=== PATIENT | male | born 1950 | race Caucasian/White ===

== ENCOUNTER 2020-10-05 09:29 | Emergency (ER) | payer MEDICARE, OTHER, SELFPAY ==
[2020-10-05 10:00] VITALS: BP 165/87; PULSE 63; RESP 16; TEMP 36.6; O2SAT 100; BMI 29.8
--- NOTE | 2020-10-05 10:15 | HMH.EDUTC ---
[facility] [place] Clinical Impression: Exposure to COVID-19 virus Disposition: Home, Self-Care Condition on Discharge: Good Instructions: Preventing the Spread of Coronavirus Discharge Instructions Referrals: Shelli Messina [Primary Care Provider] - Time of Disposition: 10:16 Medical Decision Making - Medical Records Medical records reviewed: No: I reviewed the patient's medical records. - Gregory Inquiry Pt receiving controlled substance: No Vital Signs: 10/05/20 10:00 10/05/20 10:16 Temperature 97.8 F 97.8 F Temperature Source Oral Pulse Rate 63 Pulse Rate [Left] 63 Respiratory Rate 16 16 Blood Pressure 165/87 H Blood Pressure [Right Arm] 165/87 H Blood Pressure Mean [Right Arm] 113 Blood Pressure Source [Right Arm] Automatic Cuff Blood Pressure Position [Right Arm] Sitting 02 Sat by Pulse Oximetry 100 Oxygen Delivery Method Room Air Orders (Tests/Meds): ORDERS Category Date Time Status Covid-19 Nasal PCR Sendout P&C Routine Lab 10/05/20 09:50 Received [facility] [place] - General Stated complaint: covid exposure Time Seen by Provider: 10/05/20 10:15 Mode of Arrival: Ambulatory Source of Information: Patient Limitations: No Limitations Description of Symptoms (Recalled from Triage Doc. by RN): Covid test-exposure HEENT Symptoms (Recalled from RN notes): No Resp Symptoms (Recalled from RN notes): No Skin Symptoms (Recalled from RN notes): No MS Symptoms (Recalled from RN notes): No Functional Status (Recalled from RN notes): wnl - History of Present Illness Provider Complaint: He states that his son has covid and he has been around his son. He denies any symptoms so far. - Related Data Home Medications Medication Instructions Recorded Confirmed Amlodipine Besylate [Norvasc 10mg 10 mg PO DAILY 10/05/20 10/05/20 tablet] Aspirin [Aspirin 81mg EC Tab] 81 mg PO DAILY 10/05/20 10/05/20 Calcium Carbonate/Vitamin D3 1 each PO DAILY 10/05/20 10/05/20 [Calcium 600+D Softgel] Duloxetine HCl [Cymbalta] 60 mg PO DAILY 10/05/20 10/05/20 Hydrocodone/Acetaminophen [Lortab 1 tab PO [id number] PRN 10/05/20 10/05/20 7.5/325mg tablet] Hydroxychloroquine Sulfate 200 mg PO BID 10/05/20 10/05/20 [Plaquenil 200mg tablet] Levothyroxine Sodium 137 mcg PO DAILY 10/05/20 10/05/20 [Levothyroxine 137mcg (0.137mg) Tab] Memantine HCl [Memantine 5mg 5 mg PO DAILY 10/05/20 10/05/20 Tablet] Metoprolol Succinate [Toprol XL 50 mg PO DAILY 10/05/20 10/05/20 50mg Tablet] Multivit-Min/FA/Lycopen/Lutein 1 each PO DAILY 10/05/20 10/05/20 [Centrum Silver Tablet] OXcarbazepine [Trileptal 300mg 300 mg PO BID 10/05/20 10/05/20 tablet] Warfarin Sodium [Coumadin 5mg 5 mg PO DAILY 10/05/20 10/05/20 tablet] azaTHIOprine [azaTHIOprine 50mg 50 mg PO BID 10/05/20 10/05/20 Tablet] hydroCHLOROthiazide [HCTZ 25mg 25 mg PO DAILY 10/05/20 10/05/20 tab] lisinopriL [Zestril 20mg tab] 20 mg PO DAILY 10/05/20 10/05/20 predniSONE [Prednisone 5mg 5 mg PO DAILY 10/05/20 10/05/20 Tab] Allergies Allergy/AdvReac Type Severity Reaction Status Date / Time No Known Allergies Allergy Verified 10/05/20 10:03 - Worker's Comp Is this a Worker's Comp case?: No Is this an [facility] Worker's Comp?: No Is this a [place] Worker's Comp?: No H History - Hepatitis A Screen Drug use history?: No High risk sexual behaviors?: No History of sexually transmitted infection?: No Currently employed?: No Childcare worker?: No Do you have indoor plumbing?: Yes Do you have electricity?: Yes Attestation statement:: This patient has been screened for Hepatitis A risk factors. I have reviewed the patient's past medical history: Yes ROS Obtained: Yes All systems reviewed & no additional complaints - Constitutional Constitutional: Reports system reviewed and no additional complaints, except as docu - Eyes Eyes: Reports system reviewed and no additional complaints, except a
[2020-10-05 10:16] VITALS: BP 165/87; PULSE 63; RESP 16; TEMP 36.6; O2SAT 100
[2020-10-06 07:53] LABS: Covid-19 Nasal PCR Sendout P&C NEGATIVE
== END 2020-10-05 10:24 | disposition home or self-care (01) ==
PROVIDERS: Emergency Provider Nurse Practitioner Family; PCP Family Medicine
DX: Z20.828 Contact with and (suspected) exposure to other viral communicable diseases (principal)
CPT/HCPCS: G0463; 99201; U0004

== ENCOUNTER 2021-05-24 19:19 | Emergency (ER) | payer MEDICARE, OTHER, SELFPAY ==
[2021-05-24 19:48] VITALS: BP 121/72; PULSE 74; RESP 18; TEMP 36.8; O2SAT 99; BMI 28.2
--- NOTE | 2021-05-24 19:53 | CT_ITS ---
PROCEDURE INFORMATION: Exam: CT Abdomen And Pelvis With Contrast Exam date and time: 05/24/2021 7:53 PM Age: 70 years old Clinical indication: Abdominal pain; Localized; Right lower quadrant (rlq); Additional info: Abd pain TECHNIQUE: Imaging protocol: Computed tomography of the abdomen and pelvis with contrast. Radiation optimization: All CT scans at this facility use at least one of these dose optimization techniques: automated exposure control; mA and/or kV adjustment per patient size (includes targeted exams where dose is matched to clinical indication); or iterative reconstruction. Contrast material: ISOVUE; Contrast volume: 75 ml; Contrast route: IV; COMPARISON: No relevant prior studies available. FINDINGS: Mediastinal space: Small hiatal hernia. Liver: Normal. No mass. Gallbladder and bile ducts: Calcified gallstones within the gallbladder lumen. Pancreas: Normal enhancement. No ductal dilation. Spleen: No splenomegaly. Adrenal glands: No mass. Kidneys and ureters: Hypoattenuating renal lesions which are too small to characterize. Renal cysts measuring up to 18 mm which do not require additional follow-up. Stomach and bowel: Diverticulosis coli without evidence for diverticulitis. Appendix: No evidence of appendicitis. Intraperitoneal space: No free air. No significant fluid collection. Vasculature: Coronary artery calcifications. Lymph nodes: No enlarged lymph nodes. Urinary bladder: No acute abnormality. Reproductive: No acute abnormality. Bones/joints: Degenerative changes of the spine. No fracture. Soft tissues: Expansion of the lower right rectus sheath measuring 5.7 x 7.0 cm with adjacent stranding and heterogeneous hypodense the material centrally. IMPRESSION: Expansion of the lower right rectus sheath measuring 5.7 x 7.0 cm with adjacent stranding and heterogeneous hypodense the material centrally compatible with a rectus sheath hematoma with active extravasation.
[2021-05-24 20:21] LABS: Basophils % 0.1 % (0.1-2.0); Eosinophils # 0.1 K/mm3 (0.0-0.4); Eosinophils % 0.5 % (0.1-12.0); Hematocrit 31.9 % (42.0-52.0); Hemoglobin 11.3 g/dL (14.1-18.0); Lymphocytes # 0.9 K/mm3 (0.7-4.5); Lymphocytes % 8.5 % (10-50); Mean Corpuscular HGB Conc 35.2 g/dL (31.8-35.4); Mean Corpuscular Volume 90.9 fl (80-94); Mean Platelet Volume 7.7 fl (7.4-10.4); Monocytes # 0.7 K/mm3 (0.1-1.0); Monocytes % 6.7 % (1.7-9.3); Neutrophils # 8.5 K/mm3 (1.8-7.8); Neutrophils % 84.3 % (37.0-80.0); Platelet Count 357 K/mm3 (142-424); Red Blood Count 3.51 M/mm3 (4.60-6.20); Red Cell Distribution Width 13.9 % (11.5-17.5); White Blood Count 10.1 K/mm3 (4.8-10.8)
[2021-05-24 20:29] LABS: Alanine Aminotransferase 35 U/L (12-78); Albumin Level 4.2 g/dl (3.5-5.0); Albumin/Globulin Ratio 1.8 (1.1-1.8); Alkaline Phosphatase 75 U/L (38-126); Amylase 100 U/L (30-110); Anion Gap 12.9 mEq/L (5-15); Aspartate Amino Transferase 66 U/L (17-59); Bilirubin,Total 0.7 mg/dl (0.2-1.3); Blood Urea Nitrogen 14 mg/dl (9-20); Calcium 8.8 mg/dl (8.4-10.2); Carbon Dioxide 28 mmol/L (22.0-30.0); Chloride 85 mmol/L (98-107); Creatinine Clearance Estimated 98 mL/min (50-200); Estimated Glomerular Filt Rate 84 ml/min (>60); GFR (African American) 101 ML/MIN (>60); Globulin 2.3 g/dL (1.3-3.2); Glucose 135 mg/dl (74-100); Lipase 302 U/L (23-300); Potassium 3.9 mmoL/L (3.5-5.1); Sodium 122 mmol/L (136-145); Total Protein,Serum 6.5 g/dl (6.3-8.2)
[2021-05-24 20:34] LABS: C-Reactive Protein 12.8 mg/L (0-4)
[2021-05-24 21:14] LABS: Erythrocyte Sedimentation Rate 93 mm/hr (0-20)
--- NOTE | 2021-05-24 21:23 | HMH.EDNVD ---
ED Disposition Clinical Impression: Prolonged INR, Hyponatremia Rectus sheath hematoma Qualifiers: Encounter type: initial encounter Qualified Code(s): S30.1XXA - Contusion of abdominal wall, initial encounter Disposition: Home, Self-Care Condition on Discharge: Good Instructions: DI for Acute Abdominal Pain Additional Instructions: call pcp in am for follow up Referrals: Shelli Messina [Primary Care Provider] - - Critical Care Critical Care Time: No Attestation: On 05/24/21, the high probability of a clinically significant, sudden or life threatening deterioration of the following system(s) required my full and direct attention, intervention and personal management. The time I documented below is in addition to time spent performing reported procedures but includes the following listed in this critical care notation. Medical Decision Making - Medical Records Medical records reviewed: Yes: I reviewed the patient's medical records. - Gregory Inquiry Pt receiving controlled substance: No Vital Signs: 05/24/21 19:48 Temperature 98.3 F Temperature Source Oral Pulse Rate [Right Brachial] 74 Respiratory Rate 18 Blood Pressure [Right Arm] 121/72 Blood Pressure Mean [Right Arm] 88 Blood Pressure Source [Right Arm] Automatic Cuff Blood Pressure Position [Right Arm] Sitting 02 Sat by Pulse Oximetry 99 Oxygen Delivery Method Room Air - Lab Data Lab results reviewed: Yes: I reviewed the patient's lab results. Lab Results 05/24/21 20:00: WBC 10.1, RBC 3.51 L, Hgb 11.3 L, Hct 31.9 L, MCV 90.9, MCH 32.0 H, MCHC 35.2, RDW 13.9, Plt Count 357, MPV 7.7, Neut % (Auto) 84.3 H, Lymph % (Auto) 8.5 L, [place]well % (Auto) 6.7, Eos % (Auto) 0.5, Baso % (Auto) 0.1, Neut # (Auto) 8.5 H, Lymph # (Auto) 0.9, Caswell # (Auto) 0.7, Eos # (Auto) 0.1, Baso # (Auto) 0.0, ESR 93 H 05/24/21 20:00: Sodium 122 L, Potassium 3.9, Chloride 85 L, Carbon Dioxide 28, Anion Gap 12.9, BUN 14, Creatinine 0.90, Estimated Creat Clear 98, Estimated GFR 84, Est GFR ( Amer) 101, Glucose 135 H, Calcium 8.8, Total Bilirubin 0.7, AST 66 H, ALT 35, Alkaline Phosphatase 75, C-Reactive Protein 12.8 H, Total Protein 6.5, Albumin 4.2, Globulin 2.3, Albumin/Globulin Ratio 1.8, Amylase 100, Lipase 302 H, Procalcitonin 0.050 05/24/21 20:00: Lactate 1.0 05/24/21 20:00: PT 43.5 H, INR 4.09 H Result diagrams: 05/24/21 20:00 05/24/21 20:00 Orders (Tests/Meds): ED MEDICATIONS Discontinued Medications Generic Name Dose Route Start Last Admin Trade Name Freq PRN Reason Stop Dose Admin Iopamidol 75 ml 05/24/21 20:50 05/24/21 20:50 Iopamidol-370 (76%);100ml Bottle IV 05/24/21 20:51 75 ml ONCE ONE Administration Sodium Chloride 10 ml 05/24/21 20:50 05/24/21 20:50 Sodium Chloride 0.9% 10ml Syr (Rad Only) IV 05/24/21 20:51 10 ml ONCE ONE Administration - Radiology Data #1 Image(s): Chest Image Reviewed: Yes I reviewed the patient's radiology image, Yes I have reviewed radiologist's interpretation Preliminary Findings: Normal/NAD - CT Data CT Scan: Abdomen, Pelvis Time Received: 23:[address] Reviewed: Yes: I have viewed the radiologist's interpretation Preliminary Findings: Abnormal - Physician Consults Physician Consulted: josé manuel Reason -: Pt condition Additional Consult: rosana Reason -: Pt condition Medical Decision Narrative: will ask pt to hold coumadin and discuss with his providers for follow up Nausea/Vomiting/Diarrhea HPI - General Chief complaint: Abdominal Pain Stated complaint: R side pain, just got over COVID today Time Seen by Provider: 05/24/21 20:30 Mode of Arrival: Family Vehicle Source of Information: Patient, Medical Record Limitations: No Limitations Description of Symptoms (Recalled from ER Triage Doc. by RN): pt recently got over covid, noticed rlq pain exacerbated by coughing and movement. thought he had pulled something . pt denies hernia history. afebrile. no issues with bowels or b
--- NOTE | 2021-05-24 21:38 | XR_ITS ---
PROCEDURE INFORMATION: Exam: XR Chest Exam date and time: 05/24/2021 9:38 PM Age: 70 years old Clinical indication: Shortness of breath; Patient HX: Recently had covid; Additional info: Abd pain TECHNIQUE: Imaging protocol: XR of the chest. Views: 2 views. COMPARISON: CT ABDOMEN PELVIS W CON 05/24/2021 8:42 PM FINDINGS: Lungs: Unremarkable. No consolidation. Pleural spaces: Unremarkable. No pleural effusion. No pneumothorax. Heart/Mediastinum: Unremarkable. No cardiomegaly. Bones/joints: Unremarkable. IMPRESSION: No acute findings.
[2021-05-24 21:49] LABS: Prothrombin Time 43.5 seconds (10.1-12.5)
[2021-05-24 22:22] LABS: INR 4.09 (0.9-1.1)
--- NOTE | 2021-05-24 22:41 | PC.NURSE ---
radu on phone with Dr georges @ this time
--- NOTE | 2021-05-24 22:44 | PC.NURSE ---
radu talking to dr wayne @ this time
[2021-05-24 23:48] VITALS: BP 121/72; PULSE 74; RESP 18; TEMP 36.8; O2SAT 99
== END 2021-05-24 23:50 | disposition home or self-care (01) ==
PROVIDERS: Emergency Medicine; Emergency Provider Emergency Medicine; PCP Family Medicine
DX: S30.1XXA Contusion of abdominal wall, initial encounter (principal); E87.1 Hypo-osmolality and hyponatremia; Z86.718 Personal history of other venous thrombosis and embolism; Z79.01 Long term (current) use of anticoagulants; Z86.16 Personal history of COVID-19
CPT/HCPCS: 71046; 74177; 80053; 82150; 83605; 83690; 84145; 85025; 85610; 85651; 86140; 99283; Q9967

== ENCOUNTER → 2021-07-14 09:18 | Outpatient (CLI) | payer MEDICARE, OTHER, SELFPAY ==
[2021-07-14 10:05] LABS: Intact Parathyroid Hormone 40.6 pg/mL (7.5-53.5)
[2021-07-14 11:13] LABS: Thyroid Stimulating Hormone 1.41 uIU/mL (0.465-4.68)
[2021-07-14 11:39] LABS: T4 (Thyroxine) 8.9 ug/dl (5.53-11.0)
== END ==
PROVIDERS: Visit Provider Otolaryngology
DX: E03.9 Hypothyroidism, unspecified (principal)
CPT/HCPCS: 36415; 83970; 84436; 84443

== ENCOUNTER 2023-04-20 10:00 | Outpatient (RCR) | payer MEDICARE, OTHER, SELFPAY | END 2023-05-05 10:30 | disposition home or self-care (01) | LOC: PT 10:00 | PROVIDERS: PCP Family Medicine; Visit Provider Orthopaedic Surgery | DX: M25.561 Pain in right knee (principal); Z96.651 Presence of right artificial knee joint | CPT/HCPCS: 97010; 97014; 97110; 97112; 97140; 97163; 97164; 97530; G0283 ==

== ENCOUNTER → 2023-05-23 10:23 | Outpatient (CLI) | payer MEDICARE, OTHER, SELFPAY ==
--- NOTE | 2023-05-23 10:48 | CA_ITS ---
FINAL REPORT TECHNIQUE: Color Doppler, duplex Doppler and compression sonography of the right lower extremity venous system was performed. CLINICAL HISTORY: Patient has a mass in the proximal medial thigh. Patient states he had right knee surgery 2 months ago. The mass appeared 1 week ago. History of DVT 1998. Still taking Coumadin daily as a result. Coumadin was stopped for 7 days with recent knee surgery. Patient has regular blood checks/INR. HTN, HLD, lupus, skin cancer. FINDINGS: There is no evidence of deep venous thrombosis from the level of the groin to the calf. The veins are patent and compressible. There is a 7.6 x 6.9 cm heterogeneous mass in the right thigh with probable central fluid fluid level, may represent a hematoma. IMPRESSION: No evidence of deep venous thrombosis right lower extremity. Possible hematoma as above. If symptoms persist, consider follow-up ultrasound. Reviewed, Interpreted and Dictated by Immanuel Pereira III, MD Transcribed by Kerri Quiroz Authenticated and . [facility]
== END ==
PROVIDERS: PCP Family Medicine; Visit Provider Family Medicine
DX: R22.41 Localized swelling, mass and lump, right lower limb
CPT/HCPCS: 93971

== ENCOUNTER 2023-06-07 14:39 | Emergency (ER) | payer MEDICARE, OTHER, SELFPAY ==
[2023-06-07] VITALS (26 sets, daily range): BP systolic 77–138; BP diastolic 50–84; PULSE 69–92; RESP 14–19; TEMP 36.8–36.9; O2SAT 92–98; BMI 29.8
--- NOTE | 2023-06-07 14:47 | ECG_ITS ---
APPROVED REPORT Exam: Resting ECG HR:87 bpm ECG Measurements Heart Rate 87 AXES TN 185 P 69 QRSd 154 QRS 42 QT 377 T 41 QTc 422 Conclusion SINUS RHYTHM INTRAVENTRICULAR CONDUCTION DELAY [130+ ms QRS DURATION] ABNORMAL ECG UNCONFIRMED REPORT Electronically signed by : Mandeep Ortega MD 06/08/2023 18:35:46
--- NOTE | 2023-06-07 14:56 | HMH.EDGENADL ---
Discharge Plan Disposition Patient Disposition: Home, Self-Care Condition: Good Prescriptions Prescriptions: No Action atorvastatin 20 mg tablet 20 mg PO DAILY Patient Comments: TAKE 1 TABLET BY MOUTH DAILY metoprolol succinate 50 mg tablet extended release 24 hr 50 mg PO DAILY Patient Comments: TAKE 1 TABLET BY MOUTH DAILY lisinopril 20 mg tablet 20 mg PO BID Patient Comments: TAKE 1 TABLET BY MOUTH TWICE DAILY azathioprine 50 mg tablet 50 mg PO BID Patient Comments: TAKE 1 TABLET BY MOUTH TWICE DAILY oxcarbazepine 300 mg tablet 300 mg PO BID Patient Comments: TAKE 1 TABLET BY MOUTH TWICE DAILY tramadol 50 mg tablet 50 - 100 mg PO BIDP PRN (Reason: Pain) Patient Comments: TAKE 1 TO 2 TABLETS BY MOUTH TWICE DAILY NEEDED FOR PAIN prednisone 1 mg tablet 4 mg PO DAILY Patient Comments: TAKE 4 TABLETS BY MOUTH EVERY DAY amlodipine 10 mg tablet 10 mg PO DAILY Patient Comments: TAKE 1 TABLET BY MOUTH DAILY levothyroxine 125 mcg tablet 125 mcg PO DAILY Patient Comments: TAKE 1 TABLET BY MOUTH EVERY DAY hydrochlorothiazide 25 mg tablet 25 mg PO DAILY Patient Comments: TAKE 1 TABLET BY MOUTH DAILY hydroxychloroquine 200 mg tablet 200 mg PO BID Patient Comments: TAKE 1 TABLET BY MOUTH TWICE DAILY duloxetine 30 mg capsule,delayed release(DR/EC) 30 mg PO DAILY Patient Comments: TAKE 1 CAPSULE BY MOUTH EVERY DAY memantine 28 mg capsule,sprinkle,ER 24hr 28 mg PO DAILY Patient Comments: TAKE 1 CAPSULE BY MOUTH EVERY DAY Referrals Follow up/Referrals: Provider,Referral, [Referring] - See instructions Activity Restrictions/Add. Instructions Additional Instructions/Restrictions: You were evaluated in the emergency department today. Please hold your Coumadin at home. Call your primary care provider over the next 24 hours to assess whether or not you need to continue taking this. Keep your Peter wrap on to keep compression on that thigh. It is important that she be seen over the next 24 hours for reassessment of your blood counts and your leg. Return to the emergency department for new or worsening symptoms, such as worsening lightheadedness, significant increase in pain, numbness, tingling, or other concerns. Clinical Impressions Clinical Impression: Traumatic hematoma of right thigh, Bleeding on Coumadin Instructions Patient Instructions: DI for Hematoma (Bruise), Warfarin, DI for Dizziness-Nonvertigo Discharge ED Provider: Dayana Sotomayor General Adult HPI <Ricardo Lou MD - Last Filed: 06/08/23 11:17> General Chief complaint: Dizziness Stated complaint: dizzyness, light headed Time Seen by Provider: 06/07/23 14:49 History of Present Illness HPI narrative: Patient presents for evaluation of Episodic lightheadedness, generalized weakness, exacerbated by sitting up quickly, gradual in onset starting approximately 4 weeks ago, constant, stable in course, patient describes associated symptom of pain of right thigh after fall approximately 15 days ago from standing, nonsyncopal in nature. Patient was evaluated at that time in the emergency department and found to have hematoma over his right thigh. This occurs in the setting of warfarin use for remote history of DVT. Patient has continued warfarin therapy at that time. Swelling and tenderness have gotten gradually worse over that time, patient denies any associated weakness or numbness in the affected extremity. No previous therapies today. Patient denies any other exacerbating or alleviating factors. Patient has not had similar symptoms in the past. He denies any overt signs or symptoms of vertigo or chest pain or palpitations during these times. No head injury, no pain elsewhere. Related Data Home Medications Medication Instructions Recorded Confirmed amlodipine 10 mg tablet 10 mg PO MIKO
[2023-06-07 15:18] LABS: Basophils % 0.2 % (0.1-2.0); Eosinophils # 0.1 K/mm3 (0.0-0.4); Eosinophils % 0.8 % (0.1-12.0); Hematocrit 25.5 % (42.0-52.0); Hemoglobin 8.2 g/dL (14.1-18.0); Lymphocytes % 8.8 % (10-50); Mean Corpuscular HGB Conc 32.1 g/dL (31.8-35.4); Mean Corpuscular Hemoglobin 31.6 pg (27.0-31.2); Mean Corpuscular Volume 98.6 fl (80-94); Mean Platelet Volume 7.2 fl (7.4-10.4); Monocytes # 0.6 K/mm3 (0.1-1.0); Monocytes % 5.9 % (1.7-9.3); Neutrophils # 9.2 K/mm3 (1.8-7.8); Neutrophils % 84.4 % (37.0-80.0); Platelet Count 448 K/mm3 (142-424); Red Blood Count 2.59 M/mm3 (4.60-6.20); Red Cell Distribution Width 15.1 % (11.5-17.5)
--- NOTE | 2023-06-07 15:33 | PC.NURSE ---
warm blanket given to pt, call button in reach, family at BS
[2023-06-07 15:34] LABS: Alanine Aminotransferase 28 U/L (12-78); Albumin Level 3.9 g/dl (3.5-5.0); Albumin/Globulin Ratio 1.4 (1.1-1.8); Alkaline Phosphatase 79 U/L (38-126); Anion Gap 13.4 mEq/L (5-15); Aspartate Amino Transferase 61 U/L (17-59); Bilirubin,Total 0.5 mg/dl (0.2-1.3); Blood Urea Nitrogen 23 mg/dl (9-20); Carbon Dioxide 29 mmol/L (22.0-30.0); Chloride 96 mmol/L (98-107); Creatine Kinase 217 U/L (55-170); Creatinine Clearance Estimated 80 mL/min (50-200); Estimated Glomerular Filt Rate 60 ml/min (>60); GFR (African American) 72 ML/MIN (>60); Globulin 2.7 g/dL (1.3-3.2); Glucose 143 mg/dl (74-100); Potassium 4.4 mmoL/L (3.5-5.1); Sodium 134 mmol/L (136-145); Total Protein,Serum 6.6 g/dl (6.3-8.2)
[2023-06-07 15:34] LABS: INR 4.18 (0.9-1.1); Magnesium 1.7 mg/dl (1.6-2.3); Phosphorous 3.2 mg/dl (2.5-4.5); Prothrombin Time 41.1 seconds (10.1-12.5)
--- NOTE | 2023-06-07 15:53 | ECG_ITS ---
APPROVED REPORT Exam: Resting ECG HR:73 bpm ECG Measurements Heart Rate 73 AXES IA 188 P 53 QRSd 153 QRS 26 QT 411 T 40 QTc 437 Conclusion SINUS RHYTHM Incomplete LBBB - LAFB ABNORMAL ECG UNCONFIRMED REPORT Electronically signed by : Mandeep Ortega MD 06/08/2023 18:35:11
--- NOTE | 2023-06-07 16:02 | CT_ITS ---
PROCEDURE INFORMATION: Exam: CTA Abdominal Aorta and Bilateral Lower Extremities (Run-off) With Contrast Exam date and time: 06/07/2023 4:28 PM Age: 72 years old Clinical indication: Injury or trauma; Fall; Blunt trauma; Lower leg; Right; Additional info: Rle hematoma after fall, decrease in hgb TECHNIQUE: Imaging protocol: Computed tomographic angiography of the of the abdominal aorta, pelvis and bilateral lower extremities with contrast. 3D rendering (Not supervised by radiologist): MIP and/or 3D reconstructed images were created by the technologist. REPORTING DATA: Count of CT and Cardiac NM exams in prior 12 months: This patient has received 0 known CTs and 0 known cardiac nuclear medicine studies in the 12 months prior to the current study. COMPARISON: 1. Radiology 2. CT ABDOMEN PELVIS W CON 05/24/2021 8:42 PM FINDINGS: Aorta: No aortic aneurysm. No aortic dissection. Celiac trunk and mesenteric arteries: No occlusion or significant stenosis. Renal arteries: No occlusion or significant stenosis. Right iliac arteries: No occlusion or significant stenosis. Right femoral/popliteal arteries: No occlusion or significant stenosis. Right infrapopliteal arteries: No occlusion or significant stenosis. Left iliac arteries: No occlusion or significant stenosis. Left femoral/popliteal arteries: No occlusion or significant stenosis. Left infrapopliteal arteries: No occlusion or significant stenosis. Lungs: Interval development of a 11 x 5 mm (average dimension 8 mm) multilobular nodular density in the posterior left upper lobe on axial image 29 of series 5.. A 4 mm calcified subpleural nodule posterior right lower lobe on axial image 26. Calcified nodule in the posterior right lower lobe on image 45. Lung bases otherwise clear. Liver: No mass. Gallbladder and bile ducts: Gallbladder mildly distended with a solitary stone but no evident wall thickening. No evident bile duct dilatation. Pancreas: Unremarkable. No mass. No ductal dilation. Spleen: Normal. No splenomegaly. Adrenal glands: Normal. No mass. Kidneys and ureters: A 2.6 cm simple appearing cyst in the posterosuperior right kidney and a 3.6 cm benign-appearing parapelvic cyst in the mid right kidney similar to previous. No follow-up of the cystic lesions advised. A 9 mm benign-appearing cyst in the posteroinferior left kidney that previously measured [address] of 05/24/2021. No follow-up of this lesion advised. Kidneys and ureters otherwise unremarkable with no obstructing stones or uropathy. Stomach and bowel: Unremarkable. No obstruction. No mucosal thickening. Appendix: Appendix is normal. No evidence of appendicitis. Urinary bladder: Unremarkable. No mass. Reproductive: Unremarkable as visualized. Intraperitoneal space: Unremarkable. No free air. No significant fluid collection. Lymph nodes: No lymphadenopathy. Bones/joints: No acute fracture. No dislocation. Soft tissues: Large anterior right thigh hematoma centered between the vastus intermedius and vastus medialis muscles and located immediately lateral to superficial femoral artery measuring 8.4 x 8.3 x 23.5 cm. Associated small focus of active bleeding measuring 6 mm on axial image 287 of series 5 and a 14 x 6 mm focus of active bleeding more inferiorly on image 302 and additional foci of bleeding measuring 4 mm on image 328 and 8 mm on image 345 noted. Some other possible tiny foci of active bleeding may also be present in the lower thigh region largest measuring 3 x 1 mm on image 345. IMPRESSION: 1. Large right thigh hematoma measuring up to 23.5 cm in maximum dimension. Multiple small foci of active bleeding noted within the hematoma largest measuring 14 mm. 2. No acute abnormalities of the
[2023-06-07 16:05] LABS: Thyroid Stimulating Hormone 0.79 uIU/mL (0.465-4.68)
[2023-06-07 16:34] LABS: Free T4 (Free Thyroxine) 0.93 ng/dl (0.78-2.19)
--- NOTE | 2023-06-07 16:36 | PC.NURSE ---
pt return from CT via wheelchair
[2023-06-07 16:52] LABS: Coronavirus 19, PCR Not Detected (NotDetected); Influenza A, PCR Not Detected (NotDetected); Influenza B, PCR Not Detected (NotDetected)
--- NOTE | 2023-06-07 17:53 | PC.NURSE ---
ER MD Lou speaking with [facility]
--- NOTE | 2023-06-07 17:57 | PC.NURSE ---
call made to radiology to [facility] and make a disc of images for pt transfer.
--- NOTE | 2023-06-07 18:38 | PC.NURSE ---
GIO PETERSON speaking with [facility] at this time
--- NOTE | 2023-06-07 18:42 | PC.NURSE ---
waiting chemical reclamation equipment operator back from [facility]
--- NOTE | 2023-06-07 19:49 | PC.NURSE ---
Blood bank notified of 3 FFP units. Phleb down here completing ABO/RH labs Asked chemical plant technical director to page [facility] again since it's been 1 hour since last call
--- NOTE | 2023-06-07 19:49 | PC.NURSE ---
PC to [facility] MD's for update, trauma team is still in OR and will call back as soon as possible
[2023-06-07 20:13] LABS: Creatine Kinase 205 U/L (55-170)
[2023-06-07 20:14] LABS: Lactic Acid 0.7 mmol/L (0.7-2.1)
--- NOTE | 2023-06-07 20:22 | PC.NURSE ---
Discussed with provider if we could call other facilities. He would like to await call from . No new calls made
--- NOTE | 2023-06-07 20:26 | PC.NURSE ---
Further discussed transfer issue with family. Went back to Attending and advised family would like to further search, but specifically wants [facility] if possible. Phone calls being made now
--- NOTE | 2023-06-07 20:34 | PC.NURSE ---
PC to [facility], spoke with Eleuterio re: transfer. Awaiting return call
--- NOTE | 2023-06-07 20:39 | PC.NURSE ---
[facility] declined to speak with provider stating this is related to a fall and needs to go to [facility] for trauma evaluation. Attending and family updated
--- NOTE | 2023-06-07 20:44 | PC.NURSE ---
[facility] states that imaging has been sent over and they sanchez waiting to hear back from them
--- NOTE | 2023-06-07 20:56 | PC.NURSE ---
Patient and family have voiced their understanding of this situation and okay to wait until we hear back from [facility]. See previous note regarding update from [facility] transfer center. All needs and concerns addressed.
--- NOTE | 2023-06-07 21:25 | PC.NURSE ---
DR Sanchez from call for
[2023-06-07 21:52] LABS: Creatine Kinase 185 U/L (55-170)
[2023-06-07 21:58] LABS: INR 4.18 (0.9-1.1); Prothrombin Time 41.1 seconds (10.1-12.5)
[2023-06-08 00:08] VITALS: BP 106/63; PULSE 77; RESP 17; TEMP 36.8; O2SAT 95
[2023-06-08 00:10] VITALS: BP 114/53; PULSE 76; RESP 17; TEMP 36.8; O2SAT 95
[2023-06-08 00:15] VITALS: BP 105/52; PULSE 78; RESP 16; TEMP 36.8; O2SAT 94
[2023-06-08 00:20] VITALS: BP 102/51; PULSE 77; RESP 14; TEMP 36.8; O2SAT 96
[2023-06-08 00:40] VITALS: BP 108/55; PULSE 76; RESP 17; TEMP 36.9; O2SAT 94
--- NOTE | 2023-06-08 00:41 | PC.NURSE ---
Discussed with Dr. Lou and family that since FFP is complete, his right thigh will be wrapped with masoud wrap and he will need to follow-up with our ED tomorrow or with his PCP for recheck of his thigh, repeat CBC and Coag. Patient to hold his Coumadin until PCP follow-up. Family and patient agreeable.
[2023-06-08 01:11] VITALS: BP 111/55; PULSE 75; RESP 17; TEMP 36.9; O2SAT 96
--- NOTE | 2023-06-08 07:28 | PC.NURSE ---
late entry: 06/07/23 1525 pt in a gown so that ER MD Snyder can examine pt R leg. after triage pt stated that had a recent fall, R thigh swelling a bruising. Pt reports pt had a doppler last week- negative for dvt.
== END 2023-06-08 01:13 | disposition home or self-care (01) ==
PROVIDERS: Emergency Medicine; Emergency Provider Emergency Medicine; PCP Family Medicine
DX: R42 Dizziness and giddiness (principal); R53.1 Weakness; S70.11XA Contusion of right thigh, initial encounter; K75.4 Autoimmune hepatitis; I10 Essential (primary) hypertension; Z79.01 Long term (current) use of anticoagulants; Z86.718 Personal history of other venous thrombosis and embolism; W19.XXXA Unspecified fall, initial encounter
CPT/HCPCS: 36415; 73706; 80053; 82550; 83605; 83735; 84100; 84439; 84443; 84484; 85025; 85610; 86850; 86900; 86901; 93005; 96360; 96372; 99285; P9017; Q9967

== ENCOUNTER 2023-06-08 14:08 | Observation (INO) | payer MEDICARE, OTHER, SELFPAY ==
[2023-06-08] VITALS (20 sets, daily range): BP systolic 121–166; BP diastolic 70–89; PULSE 66–95; RESP 16–19; TEMP 36.7–37.1; O2SAT 94–98; BMI 29.8
--- NOTE | 2023-06-08 14:55 | ECG_ITS ---
APPROVED REPORT Exam: Resting ECG HR:71 bpm ECG Measurements Heart Rate 71 AXES NV 181 P 10 QRSd 145 QRS -1 QT 426 T 26 QTc 448 Conclusion SINUS RHYTHM INTRAVENTRICULAR CONDUCTION DELAY [130+ ms QRS DURATION] ABNORMAL ECG UNCONFIRMED REPORT Electronically signed by : Mandeep Ortega MD 06/08/2023 18:30:11
--- NOTE | 2023-06-08 15:24 | HMH.EDGENADL ---
Discharge Plan Disposition Patient Disposition: Admitted as Observation Condition: Good Clinical Impressions Clinical Impression: Acute blood loss anemia, Traumatic hematoma of right thigh, Bleeding on Coumadin Discharge ED Provider: Westley Snyder General Adult HPI General Chief complaint: Weakness Stated complaint: Weakness Time Seen by Provider: 06/08/23 15:14 History of Present Illness HPI narrative: 72-year-old male with a history of DVT on Coumadin here for reassessment after a thigh hematoma. He was here yesterday evening with significant expanding thigh hematoma in the right lower extremity had a CTA that showed active hemorrhage and an INR greater than 4. He was given vitamin K and FFP the physician yesterday evening discussed the case with trauma surgery at and they recommended compression dressing and the patient wanted to go home and comes back to the emergency department with close reassessment. He has not taken off his Peter wrap for reassessment at this point. He does state he has been a little bit lightheaded with standing but that is been going on for several days at this point. No chest pain shortness of breath he is currently asymptomatic. Related Data Home Medications Medication Instructions Recorded Confirmed amlodipine 10 mg tablet 10 mg PO DAILY High Blood Pressure 06/07/23 06/08/23 atorvastatin 20 mg tablet 20 mg PO DAILY High Cholesterol 06/07/23 06/08/23 azathioprine 50 mg tablet 50 mg PO BID Kidney transplant 06/07/23 06/08/23 duloxetine 30 mg capsule,delayed 30 mg PO DAILY Mood 06/07/23 06/08/23 release hydrochlorothiazide 25 mg tablet 25 mg PO DAILY Fluid 06/07/23 06/08/23 hydroxychloroquine 200 mg tablet 200 mg PO BID Arthritis 06/07/23 06/08/23 levothyroxine 125 mcg tablet 125 mcg PO DAILY Thyroid 06/07/23 06/08/23 lisinopril 20 mg tablet 20 mg PO BID High Blood Pressure 06/07/23 06/08/23 memantine 28 mg capsule 28 mg PO DAILY Dementia 06/07/23 06/08/23 sprinkle,extended release 24hr metoprolol succinate 50 mg 50 mg PO DAILY High Blood Pressure 06/07/23 06/08/23 tablet,extended release 24 hr oxcarbazepine 300 mg tablet 300 mg PO BID Partial seizures 06/07/23 06/08/23 prednisone 1 mg tablet 4 mg PO DAILY Adrenal 06/07/23 06/08/23 tramadol 50 mg tablet 50 - 100 mg PO BIDP PRN Pain 06/07/23 06/08/23 Allergies Allergy/AdvReac Type Severity Reaction Status Date / Time No Known Allergies Allergy Verified 10/05/20 10:03 [facility] Disclaimer: The information contained in this section may have been updated after the patient was seen, as this information can be updated by other users. Medical History (Updated 06/09/23 @ 03:40 by Nikos Ibarra MD) Arthritis Autoimmune hepatitis Hx of deep venous thrombosis Hypertension Lupus Surgical History (Updated 06/08/23 @ 18:07 by Marco Grant RN) History of total right knee replacement Family History (Updated 06/08/23 @ 18:05 by Marco Grant RN) Mother Family history of hypertension Brother Family history of myocardial infarction Social History (Updated 06/08/23 @ 18:06 by Marco Grant RN) Smoking Status: Never smoker second hand exposure: Yes alcohol intake: never current occupational status: other Travel in the last 8 weeks: None ROS Obtained: Yes All systems reviewed & no additional complaints except as documented Physical Exam General General appearance: alert and in no apparent distress Respiratory Respiratory exam: Present normal lung sounds bilaterally; Absent respiratory distress Cardiovascular Cardiovascular exam: Present regular rate; Absent tachycardia Extremities Exam Extremities exam: Present other (Peter wrap removed there is mild swelling of the right thigh which family states is significant improved from yesterday. Skin is pale and there is good distal perfusion.) Neurological Exam Neurological exam: Present alert and oriented X3 Medical Decision Making Gregory Inquiry
[2023-06-08 15:39] LABS: Basophils % 0.2 % (0.1-2.0); Eosinophils # 0.1 K/mm3 (0.0-0.4); Eosinophils % 0.9 % (0.1-12.0); Lymphocytes # 0.8 K/mm3 (0.7-4.5); Lymphocytes % 10.1 % (10-50); Mean Corpuscular HGB Conc 32.1 g/dL (31.8-35.4); Mean Corpuscular Hemoglobin 31.9 pg (27.0-31.2); Mean Corpuscular Volume 99.4 fl (80-94); Mean Platelet Volume 7.3 fl (7.4-10.4); Monocytes # 0.5 K/mm3 (0.1-1.0); Monocytes % 6.3 % (1.7-9.3); Neutrophils # 6.6 K/mm3 (1.8-7.8); Neutrophils % 82.5 % (37.0-80.0); Platelet Count 378 K/mm3 (142-424); Red Blood Count 2.08 M/mm3 (4.60-6.20); Red Cell Distribution Width 15.3 % (11.5-17.5)
[2023-06-08 15:40] LABS: Chloride 98 mmol/L (98-107); Potassium 4.3 mmoL/L (3.5-5.1); Sodium 133 mmol/L (136-145)
[2023-06-08 15:42] LABS: Alanine Aminotransferase 26 U/L (12-78); Aspartate Amino Transferase 55 U/L (17-59); Blood Urea Nitrogen 20 mg/dl (9-20); Creatinine Clearance Estimated 96 mL/min (50-200); Estimated Glomerular Filt Rate 74 ml/min (>60); GFR (African American) 89 ML/MIN (>60)
[2023-06-08 15:43] LABS: Albumin Level 3.5 g/dl (3.5-5.0); Albumin/Globulin Ratio 1.3 (1.1-1.8); Alkaline Phosphatase 81 U/L (38-126); Anion Gap 10.3 mEq/L (5-15); Bilirubin,Total 0.6 mg/dl (0.2-1.3); Calcium 9.1 mg/dl (8.4-10.2); Carbon Dioxide 29 mmol/L (22.0-30.0); Globulin 2.7 g/dL (1.3-3.2); Glucose 111 mg/dl (74-100); Total Protein,Serum 6.2 g/dl (6.3-8.2)
[2023-06-08 15:44] LABS: Hemoglobin 6.6 g/dL (14.1-18.0)
[2023-06-08 15:45] LABS: INR 1.59 (0.9-1.1); Prothrombin Time 16.7 seconds (10.1-12.5)
--- NOTE | 2023-06-08 15:48 | PC.NURSE ---
Critical H&H reported to at this time. Will await new orders.
[2023-06-08 15:58] LABS: Hematocrit 20.7 % (42.0-52.0)
--- NOTE | 2023-06-08 16:07 | PC.NURSE ---
GIO PETERSON contacting dr. de jesus
--- NOTE | 2023-06-08 16:10 | EXP.HP ---
History of Present Illness *Admission Date: 06/08/23 *Reason for visit:: anemia *History of present illness: Mr. Paredes is a 72 year old male with a past medical history of DVT on COumadin who presents for reassessment after a thigh hematoma. Yesterday in the ED the patient had significant expanding thigh hematoma in the right lower extremity and had a CTA that showed active hemorrhage. He also had a supratherapeutic INR level of 4. He was given vitamin K and FFP and Trauma Surgery at recommended compression dressing and the patient wanted to go home to return with close reassessment. The patient currently has no complaints. He has no pain in his right lower extremity at rest. No numbness or tingling. He does feel mildly lightheaded with standing. Workup in the ED reveals Hgb level of 6.6; it was 8.2 on 06/07. [facility] Disclaimer: The information contained in this section may have been updated after the patient was seen, as this information can be updated by other users. Medical History (Updated 06/09/23 @ 03:40 by Nikos Ibarra MD) Arthritis Autoimmune hepatitis Hx of deep venous thrombosis Hypertension Lupus Surgical History (Updated 06/08/23 @ 18:07 by Marco Grant RN) History of total right knee replacement Family History (Updated 06/08/23 @ 18:05 by Marco Grant RN) Mother Family history of hypertension Brother Family history of myocardial infarction Social History (Updated 06/08/23 @ 18:06 by Marco Grant RN) Smoking Status: Never smoker second hand exposure: Yes alcohol intake: never current occupational status: other Travel in the last 8 weeks: None Review of Systems Review of Systems Review of systems:: pertinent systems reviewed and negative unless documented below ENT Ears, Nose, Mouth, and Throat: Reports dizziness *Neurologic Neurologic: Reports dizziness Meds Home Medications and Allergies Home Medications Medication Instructions Recorded Confirmed Type amlodipine 10 mg tablet 10 mg PO DAILY High Blood Pressure 06/07/23 06/08/23 History atorvastatin 20 mg tablet 20 mg PO DAILY High Cholesterol 06/07/23 06/08/23 History azathioprine 50 mg tablet 50 mg PO BID Kidney transplant 06/07/23 06/08/23 History duloxetine 30 mg capsule,delayed 30 mg PO DAILY Mood 06/07/23 06/08/23 History release hydrochlorothiazide 25 mg tablet 25 mg PO DAILY Fluid 06/07/23 06/08/23 History hydroxychloroquine 200 mg tablet 200 mg PO BID Arthritis 06/07/23 06/08/23 History levothyroxine 125 mcg tablet 125 mcg PO DAILY Thyroid 06/07/23 06/08/23 History lisinopril 20 mg tablet 20 mg PO BID High Blood Pressure 06/07/23 06/08/23 History memantine 28 mg capsule 28 mg PO DAILY Dementia 06/07/23 06/08/23 History sprinkle,extended release 24hr metoprolol succinate 50 mg 50 mg PO DAILY High Blood Pressure 06/07/23 06/08/23 History tablet,extended release 24 hr oxcarbazepine 300 mg tablet 300 mg PO BID Partial seizures 06/07/23 06/08/23 History prednisone 1 mg tablet 4 mg PO DAILY Adrenal 06/07/23 06/08/23 History tramadol 50 mg tablet 50 - 100 mg PO BIDP PRN Pain 06/07/23 06/08/23 History New Prescriptions to Start Prescriptions: Allergies Allergy/AdvReac Type Severity Reaction Status Date / Time No Known Allergies Allergy Verified 10/05/20 10:03 Exam Data for Last 24 hours Vital signs and Labs for Last 24 Hours: Temp Pulse Resp BP Pulse Ox O2 Del Method 98.7 F 78 19 127/71 97 Room Air 06/08/23 14:08 06/08/23 15:30 06/08/23 14:08 06/08/23 15:30 06/08/23 15:30 06/08/23 14:08 Laboratory Results - last 24 hr 06/08/23 14:50: WBC 8.0 D, RBC 2.08 L, Hgb 6.6 L*, Hct 20.7 L*, MCV 99.4 H, MCH 31.9 H, MCHC 32.1, RDW 15.3, Plt Count 378, MPV 7.3 L, Neut % (Auto) 82.5 H, Lymph % (Auto) 10.1, [place] % (Auto) 6.3, Eos % (Auto) 0.9, Baso % (Auto) 0.2, Neut # (Auto) 6.6, Lymph # (Auto) 0.8, [place] # (Auto) 0.5, Eos # (Auto) 0.1, Baso # (Auto) 0.0, PT 16.7 H, INR 1.59 H
--- NOTE | 2023-06-08 16:10 | PC.NURSE ---
notified care management of admission, spoke with jacqui
--- NOTE | 2023-06-08 17:18 | PC.NURSE ---
Report called to VERENA Perez at this time.
[2023-06-08 21:13] LABS: Hematocrit 22.3 % (42.0-52.0); Hemoglobin 7.2 g/dL (14.1-18.0)
--- NOTE | 2023-06-08 21:44 | PC.NURSE ---
TRANSFUSION COMPLETED AT 2029. NO S/S OF TRANSFUSION REACTION. 1 HOUR POST TRANSFUSION H&H 7.2 AND 22.3, ELMER CHAU DIRECTOR OF THERAPY SERVICES NOTIFIED.
[2023-06-09] VITALS: BP 152/80; PULSE 71; RESP 18; TEMP 37.2; O2SAT 90
[2023-06-09 04:00] VITALS: BP 126/78; PULSE 71; RESP 18; TEMP 37.3; O2SAT 98; BMI 29.8
--- NOTE | 2023-06-09 05:05 | PC.NURSE ---
PATIENT HAS RESTED WELL. SPOUSE AT BEDSIDE. RECEIVED 1 UNIT PRBCs. TOLERATED WELL. HAS NON-PITTING EDEMA BLEs, RIGHT THIGH WITH SIGNIFICANT SWELLING. EMMA WRAP IS OFF. PATIENT STATES DOCTOR TOLD HIM TO LEAVE OFF. NO COMPLAINTS OF PAIN. VITAL SIGNS STABLE/AFEBRILE.
[2023-06-09 06:57] LABS: Basophils % 0.3 % (0.1-2.0); Eosinophils # 0.1 K/mm3 (0.0-0.4); Eosinophils % 2.1 % (0.1-12.0); Hematocrit 24.5 % (42.0-52.0); Hemoglobin 7.8 g/dL (14.1-18.0); Lymphocytes # 1.2 K/mm3 (0.7-4.5); Lymphocytes % 18.3 % (10-50); Mean Corpuscular HGB Conc 31.7 g/dL (31.8-35.4); Mean Corpuscular Hemoglobin 30.9 pg (27.0-31.2); Mean Corpuscular Volume 97.4 fl (80-94); Mean Platelet Volume 8.1 fl (7.4-10.4); Monocytes # 0.5 K/mm3 (0.1-1.0); Monocytes % 7.9 % (1.7-9.3); Neutrophils # 4.8 K/mm3 (1.8-7.8); Neutrophils % 71.5 % (37.0-80.0); Platelet Count 356 K/mm3 (142-424); Red Blood Count 2.52 M/mm3 (4.60-6.20); Red Cell Distribution Width 14.9 % (11.5-17.5); White Blood Count 6.7 K/mm3 (4.8-10.8)
[2023-06-09 07:08] LABS: INR 1.32 (0.9-1.1)
[2023-06-09 07:10] LABS: Anion Gap 11.9 mEq/L (5-15); Blood Urea Nitrogen 19 mg/dl (9-20); Calcium 8.8 mg/dl (8.4-10.2); Carbon Dioxide 29 mmol/L (22.0-30.0); Chloride 100 mmol/L (98-107); Creatinine Clearance Estimated 96 mL/min (50-200); Estimated Glomerular Filt Rate 74 ml/min (>60); GFR (African American) 89 ML/MIN (>60); Glucose 96 mg/dl (74-100); Potassium 3.9 mmoL/L (3.5-5.1); Sodium 137 mmol/L (136-145)
--- NOTE | 2023-06-09 07:47 | HMH.PHAINT1 ---
Pharmacy Intervention Comments: HOME MEDICATION LIST VERIFIED USING LIST FROM OUTPATIENT PHARMACY
[2023-06-09 08:00] VITALS: BP 132/73; PULSE 80; RESP 20; TEMP 36.9; O2SAT 97
--- NOTE | 2023-06-09 08:13 | EXP.DC.SUM ---
General Admission date:: 06/08/23 Discharge date: 06/09/23 HPI HPI HPI: Mr. Paredes is a 72 year old male with a past medical history of DVT on Coumadin who presents for reassessment after a thigh hematoma. Yesterday in the ED the patient had significant expanding thigh hematoma in the right lower extremity and had a CTA that showed active hemorrhage. He also had a supratherapeutic INR level of 4. He was given vitamin K and FFP and Trauma Surgery at recommended a compression dressing. The patient wanted to go home to return with close reassessment. The patient returned to the ER today and feels that the swelling in his thigh has come down. He has no pain in his right lower extremity at rest. No numbness or tingling. Workup in the ED reveals Hgb level of 6.6; it was 8.2 on 06/07; INR is 1.59. Hospital Course Hospital Course Hospital Course: #acute blood loss anemia #R thigh hematoma #supratherapeutic INR, resolved #h/o DVT The patient was given 1 unit of PRBCs. Hgb was repeated in the morning and had increased from 6.6 to 7.8. On the day of discharge he had no complaints. He is to follow up with his PCP within 1 week to follow up on his hemoglobin level and to see if he should be re-started on an anticoagulant. CT with an incidental finding of 8mm nodule int he left upper lobe; we recommended surveillance with CT chest at 3-6 months and at 18-24 months. Exam Data for Last 24 hours Vital signs and Labs for Last 24 Hours: Temp Pulse Resp BP Pulse Ox O2 Del Method 99.1 F 71 18 126/78 98 Room Air 06/09/23 04:00 06/09/23 04:00 06/09/23 04:00 06/09/23 04:00 06/09/23 04:00 06/09/23 06:42 Laboratory Results - last 24 hr 06/08/23 14:50: WBC 8.0 D, RBC 2.08 L, Hgb 6.6 L*, Hct 20.7 L*, MCV 99.4 H, MCH 31.9 H, MCHC 32.1, RDW 15.3, Plt Count 378, MPV 7.3 L, Neut % (Auto) 82.5 H, Lymph % (Auto) 10.1, [place] % (Auto) 6.3, Eos % (Auto) 0.9, Baso % (Auto) 0.2, Neut # (Auto) 6.6, Lymph # (Auto) 0.8, [place] # (Auto) 0.5, Eos # (Auto) 0.1, Baso # (Auto) 0.0, PT 16.7 H, INR 1.59 H, Sodium 133 L, Potassium 4.3, Chloride 98, Carbon Dioxide 29, Anion Gap 10.3, BUN 20, Creatinine 1.00, Estimated Creat Clear 96, Estimated GFR 74, Est GFR ( Amer) 89 D, Glucose 111 H, Calcium 9.1, Total Bilirubin 0.6, AST 55, ALT 26, Alkaline Phosphatase 81, Total Protein 6.2 L, Albumin 3.5 D, Globulin 2.7, Albumin/Globulin Ratio 1.3 06/08/23 21:10: Hgb 7.2 L, Hct 22.3 L 06/09/23 06:04: WBC 6.7, RBC 2.52 L, Hgb 7.8 L, Hct 24.5 L, MCV 97.4 H, MCH 30.9, MCHC 31.7 L, RDW 14.9, Plt Count 356, MPV 8.1, Neut % (Auto) 71.5, Lymph % (Auto) 18.3, [place] % (Auto) 7.9, Eos % (Auto) 2.1, Baso % (Auto) 0.3, Neut # (Auto) 4.8, Lymph # (Auto) 1.2, [place] # (Auto) 0.5, Eos # (Auto) 0.1, Baso # (Auto) 0.0, PT 14.0 H, INR 1.32 H, Sodium 137, Potassium 3.9, Chloride 100, Carbon Dioxide 29, Anion Gap 11.9, BUN 19, Creatinine 1.00, Estimated Creat Clear 96, Estimated GFR 74, Est GFR ( Amer) 89, Glucose 96, Calcium 8.8 I & O for Last 24 hours: Intake & Output 06/06/23 06/07/23 06/08/23 06/09/23 23:59 23:59 23:59 23:59 Intake Total 250 / 490 240 / 240 Output Total 0 / 300 700 / 700 Balance 250 / 190 -460 / -460 Weight 100.471 kg 99.904 kg Constitutional Constitutional: no acute distress *Routine HEENT Exam Head: Present normocephalic Eye: Present EOMI and PERRL ENT: Present mucous membranes moist *Routine Neck Exam Neck: Present supple; Absent lymphadenopathy *Routine Respiratory Exam Respiratory: Present CTA bilaterally *Routine Cardiovascular Exam Cardiovascular: Present RRR *Routine Abdominal Exam Abdominal: Present soft and normoactive bowel sounds; Absent tenderness *Routine Extremities Exam Extremities: Absent cyanosis, clubbing or edema Comments: R thigh with mild echymosis and mild swelling; nontender with palpation *Routine Skin Exam Skin: Present warm; Absent rash *Routine Neurological Exam Neurological: Present alert and oriented X3 Results
[2023-06-09 12:00] VITALS: BP 131/75; PULSE 67; RESP 16; TEMP 36.9; O2SAT 94
--- NOTE | 2023-06-12 12:51 | CARE MANAGER ---
Contacted patient related to hospital discharge. Patient states he is doing better, but is still a little weak. He was not started on any new medications. Denies questions or concerns and is aware of his follow up appointment. VERENA Blake
== END 2023-06-09 13:40 | disposition home or self-care (01) ==
LOC: ER 15:27 → 2ND 17:03
PROVIDERS: Student in an Organized Health Care Education/Training Program; Admitting Provider Internal Medicine; Emergency Provider Emergency Medicine; PCP Family Medicine; Visit Provider Internal Medicine
DX: D62 Acute posthemorrhagic anemia (principal); M19.90 Unspecified osteoarthritis, unspecified site; Z96.651 Presence of right artificial knee joint; R79.1 Abnormal coagulation profile
CPT/HCPCS: 36415; 73706; 80048; 80053; 82550; 83605; 83735; 84100; 84439; 84443; 84484; 85014; 85018; 85025; 85610; 86850; 86900; 86901; 87636; 93005; 96360; 96372; 99285; G0378; P9016; P9017; Q9967

== ENCOUNTER 2023-12-05 10:55 | Outpatient (CLI) | payer MEDICARE, OTHER, SELFPAY ==
[2023-12-05 10:55] VITALS: BP 149/70; PULSE 55; RESP 16; TEMP 36.4; O2SAT 96
[2023-12-05 11:00] VITALS: BP 165/72; PULSE 62; RESP 16; TEMP 36.7; O2SAT 97
[2023-12-05] MEDS: 0.9 % SODIUM CHLORIDE 50 ML 100 ML IV (11:20)
[2023-12-05] MEDS: diphenhydrAMINE 50MG/ML VIAL 50 MG IV (11:23)
[2023-12-05] MEDS: SODIUM CHLORIDE 0.9% IV (11:43)
[2023-12-05] MEDS: MALTOSE IV (11:43)
[2023-12-05] MEDS: ABATACEPT IV (11:43)
== END 2023-12-05 23:59 | disposition home or self-care (01) ==
PROVIDERS: PCP Family Medicine; Visit Provider Internal Medicine
DX: M06.9 Rheumatoid arthritis, unspecified (principal)
CPT/HCPCS: 96365; J0129

== ENCOUNTER 2024-01-02 10:48 | Outpatient (CLI) | payer MEDICARE, OTHER, SELFPAY ==
[2024-01-02] MEDS: ABATACEPT IV (11:29)
[2024-01-02] MEDS: MALTOSE IV (11:29)
[2024-01-02] MEDS: SODIUM CHLORIDE 0.9% IV (11:29)
[2024-01-02 11:30] VITALS: BP 122/61; PULSE 54; RESP 18; TEMP 36.6; O2SAT 95
[2024-01-02 12:15] VITALS: BP 127/71; PULSE 72
== END 2024-01-02 12:20 | disposition home or self-care (01) ==
LOC: INF 10:50
PROVIDERS: PCP Family Medicine; Visit Provider Internal Medicine
DX: M06.9 Rheumatoid arthritis, unspecified (principal)
CPT/HCPCS: 96365; J0129

== ENCOUNTER 2024-01-30 10:57 | Outpatient (CLI) | payer MEDICARE, OTHER, SELFPAY ==
[2024-01-30] MEDS: ABATACEPT IV (11:31)
[2024-01-30] MEDS: SODIUM CHLORIDE 0.9% IV (11:31)
[2024-01-30] MEDS: MALTOSE IV (11:31)
[2024-01-30 11:35] VITALS: BP 137/64; PULSE 51; RESP 18; TEMP 36.7; O2SAT 100
[2024-01-30] MEDS: 0.9 % SODIUM CHLORIDE 50 ML 25 ML IV (11:40)
[2024-01-30 12:23] VITALS: BP 155/73; PULSE 52; O2SAT 100
== END 2024-01-30 12:27 | disposition home or self-care (01) ==
LOC: INF 10:59
PROVIDERS: PCP Family Medicine; Visit Provider Internal Medicine
DX: M06.9 Rheumatoid arthritis, unspecified (principal)
CPT/HCPCS: 96365; J0129

== ENCOUNTER 2024-02-27 10:49 | Outpatient (CLI) | payer MEDICARE, OTHER, SELFPAY ==
[2024-02-27] MEDS: SODIUM CHLORIDE 0.9% IV (11:29)
[2024-02-27] MEDS: ABATACEPT IV (11:29)
[2024-02-27] MEDS: MALTOSE IV (11:29)
[2024-02-27 11:30] VITALS: BP 133/65; PULSE 53; RESP 18; TEMP 36.5; O2SAT 97
[2024-02-27 12:30] VITALS: BP 129/74; PULSE 51; RESP 18; O2SAT 97
[2024-02-27] MEDS: SODIUM CHLORIDE 0.9% 10ML FLUSH SYRINGE 10 ML IV (14:30)
[2024-02-27] MEDS: 0.9 % SODIUM CHLORIDE 50 ML 100 ML IV (14:31)
== END 2024-02-27 12:30 | disposition home or self-care (01) ==
LOC: INF 10:50
PROVIDERS: PCP Family Medicine; Visit Provider Internal Medicine
DX: M06.9 Rheumatoid arthritis, unspecified (principal)
CPT/HCPCS: 96365; J0129

== ENCOUNTER 2024-03-26 09:45 | Outpatient (CLI) | payer MEDICARE, OTHER, SELFPAY ==
[2024-03-26] MEDS: MALTOSE IV (10:16)
[2024-03-26] MEDS: ABATACEPT IV (10:16)
[2024-03-26] MEDS: SODIUM CHLORIDE 0.9% IV (10:16)
[2024-03-26] MEDS: SODIUM CHLORIDE 0.9% 50ML BAG 50 ML IV (10:17)
[2024-03-26 10:20] VITALS: BP 126/74; PULSE 56; RESP 18; TEMP 36.7; O2SAT 95
[2024-03-26 10:55] VITALS: BP 150/85; PULSE 57
== END 2024-03-26 11:10 | disposition home or self-care (01) ==
LOC: INF 09:48
PROVIDERS: PCP Family Medicine; Visit Provider Internal Medicine
DX: M06.9 Rheumatoid arthritis, unspecified (principal); Z79.69 Long term (current) use of other immunomodulators and immunosuppressants
CPT/HCPCS: 96365; J0129

== ENCOUNTER 2024-04-23 09:45 | Outpatient (CLI) | payer MEDICARE, OTHER, SELFPAY ==
[2024-04-23] MEDS: 0.9 % SODIUM CHLORIDE 50 ML IV (09:53)
[2024-04-23] MEDS: MALTOSE IV (10:22)
[2024-04-23] MEDS: SODIUM CHLORIDE 0.9% IV (10:22)
[2024-04-23] MEDS: ABATACEPT IV (10:22)
[2024-04-23 10:25] VITALS: BP 135/69; PULSE 55; RESP 18; TEMP 37.2; O2SAT 98
[2024-04-23 11:15] VITALS: BP 125/86; PULSE 76; RESP 18; O2SAT 99
== END 2024-04-23 11:15 | disposition home or self-care (01) ==
LOC: INF 09:46
PROVIDERS: PCP Family Medicine; Visit Provider Internal Medicine
DX: M06.9 Rheumatoid arthritis, unspecified (principal); Z79.69 Long term (current) use of other immunomodulators and immunosuppressants
CPT/HCPCS: 96365; J0129

== ENCOUNTER 2024-06-17 10:43 | Outpatient (CLI) | payer MEDICARE, OTHER, SELFPAY ==
[2024-06-17] MEDS: ABATACEPT IV (11:12)
[2024-06-17] MEDS: SODIUM CHLORIDE 0.9% IV (11:12)
[2024-06-17] MEDS: MALTOSE IV (11:12)
[2024-06-17 11:15] VITALS: BP 153/73; PULSE 56; RESP 18; O2SAT 98
[2024-06-17] MEDS: SODIUM CHLORIDE 0.9% 50ML BAG 50 ML IV (11:15)
[2024-06-17] MEDS: SODIUM CHLORIDE 0.9% 10ML FLUSH SYRINGE 10 ML IV (11:15)
[2024-06-17 11:45] VITALS: BP 129/68; PULSE 62
== END 2024-06-17 11:50 | disposition home or self-care (01) ==
LOC: INF 10:44
PROVIDERS: PCP Family Medicine; Visit Provider Internal Medicine
DX: M06.9 Rheumatoid arthritis, unspecified (principal)
CPT/HCPCS: 96365; J0129

== ENCOUNTER 2024-07-15 10:46 | Outpatient (CLI) | payer MEDICARE, OTHER, SELFPAY ==
[2024-07-15 11:41] VITALS: BP 159/72; PULSE 58; RESP 20; TEMP 37.2; O2SAT 98
[2024-07-15] MEDS: ABATACEPT IV (11:41)
[2024-07-15] MEDS: SODIUM CHLORIDE 0.9% IV (11:41)
[2024-07-15] MEDS: SODIUM CHLORIDE 0.9% 50ML BAG 50 ML IV (11:41)
[2024-07-15] MEDS: MALTOSE IV (11:41)
[2024-07-15] MEDS: SODIUM CHLORIDE 0.9% 10ML FLUSH SYRINGE 10 ML IV (11:42)
[2024-07-15 12:45] VITALS: BP 164/74; PULSE 61; RESP 20; O2SAT 97
== END 2024-07-15 12:45 | disposition home or self-care (01) ==
LOC: INF 10:50
PROVIDERS: Visit Provider Internal Medicine
DX: M06.9 Rheumatoid arthritis, unspecified (principal)
CPT/HCPCS: 96365; J0129

== ENCOUNTER 2024-08-12 10:36 | Outpatient (CLI) | payer MEDICARE, OTHER, SELFPAY ==
[2024-08-12] MEDS: ABATACEPT IV (11:05)
[2024-08-12] MEDS: MALTOSE IV (11:05)
[2024-08-12] MEDS: SODIUM CHLORIDE 0.9% IV (11:05)
[2024-08-12] MEDS: SODIUM CHLORIDE 0.9% 50ML BAG 50 ML IV (11:06)
[2024-08-12 11:08] VITALS: BP 149/71; PULSE 61; RESP 18; O2SAT 96
[2024-08-12 12:10] VITALS: BP 142/69; PULSE 63; RESP 18; O2SAT 96
== END 2024-08-12 12:10 | disposition home or self-care (01) ==
LOC: INF 10:38
PROVIDERS: PCP Family Medicine; Visit Provider Internal Medicine
DX: M06.9 Rheumatoid arthritis, unspecified (principal)
CPT/HCPCS: 96365; J0129

== ENCOUNTER 2024-09-10 15:37 | Outpatient (CLI) | payer MEDICARE, OTHER, SELFPAY ==
--- NOTE | 2024-09-10 15:43 | XR_ITS ---
PROCEDURE INFORMATION: Exam: XR Chest Exam date and time: 09/10/2024 4:03 PM Age: 74 years old Clinical indication: Chest wall pain; Additional info: Atypical chest pain TECHNIQUE: Imaging protocol: Radiologic exam of the chest. Views: 2 views. Total images: 3 COMPARISON: CR XR CHEST 2V 05/24/2021 9:56 PM FINDINGS: Lungs: Atelectatic and/or early infiltrative changes noted within the right lower lobe. Pleural spaces: Right pleural effusion. Heart/Mediastinum: Heart demonstrates mild diffuse enlargement. Vasculature: Mild atherosclerotic disease. Diaphragm: There is nonspecific elevation of the right hemidiaphragm. Bones/joints: Unremarkable. IMPRESSION: 1. Atelectatic and/or early infiltrative changes noted within the right lower lobe. 2. Right pleural effusion. 3. Mild cardiomegaly.
--- NOTE | 2024-09-10 15:45 | XR_ITS ---
PROCEDURE INFORMATION: Exam: XR Cervical Spine Exam date and time: 09/10/2024 4:03 PM Age: 74 years old Clinical indication: Radicular pain (radiculopathy); Cervical region; Additional info: Cervicalradiculopathy TECHNIQUE: Imaging protocol: Radiologic exam of the cervical spine. Views: 2 or 3 views. Total images: 3 COMPARISON: CR XR CERVICAL SPINE 3V 09/10/2024 4:03 PM FINDINGS: Bones/joints: The cervical spine demonstrates mild degenerative changes at multiple levels. No evidence of acute fracture. Disc space narrowing noted at C5-C6 and C6-C7. Soft tissues: Prevertebral soft tissues are within normal limits. Surgical clips noted within the right lateral soft tissues. IMPRESSION: 1. The cervical spine demonstrates mild degenerative changes at multiple levels. 2. No evidence of acute fracture. 3. Prevertebral soft tissues are within normal limits.
== END 2024-09-10 23:59 | disposition home or self-care (01) ==
LOC: RAD 15:40
PROVIDERS: PCP Family Medicine; Visit Provider Family Medicine
DX: R07.89 Other chest pain (principal); M54.12 Radiculopathy, cervical region
CPT/HCPCS: 71046; 72040

== ENCOUNTER 2024-09-25 10:37 | Outpatient (CLI) | payer MEDICARE, OTHER, SELFPAY ==
[2024-09-25 11:30] VITALS: BP 134/66; PULSE 57; RESP 17; TEMP 37.1; O2SAT 97
[2024-09-25] MEDS: MALTOSE IV (11:33)
[2024-09-25] MEDS: ABATACEPT IV (11:33)
[2024-09-25] MEDS: SODIUM CHLORIDE 0.9% IV (11:33)
[2024-09-25] MEDS: SODIUM CHLORIDE 0.9% 10ML FLUSH SYRINGE 10 ML IV (11:34)
[2024-09-25] MEDS: SODIUM CHLORIDE 0.9% 50ML BAG 50 ML IV (11:35)
--- NOTE | 2024-09-25 12:11 | PC.NURSE ---
called and spoke with ACL for new Orencia order.
[2024-09-25 13:00] VITALS: BP 121/68; PULSE 55; RESP 16; O2SAT 97
== END 2024-09-25 13:00 | disposition home or self-care (01) ==
LOC: INF 10:38
PROVIDERS: PCP Family Medicine; Visit Provider Internal Medicine
DX: M13.80 Other specified arthritis, unspecified site (principal)
CPT/HCPCS: 96365; J0129

== ENCOUNTER 2024-10-05 11:31 | Emergency (ER) | payer MEDICARE, OTHER, SELFPAY ==
[2024-10-05 11:33] VITALS: BP 134/73; PULSE 63; RESP 18; TEMP 36.6; O2SAT 97; BMI 30.5
[2024-10-05 12:57] VITALS: BP 156/79; PULSE 63; RESP 12; TEMP 36.8; O2SAT 95
--- NOTE | 2024-10-05 14:05 | PC.NURSE ---
DR MORA AT BEDSIDE
--- NOTE | 2024-10-05 14:14 | CT_ITS ---
PROCEDURE INFORMATION: Exam: CT Head Without Contrast Exam date and time: 10/05/2024 2:30 PM Age: 74 years old Clinical indication: Other: Lancinating R retroauricular pain TECHNIQUE: Imaging protocol: Computed tomography of the head without contrast. Radiation optimization: All CT scans at this facility use at least one of these dose optimization techniques: automated exposure control; mA and/or kV adjustment per patient size (includes targeted exams where dose is matched to clinical indication); or iterative reconstruction. COMPARISON: CR XR CERVICAL SPINE 3V 09/10/2024 4:03 PM FINDINGS: Brain: No hemorrhage. Mild low density in the white matter of both cerebral hemispheres without mass effect. No other intra-axial or extra-axial lesions or masses. No midline shift. Cerebral ventricles: Ventricular systems are age-appropriate. Paranasal sinuses: Visualized sinuses are well aerated. No fluid levels. Mastoid air cells: Visualized mastoid air cells are well aerated. Bones: No acute fracture or bone lesions. Soft tissues: No abnormalities. No retro auricular masses on the right. IMPRESSION: 1. No acute intracranial abnormality. 2. Mild white matter microvascular disease.
--- NOTE | 2024-10-05 14:14 | CT_ITS ---
PROCEDURE INFORMATION: Exam: CTA Head With Contrast, Arteriography Exam date and time: 10/05/2024 2:38 PM Age: 74 years old Clinical indication: Other: R retroauricular pain; Additional info: R retroauricular pain and dizzy TECHNIQUE: Imaging protocol: Computed tomographic angiography of the head with contrast. Exam focused on the arteries. 3D rendering (Not supervised by radiologist): MIP and/or 3D reconstructed images were created by the technologist. Radiation optimization: All CT scans at this facility use at least one of these dose optimization techniques: automated exposure control; mA and/or kV adjustment per patient size (includes targeted exams where dose is matched to clinical indication); or iterative reconstruction. Contrast material: ISOVUE; Contrast volume: 80 ml; Contrast route: INTRAVENOUS (IV); COMPARISON: CT HEAD/BRAIN WO CON 10/05/2024 2:30 PM FINDINGS: ANTERIOR CIRCULATION: Right internal carotid artery: Intracranial segment is patent with no significant stenosis. No aneurysm. Right middle cerebral artery: No occlusion or significant stenosis. No aneurysm. Right anterior cerebral artery: No occlusion or significant stenosis. No aneurysm. Left internal carotid artery: Intracranial segment is patent with no significant stenosis. No aneurysm. Left middle cerebral artery: No occlusion or significant stenosis. No aneurysm. Left anterior cerebral artery: No occlusion or significant stenosis. No aneurysm. POSTERIOR CIRCULATION: Right vertebral artery: No occlusion or significant stenosis. No aneurysm. Left vertebral artery: No occlusion or significant stenosis. No aneurysm. Basilar artery: No occlusion or significant stenosis. No aneurysm. Right posterior cerebral artery: No occlusion or significant stenosis. No aneurysm. Left posterior cerebral artery: No occlusion or significant stenosis. No aneurysm. Brain: No definite mass, mass effect, or midline shift. Cerebral ventricles: No ventriculomegaly. Auditory system: Cerumen in the right external auditory canal. No retro auricular masses on the right. Bones/joints: No acute fracture or focal bone lesions. Soft tissues: No masses or swelling. IMPRESSION: No large vessel occlusion. No acute intracranial abnormalities.
--- NOTE | 2024-10-05 14:14 | CT_ITS ---
PROCEDURE INFORMATION: Exam: CTA Neck With Contrast Exam date and time: 10/05/2024 2:38 PM Age: 74 years old Clinical indication: Other: R retroauricular pain; Additional info: R retroauricular pain and dizzy TECHNIQUE: Imaging protocol: Computed tomographic angiography of the neck with contrast. Exam focused on the cervical segments of the vasculature. 3D rendering (Not supervised by radiologist): MIP and/or 3D reconstructed images were created by the technologist. Radiation optimization: All CT scans at this facility use at least one of these dose optimization techniques: automated exposure control; mA and/or kV adjustment per patient size (includes targeted exams where dose is matched to clinical indication); or iterative reconstruction. Contrast material: ISOVUE; Contrast volume: 80 ml; Contrast route: INTRAVENOUS (IV); COMPARISON: CT ANGIO HEAD 10/05/2024 2:38 PM FINDINGS: Right common carotid artery: No stenosis. No dissection or occlusion. Right internal carotid artery: No stenosis of the extracranial segment. No dissection or occlusion. Right external carotid artery: No occlusion or stenosis of the origin. Left common carotid artery: No stenosis. No dissection or occlusion. Left internal carotid artery: No stenosis of the extracranial segment. No dissection or occlusion. Left external carotid artery: No occlusion or stenosis of the origin. Right vertebral artery: No stenosis. No dissection or occlusion. Left vertebral artery: No stenosis. No dissection or occlusion. Soft tissues: No masses or edema. Bones/joints: No acute fracture, subluxations, or bone lesions. IMPRESSION: No arterial stenosis or occlusion in the neck. REFERENCES: NASCET CRITERIA. The degree of stenosis in the cervical segment of the internal carotid artery is based on NASCET criteria. Normal is no stenosis. Mild is less than 50% stenosis. Moderate is 50-69% stenosis. Severe is 70% to 99% stenosis. Total occlusion is no detectable patent lumen.
--- NOTE | 2024-10-05 14:38 | HMH.EDGENADL ---
Discharge Plan Disposition Patient Disposition: Home, Self-Care Prescriptions Prescriptions: No Action atorvastatin 20 mg tablet 20 mg PO DAILY Patient Comments: TAKE 1 TABLET BY MOUTH DAILY metoprolol succinate 50 mg tablet extended release 24 hr 50 mg PO DAILY Patient Comments: TAKE 1 TABLET BY MOUTH DAILY lisinopril 20 mg tablet 20 mg PO BID Patient Comments: TAKE 1 TABLET BY MOUTH TWICE DAILY azathioprine 50 mg tablet 50 mg PO BID Patient Comments: TAKE 1 TABLET BY MOUTH TWICE DAILY oxcarbazepine 300 mg tablet 300 mg PO BID Patient Comments: TAKE 1 TABLET BY MOUTH TWICE DAILY tramadol 50 mg tablet 50 - 100 mg PO BIDP PRN (Reason: Pain) Patient Comments: TAKE 1 TO 2 TABLETS BY MOUTH TWICE DAILY NEEDED FOR PAIN prednisone 1 mg tablet 4 mg PO DAILY Patient Comments: TAKE 4 TABLETS BY MOUTH EVERY DAY amlodipine 10 mg tablet 10 mg PO DAILY Patient Comments: TAKE 1 TABLET BY MOUTH DAILY levothyroxine 125 mcg tablet 125 mcg PO DAILY Patient Comments: TAKE 1 TABLET BY MOUTH EVERY DAY hydrochlorothiazide 25 mg tablet 25 mg PO DAILY Patient Comments: TAKE 1 TABLET BY MOUTH DAILY hydroxychloroquine 200 mg tablet 200 mg PO BID Patient Comments: TAKE 1 TABLET BY MOUTH TWICE DAILY duloxetine 30 mg capsule,delayed release(DR/EC) 30 mg PO DAILY Patient Comments: TAKE 1 CAPSULE BY MOUTH EVERY DAY memantine 28 mg capsule,sprinkle,ER 24hr 28 mg PO DAILY Patient Comments: TAKE 1 CAPSULE BY MOUTH EVERY DAY Referrals Follow up/Referrals: Shelli Messina [Primary Care Provider] - See instructions Activity Restrictions/Add. Instructions Additional Instructions/Restrictions: Follow-up with your family doctor regarding this visit to the emergency department. If you begin developing rash in this area including redness, lesions that look like pimples, return to the emergency department or your family doctor for medication to cover shingles. If you continue having these pains, talk to your family doctor about further evaluation with either them or neurology. Clinical Impressions Clinical Impression: Head pain, Acute pain of right ear, Cerumen impaction Instructions Patient Instructions: DI for Cerumen Impaction Print Language Print Language: Ukrainian Discharge ED Provider: Westley Snyder General Adult HPI <Shailesh Cunningham MD - Last Filed: 10/05/24 14:56> General Chief complaint: PAIN Stated complaint: sharp pain behind right ear Time Seen by Provider: 10/05/24 13:30 Mode of Arrival: Ambulatory Source of Information: Patient Limitations: No Limitations Description of Symptoms (Recalled from ER Triage Doc. by RN): PT C/O SHARP PAIN BEHIND RIGHT EAR, INTERMITTENT FOR 1-2 WEEKS. SEEN BY PCP FOR OTHER PAIN, TREATED WITH GABPENTIN, NO RELIEF. PT DENIES VISUAL DISTURBANCE. NO RASH TO SKIN History of Present Illness HPI narrative: Patient is a 74-year-old male with past medical history of hypertension, previous carotid surgery on the right who presents emergency department for evaluation of retroauricular pain and intermittent dizziness. History is obtained by patient at bedside over the last 2 weeks patient has had intermittent lancinating pain behind his right ear that travels down a few inches of his neck but does not go all the way to the base of his neck. No chest pain. No falls. He has never had this pain before. When the lancinating pain happens he feels dizziness which is hard for him to characterize. No other acute complaints at this time. Related Data Home Medications ?Medication ?Instructions ?Recorded ?Confirmed amlodipine 10 mg tablet 10 mg PO DAILY High Blood Pressure 06/07/23 07/15/24 atorvastatin 20 mg tablet 20 mg PO DAILY High Cholesterol 06/07/23 07/15/24 azathioprine 50 mg tablet 50 mg PO BID Kidney transplant 06/07/23 07/15/24 duloxetine 30 mg capsule,delayed 30 mg PO DAILY Mood 06/07/23 07/15/24 release hydrochlorothiazide 25 mg tablet 25 mg PO DAILY Fluid 06/07/23 07/15/24 hydroxychloroquine 200 mg tablet 200 mg PO BID Arthritis 06/07/23 07/15/24 levothyroxine 125 mcg tablet 125 mcg PO DAILY Thyroid 06/07/23 07/15/24 lisinopril 20 mg tablet 20 mg PO BID High Blood Pressure 06/07/23 07/15/24 memantine 28 mg capsule 28 mg PO DAILY Dementia 06/07/23 07/15/24 sprinkle,extended release 24hr metoprolol succinate 50 mg 50 mg PO DAILY High Blood Pressure 06/07/23 07/15/24 tablet,extended release 24 hr oxcarbazepine 300 mg tablet 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 Medical History (Updated 10/05/24 @ 16:40 by Westley Snyder MD) Hx of deep venous thrombosis Hypertension Arthritis Lupus Autoimmune hepatitis Surgical History History of total right knee replacement Family History Mother Family history of hypertension Brother Family history of myocardial infarction Social History Smoking Status: Never smoker second hand exposure: Yes alcohol intake: never current occupational status: retired and other Travel in the last 8 weeks: None Have you lived/traveled outside [place] in past 30 days?: No Contact w/someone who lives/traveled outside [place] past 30 days?: No Exposure to someone with infectious disease in past 14 days?: No Do you have a fever (greater than 100.4 F or 38 C)?: No Have you tested positive for COVID-19: No Exposed to someone with COVID-19 in past 14 days?: No Do you have a sore throat?: No Do you have a cough?: No Do you have any weakness?: No Do you have any diarrhea?: No Are you experiencing any unusual bleeding?: No Do you have any muscle aches/pain?: No Do you have any abdominal pain?: No Are you experiencing loss of taste or smell?: No Other Medical History Have you received the Flu Vaccine for this season: No Have you received the Pneumonia Vaccine: No <Shailesh Cunningham MD - Last Filed: 10/05/24 14:56> ROS Obtained: Yes Systems reviewed as appropriate & no additional complaints except as documented Physical Exam <Shailesh Cunningham MD - Last Filed: 10/05/24 14:56> General General appearance: alert and in no apparent distress Head Head exam: atraumatic and normocephalic Eye Eye exam: Present PERRL and EOMI ENT ENT exam: Present mucous membranes moist; Absent TM's normal bilaterally (Impacted right external auditory canal with cerumen) Neck Neck exam: Present normal inspection and full ROM; Absent tenderness Chest Chest inspection: Present normal inspection and symmetric chest wall rise Respiratory Respiratory exam: Present normal lung sounds bilaterally; Absent respiratory distress Cardiovascular Cardiovascular exam: Present regular rate and normal rhythm Abdominal Exam Abdominal exam: Present soft Extremities Exam Extremities exam: Present normal inspection Neurological Exam Neurological exam: Present alert and CN II-XII intact; Absent motor sensory deficit Psychiatric Psychiatric exam: Present normal affect Skin Skin exam: Present warm and dry Medical Decision Making <Shailesh Cunningham MD - Last Filed: 10/05/24 14:56> Medical Records Screening: Per USPSTF and CDC recommendations, given the prevalence of disease in our region, it is our hospital?s policy to screen for HIV and viral Hepatitis for all patients aged 18 and over and those with ongoing risk factors. Gregory Inquiry Pt receiving controlled substance: No Vital Signs: 10/05/24 11:33 10/05/24 12:57 Temperature 97.9 F 98.3 F Temperature Source Oral Oral Pulse Rate 63 Pulse Rate [Radial] 63 Respiratory Rate 18 12 Blood Pressure 156/79 H Blood Pressure [Right Arm] 134/73 Blood Pressure Mean [Right Arm] 93 Blood Pressure Source [Right Arm] Automatic Cuff Blood Pressure Position [Right Arm] Sitting 02 Sat by Pulse Oximetry 97 95 Oxygen Delivery Method Room Air Room Air Lab Data Lab Results 10/05/24 14:30: WBC 8.4, RBC 3.46 L, Hgb 10.9 L, Hct 33.0 L, MCV 95.4 H, MCH 31.5 H, MCHC 33.0, RDW 13.5, Plt Count 236, MPV 8.8, Neut % (Auto) 74.2, Lymph % (Auto) 16.3, Edmunds % (Auto) 7.7, Eos % (Auto) 0.7, Baso % (Auto) 0.5, Neut # (Auto) 6.2, Lymph # (Auto) 1.4, Edmunds # (Auto) 0.7, Eos # (Auto) 0.1, Baso # (Auto) 0.0, PT 37.6 H, INR 3.84 H, Sodium 131 L, Potassium 4.3, Chloride 97 L, Carbon Dioxide 30, Anion Gap 8.3, BUN 21 H, Creatinine 1.20, Estimated Creat Clear 79, Estimated GFR 59, Est GFR ( Amer) 72, Glucose 116 H, Calcium 9.9, Total Bilirubin 0.6, AST 62 H, ALT 29, Alkaline Phosphatase 74, Total Protein 6.8, Albumin 4.3, Globulin 2.5, Albumin/Globulin Ratio 1.7 10/05/24 14:30 10/05/24 14:30 Orders (Tests/Meds): ED MEDICATIONS Generic Name Dose Route Start Last Admin Trade Name Freq PRN Reason Stop Dose Admin Sodium Chloride 10 ml 10/05/24 14:44 10/05/24 14:44 Sodium Chloride 0.9% 10ml Syr (Rad Only) IV 11/04/24 14:43 10 ml NEEDED PRN Administration Maintain IV Site Discontinued Medications Generic Name Dose Route Start Last Admin Trade Name Freq PRN Reason Stop Dose Admin Iopamidol 80 ml 10/05/24 14:44 10/05/24 14:44 Iopamidol-370 (76%);100ml Bottle IV 10/05/24 14:45 80 ml ONCE ONE Administration Sodium Chloride 50 ml 10/05/24 14:44 10/05/24 14:44 0.9 % Sodium Chloride 50 Ml Vial IV 10/05/24 14:45 50 ml ONCE ONE Administration ORDERS Category Date Time Status CT angio head Stat Cat Scan 10/05/24 14:[address] angio neck Stat Cat Scan 10/05/24 14:[address] head/brain wo con Stat Cat Scan 10/05/24 14:14 Completed CBC w/Auto Diff [Complete Blood Count Auto Diff] Stat Lab 10/05/24 14:30 Completed CMP [Comprehensive Metabolic Panel] Stat Lab 10/05/24 14:30 Completed PT INR [Prothrombin Time INR] Stat Lab 10/05/24 14:30 Completed Medical Decision Narrative: In summary patient is a 74-year-old male with past medical history described above presents emergency department for evaluation of lancinating right retroauricular pain. Patient is hemodynamically stable nontoxic-appearing upon arrival with a nonfocal neurologic exam. Differential includes referred cervicogenic pain, cervical artery dissection, referred pain from the inner ear, among others. Earwax was partially removed from the right external auditory canal and visualization of the TM is normal. I do not have concern particularly for mastoiditis at this time given there is no anterior effacement of the pinna and no retroauricular erythema. Shared decision-making discussion was had at bedside over to the utility of imaging and we will proceed with CT angio of the head and neck at this time to rule out cervical artery dissection. Initial interventions include high-dose Tylenol. Workup and repeat evaluation largely pending at time of transition of care to the oncoming physician, Dr. Snyder. <Westley Snyder MD - Last Filed: 10/05/24 17:10> Vital Signs: 10/05/24 11:33 10/05/24 12:57 Temperature 97.9 F 98.3 F Temperature Source Oral Oral Pulse Rate 63 Pulse Rate [Radial] 63 Respiratory Rate 18 12 Blood Pressure 156/79 H Blood Pressure [Right Arm] 134/73 Blood Pressure Mean [Right Arm] 93 Blood Pressure Source [Right Arm] Automatic Cuff Blood Pressure Position [Right Arm] Sitting 02 Sat by Pulse Oximetry 97 95 Oxygen Delivery Method Room Air Room Air Lab Data Lab Results 10/05/24 14:30: WBC 8.4, RBC 3.46 L, Hgb 10.9 L, Hct 33.0 L, MCV 95.4 H, MCH 31.5 H, MCHC 33.0, RDW 13.5, Plt Count 236, MPV 8.8, Neut % (Auto) 74.2, Lymph % (Auto) 16.3, Edmunds % (Auto) 7.7, Eos % (Auto) 0.7, Baso % (Auto) 0.5, Neut # (Auto) 6.2, Lymph # (Auto) 1.4, Edmunds # (Auto) 0.7, Eos # (Auto) 0.1, Baso # (Auto) 0.0, PT 37.6 H, INR 3.84 H, Sodium 131 L, Potassium 4.3, Chloride 97 L, Carbon Dioxide 30, Anion Gap 8.3, BUN 21 H, Creatinine 1.20, Estimated Creat Clear 79, Estimated GFR 59, Est GFR ( Amer) 72, Glucose 116 H, Calcium 9.9, Total Bilirubin 0.6, AST 62 H, ALT 29, Alkaline Phosphatase 74, Total Protein 6.8, Albumin 4.3, Globulin 2.5, Albumin/Globulin Ratio 1.7 Orders (Tests/Meds): ED MEDICATIONS Generic Name Dose Route Start Last Admin Trade Name Freyeimy PRN Reason Stop Dose Admin Sodium Chloride 10 ml 10/05/24 14:44 10/05/24 14:44 Sodium Chloride 0.9% 10ml Syr (Rad Only) IV 11/04/24 14:43 10 ml NEEDED PRN Administration Maintain IV Site Discontinued Medications Generic Name Dose Route Start Last Admin Trade Name Freq PRN Reason Stop Dose Admin Iopamidol 80 ml 10/05/24 14:44 10/05/24 14:44 Iopamidol-370 (76%);100ml Bottle IV 10/05/24 14:45 80 ml ONCE ONE Administration Sodium Chloride 50 ml 10/05/24 14:44 10/05/24 14:44 0.9 % Sodium Chloride 50 Ml Vial IV 10/05/24 14:45 50 ml ONCE ONE Administration ORDERS Category Date Time Status CT angio head Stat Cat Scan 10/05/24 14:[address] angio neck Stat Cat Scan 10/05/24 14:[address] head/brain wo con Stat Cat Scan 10/05/24 14:14 Completed CBC w/Auto Diff [Complete Blood Count Auto Diff] Stat Lab 10/05/24 14:30 Completed CMP [Comprehensive Metabolic Panel] Stat Lab 10/05/24 14:30 Completed PT INR [Prothrombin Time INR] Stat Lab 10/05/24 14:30 Completed Medical Decision Narrative: In summary patient is a 74-year-old male with past medical history described above presents emergency department for evaluation of lancinating right retroauricular pain. Patient is hemodynamically stable nontoxic-appearing upon arrival with a nonfocal neurologic exam. Differential includes referred cervicogenic pain, cervical artery dissection, referred pain from the inner ear, among others. Earwax was partially removed from the right external auditory canal and visualization of the TM is normal. I do not have concern particularly for mastoiditis at this time given there is no anterior effacement of the pinna and no retroauricular erythema. Shared decision-making discussion was had at bedside over to the utility of imaging and we will proceed with CT angio of the head and neck at this time to rule out cervical artery dissection. Initial interventions include high-dose Tylenol. Workup and repeat evaluation largely pending at time of transition of care to the oncoming physician, Dr. Snyder. Lillian: I assumed primary responsibility for this patient after signout from previous physician. On my evaluation, patient in no acute distress. Physical exam completely benign. No outward signs of abnormality. Independent interpretation of workup with nonactionable CBC or chemistry. CT head imaging was independently interpreted. No intracranial hemorrhage, no abnormalities of the mastoid or external auditory canal/inner ear. No vascular abnormality of the head or neck. I feel life-threatening etiologies have been successfully ruled out. Could be neuropathic, could have been related to cerumen impaction, which was removed prior to my evaluation. Outpatient follow-up deemed appropriate. Because patient at baseline without signs or symptoms of clinical decompensation, deemed appropriate for discharge. Results were relayed to patient who voiced understanding and were agreeable to outpatient management and follow up. I discussed my clinical impression with patient and answered all questions. At this time, the evidence for any other entities in the differential is insufficient to warrant any further testing or ED observation. This was explained as well. Advisory was given that persistent or worsening symptoms require further evaluation. I confirmed the understanding of this discussion. Critical Care <Shailesh Cunningham MD - Last Filed: 10/05/24 14:56> Critical Care Time Critical Care Time: No
[2024-10-05] MEDS: SODIUM CHLORIDE 0.9% 10ML SYR (RAD ONLY) 10 ML IV (14:44)
[2024-10-05] MEDS: IOPAMIDOL-370 (76%);100ML BOTTLE 80 ML IV (14:44)
[2024-10-05] MEDS: 0.9 % SODIUM CHLORIDE 50 ML VIAL IV (14:44)
[2024-10-05 14:47] LABS: Basophils % 0.5 % (0.1-2.0); Eosinophils # 0.1 K/mm3 (0.0-0.4); Eosinophils % 0.7 % (0.1-12.0); Hemoglobin 10.9 g/dL (14.1-18.0); Lymphocytes # 1.4 K/mm3 (0.7-4.5); Lymphocytes % 16.3 % (10-50); Mean Corpuscular Hemoglobin 31.5 pg (27.0-31.2); Mean Corpuscular Volume 95.4 fl (80-94); Mean Platelet Volume 8.8 fl (7.4-10.4); Monocytes # 0.7 K/mm3 (0.1-1.0); Monocytes % 7.7 % (1.7-9.3); Neutrophils # 6.2 K/mm3 (1.8-7.8); Neutrophils % 74.2 % (37.0-80.0); Platelet Count 236 K/mm3 (142-424); Red Blood Count 3.46 M/mm3 (4.60-6.20); Red Cell Distribution Width 13.5 % (11.5-17.5); White Blood Count 8.4 K/mm3 (4.8-10.8)
[2024-10-05 14:53] LABS: Albumin Level 4.3 g/dl (3.5-5.0); Chloride 97 mmol/L (98-107); Potassium 4.3 mmoL/L (3.5-5.1); Sodium 131 mmol/L (136-145)
[2024-10-05 14:56] LABS: Alanine Aminotransferase 29 U/L (12-78); Albumin/Globulin Ratio 1.7 (1.1-1.8); Alkaline Phosphatase 74 U/L (38-126); Anion Gap 8.3 mEq/L (5-15); Aspartate Amino Transferase 62 U/L (17-59); Bilirubin,Total 0.6 mg/dl (0.2-1.3); Blood Urea Nitrogen 21 mg/dl (9-20); Carbon Dioxide 30 mmol/L (22.0-30.0); Creatinine Clearance Estimated 79 mL/min (50-200); Estimated Glomerular Filt Rate 59 ml/min (>60); GFR (African American) 72 ML/MIN (>60); Globulin 2.5 g/dL (1.3-3.2); Total Protein,Serum 6.8 g/dl (6.3-8.2)
[2024-10-05 14:57] LABS: Calcium 9.9 mg/dl (8.4-10.2); Glucose 116 mg/dl (74-100); INR 3.84 (0.9-1.1); Prothrombin Time 37.6 seconds (10.1-12.5)
--- NOTE | 2024-10-05 16:51 | PC.NURSE ---
DR HERMAN AT BEDSIDE
[2024-10-05 17:00] VITALS: BP 140/78; PULSE 62; RESP 18; TEMP 36.8; O2SAT 98
== END 2024-10-05 17:10 | disposition home or self-care (01) ==
PROVIDERS: Emergency Medicine; Emergency Provider Emergency Medicine; PCP Family Medicine
DX: H61.21 Impacted cerumen, right ear (principal); R51.9 Headache, unspecified; R42 Dizziness and giddiness; H92.01 Otalgia, right ear
CPT/HCPCS: 70450; 70496; 70498; 80053; 85025; 85610; 99285; Q9967

== ENCOUNTER 2024-10-24 19:08 | Inpatient (IN) | payer MEDICARE, OTHER, SELFPAY ==
[2024-10-24 19:08] VITALS: BP 131/76; PULSE 60; RESP 16; TEMP 36.8; O2SAT 98; BMI 29.8
--- NOTE | 2024-10-24 19:08 | ECG_ITS ---
APPROVED REPORT Exam: Resting ECG HR:75 bpm ECG Measurements Heart Rate 75 AXES KS 204 P 5 QRSd 144 QRS -4 QT 402 T -23 QTc 431 Conclusion SINUS RHYTHM INTRAVENTRICULAR CONDUCTION DELAY [130+ ms QRS DURATION] INFERIOR MYOCARDIAL INFARCTION , OF INDETERMINATE AGE [40+ ms Q WAVE AND/OR ST/T ABNORMALITY IN II/aVF] No STEMI Electronically signed by : EZEKIEL BARRAGAN, 10/25/2024 00:51:40
--- NOTE | 2024-10-24 19:11 | XR_ITS ---
PROCEDURE INFORMATION: Exam: XR Chest Exam date and time: 10/24/2024 7:16 PM Age: 74 years old Clinical indication: Other: Weakness; Additional info: General weakness TECHNIQUE: Imaging protocol: Radiologic exam of the chest. Views: 1 view. COMPARISON: CR XR CHEST 2V 09/10/2024 4:03 PM FINDINGS: Lungs: Bilateral peripheral opacities. Pleural spaces: Unremarkable. No pleural effusion. No pneumothorax. Heart/Mediastinum: Unremarkable. No cardiomegaly. Bones/joints: Unremarkable. IMPRESSION: Peripheral infiltration.
[2024-10-24 19:33] LABS: Chloride 101 mmol/L (98-107); Potassium 4.7 mmoL/L (3.5-5.1); Sodium 135 mmol/L (136-145)
[2024-10-24 19:35] LABS: Basophils % 0.3 % (0.1-2.0); Eosinophils % 0.1 % (0.1-12.0); Hematocrit 31.9 % (42.0-52.0); Hemoglobin 10.1 g/dL (14.1-18.0); Lymphocytes % 13.7 % (10-50); Mean Corpuscular HGB Conc 31.7 g/dL (31.8-35.4); Mean Corpuscular Hemoglobin 30.4 pg (27.0-31.2); Mean Corpuscular Volume 96.1 fl (80-94); Mean Platelet Volume 8.8 fl (7.4-10.4); Monocytes % 8.1 % (1.7-9.3); Neutrophils % 76.2 % (37.0-80.0); Platelet Count 380 K/mm3 (142-424); Red Blood Count 3.32 M/mm3 (4.60-6.20); White Blood Count 11.3 K/mm3 (4.8-10.8)
[2024-10-24 19:36] LABS: Alanine Aminotransferase 30 U/L (12-78); Albumin/Globulin Ratio 1.3 (1.1-1.8); Alkaline Phosphatase 75 U/L (38-126); Anion Gap 11.7 mEq/L (5-15); Aspartate Amino Transferase 62 U/L (17-59); Bilirubin,Total 0.4 mg/dl (0.2-1.3); Blood Urea Nitrogen 62 mg/dl (9-20); Carbon Dioxide 27 mmol/L (22.0-30.0); Creatinine Clearance Estimated 46 mL/min (50-200); Estimated Glomerular Filt Rate 33 ml/min (>60); GFR (African American) 40 ML/MIN (>60); Globulin 3.1 g/dL (1.3-3.2); Lymphocytes # 1.5 K/mm3 (0.7-4.5); Monocytes # 0.9 K/mm3 (0.1-1.0); Neutrophils # 8.6 K/mm3 (1.8-7.8); Total Protein,Serum 7.1 g/dl (6.3-8.2)
[2024-10-24 19:37] LABS: Calcium 9.5 mg/dl (8.4-10.2); Glucose 124 mg/dl (74-100); Magnesium 2.3 mg/dl (1.6-2.3)
--- NOTE | 2024-10-24 19:40 | ED_ITS ---
<Statement entered by Dayana Sotomayor DO - 10/25/24 00:16> I was consulted by the RIOS, and we discussed the complexity of the problems being addressed. I approved the treatment and management plan for this patient's care in the emergency department, thus performing a substantive portion of the medical decision making. Patient without chest pain, only complains of general weakness and low oxygen readings at home. Troponins elevated, however this appears to been elevated on prior labs as well. EKG shows some nonspecific changes but no STEMI. Patient admitted in stable condition for further workup. Dayana Sotomayor DO Discharge Plan Disposition Patient Disposition: Admitted Condition: Serious Clinical Impressions Clinical Impression: Non-ST elevation TN (NSTEMI), Acute hypoxemic respiratory failure, Acute kidney injury (nontraumatic), Supratherapeutic INR Discharge ED Provider: Dayana Sotomayor Adult HPI <FERNANDO Fortune - Last Filed: 10/24/24 23:26> General Chief complaint: Weakness Stated complaint: weakness Time Seen by Provider: 10/24/24 19:10 Mode of Arrival: EMS Source of Information: Patient and EMS Limitations: Physical Limitations Description of Symptoms (Recalled from ER Triage Doc. by RN): Pt presents to ED via EMS for weakness and SOA. Pt states he was dx with shingles on 10/22 and is taking Valtrex and Gabapentin. Pt is also taking Amox for an ear infection. Pt states his legs just feel weak and like he can't walk steady. Pt is A&O*4 and is bedside. Pt states he does not have any pain at this time. History of Present Illness HPI narrative: Patient presents for weakness and shortness of air. According to his the patient's he was diagnosed with shingles approximately 3 weeks ago. He started taking Valtrex. Over the last week patient has gotten weaker and had less exercise tolerance and appeared to be very short of breath. She noted today that he was having difficulty ambulating and noted that his blood pressure was in the 80s systolic and his O2 sats were also in the 80s. EMS was called to bring him to the hospital. On arrival patient denies any fever chills hemoptysis hematochezia melena chest pain headache diaphoresis. Related Data Home Medications ?Medication ?Instructions ?Recorded ?Confirmed amlodipine 10 mg tablet 10 mg PO DAILY High Blood Pressure 06/07/23 10/24/24 atorvastatin 20 mg tablet 20 mg PO DAILY High Cholesterol 06/07/23 10/24/24 azathioprine 50 mg tablet 50 mg PO DAILY Kidney transplant 06/07/23 10/24/24 duloxetine 30 mg capsule,delayed 30 mg PO DAILY Mood 06/07/23 10/24/24 release hydrochlorothiazide 25 mg tablet 25 mg PO DAILY Fluid 06/07/23 10/24/24 hydroxychloroquine 200 mg tablet 200 mg PO BID Arthritis 06/07/23 10/24/24 levothyroxine 125 mcg tablet 125 mcg PO DAILY Thyroid 06/07/23 10/24/24 lisinopril 20 mg tablet 20 mg PO BID High Blood Pressure 06/07/23 10/24/24 memantine 28 mg capsule 28 mg PO DAILY Dementia 06/07/23 10/24/24 sprinkle,extended release 24hr metoprolol succinate 50 mg 50 mg PO DAILY High Blood Pressure 06/07/23 10/24/24 tablet,extended release 24 hr oxcarbazepine 300 mg tablet 300 mg PO BID Partial seizures 06/07/23 10/24/24 prednisone 1 mg tablet 4 mg PO DAILY Adrenal 06/07/23 10/24/24 tramadol 50 mg tablet 50 - 100 mg PO BIDP PRN Pain 06/07/23 10/24/24 amoxicillin 875 mg tablet 875 mg PO BID 10/24/24 10/24/24 pregabalin 75 mg capsule 75 mg PO TID PRN nerve 10/24/24 10/24/24 valacyclovir 1 gram tablet 1 mg PO TID 10/24/24 10/24/24 warfarin 5 mg tablet 5 mg PO WEEKLY 10/24/24 10/24/24 Allergies Allergy/AdvReac Type Severity Reaction Status Date / Time No Known Allergies Allergy Verified 07/15/24 11:58 [facility] <FERNANDO Fortune - Last Filed: 10/24/24 23:26> [facility] Disclaimer: The information contained in this section may have been updated after the patient was seen, as this information can be updated by other users. Medical History (Updated 10/25/24 @ 00:15 by LYDIA Rubio) Abscess, thyroid Histoplasmosis Skin cancer Carotid artery disease Hx of deep venous thrombosis Hypertension Arthritis Lupus Autoimmune hepatitis Surgical History History of total right knee replacement Family History Mother Family history of hypertension Brother Family history of myocardial infarction Social History (Updated 10/24/24 @ 23:54 by Cindy Alexander RN) Smoking Status: Never smoker second hand exposure: Yes alcohol intake: never current occupational status: retired and other Travel in the last 8 weeks: None Have you lived/traveled outside US in past 30 days?: No Contact w/someone who lives/traveled outside US past 30 days?: No Exposure to someone with infectious disease in past 14 days?: No Do you have a fever (greater than 100.4 F or 38 C)?: No Have you tested positive for COVID-19: No Exposed to someone with COVID-19 in past 14 days?: No Do you have a sore throat?: No Do you have a cough?: No Do you have any weakness?: Yes Are you experiencing any nausea/vomitting?: No Do you have any diarrhea?: No Are you experiencing any unusual bleeding?: No Do you have any muscle aches/pain?: No Do you have any abdominal pain?: No Are you experiencing loss of taste or smell?: No Other Medical History Have you received the Flu Vaccine for this season: No Have you received the Pneumonia Vaccine: No <FERNANDO Fortune - Last Filed: 10/24/24 23:26> ROS Obtained: Yes Systems reviewed as appropriate & no additional complaints except as documented Physical Exam <FERNANDO Fortune - Last Filed: 10/24/24 23:26> General General appearance: alert and in no apparent distress Respiratory Respiratory exam: Present normal lung sounds bilaterally; Absent respiratory distress, wheezes, stridor or accessory muscle use Cardiovascular Cardiovascular exam: Present regular rate and normal rhythm Abdominal Exam Abdominal exam: Absent normal bowel sounds Neurological Exam Neurological exam: Present alert, oriented X3 and CN II-XII intact Medical Decision Making <FERNANDO Fortune - Last Filed: 10/24/24 23:26> Medical Records Medical records reviewed: Yes I reviewed the patient's medical records. Screening: Per USPSTF and CDC recommendations, given the prevalence of disease in our region, it is our hospital?s policy to screen for HIV and viral Hepatitis for all patients aged 18 and over and those with ongoing risk factors. Gregory Inquiry Pt receiving controlled substance: No Vital Signs: 10/24/24 19:08 10/24/24 22:25 Temperature 98.3 F 98.1 F Temperature Source Oral Pulse Rate 70 Pulse Rate [Left] 60 Respiratory Rate 16 18 Blood Pressure 131/86 Blood Pressure [Right Arm] 131/76 Blood Pressure Mean [Right Arm] 94 02 Sat by Pulse Oximetry 98 Oxygen Delivery Method Room Air Nasal Cannula Oxygen Flow Rate (LPM) 2 Lab Data Lab results reviewed: Yes I reviewed the patient's lab results. Lab Results 10/24/24 19:10: WBC 11.3 H, RBC 3.32 L, Hgb 10.1 L, Hct 31.9 L, MCV 96.1 H, MCH 30.4, MCHC 31.7 L, RDW 13.0, Plt Count 380, MPV 8.8, Neut % (Auto) 76.2, Lymph % (Auto) 13.7, [place] % (Auto) 8.1, Eos % (Auto) 0.1, Baso % (Auto) 0.3, Neut # (Auto) 8.6 H, Lymph # (Auto) 1.5, [place] # (Auto) 0.9, Eos # (Auto) 0.0, Baso # (Auto) 0.0, PT 41.1 H, INR 4.23 H, APTT 87.7 H*, Sodium 135 L, Potassium 4.7, Chloride 101, Carbon Dioxide 27, Anion Gap 11.7, BUN 62 H, Creatinine 2.00 H, Estimated Creat Clear 46, Estimated GFR 33 L, Est GFR ( Amer) 40 L, G lucose 124 H, Calcium 9.5, Magnesium 2.3, Total Bilirubin 0.4, AST 62 H, ALT 30, Alkaline Phosphatase 75, Troponin I 0.13 H, NT-Pro-B Natriuret Pep 39.8, Total Protein 7.1, Albumin 4.0, Globulin 3.1, Albumin/Globulin Ratio 1.3, TSH 0.35 L, Thyroxine (T4) 7.2, HCV Ab LORENZO w/Rflx PCR Qn Negative, HIV Ag/Ab Combo Qual Negative 10/24/24 20:08: SARS-CoV-2 (PCR) Not detected, Influenza A Untype (PCR) Not detected, Influenza Type B (PCR) Not detected 10/24/24 20:23: Urine Color Dark yellow, Urine Appearance Clear, Urine pH 5.5, Ur Specific Wallace >= 1.030, Urine Protein Trace, Urine Glucose (UA) Negative, Urine Ketones Negative, Urine Blood 3+ A, Urine Nitrate Negative, Urine Bilirubin Negative, Urine Urobilinogen 0.2, Ur Leukocyte Esterase Negative, Urine RBC Tntc, Urine WBC 3-5, Ur Squamous Epith Cells 5-10, Amorphous Sediment 1+, Urine Bacteria 1+, Urine Mucus 1+ 10/24/24 20:51: VBG pH 7.36, VBG pCO2 43.5, VBG pO2 55.6 H, VBG HCO3 23.9, VBG Total CO2 25.2, VBG O2 Saturation 84.7 H, VBG Base Excess -1.6, VBG Lactic Acid 1.3 10/24/24 19:10 10/24/24 19:10 Orders (Tests/Meds): ED MEDICATIONS Generic Name Dose Route Start Last Admin Trade Name Freq PRN Reason Stop Dose Admin Acetaminophen 650 mg 10/24/24 23:03 Acetaminophen 325mg Tab PO 11/23/24 23:02 Q4HP PRN Fever or Mild Pain (1-3) Ceftriaxone Sodium 2 gm/ 100 mls @ 200 mls/hr 10/25/24 22:00 Sodium Chloride IV 11/04/24 21:59 Q24H ADILENE Azithromycin 500 mg/ Sodium 250 mls @ 250 mls/hr 10/25/24 22:00 Chloride IV 11/04/24 21:59 Q24H ADILENE Sodium Chloride 1,000 mls @ 75 mls/hr 10/24/24 23:15 Sod Chlor 0.9% 1000ml Bag IV 11/23/24 23:14 .[id number] ADILENE Miscellaneous 1 each 10/24/24 23:03 10/25/24 00:05 Pharmacy Consult Request NOTAPPLIC 10/24/24 23:04 1 each CONSULT PHARMACY ONE Administration Sodium Chloride 3 ml 10/24/24 21:16 10/24/24 22:45 Sodium Chloride 3% 15ml Neb IH 11/23/24 21:15 3 ml ONCE PRN Administration INDUCE SPUTUM COLLECTION Sodium Chloride 10 ml 10/24/24 23:00 Sodium Chloride 0.9% 10ml Flush Syringe IV 11/23/24 22:59 NEEDED PRN Maintain IV Site Sodium Chloride 10 ml 10/24/24 23:03 Sodium Chloride 0.9% 10ml Flush Syringe IV 11/23/24 23:02 NEEDED PRN Maintain IV Site Discontinued Medications Generic Name Dose Route Start Last Admin Trade Name Matthewq PRN Reason Stop Dose Admin Lactated Ringer's 1,000 mls @ 999 mls/hr 10/24/24 20:54 10/24/24 21:14 Lactated Ringer's 1000 Ml Bag IV 10/24/24 21:54 999 mls/hr .Q1H1M ONE Administration Ceftriaxone Sodium 2 gm/ 100 mls @ 200 mls/hr 10/24/24 21:16 10/24/24 22:23 Sodium Chloride IV 10/24/24 21:45 200 mls/hr ONCE ONE Administration Azithromycin 500 mg/ Sodium 250 mls @ 250 mls/hr 10/24/24 21:30 Chloride IV 10/24/24 22:29 ONCE ONE Sodium Chloride 1,000 mls @ 75 mls/hr 10/24/24 23:00 Sod Chlor 0.9% 1000ml Bag IV 11/23/24 22:59 .[id number] ADILENE ORDERS Category Date Time Status CT chest wo con Stat Cat Scan 10/24/24 21:18 Completed CXR --portable [XR chest portable] Stat Exams 10/24/24 19:11 Completed BNP [NT Pro Brain Natriuretic Pep.] Stat Lab 10/24/24 19:10 Completed Complete Blood Count Auto Diff Stat Lab 10/24/24 19:10 Completed Comprehensive Metabolic Panel Stat Lab 10/24/24 19:10 Completed Full Resp Panel w/COVID ([facility]) Routine Lab 10/24/24 20:08 Received HIV Combo Routine Lab 10/24/24 19:10 Completed Hepatitis C Ab Qual. W/ RFX Routine Lab 10/24/24 19:10 Completed INR [Prothrombin Time INR] Stat Lab 10/24/24 19:10 Completed MAG [Magnesium] Stat Lab 10/24/24 19:10 Completed PTT [Activated Partial Thrombo Time] Stat Lab 10/24/24 19:10 Completed Rapid PCR Covid and Flu A/B Stat Lab 10/24/24 20:08 Completed T4 (Thyroxine) Stat Lab 10/24/24 19:10 Completed TSH [Thyroid Stimulating Hormone] Stat Lab 10/24/24 19:10 Completed Trop I [Troponin I] Stat Lab 10/24/24 19:10 Completed Troponin I Q3H Lab 10/24/24 22:50 Completed Troponin I Q3H Lab 10/25/24 01:15 Ordered UA [Urinalysis and Microscopic] Stat Lab 10/24/24 20:23 Completed Blood Culture Stat Micro 10/24/24 20:54 Received Sputum Culture & Gram Stain Stat Micro 10/24/24 21:16 Ordered VBG [Venous Blood Gas] Stat RT 10/24/24 20:51 Completed Tissue Perfus/Sepsis Re-Eval Sepsis Re-Evaluation Performed: Yes Date Performed: 10/24/24 Time Performed: 20:00 HEART Score History (anamnesis): Slightly suspicious ECG: Non-specific disturbance Age: >65 years Risk factors: 3 or more risk factors Troponin: 1-3x normal limit HEART Score: 6 Medical Decision Narrative: In summary patient is a 74-year-old male who presents to the emergency department for evaluation of weakness and hypoxia. Patient is initially with a blood pressure 131/76 pulse 60 respiratory rate of 16 satting at 98% on 2 L by nasal cannula upon arrival, afebrile. Physical exam is remarkable for normal breath sounds no increased work of breathing no dependent edema and normal sinus rhythm on the bedside monitor. Differential diagnosis includes ACS versus pneumonia versus renal failure versus urinary tract infection versus viral bacterial infection [facility]. Initial workup will be conducted with hematologic labs twelve-lead EKG plain film chest x-ray CT scan of the chest without contrast urinalysis respiratory swabs. Initial interventions include continuous cardiac monitoring and pulse oximetry supplemental O2 sepsis bolus was considered however deferred until workup complete. Initial workup reviewed by me shows his hematologic significant for a white count of 11.3 with an absolute neutrophil count of 8.6 supratherapeutic INR of 4.23 VBG showed a preserved pH of 7.36 with a lactic acid of 1.3 chemistry was significant for BUN of 62 a creatinine of 2 GFR 33 initial troponin 0.13 and NT proBNP of 39.8 TSH of 0.35 urinalysis shows that showed 3+ blood nitrite negative leukocyte Estrace negative too numerous to count red cells 3-5 white cells 5-10 epithelial cells 1+ bacteria COVID and flu were negative.. Given this patient has an NSTEMI and I have consulted cardiology and spoke with Dr. Bales regarding patient management. He will admitted for further evaluation and care for tomorrow. Given the possibility of atypical infection and varicella pneumonia patient's been started on broad-spectrum antibiotics after blood cultures. I then had an interactive discussion with hospital medicine regarding patient management and he will be admitted for further evaluation and care. <Dayana Sotomayor, DO - Last Filed: 10/25/24 00:15> Vital Signs: 10/24/24 19:08 10/24/24 22:25 Temperature 98.3 F 98.1 F Temperature Source Oral Pulse Rate 70 Pulse Rate [Left] 60 Respiratory Rate 16 18 Blood Pressure 131/86 Blood Pressure [Right Arm] 131/76 Blood Pressure Mean [Right Arm] 94 02 Sat by Pulse Oximetry 98 Oxygen Delivery Method Room Air Nasal Cannula Oxygen Flow Rate (LPM) 2 Lab Data Lab Results 10/24/24 19:10: WBC 11.3 H, RBC 3.32 L, Hgb 10.1 L, Hct 31.9 L, MCV 96.1 H, MCH 30.4, MCHC 31.7 L, RDW 13.0, Plt Count 380, MPV 8.8, Neut % (Auto) 76.2, Lymph % (Auto) 13.7, [place] % (Auto) 8.1, Eos % (Auto) 0.1, Baso % (Auto) 0.3, Neut # (Auto) 8.6 H, Lymph # (Auto) 1.5, [place] # (Auto) 0.9, Eos # (Auto) 0.0, Baso # (Auto) 0.0, PT 41.1 H, INR 4.23 H, APTT 87.7 H*, Sodium 135 L, Potassium 4.7, Chloride 101, Carbon Dioxide 27, Anion Gap 11.7, BUN 62 H, Creatinine 2.00 H, Estimated Creat Clear 46, Estimated GFR 33 L, Est GFR ( Amer) 40 L, G lucose 124 H, Calcium 9.5, Magnesium 2.3, Total Bilirubin 0.4, AST 62 H, ALT 30, Alkaline Phosphatase 75, Troponin I 0.13 H, NT-Pro-B Natriuret Pep 39.8, Total Protein 7.1, Albumin 4.0, Globulin 3.1, Albumin/Globulin Ratio 1.3, TSH 0.35 L, Thyroxine (T4) 7.2, HCV Ab LORENZO w/Rflx PCR Qn Negative, HIV Ag/Ab Combo Qual Negative 10/24/24 20:08: SARS-CoV-2 (PCR) Not detected, Influenza A Untype (PCR) Not detected, Influenza Type B (PCR) Not detected 10/24/24 20:23: Urine Color Dark yellow, Urine Appearance Clear, Urine pH 5.5, Ur Specific Wallace >= 1.030, Urine Protein Trace, Urine Glucose (UA) Negative, Urine Ketones Negative, Urine Blood 3+ A, Urine Nitrate Negative, Urine Bilirubin Negative, Urine Urobilinogen 0.2, Ur Leukocyte Esterase Negative, Urine RBC Tntc, Urine WBC 3-5, Ur Squamous Epith Cells 5-10, Amorphous Sediment 1+, Urine Bacteria 1+, Urine Mucus 1+ 10/24/24 20:51: VBG pH 7.36, VBG pCO2 43.5, VBG pO2 55.6 H, VBG HCO3 23.9, VBG Total CO2 25.2, VBG O2 Saturation 84.7 H, VBG Base Excess -1.6, VBG Lactic Acid 1.3 Orders (Tests/Meds): ED MEDICATIONS Generic Name Dose Route Start Last Admin Trade Name Salma PRN Reason Stop Dose Admin Acetaminophen 650 mg 10/24/24 23:03 Acetaminophen 325mg Tab PO 11/23/24 23:02 Q4HP PRN Fever or Mild Pain (1-3) Ceftriaxone Sodium 2 gm/ 100 mls @ 200 mls/hr 10/25/24 22:00 Sodium Chloride IV 11/04/24 21:59 Q24H ADILENE Azithromycin 500 mg/ Sodium 250 mls @ 250 mls/hr 10/25/24 22:00 Chloride IV 11/04/24 21:59 Q24H ADILENE Sodium Chloride 1,000 mls @ 75 mls/hr 10/24/24 23:15 Sod Chlor 0.9% 1000ml Bag IV 11/23/24 23:14 .[id number] ADILENE Miscellaneous 1 each 10/24/24 23:03 10/25/24 00:05 Pharmacy Consult Request NOTAPPLIC 10/24/24 23:04 1 each CONSULT PHARMACY ONE Administration Sodium Chloride 3 ml 10/24/24 21:16 10/24/24 22:45 Sodium Chloride 3% 15ml Neb IH 11/23/24 21:15 3 ml ONCE PRN Administration INDUCE SPUTUM COLLECTION Sodium Chloride 10 ml 10/24/24 23:00 Sodium Chloride 0.9% 10ml Flush Syringe IV 11/23/24 22:59 NEEDED PRN Maintain IV Site Sodium Chloride 10 ml 10/24/24 23:03 Sodium Chloride 0.9% 10ml Flush Syringe IV 11/23/24 23:02 NEEDED PRN Maintain IV Site Discontinued Medications Generic Name Dose Route Start Last Admin Trade Name Freq PRN Reason Stop Dose Admin Lactated Ringer's 1,000 mls @ 999 mls/hr 10/24/24 20:54 10/24/24 21:14 Lactated Ringer's 1000 Ml Bag IV 10/24/24 21:54 999 mls/hr .Q1H1M ONE Administration Ceftriaxone Sodium 2 gm/ 100 mls @ 200 mls/hr 10/24/24 21:16 10/24/24 22:23 Sodium Chloride IV 10/24/24 21:45 200 mls/hr ONCE ONE Administration Azithromycin 500 mg/ Sodium 250 mls @ 250 mls/hr 10/24/24 21:30 Chloride IV 10/24/24 22:29 ONCE ONE Sodium Chloride 1,000 mls @ 75 mls/hr 10/24/24 23:00 Sod Chlor 0.9% 1000ml Bag IV 11/23/24 22:59 .[id number] ADILENE ORDERS Category Date Time Status CT chest wo con Stat Cat Scan 10/24/24 21:18 Completed CXR --portable [XR chest portable] Stat Exams 10/24/24 19:11 Completed BNP [NT Pro Brain Natriuretic Pep.] Stat Lab 10/24/24 19:10 Completed Complete Blood Count Auto Diff Stat Lab 10/24/24 19:10 Completed Comprehensive Metabolic Panel Stat Lab 10/24/24 19:10 Completed Full Resp Panel w/COVID (H) Routine Lab 10/24/24 20:08 Received HIV Combo Routine Lab 10/24/24 19:10 Completed Hepatitis C Ab Qual. W/ RFX Routine Lab 10/24/24 19:10 Completed INR [Prothrombin Time INR] Stat Lab 10/24/24 19:10 Completed MAG [Magnesium] Stat Lab 10/24/24 19:10 Completed PTT [Activated Partial Thrombo Time] Stat Lab 10/24/24 19:10 Completed Rapid PCR Covid and Flu A/B Stat Lab 10/24/24 20:08 Completed T4 (Thyroxine) Stat Lab 10/24/24 19:10 Completed TSH [Thyroid Stimulating Hormone] Stat Lab 10/24/24 19:10 Completed Trop I [Troponin I] Stat Lab 10/24/24 19:10 Completed Troponin I Q3H Lab 10/24/24 22:50 Completed Troponin I Q3H Lab 10/25/24 01:15 Ordered UA [Urinalysis and Microscopic] Stat Lab 10/24/24 20:23 Completed Blood Culture Stat Micro 10/24/24 20:54 Received Sputum Culture & Gram Stain Stat Micro 10/24/24 21:16 Ordered VBG [Venous Blood Gas] Stat RT 10/24/24 20:51 Completed ECG Data Tracing #1: I reviewed this ECG and interpreted as documented below: Normal sinus rhythm with a ventricular rate of 75 bpm. Intraventricular conduction delay without acute ST changes concerning for ischemia. ECG initial impression date: 10/25/24 ECG initial impression time: 19:10 Tracing #2: I reviewed this ECG and interpreted as documented below: Normal sinus rhythm with first-degree AV block. Right bundle branch block. No acute STEMI. ECG initial impression date: 10/25/24 ECG initial impression time: 20:40 HEART Score HEART Score: 6 Critical Care <FERNANDO Fortune - Last Filed: 10/24/24 23:26> Critical Care Time Critical Care Time: Yes Attestation: On 10/24/24, the high probability of a clinically significant, sudden or life threatening deterioration of the following system: Cardiac, pulmonary, circulatory; required my full and direct attention, intervention and personal management. The time I documented below is in addition to time spent performing reported procedures but includes the following listed in this critical care notation. Total Time Total Critical Care Time: 60
[2024-10-24 19:46] LABS: NT Pro Brain Natriuretic Pep. 39.8 pg/mL (0-125)
[2024-10-24 19:49] LABS: Troponin I 0.13 ng/ml (0.00-0.034)
[2024-10-24 19:53] LABS: T4 (Thyroxine) 7.2 ug/dl (5.53-11.0)
[2024-10-24 20:07] LABS: Thyroid Stimulating Hormone 0.35 uIU/mL (0.465-4.68)
[2024-10-24 20:11] LABS: Coronavirus 19, PCR Not Detected (NotDetected); Influenza A, PCR Not Detected (NotDetected); Influenza B, PCR Not Detected (NotDetected)
--- NOTE | 2024-10-24 20:37 | ECG_ITS ---
APPROVED REPORT Exam: Resting ECG HR:68 bpm ECG Measurements Heart Rate 68 AXES AL 211 P 51 QRSd 186 QRS 49 QT 446 T -25 QTc 464 Conclusion SINUS RHYTHM WITH FIRST DEGREE AV BLOCK RIGHT BUNDLE BRANCH BLOCK [120+ ms QRS DURATION, UPRIGHT V1, 40+ ms S IN I/aVL/V4/V5/V6] Electronically signed by : EZEKIEL BARRAGAN, 10/25/2024 00:51:03
[2024-10-24 20:51] LABS: Microscopic, Urine URINE MICROSCOPIC (MICROSCOPIC)
[2024-10-24 20:59] LABS: Appearance,Urine CLEAR (Clear); Bilirubin,Urine Negative (Negative); Blood, Urine 3+ (Negative); Color,Urine DARK YELLOW (Yellow); Glucose,Urine (UA) Negative (Negative); Ketones,Urine Negative (Negative); Leukocyte Esterase,Urine Negative (Negative); Nitrate,Urine Negative (Negative); PH,Urine 5.5 (5.0-8.5); Protein,Urine TRACE (Negative); Specific Gravity, Urine >= 1.030 (1.005-1.030); Urobilinogen,Urine 0.2 EU/dl (0.2)
[2024-10-24 21:13] LABS: Lactate Venous 1.3 mmol/L (0.4-2.0); VBG Base Excess -1.6 mmol/L (-2.4-2.3); VBG HCO3 23.9 mmol/L (23-30); VBG Oxygen Saturation 84.7 % (50-70); VBG PCO2 43.5 mmol/L (35-51); VBG PH 7.36 mmol/L (7.31-7.41); VBG PO2 55.6 mmol/L (28-40); VBG Total CO2 25.2 mmol/L (23-27)
[2024-10-24 21:14] LABS: HIV Combo NEGATIVE (Negative)
[2024-10-24] MEDS: LACTATED RINGERS 1000ML 1,000 ML 999 ML IV (21:14)
--- NOTE | 2024-10-24 21:18 | CT_ITS ---
PROCEDURE INFORMATION: Exam: CT Chest Without Contrast; Diagnostic Exam date and time: 10/24/2024 9:56 PM Age: 74 years old Clinical indication: Other: Hypoxia TECHNIQUE: Imaging protocol: Diagnostic computed tomography of the chest without contrast. Radiation optimization: All CT scans at this facility use at least one of these dose optimization techniques: automated exposure control; mA and/or kV adjustment per patient size (includes targeted exams where dose is matched to clinical indication); or iterative reconstruction. COMPARISON: CR XR CHEST PORTABLE 10/24/2024 7:16 PM FINDINGS: Lungs: Bibasilar subsegmental atelectasis. Pleural spaces: Small complex left pleural effusion. Heart: Unremarkable. No cardiomegaly. No pericardial effusion. Coronary arteries: Atherosclerotic calcification of coronary arteries. Lymph nodes: Unremarkable. No enlarged lymph nodes. Vasculature: Atherosclerotic calcification of aorta without aneurysm. Bones/joints: Unremarkable. No acute fracture. Soft tissues: Unremarkable. Other findings: Poorly defined peripheral opacities. IMPRESSION: Likely infectious/inflammatory bilateral peripheral infiltration including from COVID pneumonia with mildly complex left pleural effusions and bibasilar subsegmental atelectasis.
[2024-10-24 21:22] LABS: Hepatitis C Ab Qual. W/ RFX NEGATIVE (Negative)
[2024-10-24 21:27] LABS: INR 4.23 (0.9-1.1); Prothrombin Time 41.1 seconds (10.1-12.5)
[2024-10-24 21:28] LABS: Amorphous Sediment,Urine 1+ /lpf; Bacteria,Urine 1+ /lpf; Mucus,Urine 1+ /lpf; RBC,Urine TNTC #/hpf (0-3)
[2024-10-24 21:31] LABS: Activated Partial Thrombo Time 87.7 seconds (22.8-30.6)
--- NOTE | 2024-10-24 22:08 | PC.NURSE ---
attmepted to call report, nurse reported she would call back in 5 mins
--- NOTE | 2024-10-24 22:09 | PC.NURSE ---
report called to VERENA Garrett
[2024-10-24] MEDS: CEFTRIAXONE SODIUM 2 GM in 0.9 % SODIUM CHLORIDE 100 ML IV (22:23)
[2024-10-24 22:25] VITALS: BP 131/86; PULSE 70; RESP 18; TEMP 36.7; O2SAT 96
--- NOTE | 2024-10-24 22:27 | PC.NURSE ---
Patient arrived to floor via stretcher from ED at 22:26.
[2024-10-24 22:30] VITALS: BP 131/86; PULSE 67; RESP 20; TEMP 36.7; O2SAT 94; BMI 29.5
[2024-10-24] MEDS: SODIUM CHLORIDE 3% 15ML NEB 3 ML IH (22:45)
[2024-10-24 22:46] VITALS: PULSE 71; RESP 18
[2024-10-24 23:03] LABS: Adenovirus,PCR Not Detected (NotDetected); Bordetella Pertussis Not Detected (NotDetected); Chlamydophila Pneumoniae, PCR Not Detected (NotDetected); Coronavirus 19, PCR Not Detected (NotDetected); Coronavirus 229E Not Detected (NotDetected); Coronavirus NL63 Not Detected (NotDetected); Coronavirus OC43 Not Detected (NotDetected); Coronovirus HKU1,PCR Not Detected (NotDetected); Human Metapneumovirus Not Detected (NotDetected); Influenza A, PCR Not Detected (NotDetected); Influenza AH1, 2009 Not Detected (NotDetected); Influenza AH1, PCR Not Detected (NotDetected); Influenza AH3,PCR Not Detected (NotDetected); Influenza B, PCR Not Detected (NotDetected); Mycoplasma Pneumoniae, PCR Not Detected (NotDetected); Parainfluenza 1, PCR Not Detected (NotDetected); Parainfluenza 2, PCR Not Detected (NotDetected); Parainfluenza 3, PCR Not Detected (NotDetected); Parainfluenza 4, PCR Not Detected (NotDetected); Respiratory Syncytial Virus Not Detected (NotDetected); Rhinovirus/Enterovirus Not Detected (NotDetected)
--- NOTE | 2024-10-24 23:09 | CT_ITS ---
PROCEDURE INFORMATION: Exam: CT Head Without Contrast Exam date and time: 10/24/2024 11:27 PM Age: 74 years old Clinical indication: Pain; Headache; Additional info: Headache on coumadin TECHNIQUE: Imaging protocol: Computed tomography of the head without contrast. Radiation optimization: All CT scans at this facility use at least one of these dose optimization techniques: automated exposure control; mA and/or kV adjustment per patient size (includes targeted exams where dose is matched to clinical indication); or iterative reconstruction. COMPARISON: CT ANGIO HEAD 10/05/2024 2:38 PM FINDINGS: Brain: No hemorrhage. Underlying periventricular white matter changes and parenchymal cortical volume loss. No mass effect. Cerebral ventricles: No ventriculomegaly. Paranasal sinuses: Visualized sinuses are unremarkable. No fluid levels. Mastoid air cells: Visualized mastoid air cells are well aerated. Bones: Unremarkable. No acute fracture. Soft tissues: Unremarkable. IMPRESSION: No acute intracranial abnormality.
--- NOTE | 2024-10-24 23:23 | PC.NURSE ---
Patient left floor with nurse for CT at 23:22.
[2024-10-24 23:25] LABS: Troponin I 0.14 ng/ml (0.00-0.034)
--- NOTE | 2024-10-24 23:30 | PC.NURSE ---
Patient returned to floor from CT at 23:30.
--- NOTE | 2024-10-24 23:56 | P.HP_ITS ---
<Statement entered by Nikos Babb MD - 10/30/24 10:30> Personally examined patient and agree with the plan of care as outlined by the [facility]. History of Present Illness *Admission Date: 10/24/24 *Reason for visit:: Shortness of breath *History of present illness: This is a 74-year-old male with a past medical history of hypothyroidism, hypertension, rheumatoid arthritis, hypercholesterolemia who presents emergency department today with shortness of breath and hypotension. at bedside provides collateral and states that he was diagnosed with shingles approximately 3 weeks ago and placed on acyclovir. States that he has had headache and generalized weakness for several days. He is also on Coumadin for remote DVT (1998) and states his INR was high this week. states that she has noticed him being more short of breath when he walks and ambulates throughout the house. States he has been in tripod position with pursed lip breathing and pr[place] color to his skin. Great-granddaughter was sick with a respiratory virus recently. There is reported that prior to arrival his blood pressure was in systolic in the 80s as well as hypoxia but unable to delineate who recorded these values. Emergency department workup notable for creatinine of 2.0 with a GFR of 46, troponin of 0.13 with increased to 0.14. Urinalysis with positive leuk esterase, white blood cells and bacteria. INR 4.23. Chest x-ray notable for peripheral infiltration. Given above findings, plaints he will be admitted to the hospitalist service. [facility] Disclaimer: The information contained in this section may have been updated after the patient was seen, as this information can be updated by other users. Medical History (Updated 10/25/24 @ 00:16 by LYDIA Rubio) Abscess, thyroid Histoplasmosis Skin cancer Carotid artery disease Hx of deep venous thrombosis Hypertension Arthritis Lupus Autoimmune hepatitis Surgical History History of total right knee replacement Family History Mother Family history of hypertension Brother Family history of myocardial infarction Social History (Updated 10/24/24 @ 23:54 by Cindy Alexander RN) Smoking Status: Never smoker second hand exposure: Yes alcohol intake: never current occupational status: retired and other Travel in the last 8 weeks: None Have you lived/traveled outside [place] in past 30 days?: No Contact w/someone who lives/traveled outside US past 30 days?: No Exposure to someone with infectious disease in past 14 days?: No Do you have a fever (greater than 100.4 F or 38 C)?: No Have you tested positive for COVID-19: No Exposed to someone with COVID-19 in past 14 days?: No Do you have a sore throat?: No Do you have a cough?: No Do you have any weakness?: Yes Are you experiencing any nausea/vomitting?: No Do you have any diarrhea?: No Are you experiencing any unusual bleeding?: No Do you have any muscle aches/pain?: No Do you have any abdominal pain?: No Are you experiencing loss of taste or smell?: No Other Medical History Have you received the Flu Vaccine for this season: Yes Have you received the Pneumonia Vaccine: Yes Review of Systems Review of Systems Review of systems:: pertinent systems reviewed and negative unless documented below Review of systems (narrative): Negative except for HPI Meds Home Medications and Allergies Home Medications ?Medication ?Instructions ?Recorded ?Confirmed ?Type amlodipine 10 mg tablet 10 mg PO DAILY High Blood Pressure 06/07/23 10/24/24 History atorvastatin 20 mg tablet 20 mg PO DAILY High Cholesterol 06/07/23 10/24/24 History azathioprine 50 mg tablet 50 mg PO DAILY Kidney transplant 06/07/23 10/24/24 History duloxetine 30 mg capsule,delayed 30 mg PO DAILY Mood 06/07/23 10/24/24 History release hydrochlorothiazide 25 mg tablet 25 mg PO DAILY Fluid 06/07/23 10/24/24 History hydroxychloroquine 200 mg tablet 200 mg PO BID Arthritis 06/07/23 10/24/24 History levothyroxine 125 mcg tablet 125 mcg PO DAILY Thyroid 06/07/23 10/24/24 History lisinopril 20 mg tablet 20 mg PO BID High Blood Pressure 06/07/23 10/24/24 History memantine 28 mg capsule 28 mg PO DAILY Dementia 06/07/23 10/24/24 History sprinkle,extended release 24hr metoprolol succinate 50 mg 50 mg PO DAILY High Blood Pressure 06/07/23 10/24/24 History tablet,extended release 24 hr oxcarbazepine 300 mg tablet 300 mg PO BID Partial seizures 06/07/23 10/24/24 History prednisone 1 mg tablet 4 mg PO DAILY Adrenal 06/07/23 10/24/24 History tramadol 50 mg tablet 50 - 100 mg PO BIDP PRN Pain 06/07/23 10/24/24 History amoxicillin 875 mg tablet 875 mg PO BID 10/24/24 10/24/24 History pregabalin 75 mg capsule 75 mg PO TID PRN nerve 10/24/24 10/24/24 History valacyclovir 1 gram tablet 1 mg PO TID 10/24/24 10/24/24 History warfarin 5 mg tablet 5 mg PO WEEKLY 10/24/24 10/24/24 History New Prescriptions to Start Prescriptions: Allergies Allergy/AdvReac Type Severity Reaction Status Date / Time No Known Allergies Allergy Verified 07/15/24 11:58 Exam Data for Last 24 hours Vital signs and Labs for Last 24 Hours: Temp Pulse Resp BP Pulse Ox O2 Del Method O2 Flow Rate 98.0 F 71 18 131/86 94 L Room Air 2 10/24/24 22:30 10/24/24 22:46 10/24/24 22:46 10/24/24 22:30 10/24/24 22:30 10/24/24 22:30 10/24/24 22:25 Laboratory Results - last 24 hr 10/24/24 19:10: WBC 11.3 H, RBC 3.32 L, Hgb 10.1 L, Hct 31.9 L, MCV 96.1 H, MCH 30.4, MCHC 31.7 L, RDW 13.0, Plt Count 380, MPV 8.8, Neut % (Auto) 76.2, Lymph % (Auto) 13.7, [place] % (Auto) 8.1, Eos % (Auto) 0.1, Baso % (Auto) 0.3, Neut # (Auto) 8.6 H, Lymph # (Auto) 1.5, [place] # (Auto) 0.9, Eos # (Auto) 0.0, Baso # (Auto) 0.0, PT 41.1 H, INR 4.23 H, APTT 87.7 H*, Sodium 135 L, Potassium 4.7, Chloride 101, Carbon Dioxide 27, Anion Gap 11.7, BUN 62 H, Creatinine 2.00 H, Estimated Creat Clear 46, Estimated GFR 33 L, Est GFR ( Amer) 40 L, Glucose 124 H, Calcium 9.5, Magnesium 2.3, Total Bilirubin 0.4, AST 62 H, ALT 30, Alkaline Phosphatase 75, Troponin I 0.13 H, NT-Pro-B Natriuret Pep 39.8, Total Protein 7.1, Albumin 4.0, Globulin 3.1, Albumin/Globulin Ratio 1.3, TSH 0.35 L, Thyroxine (T4) 7.2, HCV Ab LORENZO w/Rflx PCR Qn Negative, HIV Ag/Ab Combo Qual Negative 10/24/24 20:08: SARS-CoV-2 (PCR) Not detected, Influenza A Untype (PCR) Not detected, Influenza Type B (PCR) Not detected 10/24/24 20:23: Urine Color Dark yellow, Urine Appearance Clear, Urine pH 5.5, Ur Specific [place] >= 1.030, Urine Protein Trace, Urine Glucose (UA) Negative, Urine Ketones Negative, Urine Blood 3+ A, Urine Nitrate Negative, Urine Bilirubin Negative, Urine Urobilinogen 0.2, Ur Leukocyte Esterase Negative, Urine RBC Tntc, Urine WBC 3-5, Ur Squamous Epith Cells 5-10, Amorphous Sediment 1+, Urine Bacteria 1+, Urine Mucus 1+ 10/24/24 20:51: VBG pH 7.36, VBG pCO2 43.5, VBG pO2 55.6 H, VBG HCO3 23.9, VBG Total CO2 25.2, VBG O2 Saturation 84.7 H, VBG Base Excess -1.6, VBG Lactic Acid 1.3 10/24/24 22:50: Troponin I 0.14 H I & O for Last 24 hours: Intake & Output 10/21/24 10/22/24 10/23/24 10/24/24 23:59 23:59 23:59 23:59 Weight 98.702 kg Constitutional Constitutional: no acute distress *Routine HEENT Exam Head: Present normocephalic Eye: Present EOMI and PERRL ENT: Present mucous membranes moist *Routine Neck Exam Neck: Present supple; Absent lymphadenopathy *Routine Respiratory Exam Respiratory: Present CTA bilaterally *Routine Cardiovascular Exam Cardiovascular: Present RRR *Routine Abdominal Exam Abdominal: Present soft and normoactive bowel sounds; Absent tenderness *Routine Rectal Exam Rectal:: deferred *Routine Genitalia Exam Genitalia:: deferred *Routine Extremities Exam Extremities: Present cyanosis Comments: Pale, hairless skin legs with blue tent to them. Pulses intact. *Routine Skin Exam Skin: Present warm; Absent rash *Routine Neurological Exam Neurological: Present alert and oriented X3 Assessment and Plan *Assessment and plan (1) Pneumonia: Status: Acute Qualifiers: Laterality: bilateral Pneumonia type: due to unspecified organism Category: Medical Code(s): J18.9 - Pneumonia, unspecified organism (2) Acute kidney injury (nontraumatic): Status: Acute Category: Medical Code(s): N17.9 - Acute kidney failure, unspecified (3) Non-ST elevation MN (NSTEMI): Status: Acute Category: Medical Code(s): I21.4 - Non-ST elevation (NSTEMI) myocardial infarction (4) Supratherapeutic INR: Status: Acute Category: Medical Code(s): R79.1 - Abnormal coagulation profile (5) Dyspnea on exertion: Status: Acute Category: Medical Code(s): R06.09 - Other forms of dyspnea (6) Shingles: Status: Acute Category: Medical Code(s): B02.9 - Zoster without complications Plan #Pneumonia Chest CT with evidence of infectious/inflammatory bilateral peripheral infiltration Procalcitonin pending Blood cultures obtained Continue azithromycin and Rocephin for CAP Patient initially was stated to be hypoxic. Is currently on room air resting in bed with oxygen saturations in the mid 90s. Will get ambulatory oxygen saturation Sputum culture if able #Dyspnea on exertion #Left pleural effusion #NSTEMI reports significant dyspnea on exertion in the last several weeks. Does have an elevated troponin. Echocardiogram in a.m. Cardiology consulted for a.m. Trend troponins Continue daily aspirin Renal function precludes contrasted scan at this time. Defer CTA pulmonary scan. #Shingles Will continue acyclovir. Patient does have lesions in the back of his head to the right side of his face. Complaining of a headache. Head CT obtained and negative. #Supratherapeutic INR Patient reports being on Coumadin since 1998 for DVT at that time. Has not had reimaging. Does not have a history of PE. 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 Family at bedside is unable to state what testing was been done to confirm this. Has had multiple hospitalizations in the past for hematoma including rectus sheath and large thigh hematoma Will get bilateral lower extremity ultrasounds to rule out current DVT Will hold Coumadin at this time given INR is 4.3 Pharmacy consult to aid in management. Would recommend discussing options for AC if needed. Unsure if patient still needs anticoagulation if further workup is negative. Will defer conversation to dayshift provider to go over risk versus benefits. Unable to complete CTA of the chest to rule out PE, GFR 33 on admission #EDUARDO Likely prerenal nature but does have pleural effusions with mild hypoxia. Will defer fluids at this time Avoid nephrotoxic medications #Hypotension Appears resolved, although could be orthostatic in nature. Will obtain orthostatic vital
--- NOTE | 2024-10-25 00:06 | PC.NURSE ---
Coumadin management consult done with [facility] pharmacy. Spoke to Tasha states no dose needed tonight.
[2024-10-25] MEDS: AZITHROMYCIN 500 MG in 0.9 % SODIUM CHLORIDE 250 ML 250 MG IV (00:35)
[2024-10-25 01:32] LABS: Troponin I 0.13 ng/ml (0.00-0.034)
[2024-10-25 04:00] VITALS: BP 121/72; PULSE 63; PULSE 70; RESP 16; TEMP 36.9; O2SAT 90; BMI 29.5
--- NOTE | 2024-10-25 05:05 | PC.WOUNDNOTE ---
Pt. admitted overnight from the ED. Pt was seen in the ED for weakness and SOB. Pt. on Coumadin. Pt. had elevated Trop levels, resp. failure and EDUARDO. Pt. family at bedside. Pt. got some IV antibiotics, tolerated well. Pt. NPO after midnight. Pt. on room air. VSS, Personal items and call rey in reach.
--- NOTE | 2024-10-25 06:25 | CA_ITS ---
FINAL REPORT CLINICAL HISTORY: Previous DVT of left leg 1-2 years ago, Abnormal Coagulation profile. COMPARISON: none FINDINGS: Multiple transverse and longitudinal scans were performed of the femoral popliteal deep venous system, with augmentation and compression maneuvers. Normal phasic flow was noted in the visualized deep venous system. No intraluminal increased echogenicity is noted to suggest thrombus. There is normal compression and augmentation of the venous structures. No abnormal venous collaterals are seen. IMPRESSION: No evidence of deep venous thrombosis of the bilateral lower extremities. Reviewed, Interpreted and Dictated by Jeannine Donato MD Transcribed by Francy Caal Authenticated and . [facility]
--- NOTE | 2024-10-25 06:25 | CA_ITS ---
APPROVED REPORT EXAM: Comprehensive 2D, Doppler, and color-flow Echocardiogram Lobby Porter: CLOVER Macias, RVS Ht: 6 ft 0 in Wt: 217lbs BSA: 2.21 BP: 131/86 mmHg Indications: Pneumonia, RF, Lupus, Nstemi, HTN, PATIÑO 2D Dimensions Left Atrium 2.72 cm M: 3.0 - 4.0 LA Volume 49.40 mL LA Volume Index 22.256503 mL/m2 (M/F) 16-34 EF AP4 52.60 % GL Strain -29.4 % M-Mode Dimensions RVDd 3.19 cm (0.9-2.6) LA Diam 4.00 cm (1.9-4.0) LVDd 5.89 cm (3.5-5.7) LVDs 3.11 cm (3.5-5.7) IVSd 1.33 cm (0.6-1.1) PWd 1.37 cm (0.6-1.1) EF (Teich) 77.90% EPSs 0.69 cm FS 47.20% EDV (Teich) 172.50 mL TAPSE 2.17 (<1.7) ESV (Teich) 38.20 mL LV Diastology E Decel Time 143 (160-240 msec) E/A Ratio 0.68 MED A' 13.40 cm/s LAT A' 11.30 cm/s Aortic Valve ORALIA Index 1.34 cm2/m2 AoV Peak Sukhjinder. 133.0 (50-130 cm/s) AI PHT 423.00 ms AO Peak GR. 7.10 mmHg AO Mean GR. 3.50 (<5 mmHg) AO VTI 24.4 (18-25 cm) ORALIA (VTI) 3.03 (2.5-4.5 cm2) Mitral Valve MV A Velocity 87.0 (40-130 cm/s) E/A Ratio 0.68 Pulmonary Valve AZ End VMAX 275.0 cm/s Tricuspid Valve TR P. Velocity 267.00 cm/s RAP Estimate 10.00 mmHg RVSP 38.40 mmHg Left Ventricle The left ventricle is normal size. The left ventricular systolic function is normal. The left ventricular ejection fraction is within the normal range. There is increased LV wall thickness. There is normal LV segmental wall motion. Diastolic function is indeterminate. LVEF is 60%. Right Ventricle Right ventricle is mildly dilated. Right ventricle is mildly hypokinetic. Atria The left atrium size is normal. The right atrium size is normal. There is no Doppler evidence of interatrial shunt. Aortic Valve Aortic valve is mildly thickened. There is no aortic valvular stenosis. Mild aortic regurgitation. Mitral Valve The mitral valve leaflets are mildly thickened. No evidence of mitral valve stenosis. Trace mitral regurgitation. Tricuspid Valve Tricuspid valve is grossly normal in structure and function. Mild tricuspid regurgitation. RVSP is 30-35 mmHg. Pulmonic Valve The pulmonary valve is normal in structure. Mild pulmonic regurgitation. Great Vessels The aortic root is normal in size. The ascending aorta is not well-visualized. IVC is normal in size and collapses >50% with inspiration. Pericardium There is no pericardial effusion. Other Information Study Quality: Fair Conclusion Normal LV systolic function. Mild RV dilation with mild reduction in RV function. Mild AI, mild PI, mild TR. Electronically signed by : Radha Nielsen MD 10/25/2024 12:53:21
[2024-10-25 06:40] VITALS: BP 102/65; BP 110/67; BP 150/77; PULSE 72; PULSE 74; PULSE 85
[2024-10-25 06:57] LABS: Basophils # 0.1 K/mm3 (0-0.2); Basophils % 0.7 % (0.1-2.0); Eosinophils # 0.4 K/mm3 (0.0-0.4); Eosinophils % 5.2 % (0.1-12.0); Hematocrit 28.6 % (42.0-52.0); Lymphocytes # 1.5 K/mm3 (0.7-4.5); Lymphocytes % 18.7 % (10-50); Mean Corpuscular HGB Conc 30.8 g/dL (31.8-35.4); Mean Corpuscular Volume 97.6 fl (80-94); Mean Platelet Volume 8.8 fl (7.4-10.4); Monocytes # 0.7 K/mm3 (0.1-1.0); Monocytes % 8.5 % (1.7-9.3); Neutrophils # 5.1 K/mm3 (1.8-7.8); Neutrophils % 64.3 % (37.0-80.0); Platelet Count 333 K/mm3 (142-424); Red Blood Count 2.93 M/mm3 (4.60-6.20); Red Cell Distribution Width 13.2 % (11.5-17.5)
[2024-10-25 06:59] LABS: Hemoglobin 8.8 g/dL (14.1-18.0)
[2024-10-25 07:07] LABS: Anion Gap 12.1 mEq/L (5-15); Blood Urea Nitrogen 52 mg/dl (9-20); Carbon Dioxide 25 mmol/L (22.0-30.0); Chloride 105 mmol/L (98-107); Creatinine Clearance Estimated 54 mL/min (50-200); Estimated Glomerular Filt Rate 40 ml/min (>60); GFR (African American) 48 ML/MIN (>60); Glucose 90 mg/dl (74-100); Potassium 4.1 mmoL/L (3.5-5.1); Sodium 138 mmol/L (136-145)
[2024-10-25 08:00] VITALS: BP 151/62; PULSE 68; RESP 18; TEMP 36.6; O2SAT 90
[2024-10-25 08:16] LABS: Procalcitonin 0.078 ng/mL (0.0-2.0)
--- NOTE | 2024-10-25 09:38 | HMH.PHAINT1 ---
Pharmacy Intervention Comments: VERIFIED MEDICATIONS WITH OUTPATIENT PHARMACY. CONFIRMED MEDICATIONS WITH PATIENT.
--- NOTE | 2024-10-25 10:08 | P.CONS_ITS ---
History of Present Illness History of present illness: Mr. Paredes is a 74-year-old male with reported history hypothyroidism hypertension rheumatoid arthritis dyslipidemia presented to ER with worsening respiratory distress and pulmonary was called for further evaluation and management. 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 He denies any worsening cough or any productive phlegm. History of histoplasmosis around 2015 years ago History of rheumatoid arthritis and SLE, on Plaquenil, azathioprine monthly infusions. Following with [facility]. Admits stable symptoms [facility] Disclaimer: The information contained in this section may have been updated after the patient was seen, as this information can be updated by other users. Medical History (Updated 10/25/24 @ 12:21 by Angeli Jerez APRN) Abscess, thyroid Histoplasmosis Skin cancer Carotid artery disease Hx of deep venous thrombosis Hypertension Arthritis Lupus Autoimmune hepatitis Surgical History History of total right knee replacement Family History Mother Family history of hypertension Brother Family history of myocardial infarction Social History (Updated 10/24/24 @ 23:54 by Cindy Alexander RN) Smoking Status: Never smoker second hand exposure: Yes alcohol intake: never current occupational status: retired and other Travel in the last 8 weeks: None Have you lived/traveled outside [place] in past 30 days?: No Contact w/someone who lives/traveled outside [place] past 30 days?: No Exposure to someone with infectious disease in past 14 days?: No Do you have a fever (greater than 100.4 F or 38 C)?: No Have you tested positive for COVID-19: No Exposed to someone with COVID-19 in past 14 days?: No Do you have a sore throat?: No Do you have a cough?: No Do you have any weakness?: Yes Are you experiencing any nausea/vomitting?: No Do you have any diarrhea?: No Are you experiencing any unusual bleeding?: No Do you have any muscle aches/pain?: No Do you have any abdominal pain?: No Are you experiencing loss of taste or smell?: No Review of Systems Constitutional Constitutional: Reports anorexia, Reports body ache(s) and Reports fatigue Eyes Eyes: Denies eye discharge, Denies dry eyes, Denies irritation and Denies itchy eyes ENT Ears, Nose, Mouth, and Throat: Denies epistaxis, Denies facial pain, Denies lip swelling and Denies throat swelling *Cardiovascular Cardiovascular: Reports dyspnea and Reports dyspnea on exertion *Respiratory Respiratory: Denies change in phlegm color, Reports chest congestion, Reports cough, Reports dyspnea, Reports dyspnea on exertion, Denies excessive phlegm production, Denies hemoptysis, Denies pain on inspiration, Denies pain with cough and Reports wheezing *Gastrointestinal Gastrointestinal: Denies abdominal pain, Denies belching and Denies cramping *Musculoskeletal Musculoskeletal: Reports back pain, Reports myalgias and Reports other (No small joint swelling or Pain) Psychiatric Psychiatric: Denies homicidal ideation and Denies suicidal ideation Endocrine Endocrine: Reports fatigue and Denies heat intolerance Hematologic/Lymphatic Hematologic/Lymphatic: Denies easy bleeding and Denies lymphadenopathy Allergic/Immunologic Allergic/Immunologic: Denies itchy eyes, Denies lip swelling, Denies throat swelling and Reports wheezing Pulmonology Exam Inpatient Vital signs and Labs for Last 24 Hours: Temp Pulse Resp BP Pulse Ox O2 Del Method O2 Flow Rate 97.9 F 68 18 151/62 H 90 L Room Air 2 10/25/24 08:00 10/25/24 08:00 10/25/24 08:00 10/25/24 08:00 10/25/24 08:00 10/25/24 08:00 10/24/24 22:25 Laboratory Results - last 24 hr 10/24/24 19:10: WBC 11.3 H, RBC 3.32 L, Hgb 10.1 L, Hct 31.9 L, MCV 96.1 H, MCH 30.4, MCHC 31.7 L, RDW 13.0, Plt Count 380, MPV 8.8, Neut % (Auto) 76.2, Lymph % (Auto) 13.7, [place] % (Auto) 8.1, Eos % (Auto) 0.1, Baso % (Auto) 0.3, Neut # (Auto) 8.6 H, Lymph # (Auto) 1.5, [place] # (Auto) 0.9, Eos # (Auto) 0.0, Baso # (Auto) 0.0, PT 41.1 H, INR 4.23 H, APTT 87.7 H*, Sodium 135 L, Potassium 4.7, Chloride 101, Carbon Dioxide 27, Anion Gap 11.7, BUN 62 H, Creatinine 2.00 H, Estimated Creat Clear 46, Estimated GFR 33 L, Est GFR ( Amer) 40 L, G lucose 124 H, Calcium 9.5, Magnesium 2.3, Total Bilirubin 0.4, AST 62 H, ALT 30, Alkaline Phosphatase 75, Troponin I 0.13 H, NT-Pro-B Natriuret Pep 39.8, Total Protein 7.1, Albumin 4.0, Globulin 3.1, Albumin/Globulin Ratio 1.3, TSH 0.35 L, Thyroxine (T4) 7.2, HCV Ab LORENZO w/Rflx PCR Qn Negative, HIV Ag/Ab Combo Qual Negative 10/24/24 20:08: Chlamy pneumoniae PCR Not detected, Adenovirus (PCR) Not detected, B. pertussis DNA (PCR) Not detected, Coronavirus OC43 (PCR) Not detected, Coronavirus HKU1 (PCR) Not detected, Coronavirus 229E (PCR) Not detected, SARS-CoV-2 (PCR) Not detected 10/24/24 20:08: SARS-CoV-2 (PCR) Not detected, Coronavirus NL63 (PCR) Not detected, Human Metapneumovir PCR Not detected, Influenza A (H1) PCR Not detected, Influ A (H1N1/09) PCR Not detected, Influenza A (H3) PCR Not detected, Influenza Type A (PCR) Not detected, Influenza A Untype (PCR) Not detected, Influenza Type B (PCR) Not detected 10/24/24 20:08: Influenza Type B (PCR) Not detected, M. pneumoniae (PCR) Not detected, Parainfluenza 1 (PCR) Not detected, Parainfluenza 2 (PCR) Not detected, Parainfluenza 3 (PCR) Not detected, Parainfluenza 4 (PCR) Not detected, RSV (PCR) Not detected, Entero/Rhino (PCR) Not detected 10/24/24 20:23: Urine Color Dark yellow, Urine Appearance Clear, Urine pH 5.5, Ur Specific [place] >= 1.030, Urine Protein Trace, Urine Glucose (UA) Negative, Urine Ketones Negative, Urine Blood 3+ A, Urine Nitrate Negative, Urine Bilirubin Negative, Urine Urobilinogen 0.2, Ur Leukocyte Esterase Negative, Urine RBC Tntc, Urine WBC 3-5, Ur Squamous Epith Cells 5-10, Amorphous Sediment 1+, Urine Bacteria 1+, Urine Mucus 1+ 10/24/24 20:51: VBG pH 7.36, VBG pCO2 43.5, VBG pO2 55.6 H, VBG HCO3 23.9, VBG Total CO2 25.2, VBG O2 Saturation 84.7 H, VBG Base Excess -1.6, VBG Lactic Acid 1.3 10/24/24 22:50: Troponin I 0.14 H 10/25/24 01:03: Troponin I 0.13 H 10/25/24 06:19: WBC 8.0 D, RBC 2.93 L, Hgb 8.8 L D, Hct 28.6 L, MCV 97.6 H, MCH 30.0, MCHC 30.8 L, RDW 13.2, Plt Count 333, MPV 8.8, Neut % (Auto) 64.3, Lymph % (Auto) 18.7, [place] % (Auto) 8.5, Eos % (Auto) 5.2, Baso % (Auto) 0.7, Neut # (Auto) 5.1, Lymph # (Auto) 1.5, [place] # (Auto) 0.7, Eos # (Auto) 0.4, Baso # (Auto) 0.1, Sodium 138, Potassium 4.1, Chloride 105, Carbon Dioxide 25, Anion Gap 12.1, BUN 52 H, Creatinine 1.70 H, Estimated Creat Clear 54, Estimated GFR 40 L, Est GFR ( Amer) 48 L, Glucose 90 D, Calcium 9.0, Procalcitonin 0.078 I & O for Labs for Last 24 Hours: Intake & Output 10/22/24 10/23/24 10/24/24 10/25/24 23:59 23:59 23:59 23:59 Output Total 350 / 350 Balance -350 / -350 Weight 217 lb 9.6 oz 217 lb 9.61 oz Constitutional: Present mild distress Head: Present normocephalic and atraumatic ENT: Present normal exam, normal oropharynx and mucous membranes moist Neck: Present normal inspection and full ROM Respiratory: Present respiratory distress, normal respiratory effort and able to speak in complete sentences; Absent prolonged expiratory phase, wheezes, crackles or diminished air movement Cardiac: Present S1/S2, Tachycardia and radial pulses present GI: Present soft and distention; Absent tenderness or guarding Skin: Present intact; Absent cyanosis or jaundice Neuro: Present alert, awake and oriented x 3 Extremities: Present normal inspection; Absent clubbing or cyanosis Psychiatric: Present normal affect and cooperative Meds Home Medications and Allergies Home Medications ?Medication ?Instructions ?Recorded ?Confirmed ?Type amlodipine 10 mg tablet 10 mg PO DAILY 06/07/23 10/25/24 History atorvastatin 20 mg tablet 20 mg PO DAILY 06/07/23 10/25/24 History azathioprine 50 mg tablet 50 mg PO DAILY 06/07/23 10/25/24 History duloxetine 30 mg capsule,delayed 30 mg PO DAILY 06/07/23 10/25/24 History release hydrochlorothiazide 25 mg tablet 25 mg PO DAILY 06/07/23 10/25/24 History hydroxychloroquine 200 mg tablet 200 mg PO BID 06/07/23 10/25/24 History levothyroxine 125 mcg tablet 125 mcg PO DAILY 06/07/23 10/25/24 History lisinopril 20 mg tablet 20 mg PO BID 06/07/23 10/25/24 History memantine 28 mg capsule 28 mg PO DAILY 06/07/23 10/25/24 History sprinkle,extended release 24hr metoprolol succinate 50 mg 50 mg PO DAILY 06/07/23 10/25/24 History tablet,extended release 24 hr oxcarbazepine 300 mg tablet 300 mg PO BID 06/07/23 10/25/24 History prednisone 1 mg tablet 4 mg PO DAILY 06/07/23 10/25/24 History tramadol 50 mg tablet 50 - 100 mg PO BIDP PRN Pain 06/07/23 10/25/24 History amoxicillin 875 mg tablet 875 mg PO BID 10/24/24 10/25/24 History pregabalin 75 mg capsule 75 mg PO TID 10/24/24 10/25/24 History valacyclovir 1 gram tablet 1 mg PO TID 10/24/24 10/25/24 History warfarin 5 mg tablet 5 mg PO HS 10/24/24 10/25/24 History New Prescriptions to Start Prescriptions: Allergies Allergy/AdvReac Type Severity Reaction Status Date / Time No Known Allergies Allergy Verified 07/15/24 11:58 Results Laboratory Findings 10/25/24 06:19 10/25/24 06:19 PT/INR, D-dimer PT 41.1 seconds (10.1-12.5) H 10/24/24 19:10 INR 4.23 (0.9-1.1) H 10/24/24 19:10 Abnormal lab findings: Abnormal Labs 10/24/24 10/24/24 10/24/24 19:10 20:23 20:51 WBC 11.3 H RBC 3.32 L Hgb 10.1 L Hct 31.9 L MCV 96.1 H MCHC 31.7 L Neut # (Auto) 8.6 H PT 41.1 H INR 4.23 H APTT 87.7 H* VBG pO2 55.6 H VBG O2 Saturation 84.7 H Sodium 135 L BUN 62 H Creatinine 2.00 H Estimated GFR 33 L Est GFR ( Amer) 40 L Glucose 124 H AST 62 H Troponin I 0.13 H TSH 0.35 L Urine Blood 3+ A 10/24/24 10/25/24 10/25/24 22:50 01:03 06:19 WBC RBC 2.93 L Hgb 8.8 L D Hct 28.6 L MCV 97.6 H MCHC 30.8 L Neut # (Auto) PT INR APTT VBG pO2 VBG O2 Saturation Sodium BUN 52 H Creatinine 1.70 H Estimated GFR 40 L Est GFR ( Amer) 48 L Glucose AST Troponin I 0.14 H 0.13 H TSH Urine Blood Assessment and Plan *Assessment and plan (1) Pneumonia: Status: Acute Qualifiers: Pneumonia type: due to unspecified organism Laterality: bilateral Category: Medical Code(s): J18.9 - Pneumonia, unspecified organism Plan Mr. Paredes is a 74-year-old male with reported history hypothyroidism hypertension rheumatoid arthritis dyslipidemia presented to ER with worsening respiratory distress and pulmonary was called for further evaluation and management. 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 He denies any worsening cough or any productive phlegm. History of histoplasmosis around 2015 years ago History of rheumatoid arthritis and SLE, on Plaquenil, azathioprine monthly infusions. Following with [facility]. Admits stable symptoms Afebrile. Hemodynamically unstable upon admission improving. COVID-19 and flu PCR panel negative. Next mild neutrophilic prominent leukocytosis upon admission, improving. Blood gas upon admission did not show any evidence of hypoxic/hypercarbic respiratory failure. CT chest upon admission bilateral minimal patchy airspace disease noted. Small left pleural effusion noted. Lower extremity venous Doppler negative for DVT On admission was initiated on ceftriaxone azithromycin for community-acquired pneumonia. INR supratherapeutic at 4.23 upon admission Plan: -Wean antibiotics to Augmentin to complete a total of 7-day course -Follow-up with beta D glucan fungal serologies and urine histoplasma antigen Will follow the patient in pulmonary clinic 2 to 3 weeks post discharge.
--- NOTE | 2024-10-25 11:14 | P.HP_ITS ---
History of Present Illness *Admission Date: 10/24/24 *History of present illness: Hospitalist note: This is a 74-year-old male with a past medical history of hypothyroidism, hypertension, rheumatoid arthritis, hypercholesterolemia who presents emergency department today with shortness of breath and hypotension. at bedside provides collateral and states that he was diagnosed with shingles approximately 3 weeks ago and placed on acyclovir. States that he has had headache and generalized weakness for several days. He is also on Coumadin for remote DVT (1998) and states his INR was high this week. states that she has noticed him being more short of breath when he walks and ambulates throughout the house. States he has been in tripod position with pursed lip breathing and prado color to his skin. Great-granddaughter was sick with a respiratory virus recently. There is reported that prior to arrival his blood pressure was in systolic in the 80s as well as hypoxia but unable to delineate who recorded these values. Emergency department workup notable for creatinine of 2.0 with a GFR of 46, troponin of 0.13 with increased to 0.14. Urinalysis with positive leuk esterase, white blood cells and bacteria. INR 4.23. Chest x-ray notable for peripheral infiltration. Given above findings, plaints he will be admitted to the hospitalist service. Cards note: Cardiology was asked to evaluate for elevated troponins. Troponin 0.13?0 0.14?0.13 in the setting of acute pneumonia. Patient denies CAD history. Patient denies chest pain. Reports shortness of breath. Of note patient has supratherapeutic INR of 4.3 on admission history of Coumadin for DVT. EKG shows sinus rhythm with a first-degree AV block, right bundle branch block no acute ischemic changes noted. Venous Doppler negative for DVT. Echo is pending. Chest CT bilateral minimal patchy airspace disease noted with a small left pleural effusion. [facility] Disclaimer: The information contained in this section may have been updated after the patient was seen, as this information can be updated by other users. Medical History (Updated 10/25/24 @ 12:21 by Angeli Jerez APRN) Abscess, thyroid Histoplasmosis Skin cancer Carotid artery disease Hx of deep venous thrombosis Hypertension Arthritis Lupus Autoimmune hepatitis Surgical History History of total right knee replacement Family History Mother Family history of hypertension Brother Family history of myocardial infarction Social History (Updated 10/24/24 @ 23:54 by Cindy Alexander RN) Smoking Status: Never smoker second hand exposure: Yes alcohol intake: never current occupational status: retired and other Travel in the last 8 weeks: None Have you lived/traveled outside [place] in past 30 days?: No Contact w/someone who lives/traveled outside US past 30 days?: No Exposure to someone with infectious disease in past 14 days?: No Do you have a fever (greater than 100.4 F or 38 C)?: No Have you tested positive for COVID-19: No Exposed to someone with COVID-19 in past 14 days?: No Do you have a sore throat?: No Do you have a cough?: No Do you have any weakness?: Yes Are you experiencing any nausea/vomitting?: No Do you have any diarrhea?: No Are you experiencing any unusual bleeding?: No Do you have any muscle aches/pain?: No Do you have any abdominal pain?: No Are you experiencing loss of taste or smell?: No Other Medical History Have you received the Flu Vaccine for this season: Yes Have you received the Pneumonia Vaccine: Yes Review of Systems Review of Systems Review of systems:: pertinent systems reviewed and negative unless documented below *Cardiovascular Cardiovascular: Denies chest pain and Reports dyspnea *Respiratory Respiratory: Reports dyspnea Meds Home Medications and Allergies Home Medications ?Medication ?Instructions ?Recorded ?Confirmed ?Type amlodipine 10 mg tablet 10 mg PO DAILY 06/07/23 10/25/24 History atorvastatin 20 mg tablet 20 mg PO DAILY 06/07/23 10/25/24 History azathioprine 50 mg tablet 50 mg PO DAILY 06/07/23 10/25/24 History duloxetine 30 mg capsule,delayed 30 mg PO DAILY 06/07/23 10/25/24 History release hydrochlorothiazide 25 mg tablet 25 mg PO DAILY 06/07/23 10/25/24 History hydroxychloroquine 200 mg tablet 200 mg PO BID 06/07/23 10/25/24 History levothyroxine 125 mcg tablet 125 mcg PO DAILY 06/07/23 10/25/24 History lisinopril 20 mg tablet 20 mg PO BID 06/07/23 10/25/24 History memantine 28 mg capsule 28 mg PO DAILY 06/07/23 10/25/24 History sprinkle,extended release 24hr metoprolol succinate 50 mg 50 mg PO DAILY 06/07/23 10/25/24 History tablet,extended release 24 hr oxcarbazepine 300 mg tablet 300 mg PO BID 06/07/23 10/25/24 History prednisone 1 mg tablet 4 mg PO DAILY 06/07/23 10/25/24 History tramadol 50 mg tablet 50 - 100 mg PO BIDP PRN Pain 06/07/23 10/25/24 History amoxicillin 875 mg tablet 875 mg PO BID 10/24/24 10/25/24 History pregabalin 75 mg capsule 75 mg PO TID 10/24/24 10/25/24 History valacyclovir 1 gram tablet 1 mg PO TID 10/24/24 10/25/24 History warfarin 5 mg tablet 5 mg PO HS 10/24/24 10/25/24 History New Prescriptions to Start Prescriptions: Allergies Allergy/AdvReac Type Severity Reaction Status Date / Time No Known Allergies Allergy Verified 07/15/24 11:58 Exam Data for Last 24 hours Vital signs and Labs for Last 24 Hours: Temp Pulse Resp BP Pulse Ox O2 Del Method O2 Flow Rate 97.9 F 68 18 151/62 H 90 L Room Air 2 10/25/24 08:00 10/25/24 08:00 10/25/24 08:00 10/25/24 08:00 10/25/24 08:00 10/25/24 08:00 10/24/24 22:25 Laboratory Results - last 24 hr 10/24/24 19:10: WBC 11.3 H, RBC 3.32 L, Hgb 10.1 L, Hct 31.9 L, MCV 96.1 H, MCH 30.4, MCHC 31.7 L, RDW 13.0, Plt Count 380, MPV 8.8, Neut % (Auto) 76.2, Lymph % (Auto) 13.7, [place] % (Auto) 8.1, Eos % (Auto) 0.1, Baso % (Auto) 0.3, Neut # (Auto) 8.6 H, Lymph # (Auto) 1.5, [place] # (Auto) 0.9, Eos # (Auto) 0.0, Baso # (Auto) 0.0, PT 41.1 H, INR 4.23 H, APTT 87.7 H*, Sodium 135 L, Potassium 4.7, Chloride 101, Carbon Dioxide 27, Anion Gap 11.7, BUN 62 H, Creatinine 2.00 H, Estimated Creat Clear 46, Estimated GFR 33 L, Est GFR ( Amer) 40 L, G lucose 124 H, Calcium 9.5, Magnesium 2.3, Total Bilirubin 0.4, AST 62 H, ALT 30, Alkaline Phosphatase 75, Troponin I 0.13 H, NT-Pro-B Natriuret Pep 39.8, Total Protein 7.1, Albumin 4.0, Globulin 3.1, Albumin/Globulin Ratio 1.3, TSH 0.35 L, Thyroxine (T4) 7.2, HCV Ab LORENZO w/Rflx PCR Qn Negative, HIV Ag/Ab Combo Qual Negative 10/24/24 20:08: Chlamy pneumoniae PCR Not detected, Adenovirus (PCR) Not detected, B. pertussis DNA (PCR) Not detected, Coronavirus OC43 (PCR) Not detected, Coronavirus HKU1 (PCR) Not detected, Coronavirus 229E (PCR) Not detected, SARS-CoV-2 (PCR) Not detected 10/24/24 20:08: SARS-CoV-2 (PCR) Not detected, Coronavirus NL63 (PCR) Not detected, Human Metapneumovir PCR Not detected, Influenza A (H1) PCR Not detected, Influ A (H1N1/09) PCR Not detected, Influenza A (H3) PCR Not detected, Influenza Type A (PCR) Not detected, Influenza A Untype (PCR) Not detected, Influenza Type B (PCR) Not detected 10/24/24 20:08: Influenza Type B (PCR) Not detected, M. pneumoniae (PCR) Not detected, Parainfluenza 1 (PCR) Not detected, Parainfluenza 2 (PCR) Not detected, Parainfluenza 3 (PCR) Not detected, Parainfluenza 4 (PCR) Not detected, RSV (PCR) Not detected, Entero/Rhino (PCR) Not detected 10/24/24 20:23: Urine Color Dark yellow, Urine Appearance Clear, Urine pH 5.5, Ur Specific [place] >= 1.030, Urine Protein Trace, Urine Glucose (UA) Negative, Urine Ketones Negative, Urine Blood 3+ A, Urine Nitrate Negative, Urine Bilirubin Negative, Urine Urobilinogen 0.2, Ur Leukocyte Esterase Negative, Urine RBC Tntc, Urine WBC 3-5, Ur Squamous Epith Cells 5-10, Amorphous Sediment 1+, Urine Bacteria 1+, Urine Mucus 1+ 10/24/24 20:51: VBG pH 7.36, VBG pCO2 43.5, VBG pO2 55.6 H, VBG HCO3 23.9, VBG Total CO2 25.2, VBG O2 Saturation 84.7 H, VBG Base Excess -1.6, VBG Lactic Acid 1.3 10/24/24 22:50: Troponin I 0.14 H 10/25/24 01:03: Troponin I 0.13 H 10/25/24 06:19: WBC 8.0 D, RBC 2.93 L, Hgb 8.8 L D, Hct 28.6 L, MCV 97.6 H, MCH 30.0, MCHC 30.8 L, RDW 13.2, Plt Count 333, MPV 8.8, Neut % (Auto) 64.3, Lymph % (Auto) 18.7, [place] % (Auto) 8.5, Eos % (Auto) 5.2, Baso % (Auto) 0.7, Neut # (Auto) 5.1, Lymph # (Auto) 1.5, [place] # (Auto) 0.7, Eos # (Auto) 0.4, Baso # (Auto) 0.1, Sodium 138, Potassium 4.1, Chloride 105, Carbon Dioxide 25, Anion Gap 12.1, BUN 52 H, Creatinine 1.70 H, Estimated Creat Clear 54, Estimated GFR 40 L, Est GFR ( Amer) 48 L, Glucose 90 D, Calcium 9.0, Procalcitonin 0.078 I & O for Last 24 hours: Intake & Output 10/22/24 10/23/24 10/24/24 10/25/24 23:59 23:59 23:59 23:59 Output Total 350 / 350 Balance -350 / -350 Weight 217 lb 9.6 oz 217 lb 9.61 oz Constitutional Constitutional: no acute distress *Routine HEENT Exam Head: Present normocephalic Eye: Present EOMI and PERRL ENT: Present mucous membranes moist *Routine Neck Exam Neck: Present supple; Absent lymphadenopathy *Routine Respiratory Exam Respiratory: Present rhonchi and wheezes *Routine Cardiovascular Exam Cardiovascular: Present RRR *Routine Abdominal Exam Abdominal: Present soft and normoactive bowel sounds; Absent tenderness *Routine Rectal Exam Rectal:: deferred *Routine Genitalia Exam Genitalia:: deferred *Routine Extremities Exam Extremities: Absent cyanosis, clubbing or edema *Routine Skin Exam Skin: Present warm; Absent rash *Routine Neurological Exam Neurological: Present alert and oriented X3 Results Labs and Meds 10/25/24 06:19 10/25/24 06:19 Lab results: Cardiac Enzymes 10/24/24 10/24/24 10/25/24 Range/Units 19:10 22:50 01:03 AST 62 H (17-59) U/L Troponin I 0.13 H 0.14 H 0.13 H (0.00-0.034) ng/ml Coagulation 10/24/24 Range/Units 19:10 PT 41.1 H (10.1-12.5) seconds APTT 87.7 H* (22.8-30.6) seconds CBC 10/24/24 10/25/24 Range/Units 19:10 06:19 WBC 11.3 H 8.0 D (4.8-10.8) K/mm3 RBC 3.32 L 2.93 L (4.60-6.20) M/mm3 Hgb 10.1 L 8.8 L D (14.1-18.0) g/dL Hct 31.9 L 28.6 L (42.0-52.0) % Plt Count 380 333 (142-424) K/mm3 Neut # (Auto) 8.6 H 5.1 (1.8-7.8) K/mm3 Lymph # (Auto) 1.5 1.5 (0.7-4.5) K/mm3 [place] # (Auto) 0.9 0.7 (0.1-1.0) K/mm3 Eos # (Auto) 0.0 0.4 (0.0-0.4) K/mm3 Baso # (Auto) 0.0 0.1 (0-0.2) K/mm3 Comprehensive Metabolic Panel 10/24/24 10/25/24 Range/Units 19:10 06:19 Sodium 135 L 138 (136-145) mmol/L Potassium 4.7 4.1 (3.5-5.1) mmoL/L Chloride 101 105 (98-107) mmol/L Carbon Dioxide 27 25 (22.0-30.0) mmol/L BUN 62 H 52 H (9-20) mg/dl Creatinine 2.00 H 1.70 H (0.66-1.25) mg/dl Glucose 124 H 90 D (74-100) mg/dl Calcium 9.5 9.0 (8.4-10.2) mg/dl AST 62 H (17-59) U/L ALT 30 (12-78) U/L Alkaline Phosphatase 75 (38-126) U/L Total Protein 7.1 (6.3-8.2) g/dl Albumin 4.0 (3.5-5.0) g/dl Intake and Output 10/24/24 10/25/24 10/25/24 23:59 07:59 15:59 Output Total 350 / 350 0 / 350 Balance -350 / -350 0 / -350 Output: Output, Urine Amount 350 / 350 0 / 350 Other: Number of Unmeasured Voids 0 1 Weight 217 lb 9.6 oz 217 lb 9.61 oz Patient Weight 10/25/24 23:59 Weight 217 lb 9.61 oz Assessment and Plan *Assessment and plan (1) Dyspnea on exertion: Status: Acute Category: Medical Code(s): R06.09 - Other forms of dyspnea (2) Pneumonia: Status: Acute Qualifiers: Laterality: bilateral Pneumonia type: due to unspecified organism Category: Medical Code(s): J18.9 - Pneumonia, unspecified organism (3) Supratherapeutic INR: Status: Acute Category: Medical Code(s): R79.1 - Abnormal coagulation profile (4) Acute kidney injury (nontraumatic): Status: Acute Category: Medical Code(s): N17.9 - Acute kidney failure, unspecified (5) Myocardial injury: Status: Acute Category: Medical Code(s): I5A - Non-ischemic myocardial injury (non-traumatic) Plan Acute myocardial injury Elevated troponin in the setting of acute illness Troponin 0.13, 0.14, 0.13 EKG negative for acute ischemic changes Echocardiogram normal LV systolic function, mild RV dilation with mild reduction in RV function, mild AI/PI and mild TR Patient denies chest pain Recommend outpatient stress test Continue daily aspirin and statin therapy Therapeutic INR History of DVT in 1998 Questionable clotting disorder INR 4.23 Bilateral venous ultrasound of lower extremities negative for DVT On Coumadin therapy for history of DVT Recommend resuming Coumadin when INR is at goal between 2 and 3. Patient should see Dr. Dowd outpatient for further workup for clotting disorder. If negative can stop. If positive should consider OAC therapy. Pneumonia Dyspnea on exertion Will defer treatment to primary service and pulmonology CV summary 10/25/2023: Echocardiogram reveals a normal LV systolic function. Patient denies chest pain. EKG is without acute ischemic changes noted. Have patient follow-up in cardiology clinic in 1 week for reevaluation. Consider outpatient stress test.
[2024-10-25 11:25] VITALS: BP 127/66; PULSE 73; RESP 18; TEMP 36.8; O2SAT 93
[2024-10-25] MEDS: ACETAMINOPHEN 325MG TAB 650 MG PO (11:36)
--- NOTE | 2024-10-25 13:30 | HMH.OTEV ---
OT Inpatient Evaluation Rehab OT IP Evaluation Start: 10/25/24 12:15 Freq: ONCE Status: Active Protocol: Document 10/25/24 13:26 [facility] (Rec: 10/25/24 13:30 [facility] [id number]) Rehab OT IP Assessment Subjective History Pt oriented x 3 on arrival. Pt agreeable to engage in therapy evaluation. Pt's and son present and supportive. Pt was admitted on 10/24/23 due to Respiratory failure and NSTEMI. History and physical: This is a 74-year-old male with a past medical history of hypothyroidism, hypertension, rheumatoid arthritis, hypercholesterolemia who presents emergency department today with shortness of breath and hypotension. at bedside provides collateral and states that he was diagnosed with shingles approximately 3 weeks ago and placed on acyclovir. States that he has had headache and generalized weakness for several days. He is also on Coumadin for remote DVT (1998) and states his INR was high this week. states that she has noticed him being more short of breath when he walks and ambulates throughout the house. States he has been in tripod position with pursed lip breathing and [place] color to his skin. Great- granddaughter was sick with a respiratory virus recently. There is reported that prior to arrival his blood pressure was in systolic in the 80s as well as hypoxia but unable to delineate who recorded these values. Emergency department workup notable for creatinine of 2.0 with a GFR of 46, troponin of 0.13 with increased to 0.14. Urinalysis with positive leuk esterase, white blood cells and bacteria. INR 4.23. Chest x-ray notable for peripheral infiltration. Given above findings, plaints he will be admitted to the hospitalist service. Subjective I am normally up moving just fine. Prior to being in the hospital , pt lived at home with his . Pt claims normally he is independent with all ADLs. Pt is able to complete IADLS, but his does most cleaning and cooking. However , pt does still farm. Pt does not use any AE during functional transfers. Pt also still drives. Objective Patient Orientation Person,Place,Birthday Right Upper Extremity Gross ROM WFL Left Upper Extremity Gross ROM WFL Bed Mobility bed mobility-scooting,bed mobility - supine/sit Assist Level Supervision/Stand by Transfer Training Sit/Stand Transfer Assist Level Contact Guard/Hand Hold Chair Transfer Ability Contact Guard/Hand Hold Chair Transfer Technique Sit to/from Ambulatory Lower Body Dressing Ability Moderate Assistance Rehab OT IP prob,goals,plan Problems Date of Evaluation: 10/25/24 OT IP Problems Bed Mobility,Transfers,Balance ,Self care,Safety Rehab Potential Rehab Potential Good Equipment Needs Assistive Devices Rolling / Wheeled Walker Plan OT intervention Plan Bed Mobility,Transfers,Balance ,Self care,Safety,Therapeutic Exercise OT Plan Frequency Daily Duration LOS Discharge Goals Bed Mobility Ability Standby Assistance Sit to Stand Chair Transfer Ability Supervision/Stand by Chair Transfer Ability Supervision/Stand by Chair Transfer Technique Sit to/from Ambulatory Chair Transfer Assistive Devices Rolling Walker Lower Body Dressing Ability Minimal Assistance Upper Body Dressing Ability Standby Assistance Bathing Ability Minimal Assistance Performing Toilet Hygiene Ability Standby Assistance Overall Commode/Toilet Transfer Ability Standby Assistance Commode/Toilet Transfer Technique Sit to/from Ambulatory Commode/Toilet Transfer Assistive Grab Bars Devices Oral Care Assist Standby Assistance Decrease in Endurance Yes Discharge Plan OT Discharge Plan Pt will continue to be seen for OT services while at [facility]. Once patient is medically stable for discharge, pt can return home with 's assistance as needed. Upon returning home, therapist does recommend OT evaluation for continued skilled services . Continued skilled services is important in order for patient to improve strength, safety, endurance, ADL independence, and functional transfers to reach PLOF. Eval Complexity Eval Charge Codes 11381 - Moderate Complexity PHYSICIAN CERTIFICATION: I certify the specified therapy services for Rakesh Paredes are required, authorized, and reviewed every 30 days.
--- NOTE | 2024-10-25 13:39 | HMH.PTEV ---
Physical Therapy Evaluation Rehab PT IP Evaluation Start: 10/25/24 12:15 Freq: ONCE Status: Active Protocol: Document 10/25/24 13:30 CHRISTY (Rec: 10/25/24 13:39 CHRISTY [id number]) Subjective/History History History Per H&P: This is a 74-year- old male with a past medical history of hypothyroidism, hypertension, rheumatoid arthritis, hypercholesterolemia who presents emergency department today with shortness of breath and hypotension. at bedside provides collateral and states that he was diagnosed with shingles approximately 3 weeks ago and placed on acyclovir. States that he has had headache and generalized weakness for several days. He is also on Coumadin for remote DVT (1998) and states his INR was high this week. states that she has noticed him being more short of breath when he walks and ambulates throughout the house. States he has been in tripod position with pursed lip breathing and [place] color to his skin. Great- granddaughter was sick with a respiratory virus recently. There is reported that prior to arrival his blood pressure was in systolic in the 80s as well as hypoxia but unable to delineate who recorded these values. Emergency department workup notable for creatinine of 2.0 with a GFR of 46, troponin of 0.13 with increased to 0.14. Urinalysis with positive leuk esterase, white blood cells and bacteria. INR 4.23. Chest x-ray notable for peripheral infiltration. Given above findings, plaints he will be admitted to the hospitalist service. Subjective Subjective PLOF: IND with mobility and driving without ADs. 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 Available assistance: Has a who is available as needed. Owns a RW. Pt's helps with dressing and performs the cooking and cleaning. New diagnosis of cancer in past 12 No months? Rehab PT IP Eval Objective Appearance Patient Behavior Appropriate,Cooperative Patient Orientation Person,Place,Situation Difficulty following instructions none Speech Pattern Clear Ambulation Patient Able to Ambulate Yes Ambulation Observation IP General Gait Pattern Observation Shuffling Step Ambulation Distance (feet) 25 Ambulation Assistive Device None Ambulation Ability Contact Guard/Hand Hold, Minimal x 1 (25% assist) Balance Ability to Arise Able, uses arms to help Sitting Balance Steady, safe Standing Balance Steady, wide stance Dynamic Sitting Balance Ability Good Dynamic Standing Balance Ability Good Transfers Bed Transfer Ability Supervision/Stand by Sit to Stand Bed Transfer Ability Contact Guard/Hand Hold Rehab PT IP prob,goals,plan Problems Date of Evaluation: 10/25/24 PT IP Problems Transfers,Gait,Balance,Safety Rehab Potential Rehab Potential Good Equipment Needs Assistive Devices Rolling / Wheeled Walker Plan PT Intervention Plan Transfers,Gait,Balance,Self care,Safety,Therapeutic Exercise Other Intervention Plan 1-2 times PT Plan Frequency Daily Duration LOS Discharge Goals Bed Transfer Ability Independent Sit to Stand Chair Transfer Ability Independent Ambulation Assistive Device Rolling Walker Ambulation Distance (feet) 100 Discharge Plan PT Discharge Plan Initial physical therapy evaluation performed. Patient presents below baseline at this time in functional mobility, transfers, gait, and strength. Pt would benefit from skilled PT while at [facility] to prevent further functional decline and maximize safety with mobility. Pt most appropriate to d/c home when deemed medically necessary d/t current level of mobility, home set-up, and family support. PT recommending home health PT services to address deficits. Eval Complexity Eval Charge Codes 21597 - Moderate Complexity PHYSICIAN CERTIFICATION: I certify the specified therapy services for Rakesh Paredes JR are required, authorized, and reviewed every 30 days.
--- NOTE | 2024-10-25 14:16 | SW/DCPLANNER ---
Addendum entered by Chantel Gramajo 10/28/24 09:02: Per Krys blount/ [facility] this patient has been accepted for services. Addendum entered by Chantel Gramajo 10/25/24 15:03: Patient will discharge home today. Patient information/order faxed to [facility]. Original Note: I spoke w/ this patient regarding plans once medically stable for discharge. PT/OT evaluated patient and recommended home health services. Per patient and he has utilized home health in the past and is agreeable to services at time of discharge. Patient prefers to use [facility] at time of discharge. Discharge date is unknown at this time. I will set up services at discharge.
--- NOTE | 2024-10-25 14:40 | P.DS_ITS ---
General Admission date:: 10/24/24 HPI HPI HPI: Hospitalist note: This is a 74-year-old male with a past medical history of hypothyroidism, hypertension, rheumatoid arthritis, hypercholesterolemia who presents emergency department today with shortness of breath and hypotension. at bedside provides collateral and states that he was diagnosed with shingles approximately 3 weeks ago and placed on acyclovir. States that he has had headache and generalized weakness for several days. He is also on Coumadin for remote DVT (1998) and states his INR was high this week. states that she has noticed him being more short of breath when he walks and ambulates throughout the house. States he has been in tripod position with pursed lip breathing and prado color to his skin. Great-granddaughter was sick with a respiratory virus recently. There is reported that prior to arrival his blood pressure was in systolic in the 80s as well as hypoxia but unable to delineate who recorded these values. Emergency department workup notable for creatinine of 2.0 with a GFR of 46, troponin of 0.13 with increased to 0.14. Urinalysis with positive leuk esterase, white blood cells and bacteria. INR 4.23. Chest x-ray notable for peripheral infiltration. Given above findings, plaints he will be admitted to the hospitalist service. Cards note: Cardiology was asked to evaluate for elevated troponins. Troponin 0.13?0 0.14?0.13 in the setting of acute pneumonia. Patient denies CAD history. Patient denies chest pain. Reports shortness of breath. Of note patient has supratherapeutic INR of 4.3 on admission history of Coumadin for DVT. EKG shows sinus rhythm with a first-degree AV block, right bundle branch block no acute ischemic changes noted. Venous Doppler negative for DVT. Echo is pending. Chest CT bilateral minimal patchy airspace disease noted with a small left pleural effusion. Hospital Course Hospital Course Hospital Course: Rakesh Paredes is a 74 year old male who was admitted for respiratory distress and community acquired pneumonia. #Pneumonia #Small Left pleural effusion - Chest CT with evidence of infectious/inflammatory bilateral peripheral infiltration - Reportedly became a little cyanotic at home, with pursed lip breathing. - Clinically improved with ceftriaxone and azithromycin. - Pulmonology consulted, weaned antibiotics to Augmentin and will follow-up beta D glucan fungal serologies and urine histoplasma antigen. No plan to tap left pleural effusion at this time. - Medically stable for discharge. On room air. - Discharged with Augmentin for 7 more days. Will follow-up with pulmonology within 2-3 weeks. #Dyspnea on exertion #NSTEMI - reports significant dyspnea on exertion in the last several weeks. CTA was not performed given advanced CKD, and patient is on warfarin. - Troponins plauteauing at 0.13. EKG without acute ischemic changes. - Cardiology consulted, ECHO with mild RV dysfunction. Will consider outpatient ischemic workup. #Shingles Will continue acyclovir. Patient does have lesions in the back of his head to the right side of his face. Complaining of a headache. Head CT obtained and negative. #Supratherapeutic INR #H/o of DVTs Patient reports being on Coumadin since 1998 for DVT at that time. Does not have a history of PE. 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 Family at bedside is unable to state what testing was been done to confirm this. Has had multiple hospitalizations in the past for hematoma including rectus sheath and large thigh hematoma Will get bilateral lower extremity ultrasounds to rule out current DVT Will hold Coumadin at this time given INR is 4.3 - Transitioned to Eliquis 5mg BID for ease of dosing, patient able to afford this medication. - Will follow-up with cardiology for further management. Total time spent on discharge: 32 minutes on chart review, counseling, documentation, and direct care with patient. Exam Data for Last 24 hours Vital signs and Labs for Last 24 Hours: Temp Pulse Resp BP Pulse Ox O2 Del Method O2 Flow Rate 98.2 F 73 18 127/66 93 L Room Air 2 10/25/24 11:25 10/25/24 11:25 10/25/24 11:25 10/25/24 11:25 10/25/24 11:25 10/25/24 11:25 10/24/24 22:25 Laboratory Results - last 24 hr 10/24/24 19:10: WBC 11.3 H, RBC 3.32 L, Hgb 10.1 L, Hct 31.9 L, MCV 96.1 H, MCH 30.4, MCHC 31.7 L, RDW 13.0, Plt Count 380, MPV 8.8, Neut % (Auto) 76.2, Lymph % (Auto) 13.7, [place] % (Auto) 8.1, Eos % (Auto) 0.1, Baso % (Auto) 0.3, Neut # (Auto) 8.6 H, Lymph # (Auto) 1.5, Cascade # (Auto) 0.9, Eos # (Auto) 0.0, Baso # (Auto) 0.0, PT 41.1 H, INR 4.23 H, APTT 87.7 H*, Sodium 135 L, Potassium 4.7, Chloride 101, Carbon Dioxide 27, Anion Gap 11.7, BUN 62 H, Creatinine 2.00 H, Estimated Creat Clear 46, Estimated GFR 33 L, Est GFR ( Amer) 40 L, Glucose 124 H, Calcium 9.5, Magnesium 2.3, Total Bilirubin 0.4, AST 62 H, ALT 30, Alkaline Phosphatase 75, Troponin I 0.13 H, NT-Pro-B Natriuret Pep 39.8, Total Protein 7.1, Albumin 4.0, Globulin 3.1, Albumin/Globulin Ratio 1.3, TSH 0.35 L, Thyroxine (T4) 7.2, HCV Ab LORENZO w/Rflx PCR Qn Negative, HIV Ag/Ab Combo Qual Negative 10/24/24 20:08: Chlamy pneumoniae PCR Not detected, Adenovirus (PCR) Not detected, B. pertussis DNA (PCR) Not detected, Coronavirus OC43 (PCR) Not detected, Coronavirus HKU1 (PCR) Not detected, Coronavirus 229E (PCR) Not detected, SARS-CoV-2 (PCR) Not detected 10/24/24 20:08: SARS-CoV-2 (PCR) Not detected, Coronavirus NL63 (PCR) Not detected, Human Metapneumovir PCR Not detected, Influenza A (H1) PCR Not d etected, Influ A (H1N1/09) PCR Not detected, Influenza A (H3) PCR Not detected, Influenza Type A (PCR) Not detected, Influenza A Untype (PCR) Not detected, Influenza Type B (PCR) Not detected 10/24/24 20:08: Influenza Type B (PCR) Not detected, M. pneumoniae (PCR) Not detected, Parainfluenza 1 (PCR) Not detected, Parainfluenza 2 (PCR) Not detected, Parainfluenza 3 (PCR) Not detected, Parainfluenza 4 (PCR) Not detected, RSV (PCR) Not detected, Entero/Rhino (PCR) Not detected 10/24/24 20:23: Urine Color Dark yellow, Urine Appearance Clear, Urine pH 5.5, Ur Specific [place] >= 1.030, Urine Protein Trace, Urine Glucose (UA) Negative, Urine Ketones Negative, Urine Blood 3+ A, Urine Nitrate Negative, Urine Bilirubin Negative, Urine Urobilinogen 0.2, Ur Leukocyte Esterase Negative, Urine RBC Tntc, Urine WBC 3-5, Ur Squamous Epith Cells 5-10, Amorphous Sediment 1+, Urine Bacteria 1+, Urine Mucus 1+ 10/24/24 20:51: VBG pH 7.36, VBG pCO2 43.5, VBG pO2 55.6 H, VBG HCO3 23.9, VBG Total CO2 25.2, VBG O2 Saturation 84.7 H, VBG Base Excess -1.6, VBG Lactic Acid 1.3 10/24/24 22:50: Troponin I 0.14 H 10/25/24 01:03: Troponin I 0.13 H 10/25/24 06:19: WBC 8.0 D, RBC 2.93 L, Hgb 8.8 L D, Hct 28.6 L, MCV 97.6 H, MCH 30.0, MCHC 30.8 L, RDW 13.2, Plt Count 333, MPV 8.8, Neut % (Auto) 64.3, Lymph % (Auto) 18.7, Cascade % (Auto) 8.5, Eos % (Auto) 5.2, Baso % (Auto) 0.7, Neut # (Auto) 5.1, Lymph # (Auto) 1.5, Cascade # (Auto) 0.7, Eos # (Auto) 0.4, Baso # (Auto) 0.1, Sodium 138, Potassium 4.1, Chloride 105, Carbon Dioxide 25, Anion Gap 12.1, BUN 52 H, Creatinine 1.70 H, Estimated Creat Clear 54, Estimated GFR 40 L, Est GFR ( Amer) 48 L, Glucose 90 D, Calcium 9.0, Procalcitonin 0.078 I & O for Last 24 hours: Intake & Output 10/22/24 10/23/24 10/24/24 10/25/24 23:59 23:59 23:59 23:59 Output Total 350 / 350 Balance -350 / -350 Weight 98.702 kg 98.702 kg Constitutional Constitutional: no acute distress *Routine HEENT Exam Head: Present normocephalic Eye: Present EOMI and PERRL ENT: Present mucous membranes moist *Routine Neck Exam Neck: Present supple; Absent lymphadenopathy *Routine Respiratory Exam Respiratory: Present CTA bilaterally *Routine Cardiovascular Exam Cardiovascular: Present RRR *Routine Abdominal Exam Abdominal: Present soft and normoactive bowel sounds; Absent tenderness *Routine Extremities Exam Extremities: Absent cyanosis, clubbing or edema *Routine Skin Exam Skin: Present warm; Absent rash *Routine Neurological Exam Neurological: Present alert and oriented X3 Results Data Completed and Pending Labs on day of discharge: Labs from last 24 hours 10/25/24 10/25/24 10/24/24 06:19 01:03 22:50 WBC 8.0 D RBC 2.93 L Hgb 8.8 L D Hct 28.6 L MCV 97.6 H MCH 30.0 MCHC 30.8 L RDW 13.2 Plt Count 333 MPV 8.8 Neut % (Auto) 64.3 Lymph % (Auto) 18.7 Cascade % (Auto) 8.5 Eos % (Auto) 5.2 Baso % (Auto) 0.7 Neut # (Auto) 5.1 Lymph # (Auto) 1.5 [place] # (Auto) 0.7 Eos # (Auto) 0.4 Baso # (Auto) 0.1 PT INR APTT VBG pH VBG pCO2 VBG pO2 VBG HCO3 VBG Total CO2 VBG O2 Saturation VBG Base Excess VBG Lactic Acid Sodium 138 Potassium 4.1 Chloride 105 Carbon Dioxide 25 Anion Gap 12.1 BUN 52 H Creatinine 1.70 H Estimated Creat Clear 54 Estimated GFR 40 L Est GFR ( Amer) 48 L Glucose 90 D Calcium 9.0 Magnesium Total Bilirubin AST ALT Alkaline Phosphatase Troponin I 0.13 H 0.14 H NT-Pro-B Natriuret Pep Total Protein Albumin Globulin Albumin/Globulin Ratio Procalcitonin 0.078 TSH Thyroxine (T4) Urine Color Urine Appearance Urine pH Ur Specific [place] Urine Protein Urine Glucose (UA) Urine Ketones Urine Blood Urine Nitrate Urine Bilirubin Urine Urobilinogen Ur Leukocyte Esterase Urine RBC Urine WBC Ur Squamous Epith Cells Amorphous Sediment Urine Bacteria Urine Mucus Chlamy pneumoniae PCR Adenovirus (PCR) B. pertussis DNA (PCR) Coronavirus OC43 (PCR) Coronavirus HKU1 (PCR) Coronavirus 229E (PCR) SARS-CoV-2 (PCR) Coronavirus NL63 (PCR) HCV Ab LORENZO w/Rflx PCR Qn HIV Ag/Ab Combo Qual Human Metapneumovir PCR Influenza A (H1) PCR Influ A (H1N1/09) PCR Influenza A (H3) PCR Influenza Type A (PCR) Influenza A Untype (PCR) Influenza Type B (PCR) M. pneumoniae (PCR) Parainfluenza 1 (PCR) Parainfluenza 2 (PCR) Parainfluenza 3 (PCR) Parainfluenza 4 (PCR) RSV (PCR) Entero/Rhino (PCR) 10/24/24 10/24/24 10/24/24 20:51 20:23 20:08 WBC RBC Hgb Hct MCV MCH MCHC RDW Plt Count MPV Neut % (Auto) Lymph % (Auto) [place] % (Auto) Eos % (Auto) Baso % (Auto) Neut # (Auto) Lymph # (Auto) [place] # (Auto) Eos # (Auto) Baso # (Auto) PT INR APTT VBG pH 7.36 VBG pCO2 43.5 VBG pO2 55.6 H VBG HCO3 23.9 VBG Total CO2 25.2 VBG O2 Saturation 84.7 H VBG Base Excess -1.6 VBG Lactic Acid 1.3 Sodium Potassium Chloride Carbon Dioxide Anion Gap BUN Creatinine Estimated Creat Clear Estimated GFR Est GFR ( Amer) Glucose Calcium Magnesium Total Bilirubin AST ALT Alkaline Phosphatase Troponin I NT-Pro-B Natriuret Pep Total Protein Albumin Globulin Albumin/Globulin Ratio Procalcitonin TSH Thyroxine (T4) Urine Color Dark yellow Urine Appearance Clear Urine pH 5.5 Ur Specific [place] >= 1.030 Urine Protein Trace Urine Glucose (UA) Negative Urine Ketones Negative Urine Blood 3+ A Urine Nitrate Negative Urine Bilirubin Negative Urine Urobilinogen 0.2 Ur Leukocyte Esterase Negative Urine RBC Tntc Urine WBC 3-5 Ur Squamous Epith Cells 5-10 Amorphous Sediment 1+ Urine Bacteria 1+ Urine Mucus 1+ Chlamy pneumoniae PCR Adenovirus (PCR) B. pertussis DNA (PCR) Coronavirus OC43 (PCR) Coronavirus HKU1 (PCR) Coronavirus 229E (PCR) SARS-CoV-2 (PCR) Coronavirus NL63 (PCR) HCV Ab LORENZO w/Rflx PCR Qn HIV Ag/Ab Combo Qual Human Metapneumovir PCR Influenza A (H1) PCR Influ A (H1N1/09) PCR Influenza A (H3) PCR Influenza Type A (PCR) Influenza A Untype (PCR) Influenza Type B (PCR) Not detected M. pneumoniae (PCR) Not detected Parainfluenza 1 (PCR) Not detected Parainfluenza 2 (PCR) Not detected Parainfluenza 3 (PCR) Not detected Parainfluenza 4 (PCR) Not detected RSV (PCR) Not detected Entero/Rhino (PCR) Not detected 10/24/24 10/24/24 10/24/24 20:08 20:08 19:10 WBC 11.3 H RBC 3.32 L Hgb 10.1 L Hct 31.9 L MCV 96.1 H MCH 30.4 MCHC 31.7 L RDW 13.0 Plt Count 380 MPV 8.8 Neut % (Auto) 76.2 Lymph % (Auto) 13.7 [place] % (Auto) 8.1 Eos % (Auto) 0.1 Baso % (Auto) 0.3 Neut # (Auto) 8.6 H Lymph # (Auto) 1.5 [place] # (Auto) 0.9 Eos # (Auto) 0.0 Baso # (Auto) 0.0 PT 41.1 H INR 4.23 H APTT 87.7 H* VBG pH VBG pCO2 VBG pO2 VBG HCO3 VBG Total CO2 VBG O2 Saturation VBG Base Excess VBG Lactic Acid Sodium 135 L Potassium 4.7 Chloride 101 Carbon Dioxide 27 Anion Gap 11.7 BUN 62 H Creatinine 2.00 H Estimated Creat Clear 46 Estimated GFR 33 L Est GFR ( Amer) 40 L Glucose 124 H Calcium 9.5 Magnesium 2.3 Total Bilirubin 0.4 AST 62 H ALT 30 Alkaline Phosphatase 75 Troponin I 0.13 H NT-Pro-B Natriuret Pep 39.8 Total Protein 7.1 Albumin 4.0 Globulin 3.1 Albumin/Globulin Ratio 1.3 Procalcitonin TSH 0.35 L Thyroxine (T4) 7.2 Urine Color Urine Appearance Urine pH Ur Specific [place] Urine Protein Urine Glucose (UA) Urine Ketones Urine Blood Urine Nitrate Urine Bilirubin Urine Urobilinogen Ur Leukocyte Esterase Urine RBC Urine WBC Ur Squamous Epith Cells Amorphous Sediment Urine Bacteria Urine Mucus Chlamy pneumoniae PCR Not detected Adenovirus (PCR) Not detected B. pertussis DNA (PCR) Not detected Coronavirus OC43 (PCR) Not detected Coronavirus HKU1 (PCR) Not detected Coronavirus 229E (PCR) Not detected SARS-CoV-2 (PCR) Not detected Not detected Coronavirus NL63 (PCR) Not detected HCV Ab LORENZO w/Rflx PCR Qn Negative HIV Ag/Ab Combo Qual Negative Human Metapneumovir PCR Not detected Influenza A (H1) PCR Not detected Influ A (H1N1/09) PCR Not detected Influenza A (H3) PCR Not detected Influenza Type A (PCR) Not detected Influenza A Untype (PCR) Not detected Influenza Type B (PCR) Not detected M. pneumoniae (PCR) Parainfluenza 1 (PCR) Parainfluenza 2 (PCR) Parainfluenza 3 (PCR) Parainfluenza 4 (PCR) RSV (PCR) Entero/Rhino (PCR) DS: Diagnosis Discharge Diagnosis (1) Pneumonia: Status: Acute Code(s): J18.9 - Pneumonia, unspecified organism Qualifiers: Laterality: bilateral Pneumonia type: due to unspecified organism Meds Home Medications and Allergies Home Medications ?Medication ?Instructions ?Recorded ?Confirmed ?Type amlodipine 10 mg tablet 10 mg PO DAILY 06/07/23 10/25/24 History atorvastatin 20 mg tablet 20 mg PO DAILY 06/07/23 10/25/24 History azathioprine 50 mg tablet 50 mg PO DAILY 06/07/23 10/25/24 History duloxetine 30 mg capsule,delayed 30 mg PO DAILY 06/07/23 10/25/24 History release hydrochlorothiazide 25 mg tablet 25 mg PO DAILY 06/07/23 10/25/24 History hydroxychloroquine 200 mg tablet 200 mg PO BID 06/07/23 10/25/24 History levothyroxine 125 mcg tablet 125 mcg PO DAILY 06/07/23 10/25/24 History lisinopril 20 mg tablet 20 mg PO BID 06/07/23 10/25/24 History memantine 28 mg capsule 28 mg PO DAILY 06/07/23 10/25/24 History sprinkle,extended release 24hr metoprolol succinate 50 mg 50 mg PO DAILY 06/07/23 10/25/24 History tablet,extended release 24 hr oxcarbazepine 300 mg tablet 300 mg PO BID 06/07/23 10/25/24 History prednisone 1 mg tablet 4 mg PO DAILY 06/07/23 10/25/24 History tramadol 50 mg tablet 50 - 100 mg PO BIDP PRN Pain 06/07/23 10/25/24 History pregabalin 75 mg capsule 75 mg PO TID 10/24/24 10/25/24 History valacyclovir 1 gram tablet 1 mg PO TID 10/24/24 10/25/24 History amoxicillin 500 mg-potassium 1 tab PO TID 7 days #21 tabs 10/25/24 Rx clavulanate 125 mg tablet (Augmentin) apixaban 5 mg tablet (Eliquis) 5 mg PO BID #30 tabs 10/25/24 Rx New Prescriptions to Start Prescriptions: amoxicillin-pot clavulanate [Augmentin] Nikos Babb apixaban [Eliquis] Nikos Babb Allergies Allergy/AdvReac Type Severity Reaction Status Date / Time No Known Allergies Allergy Verified 07/15/24 11:58 Discharge Plan Disposition Patient Disposition: Home Health Service Condition: Fair Discharge Order Discharge Orders: Discharge Order (Routine); Ordered 10/25/24 Ordered By: Nikos Babb Follow up Plan Follow up with: Angeli Jerez APRN [Nurse Practitioner] - 11/07/24 2:30 pm Zi Khan MD [Physician] - Enter time for follow up (please call office for follow up appointment. ) Prescriptions/Medication Reconciliation: New amoxicillin-pot clavulanate [Augmentin] 500-125 mg tablet 1 tab PO TID 7 Days Qty: 21 0RF Eliquis 5 mg tablet 5 mg PO BID Qty: 30 1RF Continued atorvastatin 20 mg tablet 20 mg PO DAILY Patient Comments: TAKE 1 TABLET BY MOUTH DAILY metoprolol succinate 50 mg tablet extended release 24 hr 50 mg PO DAILY Patient Comments: TAKE 1 TABLET BY MOUTH DAILY lisinopril 20 mg tablet 20 mg PO BID Patient Comments: TAKE 1 TABLET BY MOUTH TWICE DAILY azathioprine 50 mg tablet 50 mg PO DAILY Patient Comments: TAKE 1 TABLET BY MOUTH TWICE DAILY oxcarbazepine 300 mg tablet 300 mg PO BID Patient Comments: TAKE 1 TABLET BY MOUTH TWICE DAILY tramadol 50 mg tablet 50 - 100 mg PO BIDP PRN (Reason: Pain) Patient Comments: TAKE 1 TO 2 TABLETS BY MOUTH TWICE DAILY NEEDED FOR PAIN prednisone 1 mg tablet 4 mg PO DAILY Patient Comments: TAKE 4 TABLETS BY MOUTH EVERY DAY amlodipine 10 mg tablet 10 mg PO DAILY Patient Comments: TAKE 1 TABLET BY MOUTH DAILY levothyroxine 125 mcg tablet 125 mcg PO DAILY Patient Comments: TAKE 1 TABLET BY MOUTH EVERY DAY hydrochlorothiazide 25 mg tablet 25 mg PO DAILY Patient Comments: TAKE 1 TABLET BY MOUTH DAILY hydroxychloroquine 200 mg tablet 200 mg PO BID Patient Comments: TAKE 1 TABLET BY MOUTH TWICE DAILY duloxetine 30 mg capsule,delayed release(DR/EC) 30 mg PO DAILY Patient Comments: TAKE 1 CAPSULE BY MOUTH EVERY DAY memantine 28 mg capsule,sprinkle,ER 24hr 28 mg PO DAILY Patient Comments: TAKE 1 CAPSULE BY MOUTH EVERY DAY valacyclovir 1 gram tablet 1 mg PO TID Patient Comments: TAKE 1 TABLET BY MOUTH THREE TIMES DAILY FOR 7 DAYS pregabalin 75 mg capsule 75 mg PO TID Patient Comments: TAKE 1 CAPSULE BY MOUTH THREE TIMES DAILY NEEDED Discontinued amoxicillin 875 mg tablet 875 mg PO BID Patient Comments: TAKE 1 TABLET BY MOUTH EVERY 12 HOURS FOR 7 DAYS warfarin 5 mg tablet 5 mg PO HS Rx Instructions: takes at bedtime Problem Reconciliation Problems Reviewed?: Yes Patient Discharge Instructions Additional Instructions: I have switched your warfarin to Eliquis so that you do not have to monitor PT/INR anymore. If it is too expensive, please follow-up with your PCP or cardiology to discuss other options like Xarelto. Patient Instructions: DI for Pneumonia -- Adult, Coumadin Vitamin K/ Diet Print Language: Cypriot Providers Primary Care Provider: Shelli Messina Admit Provider: Nikos Babb Attending Provider: Nikos Babb
--- NOTE | 2024-10-25 15:22 | HMH.PHAINT1 ---
Pharmacy Intervention Comments: COUNSELED PATIENT AND FAMILY ON NEW, CONTINUED, AND STOPPED MEDICATIONS. PATIENT VERBALIZED UNDERSTANDING.
--- NOTE | 2024-10-25 16:29 | PC.NURSE ---
lab at bedside to obtain lab prior to d/c.
--- NOTE | 2024-10-28 11:46 | SW/DCPLANNER ---
Spoke with patients on the phone. Patients stated that they are aware of his upcoming appointment and that if they havent heard anything from Dr Khan office to call and make an appointment by Monday. Patients stated that his medicine was [facility]. Patients stated that she has no concerns or questions at this time. Madina Rojo
[2024-10-29 15:34] LABS: Clinical Relevance Notes (.); Disclaimer Notes (.); Fungitell Value < 31.25 pg/mL (.); Interpretation Notes (.); Result Negative (.)
[2024-10-30 16:38] LABS: Aspergillus flavus Negative (Neg:<1:1); Aspergillus fumigatus Negative (Neg:<1:1); Aspergillus niger Negative (Neg:<1:1); Blastomyces Antibody Negative (Neg:<1:1); Histoplasma Antibody Quant Negative (Neg:<1:1)
== END 2024-10-25 16:31 | disposition home health service (06) | DRG 193 ==
LOC: ER 21:20 → 2ND 21:53
PROVIDERS: Internal Medicine Pulmonary Disease; Nurse Practitioner Acute Care; Physician Assistant; Admitting Provider Student in an Organized Health Care Education/Training Program; Emergency Provider Emergency Medicine; PCP Family Medicine; Visit Provider Student in an Organized Health Care Education/Training Program
DX: J18.9 Pneumonia, unspecified organism (principal); I21.4 Non-ST elevation (NSTEMI) myocardial infarction; J91.8 Pleural effusion in other conditions classified elsewhere; I45.10 Unspecified right bundle-branch block; M32.9 Systemic lupus erythematosus, unspecified; I12.9 Hypertensive chronic kidney disease with stage 1 through stage 4 chronic kidney disease, or unspecified chronic kidney disease; N18.9 Chronic kidney disease, unspecified; B02.9 Zoster without complications; M06.9 Rheumatoid arthritis, unspecified; E03.9 Hypothyroidism, unspecified; E78.5 Hyperlipidemia, unspecified; Z79.890 Hormone replacement therapy; Z79.01 Long term (current) use of anticoagulants; Z79.02 Long term (current) use of antithrombotics/antiplatelets; Z86.718 Personal history of other venous thrombosis and embolism; Z77.22 Contact with and (suspected) exposure to environmental tobacco smoke (acute) (chronic)
CPT/HCPCS: 36415; 70450; 71045; 71250; 80048; 80053; 81001; 82803; 83735; 83880; 84145; 84436; 84443; 84484; 85025; 85610; 85730; 86606; 86612; 86698; 86803; 87040; 87389; 87449; 87633; 87636; 93005; 93306; 93970; 97162; 97166; 99291; J0456; J0696; J7030; J7050; J7120

== ENCOUNTER 2024-11-07 14:43 | Outpatient (CLI) | payer MEDICARE, OTHER, SELFPAY ==
[2024-11-07 15:17] LABS: Basophils % 0.4 % (0.1-2.0); Eosinophils % 0.2 % (0.1-12.0); Hematocrit 30.1 % (42.0-52.0); Hemoglobin 9.6 g/dL (14.1-18.0); Lymphocytes # 1.2 K/mm3 (0.7-4.5); Lymphocytes % 12.6 % (10-50); Mean Corpuscular HGB Conc 31.9 g/dL (31.8-35.4); Mean Corpuscular Hemoglobin 31.6 pg (27.0-31.2); Mean Platelet Volume 9.3 fl (7.4-10.4); Monocytes # 0.5 K/mm3 (0.1-1.0); Monocytes % 5.9 % (1.7-9.3); Neutrophils # 7.4 K/mm3 (1.8-7.8); Neutrophils % 79.7 % (37.0-80.0); Platelet Count 316 K/mm3 (142-424); Red Blood Count 3.04 M/mm3 (4.60-6.20); Red Cell Distribution Width 15.3 % (11.5-17.5); White Blood Count 9.2 K/mm3 (4.8-10.8)
[2024-11-07 15:43] LABS: Albumin Level 4.3 g/dl (3.5-5.0); Chloride 102 mmol/L (98-107); Potassium 4.4 mmoL/L (3.5-5.1); Sodium 139 mmol/L (136-145)
[2024-11-07 15:46] LABS: Alanine Aminotransferase 24 U/L (12-78); Alkaline Phosphatase 74 U/L (38-126); Anion Gap 14.4 mEq/L (5-15); Aspartate Amino Transferase 51 U/L (17-59); Bilirubin,Direct 0.1 mg/dl (0.0-0.4); Bilirubin,Indirect 0.3 mg/dL (0.0-0.9); Bilirubin,Total 0.4 mg/dl (0.2-1.3); Bilirubin,Unconjugated 0.3 mg/dL (0.0-1.1); Blood Urea Nitrogen 30 mg/dl (9-20); Calcium 10.2 mg/dl (8.4-10.2); Carbon Dioxide 27 mmol/L (22.0-30.0); Cholesterol 125 mg/dl (140-200); Estimated Glomerular Filt Rate 59 ml/min (>60); GFR (African American) 72 ML/MIN (>60); Glucose 123 mg/dl (74-100); Total Protein,Serum 6.3 g/dl (6.3-8.2); Triglycerides 129 mg/dl (30-150); VLDL Cholesterol 26 mg/dL (0-40)
[2024-11-07 15:47] LABS: Chol/HDL Ratio 2.3 (1-3.5); HDL Cholesterol 55 mg/dl (40-60)
[2024-11-07 16:20] LABS: Direct LDL Cholesterol 39.29 mg/dL (100-129)
== END 2024-11-07 23:59 | disposition home or self-care (01) ==
LOC: LAB 14:46
PROVIDERS: PCP Family Medicine; Visit Provider Nurse Practitioner
DX: E78.5 Hyperlipidemia, unspecified (principal); I10 Essential (primary) hypertension
CPT/HCPCS: 36415; 80048; 80061; 80076; 85025

== ENCOUNTER 2024-11-21 07:32 | Outpatient (CLI) | payer MEDICARE, OTHER, SELFPAY ==
--- NOTE | 2024-11-21 | CA_ITS ---
APPROVED REPORT Exam: Pharmacologic Technologist: Lenka Bray Ht: 6 ft 0 in Wt: 217 lbs BSA: 2.21 m2 HR: 61 bpm BP: 170/78 mmHg Rhythm: SR, Inf-lat ST dep. Medical History Medical History: HTN, Hyperlipidemia Medications: Amlodipine, Apixaban, Atorvastatin, Azathioprine, Duloxetine, Levothyroxine, Hydrochlorthiazide, Hydroxychloroquine, Lisinopril, Memantine, Metoprolol Succinate ER, Oxcarbazepine, Prednisone, Pregabalin, Tramadol Allergies: No known drug allergies Cardiac Risk Factors: HTN, Hyperlipidemia, FHX of CAD Stress Test Details Test: Lexiscan HR Resting HR: 61 bpm Max Heart Rate (APMHR): 147.874423 bpm Target HR (85% APMHR): 124.481820 bpm Recovery HR: 72 bpm BP Resting BP: 170.0/78.0 mmHg Max BP: 170.0/78.0 mmHg Recovery BP: 147.0/75.0 mmHg ECG Resting ECG: SR, Inf lat ST dep Stress ECG Conclusion PVC Lexiscan Unremarkable Electronically signed by : Radha Nielsen MD 11/25/2024 00:18:24
--- NOTE | 2024-11-21 07:34 | NM_ITS ---
APPROVED REPORT Exam: Nuclear Stress Test Indication: soa..fatigue Patient Location: Outpatient Stress Tech: Lenka Bray [place] Tech:Jeanie Roman BAY RT(R)(N) Ht: 5 ft 11 in Wt: 210 lbs HR: 61 bpm BP: 139/76 mmHg BSA: 2.15 m2 TID: 1.14 BMI: 29.2 History: soa..fatigue Procedure: Patient received 0.4 mg of intravenous Lexiscan, resting heart rate 61 bpm, resting blood pressure 139/76 mmHg, with Lexiscan maximum heart rate achieved was 73 bpm which is 85 % of the maximum predicted heart rate and blood pressure was 151/77 mmHg. With Lexiscan, patient denied any complaint of chest pain. The patient was not able to lay on his abdomen for prone images. Cardiac Stress and Resting SPECT Images: Cardiac Stress and Resting SPECT images were obtained using technetium 99m Myoview 31.9 mCi stress and 10.85 mCi at rest. The patient is unable to lie on his abdomen. Therefore, prone stress imaging could not be performed. This may affect the diagnostic interpretation of the study findings. Resting and stress imaging in supine positions demonstrate a small sized, moderate, partially reversible perfusion defect in the basal inferior LV wall. Gated imaging demonstrates normal global and regional LV systolic function. LVEF is calculated at 58%. Conclusion: Small sized, moderate, partially reversible perfusion defect in the basal inferior LV wall. Findings are suggestive of partial reversible ischemia. Gated imaging demonstrates normal global and regional LV systolic function. LVEF is calculated at 58%. Electronically signed by : Radha Nielsen MD 11/25/2024 00:12:18
[2024-11-21] MEDS: REGADENOSON 0.4MG/5ML SYRINGE 0.4 MG IV (09:38)
[2024-11-21] MEDS: SODIUM CHLORIDE 0.9% 10ML SYR (RAD ONLY) 10 ML IV ×2 (09:38)
[2024-11-21] MEDS: ISOTOPE MYOVIEW (PER STUDY) 1 DOSE IV (09:38)
== END 2024-11-21 23:59 | disposition home or self-care (01) ==
LOC: RAD 07:34
PROVIDERS: PCP Family Medicine; Visit Provider Nurse Practitioner
DX: R06.00 Dyspnea, unspecified (principal); R79.89 Other specified abnormal findings of blood chemistry
CPT/HCPCS: 78452; 93017; 93018; A9502; J2785

== ENCOUNTER 2024-12-04 10:49 | Inpatient (IN) | payer MEDICARE, OTHER, SELFPAY ==
[2024-12-04] VITALS (13 sets, daily range): BP systolic 106–167; BP diastolic 66–92; PULSE 60–90; RESP 15–24; TEMP 36.8–37.1; O2SAT 68–96; BMI 29.8; BMI 28.6
--- NOTE | 2024-12-04 10:55 | ECG_ITS ---
APPROVED REPORT Exam: Resting ECG HR:83 bpm ECG Measurements Heart Rate 83 AXES MA 190 P 63 QRSd 138 QRS 39 QT 379 T 43 QTc [address] depressions and T wave changes lateral and inferior leads without reciprocal elevation Electronically signed by : ROBINSON HERMAN, 12/04/2024 15:03:57
--- NOTE | 2024-12-04 11:21 | PC.NURSE ---
ROUNDED ON THE PT. THE PT VOICES THAT HE DOES NOT NEED ANYTHING AT THIS TIME. CALL LIGHT IS WITHIN REACH OF THE PT. FAMILY MEMBER IS PRESENT AT THE BEDSIDE.
--- NOTE | 2024-12-04 11:26 | CT_ITS ---
FINAL REPORT TECHNIQUE: Postcontrast axial images of the chest were performed in a CTA protocol. This study was performed with techniques to keep radiation doses as low as reasonably achievable, (ALARA). Individualized dose reduction technique using automated exposure control or adjustment of mA and/or kV according to the patient's size were employed. CLINICAL HISTORY: soa, history of lupus AC syndrome COMPARISON: 10/25/2024 FINDINGS: The heart is normal in size. No adenopathy is identified. No pleural or pericardial effusion is identified. The thoracic aorta is normal in caliber with no focal aneurysm or dissection identified. There is no filling defect to suggest pulmonary embolism. There are multifocal airspace opacities which are somewhat nodular, worse from prior exam. Findings are suspicious for atypical pneumonia. There is no cavitation. Limited imaging of the upper abdomen is without acute abnormality. IMPRESSION: No evidence for PE on this exam. Worsening multifocal pneumonia suggestive of atypical pneumonia. No evidence of cavitation or empyema. Reviewed, Interpreted and Dictated by Jeannine Donato MD Transcribed by Rayna Hennessy Authenticated and [facility]
[2024-12-04 11:30] LABS: Coronavirus 19, PCR Not Detected (NotDetected); Influenza A, PCR Not Detected (NotDetected); Influenza B, PCR Not Detected (NotDetected)
[2024-12-04 11:33] LABS: Basophils # 0.1 K/mm3 (0-0.2); Basophils % 0.3 % (0.1-2.0); Eosinophils % 0.1 % (0.1-12.0); Hematocrit 35.2 % (42.0-52.0); Hemoglobin 10.8 g/dL (14.1-18.0); Lymphocytes # 1.2 K/mm3 (0.7-4.5); Lymphocytes % 8.1 % (10-50); Mean Corpuscular HGB Conc 30.7 g/dL (31.8-35.4); Mean Corpuscular Hemoglobin 30.9 pg (27.0-31.2); Mean Corpuscular Volume 100.9 fl (80-94); Mean Platelet Volume 9.8 fl (7.4-10.4); Monocytes # 0.9 K/mm3 (0.1-1.0); Monocytes % 5.8 % (1.7-9.3); Neutrophils # 12.5 K/mm3 (1.8-7.8); Neutrophils % 83.6 % (37.0-80.0); Platelet Count 326 K/mm3 (142-424); Red Blood Count 3.49 M/mm3 (4.60-6.20); White Blood Count 14.9 K/mm3 (4.8-10.8)
--- NOTE | 2024-12-04 11:38 | PC.NURSE ---
Respiratory notified of vbg sent to lab.
[2024-12-04 11:41] LABS: Activated Partial Thrombo Time 28.8 seconds (22.5-28.5); INR 1.02 (0.9-1.1); Prothrombin Time 11.2 seconds (9.2-12.1)
[2024-12-04 11:44] LABS: Lactate Venous 1.5 mmol/L (0.4-2.0); VBG Base Excess -0.6 mmol/L (-2.4-2.3); VBG HCO3 23.4 mmol/L (23-30); VBG Oxygen Saturation 97.6 % (50-70); VBG PCO2 34.8 mmol/L (35-51); VBG PH 7.45 mmol/L (7.31-7.41); VBG PO2 104.8 mmol/L (28-40); VBG Total CO2 24.5 mmol/L (23-27)
[2024-12-04] MEDS: ASPIRIN 81MG CHEWABLE TABLET 324 MG PO (11:47)
--- NOTE | 2024-12-04 11:51 | ED_ITS ---
Discharge Plan Disposition Patient Disposition: Admitted Chief Complaint: Shortness of Breath/Dyspnea Prescriptions Prescriptions: No Action prednisone 20 mg tablet 40 mg PO DAILY Eliquis 5 mg tablet 5 mg PO BID Qty: 30 5RF atorvastatin 20 mg tablet 20 mg PO DAILY Patient Comments: TAKE 1 TABLET BY MOUTH DAILY metoprolol succinate 50 mg tablet extended release 24 hr 50 mg PO DAILY Patient Comments: TAKE 1 TABLET BY MOUTH DAILY lisinopril 20 mg tablet 20 mg PO BID Patient Comments: TAKE 1 TABLET BY MOUTH TWICE DAILY azathioprine 50 mg tablet 50 mg PO DAILY Patient Comments: TAKE 1 TABLET BY MOUTH TWICE DAILY oxcarbazepine 300 mg tablet 300 mg PO BID Patient Comments: TAKE 1 TABLET BY MOUTH TWICE DAILY tramadol 50 mg tablet 50 - 100 mg PO BIDP PRN (Reason: Pain) Patient Comments: TAKE 1 TO 2 TABLETS BY MOUTH TWICE DAILY NEEDED FOR PAIN prednisone 1 mg tablet 4 mg PO DAILY Patient Comments: TAKE 4 TABLETS BY MOUTH EVERY DAY amlodipine 10 mg tablet 10 mg PO DAILY Patient Comments: TAKE 1 TABLET BY MOUTH DAILY levothyroxine 125 mcg tablet 125 mcg PO DAILY Patient Comments: TAKE 1 TABLET BY MOUTH EVERY DAY hydrochlorothiazide 25 mg tablet 25 mg PO DAILY Patient Comments: TAKE 1 TABLET BY MOUTH DAILY hydroxychloroquine 200 mg tablet 200 mg PO BID Patient Comments: TAKE 1 TABLET BY MOUTH TWICE DAILY duloxetine 30 mg capsule,delayed release(DR/EC) 30 mg PO DAILY Patient Comments: TAKE 1 CAPSULE BY MOUTH EVERY DAY memantine 28 mg capsule,sprinkle,ER 24hr 28 mg PO DAILY Patient Comments: TAKE 1 CAPSULE BY MOUTH EVERY DAY pregabalin 75 mg capsule 75 mg PO TID Patient Comments: TAKE 1 CAPSULE BY MOUTH THREE TIMES DAILY NEEDED Referrals Follow up/Referrals: Shelli Messina [Primary Care Provider] - See instructions Clinical Impressions Clinical Impression: Multifocal pneumonia, Acute hypoxemic respiratory failure Print Language Print Language: Swedish Discharge ED Provider: Westley Snyder HPI General Chief Complaint: Shortness of Breath/Dyspnea Stated Complaint: CP Time Seen by Provider: 12/04/24 10:53 Mode of Arrival: Wheelchair Source of Information: Patient Limitations: No Limitations Description of Symptoms (Recalled from ER Triage Doc. by RN): Reports he was recently admitted for pneumonia and has never gotten better. States he is short of breath with chest pain and a cough for over a month. History of Present Illness HPI narrative: Please note that above description of symptoms, in this electronic medical record under categorization of recalled from ER triage doctor by RN are reflective of an initial nursing assessment, however, is not reflective of my full history and physical exam that was personally taken and clarified. Consequentially, this preceding description of symptoms, which may include the patient's categorized chief complaint in the EMR, do not reflect my personal clinical impression, and the ultimate description of history of present illness and patient stated complaints should be deferred to this section of the note. Unless stated otherwise or congruent with this section of the note, additional signs, symptoms, or incongruence should be interpreted as inaccurate with my clinical impression. Related Data Home Medications ?Medication ?Instructions ?Recorded ?Confirmed amlodipine 10 mg tablet 10 mg PO DAILY 06/07/23 12/04/24 atorvastatin 20 mg tablet 20 mg PO DAILY 06/07/23 12/04/24 azathioprine 50 mg tablet 50 mg PO DAILY 06/07/23 12/04/24 duloxetine 30 mg capsule,delayed 30 mg PO DAILY 06/07/23 12/04/24 release hydrochlorothiazide 25 mg tablet 25 mg PO DAILY 06/07/23 12/04/24 hydroxychloroquine 200 mg tablet 200 mg PO BID 06/07/23 12/04/24 levothyroxine 125 mcg tablet 125 mcg PO DAILY 06/07/23 12/04/24 lisinopril 20 mg tablet 20 mg PO BID 06/07/23 12/04/24 memantine 28 mg capsule 28 mg PO DAILY 06/07/23 12/04/24 sprinkle,extended release 24hr metoprolol succinate 50 mg 50 mg PO DAILY 06/07/23 12/04/24 tablet,extended release 24 hr oxcarbazepine 300 mg tablet 300 mg PO BID 06/07/23 12/04/24 prednisone 1 mg tablet 4 mg PO DAILY 06/07/23 12/04/24 tramadol 50 mg tablet 50 - 100 mg PO BIDP PRN Pain 06/07/23 12/04/24 pregabalin 75 mg capsule 75 mg PO TID 10/24/24 12/04/24 prednisone 20 mg tablet 40 mg PO DAILY 11/21/24 12/04/24 Previous Rx's ?Medication ?Instructions ?Recorded apixaban 5 mg tablet (Eliquis) 5 mg PO BID #30 tabs 02/19/25 Allergies Allergy/AdvReac Type Severity Reaction Status Date / Time No Known Allergies Allergy Verified 11/21/24 11:30 [facility] Disclaimer: The information contained in this section may have been updated after the patient was seen, as this information can be updated by other users. Medical History (Updated 12/04/24 @ 13:54 by Westley Snyder MD) History of rheumatoid arthritis Abscess, thyroid Histoplasmosis Skin cancer Carotid artery disease Hx of deep venous thrombosis Hypertension Arthritis Lupus Autoimmune hepatitis Surgical History History of total right knee replacement Family History Mother Family history of hypertension Brother Family history of myocardial infarction Social History Smoking Status: Never smoker second hand exposure: Yes alcohol intake: never current occupational status: retired and other Travel in the last 8 weeks: None Have you lived/traveled outside [place] in past 30 days?: No Contact w/someone who lives/traveled outside US past 30 days?: No Exposure to someone with infectious disease in past 14 days?: No Do you have a fever (greater than 100.4 F or 38 C)?: No Have you tested positive for COVID-19: No Exposed to someone with COVID-19 in past 14 days?: No Do you have a sore throat?: No Do you have a cough?: No Do you have any weakness?: No Do you have any diarrhea?: No Are you experiencing any unusual bleeding?: No Do you have any muscle aches/pain?: No Do you have any abdominal pain?: No Are you experiencing loss of taste or smell?: No Other Medical History Have you received the Flu Vaccine for this season: No Have you received the Pneumonia Vaccine: Yes ROS Obtained: Yes All systems reviewed & no additional complaints except as documented Physical Exam General General appearance: alert Neck Neck exam: Present trachea midline Chest Chest inspection: Present normal inspection and symmetric chest wall rise Respiratory Respiratory exam: Present normal lung sounds bilaterally; Absent respiratory distress, wheezes, stridor, accessory muscle use or prolonged expiratory phase Cardiovascular Cardiovascular exam: Present regular rate, normal rhythm and other (Pulses equal and symmetric in upper and lower extremities) Extremities Exam Extremities exam: Absent edema Neurological Exam Neurological exam: Present alert, oriented X3 and CN II-XII intact Skin Skin exam: Present warm and dry; Absent cyanosis, diaphoresis or pallor HEART Score HEART Score HEART Score assessment performed?: Yes History (anamnesis): Moderately suspicious ECG: Non-specific disturbance Age: >65 years Risk factors: 3 or more risk factors Troponin: 1-3x normal limit HEART Score: 7 Critical Care Critical Care Time Critical Care Time: Yes (respiratory) Attestation: On 12/04/24, the high probability of a clinically significant, sudden or life threatening deterioration of the following system(s) required my full and direct attention, intervention and personal management. The time I documented below is in addition to time spent performing reported procedures but includes the following listed in this critical care notation. Total Time Total Critical Care Time: 40 Medical Decision Making Medical Records Medical records reviewed: Yes I reviewed the patient's medical records. Gregory Inquiry Pt receiving controlled substance: No Gregory was queried for this patient: No Vital Signs Vital Signs: 12/04/24 10:50 12/04/24 11:30 12/04/24 12:00 Temperature 98.3 F Temperature Source Oral Pulse Rate 76 74 Pulse Rate [Radial] 90 Respiratory Rate 24 16 22 Blood Pressure 167/92 H 140/85 Blood Pressure [Right Arm] 167/92 H Blood Pressure Mean [Right Arm] 117 Blood Pressure Source [Right Arm] Automatic Cuff Blood Pressure Position [Right Arm] Sitting 02 Sat by Pulse Oximetry 68 L 96 95 Oxygen Delivery Method Room Air Nasal Cannula Nasal Cannula Oxygen Flow Rate (LPM) 2 2 12/04/24 12:30 12/04/24 13:00 Temperature Temperature Source Pulse Rate 69 71 Pulse Rate [Radial] Respiratory Rate 23 21 Blood Pressure 136/81 133/79 Blood Pressure [Right Arm] Blood Pressure Mean [Right Arm] Blood Pressure Source [Right Arm] Blood Pressure Position [Right Arm] 02 Sat by Pulse Oximetry 94 L 93 L Oxygen Delivery Method Nasal Cannula Nasal Cannula Oxygen Flow Rate (LPM) 2 2 Lab Data Labs: Lab Results 12/04/24 10:53: WBC 14.9 H, RBC 3.49 L, Hgb 10.8 L, Hct 35.2 L, MCV 100.9 H, MCH 30.9, MCHC 30.7 L, RDW 16.0, Plt Count 326, MPV 9.8, Neut % (Auto) 83.6 H, Lymph % (Auto) 8.1 L, Gaines % (Auto) 5.8, Eos % (Auto) 0.1, Baso % (Auto) 0.3, Neut # (Auto) 12.5 H, Lymph # (Auto) 1.2, Gaines # (Auto) 0.9, Eos # (Auto) 0.0, Baso # (Auto) 0.1, PT 11.2, INR 1.02, APTT 28.8 H, Sodium 137, Potassium 4.3, Chloride 100, Carbon Dioxide 29, Anion Gap 12.3, BUN 31 H, Creatinine 1.10, Estimated Creat Clear 84, Estimated GFR 66, Est GFR ( Amer) 79, Glucose 115 H, Calcium 9.5, Magnesium 1.9, Total Bilirubin 0.6, AST 71 H, ALT 38, Alkaline Phosphatase 78, Troponin I 0.51 H, NT-Pro-B Natriuret Pep 591 H, Total Protein 6.7, Albumin 4.0, Globulin 2.7, Albumin/Globulin Ratio 1.5, SARS-CoV-2 (PCR) Not detected, Influenza A Untype (PCR) Not detected, Influenza Type B (PCR) Not detected 12/04/24 11:26: VBG pH 7.45 H, VBG pCO2 34.8 L, VBG pO2 104.8 H, VBG HCO3 23.4, VBG Total CO2 24.5, VBG O2 Saturation 97.6 H, VBG Base Excess -0.6, VBG Lactic Acid 1.5 12/04/24 10:53 12/04/24 10:53 Response Orders (Tests/Meds): ED MEDICATIONS Discontinued Medications Generic Name Dose Route Start Last Admin Trade Name Matthewq PRN Reason Stop Dose Admin Aspirin 324 mg 12/04/24 11:25 12/04/24 11:47 Aspirin 81mg Chewable Tablet PO 12/04/24 11:26 324 mg ONCE ONE Administration Azithromycin 500 mg 12/04/24 11:55 12/04/24 12:00 Azithromycin 250mg Tablet PO 12/04/24 11:56 500 mg ONCE ONE Administration Ceftriaxone Sodium 2 gm/ 100 mls @ 200 mls/hr 12/04/24 11:55 12/04/24 12:01 Sodium Chloride IV 12/04/24 12:24 200 mls/hr ONCE ONE Administration Iopamidol 70 ml 12/04/24 12:50 12/04/24 12:51 Iopamidol-370 (76%);100ml Bottle IV 12/04/24 12:51 70 ml ONCE ONE Administration Sodium Chloride 50 ml 12/04/24 12:50 12/04/24 12:51 0.9 % Sodium Chloride 50 Ml Vial IV 12/04/24 12:51 50 ml ONCE ONE Administration Sodium Chloride 10 ml 12/04/24 12:50 12/04/24 12:51 Sodium Chloride 0.9% 10ml Syr (Rad Only) IV 12/04/24 12:51 10 ml ONCE ONE Administration ORDERS Category Date Time Status CT angio chest PE protocol Stat Cat Scan 12/04/24 11:26 Completed Complete Blood Count Auto Diff Stat Lab 12/04/24 10:53 Completed Comprehensive Metabolic Panel Stat Lab 12/04/24 10:53 Results Magnesium Stat Lab 12/04/24 10:53 Results NT Pro Brain Natriuretic Pep. Stat Lab 12/04/24 10:53 Results PT INR [Prothrombin Time INR] Stat Lab 12/04/24 10:53 Completed PTT [Activated Partial Thrombo Time] Stat Lab 12/04/24 10:53 Completed Procalcitonin Stat Lab 12/04/24 10:53 Results Rapid PCR Covid and Flu A/B Stat Lab 12/04/24 10:53 Completed Troponin I Q3H Lab 12/04/24 14:30 Ordered Troponin I Q3H Lab 12/04/24 17:30 Ordered Troponin I Stat Lab 12/04/24 10:53 Results Blood Culture Stat Micro 12/04/24 10:53 Received Venous Blood Gas Stat RT 12/04/24 11:26 Completed MDM Narrative Medical Decision Narrative: 74-year-old male history of hypertension, hyperlipidemia, RA, lupus, lupus anticoagulant on Eliquis presenting with shortness of breath. Patient states he has been feeling short of breath for the last 3 to 4 days. [place] that he had a, URI but cough is dry. Feeling short of breath with minimal exertion, no lower extremity swelling, PND orthopnea. Recently, prednisone was increased from 1 mg 4 times daily to 20 mg daily and patient has follow-up with vascular surgery in order to get temporal artery biopsy done tomorrow concerning for vasculitis. No chest pain, nausea, vomiting, syncopal episodes, neurologic deficits, etc. History was obtained via conversation with patient and . On arrival, patient hemodynamically stable, alert, [oriented x4, ][appropriate, ]GCS [15], moving all extremities spontaneously, pupils equal and reactive to light. Full physical exam performed and significant for well-appearing male no acute distress, however he is mildly tachypneic and oxygen saturation in the 60s on room air. Lungs are clear, cardiac exam without murmurs gallops rubs. No evidence of tachycardia. No lower extremity edema. Pulses equal and symmetric in upper and lower extremities, speaking in full sentences. After being placed on oxygen, 4 L nasal cannula, patient speaking full sentences, states that his breathing feels much easier and he appears less labored. Differential includes bronchitis, pneumonia, PE, pneumothorax, CHF, ACS, HI, among others. Patient was given supplemental oxygen for symptomatic management[ and correction of underlying abnormalities]. Patient placed on continuous cardiac monitoring and continuous pulse ox with initial blood pressure 167/92, heart rate 90, saturation 68% on room air breathing 24 times a minute. [Independent interpretation of EKG shows] sinus rhythm 83 bpm with AZ 190, QRS of 138, QTc [address] depressions with T wave inversions in lateral and inferior leads without reciprocal elevations. Workup independently interpreted and significant for leukocytosis 14.9 with neutrophilia secondary to steroids or infection. Ceftriaxone and azithromycin ordered. Patient's coags normal. Gas nonactionable. Chemistry nonactionable. BNP only mildly elevated at 591, troponin elevated at 0.51. Repeat EKG sinus rhythm 68 bpm with AZ 185, QRS 142, QTc 441. T wave inversions 3 and aVF without reciprocal elevations. Appears to be improving. On independent interpretation of imaging, multifocal versus atypical pneumonia. No evidence of PE. See radiology read for full review of final results. Heart score 7. Reevaluation, patient's actually feeling much better. Given continued hypoxemia and tachypnea off oxygen, patient placed on 2 L nasal cannula and tolerating well. Patient to be admitted for hypoxemic respiratory failure in the setting of multifocal pneumonia. Because patient high risk for clinical decompensation, deemed appropriate for inpatient admission. Results were relayed to patient who voiced understanding and patient was agreeable to inpatient admission and management. Patient was admitted to the hospital for further definitive management. Controls Engineer disclaimer Much of this encounter note is an electronic senior staff psychologist spoken language to printed text. Electronic senior staff psychologist of the spoken language may permit errors. Although I have reviewed the note, some errors may still exist.
[2024-12-04] MEDS: AZITHROMYCIN 250MG TABLET 500 MG PO (12:00)
[2024-12-04] MEDS: CEFTRIAXONE SODIUM 2 GM in 0.9 % SODIUM CHLORIDE 100 ML IV (12:01)
[2024-12-04 12:34] LABS: Chloride 100 mmol/L (98-107); Sodium 137 mmol/L (136-145)
[2024-12-04 12:35] LABS: Potassium 4.3 mmoL/L (3.5-5.1)
[2024-12-04 12:37] LABS: Alanine Aminotransferase 38 U/L (12-78); Alkaline Phosphatase 78 U/L (38-126); Anion Gap 12.3 mEq/L (5-15); Aspartate Amino Transferase 71 U/L (17-59); Bilirubin,Total 0.6 mg/dl (0.2-1.3); Blood Urea Nitrogen 31 mg/dl (9-20); Carbon Dioxide 29 mmol/L (22.0-30.0); Creatinine Clearance Estimated 84 mL/min (50-200); Estimated Glomerular Filt Rate 66 ml/min (>60); GFR (African American) 79 ML/MIN (>60)
[2024-12-04 12:38] LABS: Albumin/Globulin Ratio 1.5 (1.1-1.8); Calcium 9.5 mg/dl (8.4-10.2); Globulin 2.7 g/dL (1.3-3.2); Glucose 115 mg/dl (74-100); Magnesium 1.9 mg/dl (1.6-2.3); Total Protein,Serum 6.7 g/dl (6.3-8.2)
[2024-12-04 12:47] LABS: NT Pro Brain Natriuretic Pep. 591 pg/mL (0-125)
[2024-12-04] MEDS: 0.9 % SODIUM CHLORIDE 50 ML VIAL IV (12:51)
[2024-12-04] MEDS: IOPAMIDOL-370 (76%);100ML BOTTLE 70 ML IV (12:51)
[2024-12-04] MEDS: SODIUM CHLORIDE 0.9% 10ML SYR (RAD ONLY) 10 ML IV (12:51)
[2024-12-04 12:52] LABS: Troponin I 0.51 ng/ml (0.00-0.034)
--- NOTE | 2024-12-04 12:54 | PC.NURSE ---
I reported a critical troponin level to MD Snyder. Call received from lab
[2024-12-04 13:29] LABS: Procalcitonin 0.085 ng/mL (0.0-2.0)
--- NOTE | 2024-12-04 13:50 | ECG_ITS ---
APPROVED REPORT Exam: Resting ECG HR:68 bpm ECG Measurements Heart Rate 68 AXES NE 185 P 27 QRSd 142 QRS 42 QT 425 T 7 QTc 441 Conclusion SINUS RHYTHM INTRAVENTRICULAR CONDUCTION DELAY [130+ ms QRS DURATION] Electronically signed by : ROBINSON HERMAN, 12/04/2024 15:05:02
[2024-12-04 14:41] LABS: Troponin I 0.48 ng/ml (0.00-0.034)
--- NOTE | 2024-12-04 15:26 | HMH.PHAINT1 ---
Pharmacy Intervention Comments: MEDICATION RECONCILIATION COMPLETED ON PATIENT USING EXTERNAL FILL HISTORY FROM PHARMACY. -PRANAV FOSTER, AYLEEND
--- NOTE | 2024-12-04 15:49 | EXP.CARD.CON ---
History of Present Illness History of Present Illness Consult date: 12/04/24 Requesting physician: Nikos Babb Consult reason: chest pain and shortness of breath Chief complaint: Pneumonia, NSTEMI Additional Medical History:: 1. KRYSTINA -s/p R CEA, [facility] 2. Lupus anticoagulant -on eliquis -History of DVT 1998, placed on Coumadin recently switched to Eliquis 3. HTN 4. HLD 5. CAD A. Abnormal namita myoview, 11/2024, mixed partially reversible defect in the basal inferior LV wall. EF 58%. B. Echo, 10/2024, EF 60%, mild RV dilation with mild reduction in RV function, mild AI/PI/TR 6. Pneumonia, October 2024 History of present illness: 74-year-old male with hypertension, hyperlipidemia, rheumatoid arthritis, lupus, lupus anticoagulant disorder on Eliquis presented with worsening shortness of breath to the emergency department today. Patient recently hospitalized for pneumonia. Patient scheduled for temporal artery biopsy tomorrow for concern for vasculitis. He is on prednisone which is recently been increased. Patient noted to be tachypneic with oxygen saturation in the 60s on room air in the ER. He was placed on supplemental oxygen with significant improvement in symptoms. Workup included EKG showing sinus rhythm with inferolateral ST-T abnormalities without acute elevation. Troponin returned abnormal initially at 0.51 then 0.48 on repeat. Chest CTA today showed evidence of worsening multifocal pneumonia suggestive of atypical pneumonia. Patient started on antibiotics in addition to oxygen and subsequently admitted for further evaluation. Cardiology consulted for evaluation recommendations. Previous cardiac workup has been performed at [facility] in [place] with no prior cardiac cath per patient's recollection. He was scheduled for follow-up in our office tomorrow to discuss results of his recent stress test which are abnormal. [facility] Disclaimer: The information contained in this section may have been updated after the patient was seen, as this information can be updated by other users. Medical History (Updated 12/04/24 @ 16:02 by FERNANDO Manley) History of rheumatoid arthritis Abscess, thyroid Histoplasmosis Skin cancer Carotid artery disease Hx of deep venous thrombosis Hypertension Arthritis Lupus Autoimmune hepatitis Surgical History History of total right knee replacement Family History Mother Family history of hypertension Brother Family history of myocardial infarction Social History Smoking Status: Never smoker second hand exposure: Yes alcohol intake: never current occupational status: retired and other Travel in the last 8 weeks: None Have you lived/traveled outside US in past 30 days?: No Contact w/someone who lives/traveled outside US past 30 days?: No Exposure to someone with infectious disease in past 14 days?: No Do you have a fever (greater than 100.4 F or 38 C)?: No Have you tested positive for COVID-19: No Exposed to someone with COVID-19 in past 14 days?: No Do you have a sore throat?: No Do you have a cough?: No Do you have any weakness?: No Do you have any diarrhea?: No Are you experiencing any unusual bleeding?: No Do you have any muscle aches/pain?: No Do you have any abdominal pain?: No Are you experiencing loss of taste or smell?: No Review of Systems Review of Systems Review of systems:: pertinent systems reviewed and negative unless documented below *Cardiovascular Cardiovascular: Reports chest pain, Reports dyspnea and Reports dyspnea on exertion *Respiratory Respiratory: Reports dyspnea and Reports dyspnea on exertion Exam Data for Last 24 hours Vital signs and Labs for Last 24 Hours: Temp Pulse Resp BP Pulse Ox O2 Del Method O2 Flow Rate 98.5 F 67 22 117/74 92 L Nasal Cannula 1 12/04/24 15:14 12/04/24 15:45 12/04/24 15:45 12/04/24 15:45 12/04/24 15:45 12/04/24 15:45 12/04/24 15:45 Laboratory Results - last 24 hr 12/04/24 10:53: WBC 14.9 H, RBC 3.49 L, Hgb 10.8 L, Hct 35.2 L, MCV 100.9 H, MCH 30.9, MCHC 30.7 L, RDW 16.0, Plt Count 326, MPV 9.8, Neut % (Auto) 83.6 H, Lymph % (Auto) 8.1 L, [place] % (Auto) 5.8, Eos % (Auto) 0.1, Baso % (Auto) 0.3, Neut # (Auto) 12.5 H, Lymph # (Auto) 1.2, [place] # (Auto) 0.9, Eos # (Auto) 0.0, Baso # (Auto) 0.1, PT 11.2, INR 1.02, APTT 28.8 H, Sodium 137, Potassium 4.3, Chloride 100, Carbon Dioxide 29, Anion Gap 12.3, BUN 31 H, Creatinine 1.10, Estimated Creat Clear 84, Estimated GFR 66, Est GFR ( Amer) 79, Glucose 115 H, Calcium 9.5, Magnesium 1.9, Total Bilirubin 0.6, AST 71 H, ALT 38, Alkaline Phosphatase 78, Troponin I 0.51 H, NT-Pro-B Natriuret Pep 591 H, Total Protein 6.7, Albumin 4.0, Globulin 2.7, Albumin/Globulin Ratio 1.5, Procalcitonin 0.085, SARS-CoV-2 (PCR) Not detected, Influenza A Untype (PCR) Not detected, Influenza Type B (PCR) Not detected 12/04/24 11:26: VBG pH 7.45 H, VBG pCO2 34.8 L, VBG pO2 104.8 H, VBG HCO3 23.4, VBG Total CO2 24.5, VBG O2 Saturation 97.6 H, VBG Base Excess -0.6, VBG Lactic Acid 1.5 12/04/24 13:51: Troponin I 0.48 H I & O for Last 24 hours: Intake & Output 12/02/24 12/03/24 12/04/24 12/05/24 11:59 11:59 11:59 11:59 Weight 220 lb Constitutional Constitutional: no acute distress *Routine Respiratory Exam Respiratory: Present rhonchi and wheezes *Routine Cardiovascular Exam Cardiovascular: Present RRR and murmur; Absent gallop or rubs *Routine Extremities Exam Extremities: Present edema *Routine Neurological Exam Neurological: Present alert, oriented X3 and CN II-XII intact Meds Home Medications and Allergies Home Medications ?Medication ?Instructions ?Recorded ?Confirmed ?Type amlodipine 10 mg tablet 10 mg PO DAILY 06/07/23 12/04/24 History atorvastatin 20 mg tablet 20 mg PO DAILY 06/07/23 12/04/24 History azathioprine 50 mg tablet 50 mg PO DAILY 06/07/23 12/04/24 History duloxetine 30 mg capsule,delayed 30 mg PO DAILY 06/07/23 12/04/24 History release hydrochlorothiazide 25 mg tablet 25 mg PO DAILY 06/07/23 12/04/24 History hydroxychloroquine 200 mg tablet 200 mg PO BID 06/07/23 12/04/24 History levothyroxine 125 mcg tablet 125 mcg PO DAILY 06/07/23 12/04/24 History lisinopril 20 mg tablet 20 mg PO BID 06/07/23 12/04/24 History memantine 28 mg capsule 28 mg PO DAILY 06/07/23 12/04/24 History sprinkle,extended release 24hr metoprolol succinate 50 mg 50 mg PO DAILY 06/07/23 12/04/24 History tablet,extended release 24 hr oxcarbazepine 300 mg tablet 300 mg PO BID 06/07/23 12/04/24 History tramadol 50 mg tablet 50 - 100 mg PO BIDP PRN Moderate 06/07/23 12/04/24 History Pain (Scale Score 5-6) pregabalin 75 mg capsule 75 mg PO QID 10/24/24 12/04/24 History prednisone 20 mg tablet 40 mg PO DAILY 11/21/24 12/04/24 History apixaban 5 mg tablet (Eliquis) 5 mg PO BID #30 tabs 11/27/24 12/04/24 Rx New Prescriptions to Start Prescriptions: Allergies Allergy/AdvReac Type Severity Reaction Status Date / Time No Known Allergies Allergy Verified 11/21/24 11:30 Assessment and Plan *Assessment and plan (1) Multifocal pneumonia: Status: Acute Category: Medical Code(s): J18.9 - Pneumonia, unspecified organism (2) Acute hypoxemic respiratory failure: Status: Acute Category: Medical Code(s): J96.01 - Acute respiratory failure with hypoxia (3) NSTEMI (non-ST elevated myocardial infarction): Status: Acute Category: Medical Code(s): I21.4 - Non-ST elevation (NSTEMI) myocardial infarction (4) History of rheumatoid arthritis: Status: Acute Category: Medical Code(s): Z87.39 - Personal history of other diseases of the musculoskeletal system and connective tissue (5) Hyperlipidemia: Status: Acute Qualifiers: Hyperlipidemia type: mixed hyperlipidemia Qualified Code(s): E78.2 - Mixed hyperlipidemia Category: Medical Code(s): E78.5 - Hyperlipidemia, unspecified (6) Hypertension: Status: Acute Qualifiers: Hypertension type: primary hypertension Qualified Code(s): I10 - Essential (primary) hypertension Category: Medical Code(s): I10 - Essential (primary) hypertension (7) Dyspnea: Status: Acute Qualifiers: Dyspnea type: shortness of breath Qualified Code(s): R06.02 - Shortness of breath Category: Medical Code(s): R06.00 - Dyspnea, unspecified Plan 1. Multifocal pneumonia with acute hypoxemic resp failure -Antibiotics per Hospitalist 2. NSTEMI -abnormal stress test -continue lovenox and hold eliquis -continue statin and metoprolol -add aspirin 81 mg daily -will consider further cardiac testing prior to discharge -limited echo in AM to assess LVEF 3. HTN -resume metoprolol, lisinopril and amlodipine 4. Hyperlipidemia -Continue atorvastatin 5. Autoimmune issues with history of lupus, lupus anticoagulant and rheumatoid arthritis -Patient has been on prednisone and hydroxychloroquine along with azathioprine Limited echo in AM continue metoprolol and statin add aspirin use lovenox in place of eliquis for now
[2024-12-04] MEDS: ENOXAPARIN 100MG/ML SYRINGE 100 MG SUBCUT (15:55)
[2024-12-04 16:38] LABS: C-Reactive Protein 86.8 mg/L (0-4)
[2024-12-04] MEDS: MAGNESIUM SULFATE IN WATER 2 GM/50 ML PIGGYBACK IV (16:53)
[2024-12-04 18:31] LABS: Troponin I 0.42 ng/ml (0.00-0.034)
[2024-12-04] MEDS: LISINOPRIL 20MG TABLET 20 MG PO (20:44)
--- NOTE | 2024-12-04 20:57 | EXP.HP ---
History of Present Illness *Admission Date: 12/04/24 *Reason for visit:: Shortness of breath *History of present illness: Rakesh Paredes is a 74-year-old male with a medical history significant for hypertension, Lupus anticoagulant on Eliquis, hypertension, CAD, right carotid artery stenosis s/p endarterectomy who presents with a few days of worsening shortness of breath. He had been recently discharged from the hospital on October 25 for community-acquired pneumonia with Augmentin. Since then, he states he has never returned back to baseline and was evaluated by cardiology with a stress test was equivocal. Over the past few days, patient states he has been having nonproductive cough and shortness of breath. No fever/chills, chest pain. Workup in the ED significant for WBC 14.9 troponin 0.51, mini respiratory panel negative for COVID and flu. CTA chest does reveal worsening multifocal pneumonia. He is requiring 2 L for appropriate saturations. Case discussed with ED provider and decision was made to admit patient for pneumonia and NSTEMI. [facility] Disclaimer: The information contained in this section may have been updated after the patient was seen, as this information can be updated by other users. Medical History (Updated 12/04/24 @ 16:02 by FERNANDO Manley) History of rheumatoid arthritis Abscess, thyroid Histoplasmosis Skin cancer Carotid artery disease Hx of deep venous thrombosis Hypertension Arthritis Lupus Autoimmune hepatitis Surgical History History of total right knee replacement Family History Mother Family history of hypertension Brother Family history of myocardial infarction Social History Smoking Status: Never smoker second hand exposure: Yes alcohol intake: never current occupational status: retired and other Travel in the last 8 weeks: None Have you lived/traveled outside US in past 30 days?: No Contact w/someone who lives/traveled outside US past 30 days?: No Exposure to someone with infectious disease in past 14 days?: No Do you have a fever (greater than 100.4 F or 38 C)?: No Have you tested positive for COVID-19: No Exposed to someone with COVID-19 in past 14 days?: No Do you have a sore throat?: No Do you have a cough?: No Do you have any weakness?: No Do you have any diarrhea?: No Are you experiencing any unusual bleeding?: No Do you have any muscle aches/pain?: No Do you have any abdominal pain?: No Are you experiencing loss of taste or smell?: No Other Medical History Have you received the Flu Vaccine for this season: Yes Have you received the Pneumonia Vaccine: Yes Meds Home Medications and Allergies Home Medications ?Medication ?Instructions ?Recorded ?Confirmed ?Type amlodipine 10 mg tablet 10 mg PO DAILY 06/07/23 12/04/24 History atorvastatin 20 mg tablet 20 mg PO DAILY 06/07/23 12/04/24 History azathioprine 50 mg tablet 50 mg PO DAILY 06/07/23 12/04/24 History duloxetine 30 mg capsule,delayed 30 mg PO DAILY 06/07/23 12/04/24 History release hydrochlorothiazide 25 mg tablet 25 mg PO DAILY 06/07/23 12/04/24 History hydroxychloroquine 200 mg tablet 200 mg PO BID 06/07/23 12/04/24 History levothyroxine 125 mcg tablet 125 mcg PO DAILY 06/07/23 12/04/24 History lisinopril 20 mg tablet 20 mg PO BID 06/07/23 12/04/24 History memantine 28 mg capsule 28 mg PO DAILY 06/07/23 12/04/24 History sprinkle,extended release 24hr metoprolol succinate 50 mg 50 mg PO DAILY 06/07/23 12/04/24 History tablet,extended release 24 hr oxcarbazepine 300 mg tablet 300 mg PO BID 06/07/23 12/04/24 History tramadol 50 mg tablet 50 - 100 mg PO BIDP PRN Moderate 06/07/23 12/04/24 History Pain (Scale Score 5-6) pregabalin 75 mg capsule 75 mg PO QID 10/24/24 12/04/24 History prednisone 20 mg tablet 40 mg PO DAILY 11/21/24 12/04/24 History apixaban 5 mg tablet (Eliquis) 5 mg PO BID #30 tabs 11/27/24 12/04/24 Rx New Prescriptions to Start Prescriptions: Allergies Allergy/AdvReac Type Severity Reaction Status Date / Time No Known Allergies Allergy Verified 11/21/24 11:30 Exam Data for Last 24 hours Vital signs and Labs for Last 24 Hours: Temp Pulse Resp BP Pulse Ox O2 Del Method O2 Flow Rate 98.8 F 64 18 110/66 92 L Nasal Cannula 2 12/04/24 19:43 12/04/24 19:43 12/04/24 19:43 12/04/24 19:43 12/04/24 19:43 12/04/24 19:43 12/04/24 19:43 Laboratory Results - last 24 hr 12/04/24 10:53: WBC 14.9 H, RBC 3.49 L, Hgb 10.8 L, Hct 35.2 L, MCV 100.9 H, MCH 30.9, MCHC 30.7 L, RDW 16.0, Plt Count 326, MPV 9.8, Neut % (Auto) 83.6 H, Lymph % (Auto) 8.1 L, [place] % (Auto) 5.8, Eos % (Auto) 0.1, Baso % (Auto) 0.3, Neut # (Auto) 12.5 H, Lymph # (Auto) 1.2, [place] # (Auto) 0.9, Eos # (Auto) 0.0, Baso # (Auto) 0.1, PT 11.2, INR 1.02, APTT 28.8 H, Sodium 137, Potassium 4.3, Chloride 100, Carbon Dioxide 29, Anion Gap 12.3, BUN 31 H, Creatinine 1.10, Estimated Creat Clear 84, Estimated GFR 66, Est GFR ( Amer) 79, Glucose 115 H, Calcium 9.5, Magnesium 1.9, Total Bilirubin 0.6, AST 71 H, ALT 38, Alkaline Phosphatase 78, Troponin I 0.51 H, NT-Pro-B Natriuret Pep 591 H, Total Protein 6.7, Albumin 4.0, Globulin 2.7, Albumin/Globulin Ratio 1.5, Procalcitonin 0.085, SARS-CoV-2 (PCR) Not detected, Influenza A Untype (PCR) Not detected, Influenza Type B (PCR) Not detected 12/04/24 11:26: VBG pH 7.45 H, VBG pCO2 34.8 L, VBG pO2 104.8 H, VBG HCO3 23.4, VBG Total CO2 24.5, VBG O2 Saturation 97.6 H, VBG Base Excess -0.6, VBG Lactic Acid 1.5 12/04/24 13:51: Troponin I 0.48 H, C-Reactive Protein 86.8 H 12/04/24 17:30: Troponin I 0.42 H I & O for Last 24 hours: Intake & Output 12/01/24 12/02/24 12/03/24 12/04/24 23:59 23:59 23:59 23:59 Intake Total 0 / 0 Output Total 0 / 0 Balance 0 / 0 Weight 95.878 kg Constitutional Constitutional: no acute distress *Routine HEENT Exam Head: Present normocephalic Eye: Present EOMI and PERRL ENT: Present mucous membranes moist *Routine Neck Exam Neck: Present supple; Absent lymphadenopathy *Routine Respiratory Exam Respiratory: Present CTA bilaterally *Routine Cardiovascular Exam Cardiovascular: Present RRR *Routine Abdominal Exam Abdominal: Present soft and normoactive bowel sounds; Absent tenderness *Routine Rectal Exam Rectal:: deferred *Routine Genitalia Exam Genitalia:: deferred *Routine Extremities Exam Extremities: Absent cyanosis, clubbing or edema *Routine Skin Exam Skin: Present warm; Absent rash *Routine Neurological Exam Neurological: Present alert and oriented X3 Assessment and Plan *Assessment and plan (1) NSTEMI (non-ST elevated myocardial infarction): Status: Acute Category: Medical Code(s): I21.4 - Non-ST elevation (NSTEMI) myocardial infarction (2) Multifocal pneumonia: Status: Acute Category: Medical Code(s): J18.9 - Pneumonia, unspecified organism Plan Rakesh Paredes is a 74-year-old male with a medical history significant for hypertension, Lupus anticoagulant on Eliquis, hypertension, CAD, right carotid artery stenosis s/p endarterectomy who presents with a few days of worsening shortness of breath. He had been recently discharged from the hospital on October 25 for community-acquired pneumonia with Augmentin. Since then, he states he has never returned back to baseline and was evaluated by cardiology with a stress test was equivocal. Over the past few days, patient states he has been having nonproductive cough and shortness of breath. No fever/chills, chest pain. Workup in the ED significant for WBC 14.9 troponin 0.51, mini respiratory panel negative for COVID and flu. CTA chest does reveal worsening multifocal pneumonia. He is requiring 2 L for appropriate saturations. Case discussed with ED provider and decision was made to admit patient for pneumonia and NSTEMI. #Acute hypoxic respiratory failure #Suspected hospital-acquired pneumonia ? Discharged a little over a month ago for pneumonia, patient states he felt better but never back to baseline. ? CTA chest reveals multifocal pneumonia, WBC 14.9. ? Requiring 2 L, new requirement. ? Started vancomycin, cefepime pending sputum cultures. Follow-up MRSA nare. ? Follow-up sputum, blood cultures. ? Pulmonology consulted for continuity of care. #NSTEMI ? Troponins peaked at 0.51 downtrending 0.42. EKG without acute ischemic changes. ? Underwent cardiac stress test earlier this month which was equivocal. ? Cardiology consulted will consider C prior to discharge. ? Therapeutic Lovenox for now. ? Aspirin, statin, metoprolol. #? Giant cell arteritis ? Per chart review, patient was started on prednisone 40 mg daily for 3 days for transient arteritis. ? Will need to further discuss with patient tomorrow. ? Will wean to prednisone 20mg for now. #History of DVT and lupus anticoagulant ? Therapeutic Lovenox for now. Hold home Eliquis. ? Continue home hydroxychloroquine. #Hypothyroidism ? Continue home levothyroxine 125 mcg. #Hypertension ? BP stable at this time. Resume home medications once appropriate. Full code DVT prophylaxis: Therapeutic Lovenox
[2024-12-04] MEDS: CEFEPIME HCL 1 GM in 0.9 % SODIUM CHLORIDE 50 ML IV (21:47)
[2024-12-04] MEDS: VANCOMYCIN HCL 2,000 MG in 0.9 % SODIUM CHLORIDE 250 ML 125 MG IV (22:29)
[2024-12-05] VITALS (8 sets, daily range): BP systolic 118–143; BP diastolic 62–82; PULSE 60–110; RESP 15–18; TEMP 36.7–37.1; O2SAT 89–96; BMI 28.7
[2024-12-05] MEDS: SODIUM CHLORIDE 3% 15ML NEB 3 ML IH (00:50)
[2024-12-05] MEDS: ENOXAPARIN 100MG/ML SYRINGE 100 MG SUBCUT ×2 (02:43→15:03)
--- NOTE | 2024-12-05 05:02 | PC.NURSE ---
Pt has tolerated IV antibiotics well this shift. Pt lungs remain diminished. Pt did rest periodically this shift and denies pain. No other acute changes to note at this time.
[2024-12-05 07:16] LABS: Basophils % 0.2 % (0.1-2.0); Eosinophils % 0.3 % (0.1-12.0); Hematocrit 28.3 % (42.0-52.0); Lymphocytes # 1.4 K/mm3 (0.7-4.5); Lymphocytes % 14.3 % (10-50); Mean Corpuscular HGB Conc 31.1 g/dL (31.8-35.4); Mean Corpuscular Hemoglobin 31.1 pg (27.0-31.2); Mean Platelet Volume 9.8 fl (7.4-10.4); Monocytes # 0.7 K/mm3 (0.1-1.0); Monocytes % 7.4 % (1.7-9.3); Neutrophils # 7.5 K/mm3 (1.8-7.8); Neutrophils % 76.1 % (37.0-80.0); Platelet Count 231 K/mm3 (142-424); Red Blood Count 2.83 M/mm3 (4.60-6.20); White Blood Count 9.9 K/mm3 (4.8-10.8)
--- NOTE | 2024-12-05 07:45 | EXP.PHA.CONS ---
Pharmacy Consult Date: 12/05/24 Time: 07:45 Referring provider: DR. FINCH Reason for Consult:: VANCOMYCIN DOSING Allergies Allergy/AdvReac Type Severity Reaction Status Date / Time No Known Allergies Allergy Verified 11/21/24 11:30 Home Medications ?Medication ?Instructions ?Recorded ?Confirmed ?Type amlodipine 10 mg tablet 10 mg PO DAILY 06/07/23 12/04/24 History atorvastatin 20 mg tablet 20 mg PO DAILY 06/07/23 12/04/24 History azathioprine 50 mg tablet 50 mg PO DAILY 06/07/23 12/04/24 History duloxetine 30 mg capsule,delayed 30 mg PO DAILY 06/07/23 12/04/24 History release hydrochlorothiazide 25 mg tablet 25 mg PO DAILY 06/07/23 12/04/24 History hydroxychloroquine 200 mg tablet 200 mg PO BID 06/07/23 12/04/24 History levothyroxine 125 mcg tablet 125 mcg PO DAILY 06/07/23 12/04/24 History lisinopril 20 mg tablet 20 mg PO BID 06/07/23 12/04/24 History memantine 28 mg capsule 28 mg PO DAILY 06/07/23 12/04/24 History sprinkle,extended release 24hr metoprolol succinate 50 mg 50 mg PO DAILY 06/07/23 12/04/24 History tablet,extended release 24 hr oxcarbazepine 300 mg tablet 300 mg PO BID 06/07/23 12/04/24 History tramadol 50 mg tablet 50 - 100 mg PO BIDP PRN Moderate 06/07/23 12/04/24 History Pain (Scale Score 5-6) pregabalin 75 mg capsule 75 mg PO QID 10/24/24 12/04/24 History prednisone 20 mg tablet 40 mg PO DAILY 11/21/24 12/04/24 History apixaban 5 mg tablet (Eliquis) 5 mg PO BID #30 tabs 11/27/24 12/04/24 Rx New Prescriptions to Start Prescriptions: Height: 1.83 m Weight: 96.162 kg Laboratory Results:: Laboratory Results - last 24 hr 12/04/24 10:53: WBC 14.9 H, RBC 3.49 L, Hgb 10.8 L, Hct 35.2 L, MCV 100.9 H, MCH 30.9, MCHC 30.7 L, RDW 16.0, Plt Count 326, MPV 9.8, Neut % (Auto) 83.6 H, Lymph % (Auto) 8.1 L, [place] % (Auto) 5.8, Eos % (Auto) 0.1, Baso % (Auto) 0.3, Neut # (Auto) 12.5 H, Lymph # (Auto) 1.2, [place] # (Auto) 0.9, Eos # (Auto) 0.0, Baso # (Auto) 0.1, PT 11.2, INR 1.02, APTT 28.8 H, Sodium 137, Potassium 4.3, Chloride 100, Carbon Dioxide 29, Anion Gap 12.3, BUN 31 H, Creatinine 1.10, Estimated Creat Clear 84, Estimated GFR 66, Est GFR ( Amer) 79, Glucose 115 H, Calcium 9.5, Magnesium 1.9, Total Bilirubin 0.6, AST 71 H, ALT 38, Alkaline Phosphatase 78, Troponin I 0.51 H, NT-Pro-B Natriuret Pep 591 H, Total Protein 6.7, Albumin 4.0, Globulin 2.7, Albumin/Globulin Ratio 1.5, Procalcitonin 0.085, SARS-CoV-2 (PCR) Not detected, Influenza A Untype (PCR) Not detected, Influenza Type B (PCR) Not detected 12/04/24 11:26: VBG pH 7.45 H, VBG pCO2 34.8 L, VBG pO2 104.8 H, VBG HCO3 23.4, VBG Total CO2 24.5, VBG O2 Saturation 97.6 H, VBG Base Excess -0.6, VBG Lactic Acid 1.5 12/04/24 13:51: Troponin I 0.48 H, C-Reactive Protein 86.8 H 12/04/24 17:30: Troponin I 0.42 H 12/05/24 06:35: WBC 9.9 D, RBC 2.83 L, Hct 28.3 L, MCV 100.0 H, MCH 31.1, MCHC 31.1 L, RDW 16.0, Plt Count 231 D, MPV 9.8, Neut % (Auto) 76.1, Lymph % (Auto) 14.3, [place] % (Auto) 7.4, Eos % (Auto) 0.3, Baso % (Auto) 0.2, Neut # (Auto) 7.5, Lymph # (Auto) 1.4, [place] # (Auto) 0.7, Eos # (Auto) 0.0, Baso # (Auto) 0.0 Medical History: Medical History (Updated 12/04/24 @ 16:02 by FERNANDO Manley) History of rheumatoid arthritis Abscess, thyroid Histoplasmosis Skin cancer Carotid artery disease Hx of deep venous thrombosis Hypertension Arthritis Lupus Autoimmune hepatitis Assessment and Plan Assessment and plan all Dx Assessment and Plan for all problems:: Pharmacokinetic dosing service Objective: Patient: Floor: Age: 74 yo Serum creatinine: 1.10 mg/dL Height: 72.0 Inches Weight (kg): 96.2 Assessment: IBW (kg): 77.60 Dosing wt(kg): 96.2 Estimated Creatinine clearance (ml/min): 65.6 CRCL method: Cockcroft and Gault using ibw(default). Drug selected: Vancomycin Loading dose (mg): Vd (liters): 77.0 (factor used: 0.8 L/kg) Nemesio (hr-1): 0.059 Half life (hrs): 11.75 CLvanco=?? 4.543 L/hr Recommended dose: 1750 mg Interval: 18 hrs Infusion time (hrs): 2.0 Predicted peak (mcg/mL): 32.8 Predicted trough (mcg/mL): 12.76 Total body weight is being used for vancomycin dosing. Recommendations: Give Vancomycin 1750 mg q 18 hrs with an expected Cpeak of 32.8 mcg/ml and an expected Ctrough of 12.76 mcg/ml AUC 0-24 /KJ Data: KJ 0.5 mcg/mL:?? AUC/KJ:? 1027.2 KJ 1.0 mcg/mL:?? AUC/KJ:? 513.6 --------- KJ 1.5 mcg/mL:?? AUC/KJ:? 342.4 KJ 2.0 mcg/mL:?? AUC/KJ:? 256.8 Thank you for the consult, will continue to follow. -PRANAV FOSTER, AYLEEND
[2024-12-05 07:52] LABS: Alanine Aminotransferase 28 U/L (12-78); Albumin Level 3.2 g/dl (3.5-5.0); Albumin/Globulin Ratio 1.3 (1.1-1.8); Alkaline Phosphatase 64 U/L (38-126); Anion Gap 4.9 mEq/L (5-15); Aspartate Amino Transferase 54 U/L (17-59); Bilirubin,Total 0.5 mg/dl (0.2-1.3); Blood Urea Nitrogen 30 mg/dl (9-20); Calcium 8.6 mg/dl (8.4-10.2); Carbon Dioxide 30 mmol/L (22.0-30.0); Chloride 101 mmol/L (98-107); Creatinine Clearance Estimated 81 mL/min (50-200); Estimated Glomerular Filt Rate 66 ml/min (>60); GFR (African American) 79 ML/MIN (>60); Globulin 2.4 g/dL (1.3-3.2); Glucose 89 mg/dl (74-100); Magnesium 2.2 mg/dl (1.6-2.3); Potassium 3.9 mmoL/L (3.5-5.1); Sodium 132 mmol/L (136-145); Total Protein,Serum 5.6 g/dl (6.3-8.2)
[2024-12-05 07:57] LABS: Hemoglobin 8.9 g/dL (14.1-18.0)
--- NOTE | 2024-12-05 08:00 | CA_ITS ---
APPROVED REPORT EXAM: Limited 2D Echocardiogram Outcomes Analyst: Jaja Flores, RCS, RVS Ht: 6 ft 0 in Wt: 211lbs BSA: 2.18 BP: 117/74 mmHg Indications: NSTEMI, EF check, Lupus, CAD, pneumonia, HTN, HLD 2D Dimensions IVSd 1.22 cm LVEF (Visual) 69.90 % PWd 1.32 cm EF AP4 53.00 % LVDd 5.26 cm GL Strain -12.0 % LVDs 3.17 cm M-Mode Dimensions RVDd 4.54 cm (0.9-2.6) LA Diam 3.83 cm (1.9-4.0) LVDd 4.97 cm (3.5-5.7) LVDs 3.57 cm (3.5-5.7) IVSd 1.27 cm (0.6-1.1) PWd 1.10 cm (0.6-1.1) EF (Teich) 54.30% EPSs 0.38 cm FS 28.20% EDV (Teich) 116.60 mL ESV (Teich) 53.30 mL Other Information Study Quality: Fair Conclusion This is a limited TTE to evaluate for biventricular systolic function. Limited windows are obtained. The left ventricle is normal in size. There is increased LV wall thickness. There is normal global LV systolic function. No regional wall motion abnormalities are noted. LVEF is 60%. The right ventricle is mildly to moderately dilated. There is mild reduction of RV systolic function. Electronically signed by : Radha Nielsen MD 12/05/2024 12:40:56
[2024-12-05] MEDS: CEFEPIME HCL 2 GM in 0.9 % SODIUM CHLORIDE 100 ML IV ×2 (08:44→15:31)
[2024-12-05] MEDS: predniSONE 20MG TAB 20 MG PO (08:44)
[2024-12-05] MEDS: LISINOPRIL 20MG TABLET 20 MG PO ×2 (08:44→21:00)
[2024-12-05] MEDS: OXcarbazepine 300MG TABLET 300 MG PO ×2 (08:44→21:00)
[2024-12-05] MEDS: MEMANTINE 10MG TABLET 10 MG PO ×2 (08:44→21:00)
[2024-12-05] MEDS: HYDROXYCHLOROQUINE SULFATE 200MG TABLET 200 MG PO ×2 (08:44→21:00)
[2024-12-05] MEDS: DULOXETINE 30MG CAPSULE.DR 30 MG PO (08:44)
[2024-12-05] MEDS: ASPIRIN 81MG CHEWABLE TABLET 81 MG PO (08:44)
[2024-12-05] MEDS: azaTHIOprine 50 MG TABLET PO (08:44)
[2024-12-05] MEDS: METOPROLOL SUCCINATE XL 50MG TABLET 50 MG PO (08:44)
[2024-12-05] MEDS: PREGABALIN 25MG CAPSULE 75 MG PO ×4 (08:50→21:00)
--- NOTE | 2024-12-05 09:31 | P.CONS_ITS ---
History of Present Illness History of present illness: Mr. 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 Patient admits gradual worsening respiratory distress. Admits chronic cough with no significant productive phlegm. Denies any subjective fevers or chills. [facility] Disclaimer: The information contained in this section may have been updated after the patient was seen, as this information can be updated by other users. Medical History (Updated 12/05/24 @ 13:03 by Zi Khan MD) Immunocompromised state History of rheumatoid arthritis Abscess, thyroid Histoplasmosis Skin cancer Carotid artery disease Hx of deep venous thrombosis Hypertension Arthritis Lupus Autoimmune hepatitis Surgical History History of total right knee replacement Family History Mother Family history of hypertension Brother Family history of myocardial infarction Social History Smoking Status: Never smoker second hand exposure: Yes alcohol intake: never current occupational status: retired and other Travel in the last 8 weeks: None Have you lived/traveled outside [place] in past 30 days?: No Contact w/someone who lives/traveled outside US past 30 days?: No Exposure to someone with infectious disease in past 14 days?: No Do you have a fever (greater than 100.4 F or 38 C)?: No Have you tested positive for COVID-19: No Exposed to someone with COVID-19 in past 14 days?: No Do you have a sore throat?: No Do you have a cough?: No Do you have any weakness?: No Do you have any diarrhea?: No Are you experiencing any unusual bleeding?: No Do you have any muscle aches/pain?: No Do you have any abdominal pain?: No Are you experiencing loss of taste or smell?: No Review of Systems Constitutional Constitutional: Reports anorexia, Reports body ache(s) and Reports fatigue Eyes Eyes: Denies eye discharge, Denies dry eyes, Denies irritation and Denies itchy eyes ENT Ears, Nose, Mouth, and Throat: Denies epistaxis, Denies facial pain, Denies lip swelling and Denies throat swelling *Cardiovascular Cardiovascular: Reports dyspnea and Reports dyspnea on exertion *Respiratory Respiratory: Reports chest congestion, Reports cough, Reports dyspnea, Reports dyspnea on exertion, Denies excessive phlegm production, Denies hemoptysis, Denies pain on inspiration, Denies pain with cough and Denies wheezing *Gastrointestinal Gastrointestinal: Denies abdominal pain, Denies belching and Denies cramping *Musculoskeletal Musculoskeletal: Reports back pain, Reports myalgias and Reports other (No small joint swelling or Pain) Psychiatric Psychiatric: Denies homicidal ideation and Denies suicidal ideation Endocrine Endocrine: Reports fatigue and Denies heat intolerance Hematologic/Lymphatic Hematologic/Lymphatic: Denies easy bleeding and Denies lymphadenopathy Allergic/Immunologic Allergic/Immunologic: Denies itchy eyes, Denies lip swelling, Denies throat swelling and Denies wheezing Pulmonology Exam Inpatient Vital signs and Labs for Last 24 Hours: Temp Pulse Resp BP Pulse Ox O2 Del Method O2 Flow Rate 98.1 F 81 17 120/62 93 L Nasal Cannula 2 12/05/24 08:00 12/05/24 08:00 12/05/24 08:00 12/05/24 08:00 12/05/24 08:00 12/05/24 06:53 12/05/24 06:53 Laboratory Results - last 24 hr 12/04/24 10:53: WBC 14.9 H, RBC 3.49 L, Hgb 10.8 L, Hct 35.2 L, MCV 100.9 H, MCH 30.9, MCHC 30.7 L, RDW 16.0, Plt Count 326, MPV 9.8, Neut % (Auto) 83.6 H, Lymph % (Auto) 8.1 L, [place] % (Auto) 5.8, Eos % (Auto) 0.1, Baso % (Auto) 0.3, Neut # (Auto) 12.5 H, Lymph # (Auto) 1.2, [place] # (Auto) 0.9, Eos # (Auto) 0.0, Baso # (Auto) 0.1, PT 11.2, INR 1.02, APTT 28.8 H, Sodium 137, Potassium 4.3, Chloride 100, Carbon Dioxide 29, Anion Gap 12.3, BUN 31 H, Creatinine 1.10, Estimated Creat Clear 84, Estimated GFR 66, Est GFR ( Amer) 79, Glucose 115 H, Calcium 9.5, Magnesium 1.9, Total Bilirubin 0.6, AST 71 H, ALT 38, Alkaline Phosphatase 78, Troponin I 0.51 H, NT-Pro-B Natriuret Pep 591 H, Total Protein 6.7, Albumin 4.0, Globulin 2.7, Albumin/Globulin Ratio 1.5, Procalcitonin 0.085, SARS-CoV-2 (PCR) Not detected, Influenza A Untype (PCR) Not detected, Influenza Type B (PCR) Not detected 12/04/24 11:26: VBG pH 7.45 H, VBG pCO2 34.8 L, VBG pO2 104.8 H, VBG HCO3 23.4, VBG Total CO2 24.5, VBG O2 Saturation 97.6 H, VBG Base Excess -0.6, VBG Lactic Acid 1.5 12/04/24 13:51: Troponin I 0.48 H, C-Reactive Protein 86.8 H 12/04/24 17:30: Troponin I 0.42 H 12/05/24 06:35: WBC 9.9 D, RBC 2.83 L, Hgb 8.9 L D, Hct 28.3 L, MCV 100.0 H, MCH 31.1, MCHC 31.1 L, RDW 16.0, Plt Count 231 D, MPV 9.8, Neut % (Auto) 76.1, Lymph % (Auto) 14.3, [place] % (Auto) 7.4, Eos % (Auto) 0.3, Baso % (Auto) 0.2, Neut # (Auto) 7.5, Lymph # (Auto) 1.4, [place] # (Auto) 0.7, Eos # (Auto) 0.0, Baso # (Auto) 0.0, Sodium 132 L, Potassium 3.9, Chloride 101, Carbon Dioxide 30, A nion Gap 4.9 L, BUN 30 H, Creatinine 1.10, Estimated Creat Clear 81, Estimated GFR 66, Est GFR ( Amer) 79, Glucose 89 D, Calcium 8.6, Magnesium 2.2 D, Total Bilirubin 0.5, AST 54, ALT 28 D, Alkaline Phosphatase 64, Total Protein 5.6 L, Albumin 3.2 L D, Globulin 2.4, Albumin/Globulin Ratio 1.3 I & O for Labs for Last 24 Hours: Intake & Output 12/02/24 12/03/24 12/04/24 12/05/24 23:59 23:59 23:59 23:59 Intake Total 0 / 420 420 / 420 Output Total 0 / 0 0 / 0 Balance 0 / 420 420 / 420 Weight 211 lb 6 oz 212 lb Constitutional: Present moderate distress Head: Present normocephalic and atraumatic ENT: Present normal exam, normal oropharynx and mucous membranes moist Neck: Present normal inspection and full ROM Respiratory: Present respiratory distress, rhonchi and able to speak in complete sentences; Absent wheezes or crackles Cardiac: Present S1/S2, Tachycardia and radial pulses present GI: Present soft and distention; Absent tenderness or guarding Skin: Present intact; Absent cyanosis or jaundice Neuro: Present alert, awake and oriented x 3 Extremities: Present normal inspection; Absent clubbing or cyanosis Psychiatric: Present normal affect and cooperative Meds Home Medications and Allergies Home Medications ?Medication ?Instructions ?Recorded ?Confirmed ?Type amlodipine 10 mg tablet 10 mg PO DAILY 06/07/23 12/04/24 History atorvastatin 20 mg tablet 20 mg PO DAILY 06/07/23 12/04/24 History azathioprine 50 mg tablet 50 mg PO DAILY 06/07/23 12/04/24 History duloxetine 30 mg capsule,delayed 30 mg PO DAILY 06/07/23 12/04/24 History release hydrochlorothiazide 25 mg tablet 25 mg PO DAILY 06/07/23 12/04/24 History hydroxychloroquine 200 mg tablet 200 mg PO BID 06/07/23 12/04/24 History levothyroxine 125 mcg tablet 125 mcg PO DAILY 06/07/23 12/04/24 History lisinopril 20 mg tablet 20 mg PO BID 06/07/23 12/04/24 History memantine 28 mg capsule 28 mg PO DAILY 06/07/23 12/04/24 History sprinkle,extended release 24hr metoprolol succinate 50 mg 50 mg PO DAILY 06/07/23 12/04/24 History tablet,extended release 24 hr oxcarbazepine 300 mg tablet 300 mg PO BID 06/07/23 12/04/24 History tramadol 50 mg tablet 50 - 100 mg PO BIDP PRN Moderate 06/07/23 12/04/24 History Pain (Scale Score 5-6) pregabalin 75 mg capsule 75 mg PO QID 10/24/24 12/04/24 History prednisone 20 mg tablet 40 mg PO DAILY 11/21/24 12/04/24 History apixaban 5 mg tablet (Eliquis) 5 mg PO BID #30 tabs 11/27/24 12/04/24 Rx New Prescriptions to Start Prescriptions: Allergies Allergy/AdvReac Type Severity Reaction Status Date / Time No Known Allergies Allergy Verified 11/21/24 11:30 Results Laboratory Findings 12/05/24 06:35 12/05/24 06:35 PT/INR, D-dimer PT 11.2 seconds (9.2-12.1) 12/04/24 10:53 INR 1.02 (0.9-1.1) 12/04/24 10:53 Abnormal lab findings: Abnormal Labs 12/04/24 12/04/24 12/04/24 10:53 11:26 13:51 WBC 14.9 H RBC 3.49 L Hgb 10.8 L Hct 35.2 L MCV 100.9 H MCHC 30.7 L Neut % (Auto) 83.6 H Lymph % (Auto) 8.1 L Neut # (Auto) 12.5 H APTT 28.8 H VBG pH 7.45 H VBG pCO2 34.8 L VBG pO2 104.8 H VBG O2 Saturation 97.6 H Sodium Anion Gap BUN 31 H Glucose 115 H AST 71 H Troponin I 0.51 H 0.48 H C-Reactive Protein 86.8 H NT-Pro-B Natriuret Pep 591 H Total Protein Albumin 12/04/24 12/05/24 17:30 06:35 WBC RBC 2.83 L Hgb 8.9 L D Hct 28.3 L MCV 100.0 H MCHC 31.1 L Neut % (Auto) Lymph % (Auto) Neut # (Auto) APTT VBG pH VBG pCO2 VBG pO2 VBG O2 Saturation Sodium 132 L Anion Gap 4.9 L BUN 30 H Glucose AST Troponin I 0.42 H C-Reactive Protein NT-Pro-B Natriuret Pep Total Protein 5.6 L Albumin 3.2 L D Assessment and Plan *Assessment and plan (1) Pneumonia: Status: Resolved Qualifiers: Pneumonia type: due to unspecified organism Laterality: bilateral Category: Medical Code(s): J18.9 - Pneumonia, unspecified organism (2) Immunocompromised state: Status: Acute Category: Medical Code(s): D84.9 - Immunodeficiency, unspecified Plan Mr. 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 Patient admits gradual worsening respiratory distress. Admits chronic cough with no significant productive phlegm. Denies any subjective fevers or chills. Mild neutrophilic predominant leukocytosis upon admission improving. Pro-Dmitri within normal limits. CRP at 86.8. COVID-19 and flu PCR panel negative CTA upon admission no evidence of pulmonary embolism. Worsening multifocal patchy airspace disease compared to his most recent CT chest from 10/24/2024. Serum fungal serologies and serum beta D glucan negative on [place] from his most recent admission from October 2024. Patient completed a 7-day course of Augmentin on his most recent admission. Plan: -N.p.o. midnight will schedule for bronchoscopy transbronchial biopsy tomorrow -Hold apixaban and transition to Lovenox. Hold anticoagulation dose for tomorrow -DuoNebs 4 times daily as needed -Continue vancomycin and cefepime pending culture results
--- NOTE | 2024-12-05 10:29 | EXP.CARD.PN ---
Subjective Subjective Date: 12/05/24 Time: 10:29 Principal diagnosis: Pneumonia, elevated troponins Interval history: 74 yo WM in bed in NAD. No complaints overnight. Preliminary echo this AM looks good with at least normal LVEF. Exam Data for Last 24 hours Vital signs and Labs for Last 24 Hours: Temp Pulse Resp BP Pulse Ox O2 Del Method O2 Flow Rate 98.1 F 81 17 120/62 93 L Nasal Cannula 2 12/05/24 08:00 12/05/24 08:00 12/05/24 08:00 12/05/24 08:00 12/05/24 08:00 12/05/24 09:00 12/05/24 09:00 Laboratory Results - last 24 hr 12/04/24 10:53: WBC 14.9 H, RBC 3.49 L, Hgb 10.8 L, Hct 35.2 L, MCV 100.9 H, MCH 30.9, MCHC 30.7 L, RDW 16.0, Plt Count 326, MPV 9.8, Neut % (Auto) 83.6 H, Lymph % (Auto) 8.1 L, [place] % (Auto) 5.8, Eos % (Auto) 0.1, Baso % (Auto) 0.3, Neut # (Auto) 12.5 H, Lymph # (Auto) 1.2, [place] # (Auto) 0.9, Eos # (Auto) 0.0, Baso # (Auto) 0.1, PT 11.2, INR 1.02, APTT 28.8 H, Sodium 137, Potassium 4.3, Chloride 100, Carbon Dioxide 29, Anion Gap 12.3, BUN 31 H, Creatinine 1.10, Estimated Creat Clear 84, Estimated GFR 66, Est GFR ( Amer) 79, Glucose 115 H, Calcium 9.5, Magnesium 1.9, Total Bilirubin 0.6, AST 71 H, ALT 38, Alkaline Phosphatase 78, Troponin I 0.51 H, NT-Pro-B Natriuret Pep 591 H, Total Protein 6.7, Albumin 4.0, Globulin 2.7, Albumin/Globulin Ratio 1.5, Procalcitonin 0.085, SARS-CoV-2 (PCR) Not detected, Influenza A Untype (PCR) Not detected, Influenza Type B (PCR) Not detected 12/04/24 11:26: VBG pH 7.45 H, VBG pCO2 34.8 L, VBG pO2 104.8 H, VBG HCO3 23.4, VBG Total CO2 24.5, VBG O2 Saturation 97.6 H, VBG Base Excess -0.6, VBG Lactic Acid 1.5 12/04/24 13:51: Troponin I 0.48 H, C-Reactive Protein 86.8 H 12/04/24 17:30: Troponin I 0.42 H 12/05/24 06:35: WBC 9.9 D, RBC 2.83 L, Hgb 8.9 L D, Hct 28.3 L, MCV 100.0 H, MCH 31.1, MCHC 31.1 L, RDW 16.0, Plt Count 231 D, MPV 9.8, Neut % (Auto) 76.1, Lymph % (Auto) 14.3, [place] % (Auto) 7.4, Eos % (Auto) 0.3, Baso % (Auto) 0.2, Neut # (Auto) 7.5, Lymph # (Auto) 1.4, [place] # (Auto) 0.7, Eos # (Auto) 0.0, Baso # (Auto) 0.0, Sodium 132 L, Potassium 3.9, Chloride 101, Carbon Dioxide 30, Anion Gap 4.9 L, BUN 30 H, Creatinine 1.10, Estimated Creat Clear 81, Estimated GFR 66, Est GFR ( Amer) 79, Glucose 89 D, Calcium 8.6, Magnesium 2.2 D, Total Bilirubin 0.5, AST 54, ALT 28 D, Alkaline Phosphatase 64, Total Protein 5.6 L, Albumin 3.2 L D, Globulin 2.4, Albumin/Globulin Ratio 1.3 I & O for Last 24 hours: Intake & Output 12/02/24 12/03/24 12/04/24 12/05/24 11:59 11:59 11:59 11:59 Intake Total 420 / 420 Output Total 0 / 0 Balance 420 / 420 Weight 220 lb 212 lb Constitutional Constitutional: no acute distress *Routine Respiratory Exam Respiratory: Present rhonchi and wheezes *Routine Cardiovascular Exam Cardiovascular: Present RRR and murmur; Absent gallop or rubs Progress Note: A&P Assessment and plan (1) Multifocal pneumonia: Status: Acute (2) Acute hypoxemic respiratory failure: Status: Acute (3) NSTEMI (non-ST elevated myocardial infarction): Status: Acute (4) History of rheumatoid arthritis: Status: Acute (5) Hyperlipidemia: Status: Acute (6) Hypertension: Status: Acute (7) Dyspnea: Status: Acute Assessment and Plan Assessment and Plan for All Diagnoses:: 1. Multifocal pneumonia with acute hypoxemic resp failure -Antibiotics per Hospitalist 2. NSTEMI, likely due to strain from pneumonia -abnormal stress test last week -echo today looks good with preserved LVEF -continue statin and metoprolol -add aspirin 81 mg daily -will consider further cardiac testing prior to discharge but prefer to postpone LHC until recovered from pneumonia 3. HTN -resume metoprolol, lisinopril and amlodipine 4. Hyperlipidemia -Continue atorvastatin 5. Autoimmune issues with history of lupus, lupus anticoagulant and rheumatoid arthritis -Patient has been on prednisone and hydroxychloroquine along with azathioprine -resume eliquis Cardiac function is preserved so NSTEMI is type II related to strain of Pneumonia/hypoxemia. Add aspirin. Continue eliquis since we don't anticipate LHC this admission. Will wait til he has recovered from pneumonia and perform as outpatient. No further plans at this time.
[2024-12-05 10:36] LABS: Hemoglobin A1C 5.4 % (4.0-6.0)
[2024-12-05] MEDS: GUAIFENESIN/DEXTROMETHORPHAN 200MG/20MG 10ML UDC 10 ML PO (11:55)
[2024-12-05] MEDS: IPRATROPIUM/ALBUTEROL 3 ML NEB IH ×2 (12:00→18:17)
[2024-12-05] MEDS: VANCOMYCIN/WATER FOR INJ (PEG) 1.75 GM/350 ML PIGGYBACK IV (16:06)
--- NOTE | 2024-12-05 16:56 | PC.NURSE ---
Patient attempted to sit on side of bed and his oxygen dropped to 78%. Patient's oxygen titrated up to 3L NC with o2 now at 90%
--- NOTE | 2024-12-05 17:20 | EXP.PN ---
Subjective *Date: 12/05/24 *Time: 17:20 Interval history: Patient states he feels about the same as yesterday, respiratory status has not improved significantly. Pulmonology planning for bronchoscopy in the morning. Hold morning Lovenox. Exam Data for Last 24 hours Vital signs and Labs for Last 24 Hours: Temp Pulse Resp BP Pulse Ox O2 Del Method O2 Flow Rate 98.1 F 81 18 141/82 H 89 L Nasal Cannula 2 12/05/24 08:00 12/05/24 16:00 12/05/24 16:00 12/05/24 16:00 12/05/24 16:00 12/05/24 16:00 12/05/24 16:00 Laboratory Results - last 24 hr 12/04/24 17:30: Troponin I 0.42 H 12/05/24 06:35: WBC 9.9 D, RBC 2.83 L, Hgb 8.9 L D, Hct 28.3 L, MCV 100.0 H, MCH 31.1, MCHC 31.1 L, RDW 16.0, Plt Count 231 D, MPV 9.8, Neut % (Auto) 76.1, Lymph % (Auto) 14.3, [place] % (Auto) 7.4, Eos % (Auto) 0.3, Baso % (Auto) 0.2, Neut # (Auto) 7.5, Lymph # (Auto) 1.4, [place] # (Auto) 0.7, Eos # (Auto) 0.0, Baso # (Auto) 0.0, Sodium 132 L, Potassium 3.9, Chloride 101, Carbon Dioxide 30, Anion Gap 4.9 L, BUN 30 H, Creatinine 1.10, Estimated Creat Clear 81, Estimated GFR 66, Est GFR ( Amer) 79, Glucose 89 D, Hemoglobin A1c 5.4, Calcium 8.6, Magnesium 2.2 D, Total Bilirubin 0.5, AST 54, ALT 28 D, Alkaline Phosphatase 64, Total Protein 5.6 L, Albumin 3.2 L D, Globulin 2.4, Albumin/Globulin Ratio 1.3 I & O for Last 24 hours: Intake & Output 12/02/24 12/03/24 12/04/24 12/05/24 23:59 23:59 23:59 23:59 Intake Total 0 / 420 1380 / 1380 Output Total 0 / 0 0 / 0 Balance 0 / 420 1380 / 1380 Weight 95.878 kg 96.162 kg Microbiology Reports for the Last 24 Hours: Microbiology 12/04/24 10:53 Blood Blood Culture - Preliminary NO GROWTH AFTER 24 HOURS 12/04/24 10:53 Blood Blood Culture - Preliminary NO GROWTH AFTER 24 HOURS Constitutional Constitutional: no acute distress *Routine HEENT Exam Head: Present normocephalic Eye: Present EOMI and PERRL ENT: Present mucous membranes moist *Routine Neck Exam Neck: Present supple; Absent lymphadenopathy *Routine Respiratory Exam Respiratory: Present CTA bilaterally *Routine Cardiovascular Exam Cardiovascular: Present RRR *Routine Abdominal Exam Abdominal: Present soft and normoactive bowel sounds; Absent tenderness *Routine Extremities Exam Extremities: Absent cyanosis, clubbing or edema *Routine Skin Exam Skin: Present warm; Absent rash *Routine Neurological Exam Neurological: Present alert and oriented X3 Assessment and Plan *Assessment and plan (1) NSTEMI (non-ST elevated myocardial infarction): Status: Acute Category: Medical Code(s): I21.4 - Non-ST elevation (NSTEMI) myocardial infarction (2) Multifocal pneumonia: Status: Acute Category: Medical Code(s): J18.9 - Pneumonia, unspecified organism Plan Rakesh Paredes is a 74-year-old male with a medical history significant for hypertension, Lupus anticoagulant on Eliquis, hypertension, CAD, right carotid artery stenosis s/p endarterectomy who presents with a few days of worsening shortness of breath. He had been recently discharged from the hospital on October 25 for community-acquired pneumonia with Augmentin. Since then, he states he has never returned back to baseline and was evaluated by cardiology with a stress test was equivocal. Over the past few days, patient states he has been having nonproductive cough and shortness of breath. No fever/chills, chest pain. Workup in the ED significant for WBC 14.9 troponin 0.51, mini respiratory panel negative for COVID and flu. CTA chest does reveal worsening multifocal pneumonia. He is requiring 2 L for appropriate saturations. Case discussed with ED provider and decision was made to admit patient for pneumonia and NSTEMI. #Acute hypoxic respiratory failure #Suspected hospital-acquired pneumonia ? Discharged a little over a month ago for pneumonia on Augmentin, patient states he felt better but never back to baseline. ? CTA chest reveals multifocal pneumonia on admission, WBC 14.9. ? Requiring 2 L, new requirement. ? Continue vancomycin, cefepime pending sputum cultures. Follow-up MRSA nare. ? Follow-up sputum, blood cultures. ? Pulmonology consulted, planning for bronchoscopy in the morning. N.p.o. at midnight. Hold morning Lovenox dose. #NSTEMI ? Troponins peaked at 0.51 downtrending 0.42. EKG without acute ischemic changes. ? Underwent cardiac stress test earlier this month which was equivocal. ? Cardiology consulted will consider [facility] prior to discharge. ? Therapeutic Lovenox for now. ? Aspirin, statin, metoprolol. # Recent shingles flare ? Per chart review, patient was started on prednisone 40 mg daily for 3 days for giant cell arteritis. ? He recently had a shingles flare over the right alevism and behind the ear. Prednisone apparently has not been helping. ? Will wean to prednisone 20mg for now to eventually wean off. ? Continue pregabalin. #History of DVT and lupus anticoagulant ? Therapeutic Lovenox for now. Hold home Eliquis. ? Continue home hydroxychloroquine. #Hypothyroidism ? Continue home levothyroxine 125 mcg. #Hypertension ? BP stable at this time. Resume home medications once appropriate. Full code DVT prophylaxis: Therapeutic Lovenox
[2024-12-05] MEDS: ATORVASTATIN 20MG TABLET 20 MG PO (21:01)
[2024-12-06] VITALS (28 sets, daily range): BP systolic 96–171; BP diastolic 49–94; PULSE 68–96; RESP 14–22; TEMP 36.6–37.6; O2SAT 88–97; BMI 28.5
[2024-12-06] MEDS: CEFEPIME HCL 2 GM in 0.9 % SODIUM CHLORIDE 100 ML IV ×3 (00:20→16:23)
[2024-12-06] MEDS: IPRATROPIUM/ALBUTEROL 3 ML NEB IH ×3 (00:27→18:41)
[2024-12-06] MEDS: ENOXAPARIN 100MG/ML SYRINGE 100 MG SUBCUT (03:04)
--- NOTE | 2024-12-06 04:22 | PC.NURSE ---
Pt is is tolerating 3L well at this time, however pt does tend to desat when up to bathroom. Pt denies pain. Pt remains NPO and has been since 0000 due to procedure in am. Pt has had no other acute changes to note this shift. Call light is within reach.
--- NOTE | 2024-12-06 04:24 | PC.NURSE ---
Pt is tolerating 3L well at this time (95%), however he continues to desat when up to bathroom but quickly recovers once back in bed. Pt lung sounds remain diminished throughout. Pt has been NPO since MD due to procedure 12/06. Pt denies pain and has had no acute changes to note this shift. Call light is within reach.
[2024-12-06 07:13] LABS: Alanine Aminotransferase 26 U/L (12-78); Albumin/Globulin Ratio 1.2 (1.1-1.8); Alkaline Phosphatase 62 U/L (38-126); Aspartate Amino Transferase 51 U/L (17-59); Bilirubin,Total 0.3 mg/dl (0.2-1.3); Blood Urea Nitrogen 27 mg/dl (9-20); Calcium 8.5 mg/dl (8.4-10.2); Carbon Dioxide 28 mmol/L (22.0-30.0); Chloride 105 mmol/L (98-107); Creatinine Clearance Estimated 89 mL/min (50-200); Estimated Glomerular Filt Rate 73 ml/min (>60); GFR (African American) 89 ML/MIN (>60); Globulin 2.6 g/dL (1.3-3.2); Glucose 95 mg/dl (74-100); Magnesium 2.2 mg/dl (1.6-2.3); Sodium 136 mmol/L (136-145); Total Protein,Serum 5.6 g/dl (6.3-8.2)
[2024-12-06 07:42] LABS: Basophils % 0.3 % (0.1-2.0); Eosinophils % 0.4 % (0.1-12.0); Hematocrit 26.2 % (42.0-52.0); Lymphocytes # 1.2 K/mm3 (0.7-4.5); Lymphocytes % 15.3 % (10-50); Mean Corpuscular HGB Conc 30.5 g/dL (31.8-35.4); Mean Corpuscular Hemoglobin 31.1 pg (27.0-31.2); Mean Corpuscular Volume 101.9 fl (80-94); Mean Platelet Volume 10.1 fl (7.4-10.4); Monocytes # 0.7 K/mm3 (0.1-1.0); Monocytes % 8.4 % (1.7-9.3); Neutrophils # 5.8 K/mm3 (1.8-7.8); Neutrophils % 73.6 % (37.0-80.0); Platelet Count 215 K/mm3 (142-424); Red Blood Count 2.57 M/mm3 (4.60-6.20); Red Cell Distribution Width 15.9 % (11.5-17.5); White Blood Count 7.9 K/mm3 (4.8-10.8)
[2024-12-06] MEDS: PREGABALIN 25MG CAPSULE 75 MG PO ×4 (08:18→20:19)
[2024-12-06] MEDS: ASPIRIN 81MG CHEWABLE TABLET 81 MG PO (08:18)
[2024-12-06] MEDS: LISINOPRIL 20MG TABLET 20 MG PO ×2 (08:19→20:19)
[2024-12-06] MEDS: DULOXETINE 30MG CAPSULE.DR 30 MG PO (08:19)
[2024-12-06] MEDS: HYDROXYCHLOROQUINE SULFATE 200MG TABLET 200 MG PO ×2 (08:19→20:19)
[2024-12-06] MEDS: OXcarbazepine 300MG TABLET 300 MG PO ×2 (08:19→20:19)
[2024-12-06] MEDS: METOPROLOL SUCCINATE XL 50MG TABLET 50 MG PO (08:19)
[2024-12-06] MEDS: MEMANTINE 10MG TABLET 10 MG PO ×2 (08:19→20:18)
[2024-12-06] MEDS: azaTHIOprine 50 MG TABLET PO (08:19)
--- NOTE | 2024-12-06 09:06 | P.PN_ITS ---
Subjective Subjective Date: 12/06/24 Time: 09:07 Principal diagnosis: Pneumonia, elevated troponins Interval history: 74 yo WM in bed in NAD. Going for bronchoscopy today. No chest pain. Still with SOA. Discussed further cardiac workup either as inpatient if he is still here next week or as outpatient if discharged over the weekend. Exam Data for Last 24 hours Vital signs and Labs for Last 24 Hours: Temp Pulse Resp BP Pulse Ox O2 Del Method O2 Flow Rate 97.9 F 84 16 118/73 90 L Nasal Cannula 2 12/06/24 08:00 12/06/24 08:00 12/06/24 08:00 12/06/24 08:00 12/06/24 08:00 12/06/24 08:00 12/06/24 08:00 Laboratory Results - last 24 hr 12/05/24 06:35: Hemoglobin A1c 5.4 12/06/24 05:38: WBC 7.9, RBC 2.57 L, Hgb 8.0 L D, Hct 26.2 L, MCV 101.9 H, MCH 31.1, MCHC 30.5 L, RDW 15.9, Plt Count 215, MPV 10.1, Neut % (Auto) 73.6, Lymph % (Auto) 15.3, [place] % (Auto) 8.4, Eos % (Auto) 0.4, Baso % (Auto) 0.3, Neut # (Auto) 5.8, Lymph # (Auto) 1.2, [place] # (Auto) 0.7, Eos # (Auto) 0.0, Baso # (Auto) 0.0, Sodium 136, Potassium 4.0, Chloride 105, Carbon Dioxide 28, Anion Gap 7.0, BUN 27 H, Creatinine 1.00, Estimated Creat Clear 89, Estimated GFR 73, Est GFR ( Amer) 89, Glucose 95, Calcium 8.5, Magnesium 2.2, Total Bilirubin 0.3, AST 51, ALT 26, Alkaline Phosphatase 62, Total Protein 5.6 L, Albumin 3.0 L, Globulin 2.6, Albumin/Globulin Ratio 1.2 I & O for Last 24 hours: Intake & Output 12/03/24 12/04/24 12/05/24 12/06/24 11:59 11:59 11:59 11:59 Intake Total 900 / 900 1540 / 1540 Output Total 0 / 0 0 / 0 Balance 900 / 900 1540 / 1540 Weight 220 lb 212 lb 210 lb 4.8 oz Microbiology Reports for the Last 24 Hours: Microbiology 12/04/24 10:53 Blood Blood Culture - Preliminary NO GROWTH AFTER 24 HOURS 12/04/24 10:53 Blood Blood Culture - Preliminary NO GROWTH AFTER 24 HOURS Constitutional Constitutional: no acute distress *Routine Respiratory Exam Respiratory: Present decreased breath sounds; Absent wheezes *Routine Cardiovascular Exam Cardiovascular: Present RRR Progress Note: A&P Assessment and plan (1) NSTEMI (non-ST elevated myocardial infarction): Status: Acute (2) Multifocal pneumonia: Status: Acute (3) Acute hypoxemic respiratory failure: Status: Acute (4) History of rheumatoid arthritis: Status: Acute (5) Hyperlipidemia: Status: Acute (6) Hypertension: Status: Acute (7) Dyspnea: Status: Acute Assessment and Plan Assessment and Plan for All Diagnoses:: 1. Multifocal pneumonia with acute hypoxemic resp failure -On vancomycin, cefepime -Bronchoscopy today 2. NSTEMI, likely due to strain from pneumonia -abnormal stress test last week -echo looks good with preserved LVEF -continue statin and metoprolol - aspirin 81 mg daily -will consider further cardiac testing prior to discharge but prefer to postpone LHC until recovered from pneumonia (okay to consider outpatient cath) 3. HTN -on metoprolol, lisinopril 4. Hyperlipidemia -Continue atorvastatin 5. Autoimmune issues with history of lupus, lupus anticoagulant and rheumatoid arthritis -Patient has been on prednisone and hydroxychloroquine along with azathiopr ine -On Lovenox, resume eliquis at discharge If patient remains in the hospital over the weekend and consider cardiac cath next week. If discharged and we will see him back in 1 to 2 weeks to discuss outpatient cardiac cath.
--- NOTE | 2024-12-06 09:53 | EXP.PULM.PN ---
Subjective *Date: 12/06/24 *Time: 12:33 Interval history: No acute respiratory vents overnight. Patient denies any significant improvement in his respiratory symptoms. Pulmonology Exam Inpatient Vital signs and Labs for Last 24 Hours: Temp Pulse Resp BP Pulse Ox O2 Del Method O2 Flow Rate 97.9 F 84 16 118/73 90 L Nasal Cannula 2 12/06/24 08:00 12/06/24 08:00 12/06/24 08:00 12/06/24 08:00 12/06/24 08:00 12/06/24 08:00 12/06/24 08:00 Laboratory Results - last 24 hr 12/05/24 06:35: Hemoglobin A1c 5.4 12/06/24 05:38: WBC 7.9, RBC 2.57 L, Hgb 8.0 L D, Hct 26.2 L, MCV 101.9 H, MCH 31.1, MCHC 30.5 L, RDW 15.9, Plt Count 215, MPV 10.1, Neut % (Auto) 73.6, Lymph % (Auto) 15.3, [place] % (Auto) 8.4, Eos % (Auto) 0.4, Baso % (Auto) 0.3, Neut # (Auto) 5.8, Lymph # (Auto) 1.2, [place] # (Auto) 0.7, Eos # (Auto) 0.0, Baso # (Auto) 0.0, Sodium 136, Potassium 4.0, Chloride 105, Carbon Dioxide 28, Anion Gap 7.0, BUN 27 H, Creatinine 1.00, Estimated Creat Clear 89, Estimated GFR 73, Est GFR ( Amer) 89, Glucose 95, Calcium 8.5, Magnesium 2.2, Total Bilirubin 0.3, AST 51, ALT 26, Alkaline Phosphatase 62, Total Protein 5.6 L, Albumin 3.0 L, Globulin 2.6, Albumin/Globulin Ratio 1.2 Temp Pulse Resp BP Pulse Ox O2 Del Method O2 Flow Rate 98.1 F 81 17 120/62 93 L Nasal Cannula 2 12/05/24 08:00 12/05/24 08:00 12/05/24 08:00 12/05/24 08:00 12/05/24 08:00 12/05/24 06:53 12/05/24 06:53 Laboratory Results - last 24 hr 12/04/24 10:53: WBC 14.9 H, RBC 3.49 L, Hgb 10.8 L, Hct 35.2 L, MCV 100.9 H, MCH 30.9, MCHC 30.7 L, RDW 16.0, Plt Count 326, MPV 9.8, Neut % (Auto) 83.6 H, Lymph % (Auto) 8.1 L, [place] % (Auto) 5.8, Eos % (Auto) 0.1, Baso % (Auto) 0.3, Neut # (Auto) 12.5 H, Lymph # (Auto) 1.2, [place] # (Auto) 0.9, Eos # (Auto) 0.0, Baso # (Auto) 0.1, PT 11.2, INR 1.02, APTT 28.8 H, Sodium 137, Potassium 4.3, Chloride 100, Carbon Dioxide 29, Anion Gap 12.3, BUN 31 H, Creatinine 1.10, Estimated Creat Clear 84, Estimated GFR 66, Est GFR ( Amer) 79, Glucose 115 H, Calcium 9.5, Magnesium 1.9, Total Bilirubin 0.6, AST 71 H, ALT 38, Alkaline Phosphatase 78, Troponin I 0.51 H, NT-Pro-B Natriuret Pep 591 H, Total Protein 6.7, Albumin 4.0, Globulin 2.7, Albumin/Globulin Ratio 1.5, Procalcitonin 0.085, SARS-CoV-2 (PCR) Not detected, Influenza A Untype (PCR) Not detected, Influenza Type B (PCR) Not detected 12/04/24 11:26: VBG pH 7.45 H, VBG pCO2 34.8 L, VBG pO2 104.8 H, VBG HCO3 23.4, VBG Total CO2 24.5, VBG O2 Saturation 97.6 H, VBG Base Excess -0.6, VBG Lactic Acid 1.5 12/04/24 13:51: Troponin I 0.48 H, C-Reactive Protein 86.8 H 12/04/24 17:30: Troponin I 0.42 H 12/05/24 06:35: WBC 9.9 D, RBC 2.83 L, Hgb 8.9 L D, Hct 28.3 L, MCV 100.0 H, MCH 31.1, MCHC 31.1 L, RDW 16.0, Plt Count 231 D, MPV 9.8, Neut % (Auto) 76.1, Lymph % (Auto) 14.3, [place] % (Auto) 7.4, Eos % (Auto) 0.3, Baso % (Auto) 0.2, Neut # (Auto) 7.5, Lymph # (Auto) 1.4, [place] # (Auto) 0.7, Eos # (Auto) 0.0, Baso # (Auto) 0.0, Sodium 132 L, Potassium 3.9, Chloride 101, Carbon Dioxide 30, Anion Gap 4.9 L, BUN 30 H, Creatinine 1.10, Estimated Creat Clear 81, Estimated GFR 66, Est GFR ( Amer) 79, Glucose 89 D, Calcium 8.6, Magnesium 2.2 D, Total Bilirubin 0.5, AST 54, ALT 28 D, Alkaline Phosphatase 64, Total Protein 5.6 L, Albumin 3.2 L D, Globulin 2.4, Albumin/Globulin Ratio 1.3 I & O for Labs for Last 24 Hours: Intake & Output 12/03/24 12/04/24 12/05/24 12/06/24 23:59 23:59 23:59 23:59 Intake Total 0 / 420 1860 / 2440 580 / 580 Output Total 0 / 0 0 / 0 0 / 0 Balance 0 / 420 1860 / 2440 580 / 580 Weight 211 lb 6 oz 212 lb 210 lb 4.8 oz Intake & Output 12/02/24 12/03/24 12/04/24 12/05/24 23:59 23:59 23:59 23:59 Intake Total 0 / 420 420 / 420 Output Total 0 / 0 0 / 0 Balance 0 / 420 420 / 420 Weight 211 lb 6 oz 212 lb Microbiology Reports for the Last 24 Hours: Microbiology 12/04/24 10:53 Blood Blood Culture - Preliminary NO GROWTH AFTER 24 HOURS 12/04/24 10:53 Blood Blood Culture - Preliminary NO GROWTH AFTER 24 HOURS Constitutional: Present moderate distress Head: Present normocephalic and atraumatic ENT: Present normal exam, normal oropharynx and mucous membranes moist Neck: Present normal inspection and full ROM Respiratory: Present respiratory distress, rhonchi and able to speak in complete sentences; Absent wheezes or crackles Cardiac: Present S1/S2, Tachycardia and radial pulses present GI: Present soft and distention; Absent tenderness or guarding Skin: Present intact; Absent cyanosis or jaundice Neuro: Present alert, awake and oriented x 3 Extremities: Present normal inspection; Absent clubbing or cyanosis Psychiatric: Present normal affect and cooperative Assessment and Plan *Assessment and plan (1) Pneumonia: Status: Resolved Qualifiers: Laterality: bilateral Pneumonia type: due to unspecified organism Category: Medical Code(s): J18.9 - Pneumonia, unspecified organism (2) Immunocompromised state: Status: Acute Category: Medical Code(s): D84.9 - Immunodeficiency, unspecified Plan Mr. 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 Patient admits gradual worsening respiratory distress. Admits chronic cough with no significant productive phlegm. Denies any subjective fevers or chills. Mild neutrophilic predominant leukocytosis upon admission improving. Pro-Dmitri within normal limits. CRP at 86.8. COVID-19 and flu PCR panel negative CTA upon admission no evidence of pulmonary embolism. Worsening multifocal patchy airspace disease compared to his most recent CT chest from 10/24/2024. Serum fungal serologies and serum beta D glucan negative on [place] from his most recent admission from October 2024. Patient completed a 7-day course of Augmentin on his most recent admission. Interval Update: No acute respiratory vents overnight. Worsening of chronic fragments, increased to 3 L nasal cannula this morning. Scheduled for bronchoscopy transbronchial biopsy today. Continue to receive vancomycin and cefepime. Pending nasal MRSA PCR. Blood cultures no growth 48 hours Plan: -DuoNebs 4 times daily as needed -Continue vancomycin and cefepime pending culture results -Bronchoscopy with TB BX today. Will follow with results.
[2024-12-06 12:17] LABS: Vancomycin,Trough 10.2 ug/mL (5.0-10.0)
[2024-12-06] MEDS: VANCOMYCIN/WATER FOR INJ (PEG) 1.75 GM/350 ML PIGGYBACK IV (12:24)
--- NOTE | 2024-12-06 13:04 | EXP.ANES.CKL ---
[facility] Disclaimer: The information contained in this section may have been updated after the patient was seen, as this information can be updated by other users. Medical History (Updated 12/05/24 @ 13:03 by Zi Khan MD) Immunocompromised state History of rheumatoid arthritis Abscess, thyroid Histoplasmosis Skin cancer Carotid artery disease Hx of deep venous thrombosis Hypertension Arthritis Lupus Autoimmune hepatitis Surgical History History of total right knee replacement Family History Mother Family history of hypertension Brother Family history of myocardial infarction Social History Smoking Status: Never smoker second hand exposure: Yes alcohol intake: never substance use type: denies use current occupational status: retired and other Travel in the last 8 weeks: None [facility] Anesthesia Checklist Patient Identification Patient Identification: Arm Band and Verbal (Name & ) Structural Data Admitted From: Inpatient Planned Operative Procedure/s: bronch Consent for Planned Operative Procedure(s) Verified: Yes Verified Documents: Surgical Consent NPO Status Verified Time NPO: 00:00 Additional verifications Anesthesia Reactions: No Hx Blood Transfusions: No Cephalosporin Allergy: No Previous Colonoscopy: Yes Cardiovascular Assessment Heart Sounds: S1 & S2 Pulse Strength: Baseline Pulse Rhythm: Regular Peripheral Edema: No Airway Assessment Mallampati Score:: Class II C-Spine Mobility Assessed: Yes TMJ Mobility Assessed: Yes Dentition: Poor Dentition Neurological Assessment Level of Consciousness: Awake, Alert and Appropriate Hx Seizures: Yes Numbness or tingling in extremities: No Anesthesia Plan Anesthesia Risk discussed: Yes Anesthesia Plan: Verified ASA Class: III Anesthesia Type: General
--- NOTE | 2024-12-06 14:40 | XR_ITS ---
FINAL REPORT CLINICAL HISTORY: BRONCH IN THE OR FT; 2:00 66.68 MGY FINDINGS: FLUOROSCOPY LESS THAN 1 HOUR HISTORY: Fluoroscopy guidance. Fluoroscopic guidance was provided for bronchoscopy in the OR. 2 spot films were obtained. A total of 2:00 minutes of fluoroscopy time were used. Total DAP: 66.68 mGy IMPRESSION: As above. Reviewed, Interpreted and Dictated by Jeannine Donato MD Transcribed by Francy Caal Authenticated and [facility]
--- NOTE | 2024-12-06 14:48 | P.PNANES_ITS ---
[facility] Anesthesia Record Part I Anesthesia Record I Intake, IV Amount: 500 Hydration: Adequate Estimated blood loss (mL): 0 Urine output (mL): 0 Blood Products used (#): none Blood Pressure: 140/75 SaO2: 90 Pulse Rate: 90 Airway Patency: Patent Respiratory Rate: 16 Temperature: 98.2 F Patient is:: Drowsy, Mask O2 and Stable Stable to PACU at:: 14:30
--- NOTE | 2024-12-06 14:57 | XR_ITS ---
FINAL REPORT CLINICAL HISTORY: post bronch COMPARISON: 10/24/2024 FINDINGS: A single view of the chest was obtained. There are patchy bilateral pulmonary opacities worse from prior exam compatible with pneumonia right much greater than left. There is a small right pleural effusion. Mediastinum is unremarkable. Heart size is normal. IMPRESSION: Multifocal pneumonia worse from prior exam. Reviewed, Interpreted and Dictated by Jeannine Donato MD Transcribed by Sammi Smith Authenticated and [facility]
--- NOTE | 2024-12-06 15:07 | EXP.BRONCH.N ---
Procedure: Date: 12/06/24 Patient Date of :: 1950 Procedure Performed:: Bronchoscopy airway examination, bronchoalveolar lavage and transbronchial lung biopsy: Indications:: Pneumonia in immunocompromised Performing Provider:: Zi Khan MD Referring Provider:: Dr. Babb Sedation:: General anesthesia Procedure:: Bronchoscopy airway examination, bronchoalveolar lavage and transbronchial lung biopsy: A clean THEREPEAUTIC bronchoscopy was advanced through the ET tube and airways were examined up to subsegmental bronchi. Airways appeared grossly normal, no evidence of mucoid secretions, mucous plugging active bleeding/old blood clots noted. Bronchoalveolar lavage was performed in the RIGHT MIDDLE LOBE with instillation of 60 cc normal saline with return of 40 cc blood tinged fluid back. BAL fluid was sent for cell count and differential along with bacterial fungal and AFB stain and cultures. Transbronchial biopsy was performed in the RIGHT UPPER LOBE with a total of 7 biopsies performed, 5 biopsy specimens were sent in formalin for cytopathologic examination. The other 2 biopsy samples, were sent one each in two separate normal saline specimen cups for bacterial fungal and AFB stain cultures. Special request was also made for the pathologist to evaluate for AFB and fungal organisms on the cytopathologic examination. Patient tolerated the procedure with no immediate acute complications. We will follow the patient in pulmonary clinic in 7 to 10 days. Findings:: No acute immediate complication Recommendations:: Postoperative bronchoscopy instructions. Please see the recommendations from today's progress note Complications:: No acute immediate complication Estimated blood obtained (mL): 5
--- NOTE | 2024-12-06 15:15 | SUR.PHASEI ---
Pt placed on 50% venti per MD Khan for o2 sats between 80-87%. also ordered ABG. Orders received and carried out
[2024-12-06 15:27] LABS: ABG Base Excess -2.8 mmol/L (-2.4-2.3); ABG Oxygen Saturation 89 % (90-100); ABG PH 7.34 mmol/L (7.35-7.45); ABG TCO2 24.3 mmhg (23-27)
[2024-12-06 15:30] LABS: Allen's Test ACCEPTABLE; Oxygen 50% %; Source R RADIAL
--- NOTE | 2024-12-06 15:34 | P.PN_ITS ---
Subjective *Date: 12/06/24 *Time: 15:34 Interval history: Patient states he feels about the same as yesterday, pulmonology planning for bronchoscopy today. Exam Data for Last 24 hours Vital signs and Labs for Last 24 Hours: Temp Pulse Resp BP Pulse Ox O2 Del Method O2 Flow Rate 98.2 F 83 20 126/70 91 L Venturi Mask 8 12/06/24 14:50 12/06/24 15:20 12/06/24 15:20 12/06/24 15:20 12/06/24 15:20 12/06/24 15:20 12/06/24 14:50 Laboratory Results - last 24 hr 12/06/24 05:38: WBC 7.9, RBC 2.57 L, Hgb 8.0 L D, Hct 26.2 L, MCV 101.9 H, MCH 31.1, MCHC 30.5 L, RDW 15.9, Plt Count 215, MPV 10.1, Neut % (Auto) 73.6, Lymph % (Auto) 15.3, [place] % (Auto) 8.4, Eos % (Auto) 0.4, Baso % (Auto) 0.3, Neut # (Auto) 5.8, Lymph # (Auto) 1.2, [place] # (Auto) 0.7, Eos # (Auto) 0.0, Baso # (Auto) 0.0, Sodium 136, Potassium 4.0, Chloride 105, Carbon Dioxide 28, Anion Gap 7.0, BUN 27 H, Creatinine 1.00, Estimated Creat Clear 89, Estimated GFR 73, Est GFR ( Amer) 89, Glucose 95, Calcium 8.5, Magnesium 2.2, Total Bilirubin 0.3, AST 51, ALT 26, Alkaline Phosphatase 62, Total Protein 5.6 L, Albumin 3.0 L, Globulin 2.6, Albumin/Globulin Ratio 1.2 12/06/24 10:19: Vancomycin Trough 10.2 H 12/06/24 15:11: Specimen Source R radial, O2 % 50%, ABG pH 7.34 L, ABG pCO2 44.0, ABG pO2 65.0 L, ABG HCO3 23.0, ABG Total CO2 24.3, ABG O2 Saturation 89 L, ABG Base Excess -2.8 L, Carlos Enrique Test Acceptable I & O for Last 24 hours: Intake & Output 12/03/24 12/04/24 12/05/24 12/06/24 23:59 23:59 23:59 23:59 Intake Total 0 / 420 1859 / 0 1080 / 1080 Output Total 0 / 0 0 / 0 0 / 0 Balance 0 / 420 1859 / 2439 1079 / 1080 Weight 95.878 kg 96.162 kg 95.39 kg Microbiology Reports for the Last 24 Hours: Microbiology 12/04/24 10:53 Blood Blood Culture - Preliminary NO GROWTH AFTER 48 HOURS 12/04/24 10:53 Blood Blood Culture - Preliminary NO GROWTH AFTER 48 HOURS Constitutional Constitutional: no acute distress *Routine HEENT Exam Head: Present normocephalic Eye: Present EOMI and PERRL ENT: Present mucous membranes moist *Routine Neck Exam Neck: Present supple; Absent lymphadenopathy *Routine Respiratory Exam Respiratory: Present CTA bilaterally *Routine Cardiovascular Exam Cardiovascular: Present RRR *Routine Abdominal Exam Abdominal: Present soft and normoactive bowel sounds; Absent tenderness *Routine Extremities Exam Extremities: Absent cyanosis, clubbing or edema *Routine Skin Exam Skin: Present warm; Absent rash *Routine Neurological Exam Neurological: Present alert and oriented X3 Assessment and Plan *Assessment and plan (1) NSTEMI (non-ST elevated myocardial infarction): Status: Acute Category: Medical Code(s): I21.4 - Non-ST elevation (NSTEMI) myocardial infarction (2) Multifocal pneumonia: Status: Acute Category: Medical Code(s): J18.9 - Pneumonia, unspecified organism Plan Rakesh Paredes is a 74-year-old male with a medical history significant for hypertension, Lupus anticoagulant on Eliquis, hypertension, CAD, right carotid artery stenosis s/p endarterectomy who presents with a few days of worsening shortness of breath. He had been recently discharged from the hospital on October 25 for community-acquired pneumonia with Augmentin. Since then, he states he has never returned back to baseline and was evaluated by cardiology with a stress test was equivocal. Over the past few days, patient states he has been having nonproductive cough and shortness of breath. No fever/chills, chest pain. Workup in the ED significant for WBC 14.9 troponin 0.51, mini respiratory panel negative for COVID and flu. CTA chest does reveal worsening multifocal pneumonia. He is requiring 2 L for appropriate saturations. Case discussed with ED provider and decision was made to admit patient for pneumonia and NSTEMI. #Acute hypoxic respiratory failure #Suspected hospital-acquired pneumonia ? Discharged a little over a month ago for pneumonia on Augmentin, patient states he felt better but never back to baseline. ? CTA chest reveals multifocal pneumonia on admission, WBC 14.9. ? Requiring 2 L on admission, new requirement. ? Patient states he feels about the same as yesterday, continues to require 2-3 L. ? Pulmonology planning for bronchoscopy today. ? Continue vancomycin, cefepime day 3 pending sputum cultures. Follow-up MRSA nare. ? Follow-up sputum, blood cultures. #NSTEMI ? Troponins peaked at 0.51 downtrending 0.42. EKG without acute ischemic changes. ? Underwent cardiac stress test earlier this month which was equivocal. ? Cardiology consulted will consider LHC prior to discharge. ? Aspirin, statin, metoprolol. # Recent shingles flare ? Per chart review, patient was started on prednisone 40 mg daily for 3 days for giant cell arteritis. ? He recently had a shingles flare over the right synagogue and behind the ear. Prednisone apparently has not been helping. ? Will wean to prednisone 10mg for next 5 days to eventually wean off. ? Continue pregabalin. #History of DVT and lupus anticoagulant ? Resume Eliquis. ? Continue home hydroxychloroquine. #Hypothyroidism ? Continue home levothyroxine 125 mcg. #Hypertension ? BP stable at this time. Resume home medications once appropriate. Full code DVT prophylaxis: Therapeutic Lovenox
--- NOTE | 2024-12-06 15:47 | EXP.ANES.II ---
[facility] Anesthesia Record Part II Anesthesia Record Part II Discharge Time: 15:20 Destination: Surgical Day Care (OP Surgery) PACU nurse assessment reviewed?: Yes Patient Condition:: Good Anesthesia Complications:: None Swallowing reflex intact?: Yes Airway Patency: Patent Cyanosis?: No Blood Pressure: 126/70 SaO2: 91 Respiratory Rate: 20 Pulse Rate: 83 Temperature: 98.2 F Mental Status: Alert & Oriented Pain level:: 0 Nausea and/or vomitting:: None Intake, IV Amount: 0 Hydration: Adequate
[2024-12-06] MEDS: predniSONE 10MG TAB 10 MG PO (16:23)
--- NOTE | 2024-12-06 17:46 | PC.NURSE ---
o2 saturation on 15L venti mask 94%, notified RT and MD. placed pt on 6Lnc w/ humidification. o2 sats 88%-89%. patient started to eat dinner and o2 dropped to low 80s, notified RT and MD, new orders received.
[2024-12-06] MEDS: FUROSEMIDE 40MG/4ML VIAL 40 MG IV (17:59)
--- NOTE | 2024-12-06 18:50 | PC.NURSE ---
PT 97% after breathing tx from RT, currently on humidified 6LNC
[2024-12-06] MEDS: APIXABAN 5MG TABLET 5 MG PO (20:18)
[2024-12-06] MEDS: ATORVASTATIN 20MG TABLET 20 MG PO (20:19)
[2024-12-07] VITALS (13 sets, daily range): BP systolic 118–177; BP diastolic 67–84; PULSE 70–97; RESP 20; TEMP 36.6–36.7; O2SAT 73–96; BMI 29.1
[2024-12-07] MEDS: IPRATROPIUM/ALBUTEROL 3 ML NEB IH ×5 (00:31→23:04)
[2024-12-07] MEDS: CEFEPIME HCL 2 GM in 0.9 % SODIUM CHLORIDE 100 ML IV ×4 (00:42→23:50)
--- NOTE | 2024-12-07 04:46 | PC.NURSE ---
Pt. is alert and orientated x 4. Pt. is on 6 liters of humidified oxygen per N/C. Pt. had a bronch yesterday. Pt. was just tired the early part of the shift,. Pt. has been sleeping throughout the night. Pt's at bedside. Pt. has had no c/o's or needs this shift. VSS Personal items and call rey in reach.
[2024-12-07 06:04] LABS: Basophils % 0.1 % (0.1-2.0); Eosinophils % 0.1 % (0.1-12.0); Lymphocytes # 0.8 K/mm3 (0.7-4.5); Lymphocytes % 10.5 % (10-50); Mean Corpuscular HGB Conc 30.8 g/dL (31.8-35.4); Mean Corpuscular Hemoglobin 30.9 pg (27.0-31.2); Mean Corpuscular Volume 100.4 fl (80-94); Mean Platelet Volume 9.5 fl (7.4-10.4); Monocytes # 0.7 K/mm3 (0.1-1.0); Monocytes % 8.8 % (1.7-9.3); Neutrophils # 6.1 K/mm3 (1.8-7.8); Neutrophils % 79.1 % (37.0-80.0); Platelet Count 194 K/mm3 (142-424); Red Blood Count 2.59 M/mm3 (4.60-6.20); Red Cell Distribution Width 15.9 % (11.5-17.5); White Blood Count 7.7 K/mm3 (4.8-10.8)
[2024-12-07] MEDS: VANCOMYCIN/WATER FOR INJ (PEG) 1.75 GM/350 ML PIGGYBACK IV (06:26)
[2024-12-07 06:52] LABS: Alanine Aminotransferase 28 U/L (12-78); Albumin/Globulin Ratio 1.2 (1.1-1.8); Alkaline Phosphatase 58 U/L (38-126); Anion Gap 7.7 mEq/L (5-15); Aspartate Amino Transferase 54 U/L (17-59); Bilirubin,Total 0.2 mg/dl (0.2-1.3); Blood Urea Nitrogen 25 mg/dl (9-20); Calcium 8.6 mg/dl (8.4-10.2); Carbon Dioxide 27 mmol/L (22.0-30.0); Chloride 105 mmol/L (98-107); Creatinine Clearance Estimated 91 mL/min (50-200); Estimated Glomerular Filt Rate 73 ml/min (>60); GFR (African American) 89 ML/MIN (>60); Globulin 2.5 g/dL (1.3-3.2); Glucose 108 mg/dl (74-100); Magnesium 2.1 mg/dl (1.6-2.3); Potassium 4.7 mmoL/L (3.5-5.1); Sodium 135 mmol/L (136-145); Total Protein,Serum 5.5 g/dl (6.3-8.2)
[2024-12-07 08:16] LABS: Vancomycin,Trough 12.9 ug/mL (5.0-10.0)
[2024-12-07] MEDS: METOPROLOL SUCCINATE XL 50MG TABLET 50 MG PO (09:46)
[2024-12-07] MEDS: PREGABALIN 25MG CAPSULE 75 MG PO ×4 (09:46→20:35)
[2024-12-07] MEDS: ASPIRIN 81MG CHEWABLE TABLET 81 MG PO (09:46)
[2024-12-07] MEDS: APIXABAN 5MG TABLET 5 MG PO ×2 (09:46→20:35)
[2024-12-07] MEDS: HYDROXYCHLOROQUINE SULFATE 200MG TABLET 200 MG PO ×2 (09:46→20:35)
[2024-12-07] MEDS: DULOXETINE 30MG CAPSULE.DR 30 MG PO (09:46)
[2024-12-07] MEDS: azaTHIOprine 50 MG TABLET PO (09:46)
[2024-12-07] MEDS: OXcarbazepine 300MG TABLET 300 MG PO ×2 (09:46→20:35)
[2024-12-07] MEDS: LISINOPRIL 20MG TABLET 20 MG PO ×2 (09:46→20:35)
[2024-12-07] MEDS: predniSONE 10MG TAB 10 MG PO (09:46)
[2024-12-07] MEDS: MEMANTINE 10MG TABLET 10 MG PO ×2 (09:46→20:35)
--- NOTE | 2024-12-07 10:51 | EXP.PHA.CONS ---
Pharmacy Consult Date: 12/07/24 Time: 10:51 Referring provider: DR. FINCH Reason for Consult:: VANCOMYCIN TROUGH LEVEL Allergies Allergy/AdvReac Type Severity Reaction Status Date / Time No Known Allergies Allergy Verified 11/21/24 11:30 Home Medications ?Medication ?Instructions ?Recorded ?Confirmed ?Type amlodipine 10 mg tablet 10 mg PO DAILY 06/07/23 12/04/24 History atorvastatin 20 mg tablet 20 mg PO DAILY 06/07/23 12/04/24 History azathioprine 50 mg tablet 50 mg PO DAILY 06/07/23 12/04/24 History duloxetine 30 mg capsule,delayed 30 mg PO DAILY 06/07/23 12/04/24 History release hydrochlorothiazide 25 mg tablet 25 mg PO DAILY 06/07/23 12/04/24 History hydroxychloroquine 200 mg tablet 200 mg PO BID 06/07/23 12/04/24 History levothyroxine 125 mcg tablet 125 mcg PO DAILY 06/07/23 12/04/24 History lisinopril 20 mg tablet 20 mg PO BID 06/07/23 12/04/24 History memantine 28 mg capsule 28 mg PO DAILY 06/07/23 12/04/24 History sprinkle,extended release 24hr metoprolol succinate 50 mg 50 mg PO DAILY 06/07/23 12/04/24 History tablet,extended release 24 hr oxcarbazepine 300 mg tablet 300 mg PO BID 06/07/23 12/04/24 History tramadol 50 mg tablet 50 - 100 mg PO BIDP PRN Moderate 06/07/23 12/04/24 History Pain (Scale Score 5-6) pregabalin 75 mg capsule 75 mg PO QID 10/24/24 12/04/24 History prednisone 20 mg tablet 40 mg PO DAILY 11/21/24 12/04/24 History apixaban 5 mg tablet (Eliquis) 5 mg PO BID #30 tabs 11/27/24 12/04/24 Rx New Prescriptions to Start Prescriptions: Height: 1.83 m Weight: 97.568 kg Laboratory Results:: Laboratory Results - last 24 hr 12/06/24 10:19: Vancomycin Trough 10.2 H 12/06/24 15:11: Specimen Source R radial, O2 % 50%, ABG pH 7.34 L, ABG pCO2 44.0, ABG pO2 65.0 L, ABG HCO3 23.0, ABG Total CO2 24.3, ABG O2 Saturation 89 L, ABG Base Excess -2.8 L, Carlos Enrique Test Acceptable 12/07/24 05:55: WBC 7.7, RBC 2.59 L, Hgb 8.0 L, Hct 26.0 L, MCV 100.4 H, MCH 30.9, MCHC 30.8 L, RDW 15.9, Plt Count 194, MPV 9.5, Neut % (Auto) 79.1, Lymph % (Auto) 10.5, [place] % (Auto) 8.8, Eos % (Auto) 0.1, Baso % (Auto) 0.1, Neut # (Auto) 6.1, Lymph # (Auto) 0.8, [place] # (Auto) 0.7, Eos # (Auto) 0.0, Baso # (Auto) 0.0, Sodium 135 L, Potassium 4.7, Chloride 105, Carbon Dioxide 27, Anion Gap 7.7, BUN 25 H, Creatinine 1.00, Estimated Creat Clear 91, Estimated GFR 73, Est GFR ( Amer) 89, Glucose 108 H, Calcium 8.6, Magnesium 2.1, Total Bilirubin 0.2, AST 54, ALT 28, Alkaline Phosphatase 58, Total Protein 5.5 L, Albumin 3.0 L, Globulin 2.5, Albumin/Globulin Ratio 1.2, Vancomycin Trough 12.9 H Medical History: Medical History (Updated 12/05/24 @ 13:03 by Zi Khan MD) Immunocompromised state History of rheumatoid arthritis Abscess, thyroid Histoplasmosis Skin cancer Carotid artery disease Hx of deep venous thrombosis Hypertension Arthritis Lupus Autoimmune hepatitis Assessment and Plan Assessment and plan all Dx Assessment and Plan for all problems:: BASED ON PATIENT FACTORS AND VANCOMYCIN TROUGH LEVEL OF 12.9, RECOMMEND CONTINUING CURRENT VANCOMYCIN DOSE OF 1,750MG EVERY 18 HOURS. PHARMACY WILL CONTINUE TO MONITOR AND WILL ADJUST DOSE APPROPRIATE. -PRANAV FOSTER PHARMD
--- NOTE | 2024-12-07 17:15 | PC.NURSE ---
pt a&ox4. resting supine in bed with at bedside. tolerating 5lnc with humidification with sats >90%. abx given per dec. vss. pt given scheduled breathing treatments.verbalizes being tired today. no needs at this time. call light within reach.
--- NOTE | 2024-12-07 17:59 | EXP.PN ---
Subjective *Date: 12/07/24 *Time: 17:59 Interval history: Patient states he is breathing little bit better than yesterday, continues to require 5 L nasal cannula. Follow-up bronchoscopy cultures. Exam Data for Last 24 hours Vital signs and Labs for Last 24 Hours: Temp Pulse Resp BP Pulse Ox O2 Del Method O2 Flow Rate 97.9 F 80 20 129/67 96 Nasal Cannula 5 12/07/24 12:00 12/07/24 16:00 12/07/24 12:00 12/07/24 12:00 12/07/24 12:00 12/07/24 17:00 12/07/24 17:00 Laboratory Results - last 24 hr 12/07/24 05:55: WBC 7.7, RBC 2.59 L, Hgb 8.0 L, Hct 26.0 L, MCV 100.4 H, MCH 30.9, MCHC 30.8 L, RDW 15.9, Plt Count 194, MPV 9.5, Neut % (Auto) 79.1, Lymph % (Auto) 10.5, [place] % (Auto) 8.8, Eos % (Auto) 0.1, Baso % (Auto) 0.1, Neut # (Auto) 6.1, Lymph # (Auto) 0.8, [place] # (Auto) 0.7, Eos # (Auto) 0.0, Baso # (Auto) 0.0, Sodium 135 L, Potassium 4.7, Chloride 105, Carbon Dioxide 27, Anion Gap 7.7, BUN 25 H, Creatinine 1.00, Estimated Creat Clear 91, Estimated GFR 73, Est GFR ( Amer) 89, Glucose 108 H, Calcium 8.6, Magnesium 2.1, Total Bilirubin 0.2, AST 54, ALT 28, Alkaline Phosphatase 58, Total Protein 5.5 L, Albumin 3.0 L, Globulin 2.5, Albumin/Globulin Ratio 1.2, Vancomycin Trough 12.9 H 12/07/24 10:46: Vancomycin Peak 30.0 I & O for Last 24 hours: Intake & Output 12/04/24 12/05/24 12/06/24 12/07/24 23:59 23:59 23:59 23:59 Intake Total 0 / 420 1860 / 2440 1350 / 1400 1100 / 1100 Output Total 0 / 0 0 / 0 0 / 0 Balance 0 / 420 1860 / 2440 1350 / 1400 1100 / 1100 Weight 95.878 kg 96.162 kg 95.39 kg 97.568 kg Microbiology Reports for the Last 24 Hours: Microbiology 12/06/24 14:08 Transbronchial Biopsy - Right Middle Lobe Gram Stain - Final 12/06/24 14:08 Transbronchial Biopsy - Right Middle Lobe Surgical Biopsy Culture - Preliminary NO GROWTH AFTER 24 HOURS 12/05/24 15:00 Nose - Nasal MRSA Culture - Final 12/06/24 14:08 Bronchial Washings - Right Middle Lobe Gram Stain - Final Constitutional Constitutional: no acute distress *Routine HEENT Exam Head: Present normocephalic Eye: Present EOMI and PERRL ENT: Present mucous membranes moist *Routine Neck Exam Neck: Present supple; Absent lymphadenopathy *Routine Respiratory Exam Respiratory: Present CTA bilaterally *Routine Cardiovascular Exam Cardiovascular: Present RRR *Routine Abdominal Exam Abdominal: Present soft and normoactive bowel sounds; Absent tenderness *Routine Extremities Exam Extremities: Absent cyanosis, clubbing or edema *Routine Skin Exam Skin: Present warm; Absent rash *Routine Neurological Exam Neurological: Present alert and oriented X3 Assessment and Plan *Assessment and plan (1) NSTEMI (non-ST elevated myocardial infarction): Status: Acute Category: Medical Code(s): I21.4 - Non-ST elevation (NSTEMI) myocardial infarction (2) Multifocal pneumonia: Status: Acute Category: Medical Code(s): J18.9 - Pneumonia, unspecified organism Plan Rakesh Paredes is a 74-year-old male with a medical history significant for hypertension, Lupus anticoagulant on Eliquis, hypertension, CAD, right carotid artery stenosis s/p endarterectomy who presents with a few days of worsening shortness of breath. He had been recently discharged from the hospital on October 25 for community-acquired pneumonia with Augmentin. Since then, he states he has never returned back to baseline and was evaluated by cardiology with a stress test was equivocal. Over the past few days, patient states he has been having nonproductive cough and shortness of breath. No fever/chills, chest pain. Workup in the ED significant for WBC 14.9 troponin 0.51, mini respiratory panel negative for COVID and flu. CTA chest does reveal worsening multifocal pneumonia. He is requiring 2 L for appropriate saturations. Case discussed with ED provider and decision was made to admit patient for pneumonia and NSTEMI. #Acute hypoxic respiratory failure #Suspected hospital-acquired pneumonia ? Discharged a little over a month ago for pneumonia on Augmentin, patient states he felt better but never back to baseline. ? CTA chest reveals multifocal pneumonia on admission, WBC 14.9. ? Requiring 2 L on admission, new requirement. ? Pulmonology consulted, s/p bronchoscopy with BAL and cultures. ? Patient states he feels a little bit better than yesterday, but requiring 5 L nasal cannula saturating 96%. ? Continue vancomycin, cefepime day 4 pending sputum cultures. #NSTEMI ? Troponins peaked at 0.51 downtrending 0.42. EKG without acute ischemic changes. ? Underwent cardiac stress test earlier this month which was equivocal. ? Cardiology consulted, will consider [facility] prior to discharge. ? Aspirin, statin, metoprolol. # Recent shingles flare ? Per chart review, patient was started on prednisone 40 mg daily for 3 days for giant cell arteritis. ? He recently had a shingles flare over the right episcopal and behind the ear. Prednisone apparently has not been helping. ? Will wean to prednisone 10mg for next 5 days to eventually wean off. ? Continue pregabalin. #History of DVT and lupus anticoagulant ? Resume Eliquis. ? Continue home hydroxychloroquine. #Hypothyroidism ? Continue home levothyroxine 125 mcg. #Hypertension ? BP stable at this time. Resume home medications once appropriate. Full code DVT prophylaxis: Therapeutic Lovenox
--- NOTE | 2024-12-07 20:07 | XR_ITS ---
PROCEDURE INFORMATION: Exam: XR Chest Exam date and time: 12/07/2024 8:20 PM Age: 74 years old Clinical indication: Cough; Additional info: Worsening SOB TECHNIQUE: Imaging protocol: Radiologic exam of the chest. Views: 1 view. COMPARISON: CR XR CHEST PORTABLE 12/06/2024 2:54 PM FINDINGS: Lungs: Moderately improved but persistent perihilar/peripheral opacities. Right basilar opacity. Pleural spaces: Right pleural effusion. Heart/Mediastinum: Unremarkable. No cardiomegaly. Bones/joints: Unremarkable. IMPRESSION: 1. Moderately improving but persistent bilateral infiltrations. 2. Right pleural effusion and/or subsegmental atelectasis.
--- NOTE | 2024-12-07 20:08 | PC.NURSE ---
Addendum entered by Billie Richmond RN 12/08/24 02:37: Donna LANCASTER assessed the patient at the bedside around 02:20. Stephen Hathaway RT placed the patient on the Vapotherm accordingly. Currently, the patient's oxygen saturation is 94%. Addendum entered by Billie Richmond RN 12/08/24 01:53: Patient's oxygen saturations continue to drop quickly into the 70s and 80s during any kind of activity (for example, sitting on bedside to urinate). Respiratory was paged by the charge nurse (Angie Alexander RN) to assess the patient at the bedside; another VBG was recommended by the RTs to be taken prior to additional interventions/change of oxygen delivery device. Last blood gas was conducted on 12/06/24. Donna LANCASTER was paged at 01:45 to inform him about the ongoing situation and recommendation by the RTs. Chest x-ray taken this shift was reviewed. A STAT VBG was ordered; Lab was notified at 01:49. Respiratory is following. Addendum entered by Billie Richmond RN 12/07/24 21:44: I checked on the patient. Patient is currently resting with eyes closed, and his respirations are even/unlabored. Venti-mask remains in place with oxygen saturations maintaining 92% to 93%. Respiratory was paged at this time to confirm safety of leaving Venti-mask on for now; this was OK'd by Niraj DELGADO. Addendum entered by Billie Richmond RN 12/07/24 20:51: Patient's oxygen saturations dropped back down to 77% during a coughing fit. Patient was placed back onto 6 L of oxygen via nasal cannula previously after respiratory therapists consulted him at the bedside (they placed him onto a Venti-mask, 15 L oxygen flow, to increase his oxygen saturations to 90%). Robitussin DM was administered per DEC. The Venti-mask was placed back onto the patient at this time. Original Note: Patient is currently resting in bed with even respirations. A few minutes ago, the patient had came back from using the restroom. Patient stated that with any kind of activity, he becomes very winded and it takes a while to catch his breath. His oxygen saturations have been maintaining the upper 70s, even at rest. [place] [employer] was consulted [id number] about this occurrence. He suggested to contact respiratory to switch oxygen delivery devices. Patient is currently on 6 L of oxygen via nasal cannula. Respiratory was paged at this time.
[2024-12-07] MEDS: ATORVASTATIN 20MG TABLET 20 MG PO (20:35)
[2024-12-07] MEDS: GUAIFENESIN/DEXTROMETHORPHAN 200MG/20MG 10ML UDC 5 ML PO (20:40)
[2024-12-08] VITALS (30 sets, daily range): BP systolic 102–158; BP diastolic 60–97; PULSE 75–102; RESP 18–33; TEMP 36.5–37.9; O2SAT 89–96; BMI 29.8
[2024-12-08] MEDS: VANCOMYCIN/WATER FOR INJ (PEG) 1.75 GM/350 ML PIGGYBACK IV ×2 (00:25→18:06)
[2024-12-08 02:07] LABS: Lactate Venous 1.6 mmol/L (0.4-2.0); VBG Base Excess -3.6 mmol/L (-2.4-2.3); VBG HCO3 22.7 mmol/L (23-30); VBG Oxygen Saturation 44.4 % (50-70); VBG PCO2 46.1 mmol/L (35-51); VBG PH 7.31 mmol/L (7.31-7.41); VBG PO2 28.6 mmol/L (28-40); VBG Total CO2 24.1 mmol/L (23-27)
[2024-12-08] MEDS: ACETAMINOPHEN 325MG TAB 650 MG PO (04:30)
--- NOTE | 2024-12-08 04:34 | PC.NURSE ---
Patient is alert and oriented x4. He was observed to have both wakeful periods and resting periods (eyes closed, respirations even) throughout the night. His has remained at the bedside this shift. Patient was observed to have some respiratory issues this shift (see prior note chain); currently, the patient is maintaining oxygen saturations > 90% on Vapotherm and is tolerating it well. Upon auscultation of his lungs, diminished lung sounds + expiratory rhonchi could be heard; heart and bowel sounds were within normal findings. The patient reported having an intermittent cough with occasional sputum production; Robitussin DM was given once per MAR. His has helped staff to assist the patient to stand to use the urinal for voiding needs at the bedside. Scheduled medications + IV antibiotics have been administered as appropriately per MAR. Patient's oral temperature was febrile this morning (peak fever was 100.2); Tylenol was given for his fever at 04:30; oral temperature will be reevaluated per MAR. Dormant rash was observed on the patient's body, particularly on head and scalp. Shiny, taut skin with scattered bruising was observed on the patient's bilateral lower extremities; overall skin appearance is slightly pallor. Patient has been encouraged by staff/his to drink fluids. Heart rate and blood pressures have been elevated. Normal sinus rhythm on telemetry. At this time, the patient is resting in bed without any further complaints. Call light within reach.
[2024-12-08] MEDS: IPRATROPIUM/ALBUTEROL 3 ML NEB IH ×3 (05:16→19:24)
[2024-12-08] MEDS: predniSONE 10MG TAB 10 MG PO (08:27)
[2024-12-08] MEDS: METOPROLOL SUCCINATE XL 50MG TABLET 50 MG PO (08:27)
[2024-12-08] MEDS: PREGABALIN 25MG CAPSULE 75 MG PO ×4 (08:27→20:01)
[2024-12-08] MEDS: ASPIRIN 81MG CHEWABLE TABLET 81 MG PO (08:27)
[2024-12-08] MEDS: LISINOPRIL 20MG TABLET 20 MG PO ×2 (08:27→20:01)
[2024-12-08] MEDS: HYDROXYCHLOROQUINE SULFATE 200MG TABLET 200 MG PO ×2 (08:27→20:01)
[2024-12-08] MEDS: MEMANTINE 10MG TABLET 10 MG PO ×2 (08:27→20:01)
[2024-12-08] MEDS: azaTHIOprine 50 MG TABLET PO (08:27)
[2024-12-08] MEDS: CEFEPIME HCL 2 GM in 0.9 % SODIUM CHLORIDE 100 ML IV ×2 (08:27→16:56)
[2024-12-08] MEDS: APIXABAN 5MG TABLET 5 MG PO ×2 (08:27→20:01)
[2024-12-08] MEDS: OXcarbazepine 300MG TABLET 300 MG PO ×2 (08:27→20:02)
[2024-12-08] MEDS: DULOXETINE 30MG CAPSULE.DR 30 MG PO (08:27)
--- NOTE | 2024-12-08 08:49 | EXP.PHA.PN ---
Subjective *Date: 12/08/24 *Time: 08:49 Medical Exam Vital signs and Labs for Last 24 Hours: Vital Signs Temp Pulse Pulse Resp BP Pulse Ox O2 Del Method 12/08/24 08:00 98.0 F 80 18 158/70 H 96 Vapotherm 12/08/24 06:40 Vapotherm 12/08/24 06:40 91 H 90 L Vapotherm 12/08/24 05:22 92 H 12/08/24 05:22 92 H 12/08/24 05:22 92 L Vapotherm 12/08/24 05:00 99.1 F 12/08/24 05:00 Vapotherm 12/08/24 04:00 75 12/08/24 04:00 100.2 F H 93 H 19 153/81 H 95 Vapotherm 12/08/24 03:00 Vapotherm 12/08/24 02:41 Vapotherm 12/08/24 02:37 96 H 94 L Vapotherm 12/08/24 01:00 Venturi Mask 12/08/24 00:30 86 93 L Venturi Mask 12/08/24 00:00 85 12/08/24 00:00 99.7 F H 102 H 19 153/77 H 89 L Room Air 12/07/24 23:04 97 H 12/07/24 23:04 96 H 12/07/24 23:00 Venturi Mask 12/07/24 21:00 Venturi Mask 12/07/24 20:00 85 12/07/24 20:00 85 20 73 L Nasal Cannula 12/07/24 18:40 Nasal Cannula 12/07/24 18:03 84 12/07/24 18:03 87 12/07/24 18:03 91 L Nasal Cannula 12/07/24 17:00 Nasal Cannula 12/07/24 16:12 98.1 F 93 H 20 177/84 H 90 L Nasal Cannula 12/07/24 16:00 80 12/07/24 15:00 Nasal Cannula 12/07/24 13:00 Nasal Cannula 12/07/24 12:00 90 12/07/24 12:00 97.9 F 86 20 129/67 96 Nasal Cannula 12/07/24 11:00 Nasal Cannula 12/07/24 10:52 90 L Nasal Cannula 12/07/24 09:00 Nasal Cannula 12/07/24 09:00 97.9 F 76 20 118/70 90 L Nasal Cannula O2 Flow Rate FiO2 12/08/24 08:00 12/08/24 06:40 30 12/08/24 06:40 30 12/08/24 05:22 12/08/24 05:22 12/08/24 05:22 30 80 12/08/24 05:00 12/08/24 05:00 30 12/08/24 04:00 12/08/24 04:00 30 12/08/24 03:00 30 12/08/24 02:41 30 80 12/08/24 02:37 30 12/08/24 01:00 15 12/08/24 00:30 15 12/08/24 00:00 12/08/24 00:00 12/07/24 23:04 12/07/24 23:04 12/07/24 23:00 15 12/07/24 21:00 15 12/07/24 20:00 12/07/24 20:00 6 12/07/24 18:40 6 12/07/24 18:03 12/07/24 18:03 12/07/24 18:03 6 12/07/24 17:00 5 12/07/24 16:12 6 12/07/24 16:00 12/07/24 15:00 5 12/07/24 13:00 5 12/07/24 12:00 12/07/24 12:00 6 12/07/24 11:00 5 12/07/24 10:52 5 12/07/24 09:00 5 12/07/24 09:00 5 Intake and Output 12/07/24 12/08/24 12/08/24 23:59 07:59 15:59 Intake Total 820 / 2142 222 / 422 200 / 422 Output Total 200 / 200 0 / 200 Balance 820 / 2142 22 / 222 200 / 222 Intake: Intake, Oral Amount 820 / 2092 222 / 422 200 / 422 Output: Output, Urine Amount 200 / 200 0 / 200 Other: Number of Unmeasured Voids 1 1 Weight 99.881 kg Patient Weight 12/08/24 23:59 Weight 99.881 kg Laboratory Results - last 24 hr 12/07/24 05:55: Vancomycin Trough 12.9 H 12/07/24 10:46: Vancomycin Peak 30.0 03/02/25 01:46: VBG pH 7.31, VBG pCO2 46.1, VBG pO2 28.6, VBG HCO3 22.7 L, VBG Total CO2 24.1, VBG O2 Saturation 44.4 L, VBG Base Excess -3.6 L, VBG Lactic Acid 1.6 I & O for Labs for Last 24 Hours: Intake & Output 12/05/24 12/06/24 12/07/24 12/08/24 23:59 23:59 23:59 23:59 Intake Total 1860 / 2440 1350 / 1400 1920 / 2142 422 / 422 Output Total 0 / 0 0 / 0 200 / 200 Balance 1860 / 2440 1350 / 1400 1920 / 2142 222 / 222 Weight 96.162 kg 95.39 kg 97.568 kg 99.881 kg Microbiology Reports for the Last 24 Hours: Microbiology 12/07/24 18:50 Sputum - Expectorated Sputum Gram Stain - Final 12/06/24 14:08 Transbronchial Biopsy - Right Middle Lobe Gram Stain - Final 12/06/24 14:08 Transbronchial Biopsy - Right Middle Lobe Surgical Biopsy Culture - Preliminary NO GROWTH AFTER 24 HOURS 12/05/24 15:00 Nose - Nasal MRSA Culture - Final The patient's infection will respond to the chosen ABx?: Yes Is the patient receiving the right drug, dose, and route?: Yes Could a more targeted ABx be ordered?: No (BRONCH AND SPUTUM CX PENDING)
--- NOTE | 2024-12-08 08:53 | CT_ITS ---
PROCEDURE INFORMATION: Exam: CT Chest Without Contrast; Diagnostic Exam date and time: 12/08/2024 9:35 AM Age: 74 years old Clinical indication: Other: Hypoxia TECHNIQUE: Imaging protocol: Diagnostic computed tomography of the chest without contrast. Radiation optimization: All CT scans at this facility use at least one of these dose optimization techniques: automated exposure control; mA and/or kV adjustment per patient size (includes targeted exams where dose is matched to clinical indication); or iterative reconstruction. COMPARISON: CT ANGIO CHEST PE PROTOCOL 12/04/2024 12:51 PM FINDINGS: Lungs: Multifocal bilateral ground-glass opacities and patchy airspace opacities which are somewhat nodular involving all lobes of the lungs, increased from prior. No evidence of cavitation. Pleural spaces: No pneumothorax. No pleural effusion. Heart: Heart size is normal. No pericardial effusion. Coronary arteries: Multi-vessel coronary artery calcifications. Lymph nodes: No enlarged lymph nodes. Upper normal mediastinal lymph nodes measuring as large as 1 cm short axis dimension similar to prior. Calcified mediastinal lymph nodes compatible with remote granulomatous disease. Vasculature: Limited evaluation without contrast. No thoracic aortic aneurysm. Mild calcified aortic atherosclerosis. Main pulmonary artery is dilated measuring 3.7 cm in diameter suggesting there may be pulmonary arterial hypertension. Diaphragm: Small hiatal hernia. Bones/joints: Multilevel degenerative changes of the included spine are again demonstrated. Soft tissues: Mild bilateral gynecomastia. Other findings: No acute abnormality in the included upper abdomen. Cholelithiasis. Stable 2.8 cm right upper pole renal cyst. IMPRESSION: 1. Worsening bilateral multifocal ground-glass and patchy airspace opacities involving all lobes of the lungs compatible with multifocal pneumonia. 2. Mild calcified aortic atherosclerosis. No thoracic aortic aneurysm. Multi-vessel coronary artery calcifications. Dilated main pulmonary artery suggesting there may be pulmonary arterial hypertension. 3. Other chronic and incidental findings as detailed above.
[2024-12-08 09:21] LABS: Basophils # 0.1 K/mm3 (0-0.2); Basophils % 0.4 % (0.1-2.0); Eosinophils # 0.1 K/mm3 (0.0-0.4); Eosinophils % 0.8 % (0.1-12.0); Hematocrit 28.2 % (42.0-52.0); Hemoglobin 8.6 g/dL (14.1-18.0); Lymphocytes # 1.4 K/mm3 (0.7-4.5); Lymphocytes % 11.7 % (10-50); Mean Corpuscular HGB Conc 30.5 g/dL (31.8-35.4); Mean Corpuscular Hemoglobin 30.7 pg (27.0-31.2); Mean Corpuscular Volume 100.7 fl (80-94); Monocytes # 0.9 K/mm3 (0.1-1.0); Monocytes % 7.2 % (1.7-9.3); Neutrophils # 9.3 K/mm3 (1.8-7.8); Neutrophils % 78.3 % (37.0-80.0); Platelet Count 232 K/mm3 (142-424); Red Cell Distribution Width 15.5 % (11.5-17.5); White Blood Count 11.9 K/mm3 (4.8-10.8)
[2024-12-08 09:42] LABS: Albumin Level 3.3 g/dl (3.5-5.0); Albumin/Globulin Ratio 1.3 (1.1-1.8); Alkaline Phosphatase 63 U/L (38-126); Anion Gap 7.6 mEq/L (5-15); Bilirubin,Total 0.4 mg/dl (0.2-1.3); Blood Urea Nitrogen 24 mg/dl (9-20); Calcium 8.7 mg/dl (8.4-10.2); Carbon Dioxide 25 mmol/L (22.0-30.0); Chloride 104 mmol/L (98-107); Creatinine Clearance Estimated 93 mL/min (50-200); Estimated Glomerular Filt Rate 95 ml/min (>60); GFR (African American) 115 ML/MIN (>60); Globulin 2.6 g/dL (1.3-3.2); Glucose 97 mg/dl (74-100); Magnesium 1.9 mg/dl (1.6-2.3); Potassium 4.6 mmoL/L (3.5-5.1); Sodium 132 mmol/L (136-145); Total Protein,Serum 5.9 g/dl (6.3-8.2)
[2024-12-08 09:47] LABS: C-Reactive Protein 168.3 mg/L (0-4)
[2024-12-08] MEDS: FUROSEMIDE 40MG/4ML VIAL 40 MG IV (10:05)
[2024-12-08 10:26] LABS: Alanine Aminotransferase 31 U/L (12-78); Aspartate Amino Transferase 75 U/L (17-59)
[2024-12-08 11:19] LABS: Erythrocyte Sedimentation Rate 132 mm/hr (0-20)
--- NOTE | 2024-12-08 11:29 | PC.NURSE ---
RESP CARE NOTE: Spoke with Dr Khan concerning patient status. He is currently maxed on vapo therm after standing at bedside to use urinal. Dr Khan states pt should have been ICU status with the progression to vapo therm oxygen device. Nursing informed and arrangements are underway.
[2024-12-08 11:39] LABS: Free T4 (Free Thyroxine) 0.75 ng/dl (0.78-2.19)
[2024-12-08 11:45] LABS: Thyroid Stimulating Hormone 1.73 uIU/mL (0.465-4.68)
[2024-12-08 12:25] LABS: NT Pro Brain Natriuretic Pep. 1920 pg/mL (0-125)
[2024-12-08] MEDS: ITRACONAZOLE 100MG CAPSULE 100 MG PO ×2 (12:44→20:01)
--- NOTE | 2024-12-08 14:10 | P.PN_ITS ---
Subjective *Date: 12/08/24 *Time: 14:10 Interval history: Escalated to Vapotherm overnight. CT shows worsening multifocal pneumonia. Discussed with pulmonology, started itraconazole. Exam Data for Last 24 hours Vital signs and Labs for Last 24 Hours: Temp Pulse Resp BP Pulse Ox O2 Del Method O2 Flow Rate 97.7 F 85 20 156/83 H 92 L Vapotherm 40 12/08/24 12:00 12/08/24 12:13 12/08/24 12:00 12/08/24 12:00 12/08/24 12:00 12/08/24 13:00 12/08/24 11:07 FiO2 60 12/08/24 11:07 Laboratory Results - last 24 hr 12/08/24 01:46: VBG pH 7.31, VBG pCO2 46.1, VBG pO2 28.6, VBG HCO3 22.7 L, VBG Total CO2 24.1, VBG O2 Saturation 44.4 L, VBG Base Excess -3.6 L, VBG Lactic Acid 1.6 12/08/24 08:29: WBC 11.9 H D, RBC 2.80 L, Hgb 8.6 L, Hct 28.2 L, MCV 100.7 H, MCH 30.7, MCHC 30.5 L, RDW 15.5, Plt Count 232, MPV 10.0, Neut % (Auto) 78.3, Lymph % (Auto) 11.7, [place] % (Auto) 7.2, Eos % (Auto) 0.8, Baso % (Auto) 0.4, Neut # (Auto) 9.3 H, Lymph # (Auto) 1.4, [place] # (Auto) 0.9, Eos # (Auto) 0.1, Baso # (Auto) 0.1, ESR 132 H, Sodium 132 L, Potassium 4.6, Chloride 104, Carbon Dioxide 25, Anion Gap 7.6, BUN 24 H, Creatinine 0.80, Estimated Creat Clear 93, Estimated GFR 95, Est GFR ( Amer) 115 D, Glucose 97, Calcium 8.7, Magnesium 1.9, Total Bilirubin 0.4, AST 75 H D, ALT 31, Alkaline Phosphatase 63, C-Reactive Protein 168.3 H, NT-Pro-B Natriuret Pep 1920 H, Total Protein 5.9 L, Albumin 3.3 L, Globulin 2.6, Albumin/Globulin Ratio 1.3 12/08/24 08:40: TSH 1.73, Free T4 0.75 L I & O for Last 24 hours: Intake & Output 12/05/24 12/06/24 12/07/24 12/08/24 23:59 23:59 23:59 23:59 Intake Total 1860 / 2440 1350 / 1400 1920 / 2142 932 / 932 Output Total 0 / 0 0 / 0 750 / 750 Balance 1860 / 2440 1350 / 1400 1920 / 2142 182 / 182 Weight 96.162 kg 95.39 kg 97.568 kg 99.881 kg Microbiology Reports for the Last 24 Hours: Microbiology 12/04/24 10:53 Blood Blood Culture - Preliminary NO GROWTH AFTER 4 DAYS 12/04/24 10:53 Blood Blood Culture - Preliminary NO GROWTH AFTER 4 DAYS 12/07/24 18:50 Sputum - Expectorated Sputum Gram Stain - Final 12/06/24 14:08 Transbronchial Biopsy - Right Middle Lobe Gram Stain - Final 12/06/24 14:08 Transbronchial Biopsy - Right Middle Lobe Surgical Biopsy Culture - Preliminary NO GROWTH AFTER 24 HOURS Constitutional Constitutional: no acute distress *Routine HEENT Exam Head: Present normocephalic Eye: Present EOMI and PERRL ENT: Present mucous membranes moist *Routine Neck Exam Neck: Present supple; Absent lymphadenopathy *Routine Respiratory Exam Respiratory: Present crackles; Absent CTA bilaterally *Routine Cardiovascular Exam Cardiovascular: Present RRR *Routine Abdominal Exam Abdominal: Present soft and normoactive bowel sounds; Absent tenderness *Routine Extremities Exam Extremities: Absent cyanosis, clubbing or edema *Routine Skin Exam Skin: Present warm; Absent rash *Routine Neurological Exam Neurological: Present alert and oriented X3 Assessment and Plan *Assessment and plan (1) NSTEMI (non-ST elevated myocardial infarction): Status: Acute Category: Medical Code(s): I21.4 - Non-ST elevation (NSTEMI) myocardial infarction (2) Multifocal pneumonia: Status: Acute Category: Medical Code(s): J18.9 - Pneumonia, unspecified organism Plan Rakesh Paredes is a 74-year-old male with a medical history significant for hypertension, Lupus anticoagulant on Eliquis, hypertension, CAD, right carotid artery stenosis s/p endarterectomy who presents with a few days of worsening shortness of breath. He had been recently discharged from the hospital on October 25 for community-acquired pneumonia with Augmentin. Since then, he states he has never returned back to baseline and was evaluated by cardiology with a stress test was equivocal. Over the past few days, patient states he has been having nonproductive cough and shortness of breath. No fever/chills, chest pain. Workup in the ED significant for WBC 14.9 troponin 0.51, mini respiratory panel negative for COVID and flu. CTA chest does reveal worsening multifocal pneumonia. He is requiring 2 L for appropriate saturations. Case discussed with ED provider and decision was made to admit patient for pneumonia and NSTEMI. #Acute hypoxic respiratory failure #Suspected hospital-acquired pneumonia #Suspected fungal pneumonia ? Discharged a little over a month ago for pneumonia on Augmentin, patient states he felt better but never back to baseline. ? Initial CTA chest reveals multifocal pneumonia on admission, WBC 14.9. ? Pulmonology consulted, s/p bronchoscopy with BAL and cultures. ? Overnight, patient became more hypoxic requiring Vapotherm. Currently 40 L 60% WBC increased from 7.7-11.9 today. ? CT chest shows worsening multifocal opacities ? Discussed with pulmonology, patient has a history of histoplasmosis. Will start itraconazole 100 mg twice daily. ? Continue vancomycin, cefepime day 5. ? Continue IV Lasix 40 mg daily. ? Follow-up BAL cultures. #NSTEMI ? Troponins peaked at 0.51 downtrending 0.42. EKG without acute ischemic changes. ? Underwent cardiac stress test earlier this month which was equivocal. ? Cardiology consulted, will consider [facility] prior to discharge. ? Aspirin, statin, metoprolol. # Recent shingles flare ? Per chart review, patient was started on prednisone 40 mg daily for 3 days for giant cell arteritis. ? He recently had a shingles flare over the right buddhism and behind the ear. Prednisone apparently has not been helping. ? Will wean to prednisone 10mg for next 5 days to eventually wean off. ? Continue pregabalin. #History of DVT and lupus anticoagulant ? Resume Eliquis. ? Continue home hydroxychloroquine. #Hypothyroidism ? Continue home levothyroxine 125 mcg. #Hypertension ? BP stable at this time. Resume home medications once appropriate. Full code DVT prophylaxis: Therapeutic Lovenox
[2024-12-08] MEDS: ATORVASTATIN 20MG TABLET 20 MG PO (20:01)
--- NOTE | 2024-12-08 20:09 | PC.NURSE ---
He is alert to person, time, and birthday. He stated he was at [facility]. He continues on Vapotherm at 40LPM 80%FiO2. He denies any pain. Expiratory wheezes noted. Family at bedside. NSR on telemetry.
[2024-12-08 20:22] LABS: Adenovirus,PCR Not Detected (NotDetected); Bordetella Pertussis Not Detected (NotDetected); Chlamydophila Pneumoniae, PCR Not Detected (NotDetected); Coronavirus 19, PCR Not Detected (NotDetected); Coronavirus 229E Not Detected (NotDetected); Coronavirus NL63 Not Detected (NotDetected); Coronavirus OC43 Not Detected (NotDetected); Coronovirus HKU1,PCR Not Detected (NotDetected); Human Metapneumovirus Not Detected (NotDetected); Influenza A, PCR Not Detected (NotDetected); Influenza AH1, 2009 Not Detected (NotDetected); Influenza AH1, PCR Not Detected (NotDetected); Influenza AH3,PCR Not Detected (NotDetected); Influenza B, PCR Not Detected (NotDetected); Mycoplasma Pneumoniae, PCR Not Detected (NotDetected); Parainfluenza 1, PCR Not Detected (NotDetected); Parainfluenza 2, PCR Not Detected (NotDetected); Parainfluenza 3, PCR Not Detected (NotDetected); Parainfluenza 4, PCR Not Detected (NotDetected); Respiratory Syncytial Virus Not Detected (NotDetected); Rhinovirus/Enterovirus Not Detected (NotDetected)
--- NOTE | 2024-12-08 23:18 | PC.NURSE ---
Addendum entered by Tanna Carey RN 12/08/24 23:22: Correction: He is a DNR/DNI. Original Note: Pt assisted to bedside to use urinal and O2 decreased to 79%. He had syncopal episode and was assisted back to bed by show card writer and . Male purewick placed. O2 rebounded back to 90% after approx. 5 minutes. Respiratory contacted and is coming to do midnight breathing treatment. brought in living will and it was placed on his chart. She also signed DNR.
[2024-12-09] VITALS (54 sets, daily range): BP systolic 55–133; BP diastolic 38–76; PULSE 64–108; RESP 20–39; TEMP 36.8–37.1; O2SAT 84–96; BMI 28.8
[2024-12-09] MEDS: IPRATROPIUM/ALBUTEROL 3 ML NEB IH ×3 (00:23→12:42)
[2024-12-09] MEDS: CEFEPIME HCL 2 GM in 0.9 % SODIUM CHLORIDE 100 ML IV ×3 (00:38→16:51)
--- NOTE | 2024-12-09 01:13 | PC.NURSE ---
Vapotherm increased to 40LPM 100%FiO2. r/t O2 sats highest at 87-88% but frequently dropped to 83-84%.
[2024-12-09] MEDS: LEVOTHYROXINE 125MCG (0.125MG) TAB 125 MCG PO (06:01)
[2024-12-09 06:41] LABS: Basophils % 0.3 % (0.1-2.0); Eosinophils % 0.2 % (0.1-12.0); Hematocrit 25.5 % (42.0-52.0); Hemoglobin 7.8 g/dL (14.1-18.0); Lymphocytes % 8.4 % (10-50); Mean Corpuscular HGB Conc 30.6 g/dL (31.8-35.4); Mean Corpuscular Hemoglobin 30.2 pg (27.0-31.2); Mean Corpuscular Volume 98.8 fl (80-94); Mean Platelet Volume 10.2 fl (7.4-10.4); Monocytes # 0.7 K/mm3 (0.1-1.0); Monocytes % 6.2 % (1.7-9.3); Neutrophils # 9.6 K/mm3 (1.8-7.8); Neutrophils % 83.8 % (37.0-80.0); Platelet Count 208 K/mm3 (142-424); Red Blood Count 2.58 M/mm3 (4.60-6.20); Red Cell Distribution Width 15.4 % (11.5-17.5); White Blood Count 11.4 K/mm3 (4.8-10.8)
[2024-12-09 06:59] LABS: Alanine Aminotransferase 29 U/L (12-78); Albumin/Globulin Ratio 1.1 (1.1-1.8); Alkaline Phosphatase 67 U/L (38-126); Anion Gap 10.2 mEq/L (5-15); Aspartate Amino Transferase 69 U/L (17-59); Bilirubin,Total 0.4 mg/dl (0.2-1.3); Blood Urea Nitrogen 26 mg/dl (9-20); Calcium 8.6 mg/dl (8.4-10.2); Carbon Dioxide 23 mmol/L (22.0-30.0); Chloride 105 mmol/L (98-107); Creatinine Clearance Estimated 90 mL/min (50-200); Estimated Glomerular Filt Rate 83 ml/min (>60); GFR (African American) 100 ML/MIN (>60); Globulin 2.7 g/dL (1.3-3.2); Glucose 83 mg/dl (74-100); Magnesium 1.7 mg/dl (1.6-2.3); Potassium 4.2 mmoL/L (3.5-5.1); Sodium 134 mmol/L (136-145); Total Protein,Serum 5.7 g/dl (6.3-8.2)
[2024-12-09 07:04] LABS: Erythrocyte Sedimentation Rate > 140 mm/hr (0-20)
[2024-12-09 07:05] LABS: C-Reactive Protein 274.7 mg/L (0-4)
[2024-12-09] MEDS: APIXABAN 5MG TABLET 5 MG PO (08:10)
[2024-12-09] MEDS: LISINOPRIL 20MG TABLET 20 MG PO ×2 (08:11→20:42)
[2024-12-09] MEDS: OXcarbazepine 300MG TABLET 300 MG PO ×2 (08:11→20:41)
[2024-12-09] MEDS: MEMANTINE 10MG TABLET 10 MG PO ×2 (08:11→20:41)
[2024-12-09] MEDS: METOPROLOL SUCCINATE XL 50MG TABLET 50 MG PO (08:11)
[2024-12-09] MEDS: ASPIRIN 81MG CHEWABLE TABLET 81 MG PO (08:11)
[2024-12-09] MEDS: HYDROXYCHLOROQUINE SULFATE 200MG TABLET 200 MG PO (08:11)
[2024-12-09] MEDS: FUROSEMIDE 40MG/4ML VIAL 40 MG IV (08:11)
[2024-12-09] MEDS: ITRACONAZOLE 100MG CAPSULE 100 MG PO ×2 (08:11→20:41)
[2024-12-09] MEDS: predniSONE 10MG TAB 10 MG PO (08:11)
[2024-12-09] MEDS: DULOXETINE 30MG CAPSULE.DR 30 MG PO (08:11)
[2024-12-09] MEDS: azaTHIOprine 50 MG TABLET PO (08:11)
--- NOTE | 2024-12-09 08:18 | P.PN_ITS ---
Subjective *Date: 12/09/24 *Time: 08:18 Medical Exam Vital signs and Labs for Last 24 Hours: Vital Signs Temp Pulse Pulse Resp BP BP Pulse Ox 12/09/24 07:00 108 H 26 H 114/62 90 L 12/09/24 06:19 96 H 12/09/24 06:19 96 H 12/09/24 06:19 92 L 12/09/24 06:07 12/09/24 06:00 103 H 33 H 119/71 90 L 12/09/24 05:00 101 H 30 H 133/71 93 L 12/09/24 04:26 12/09/24 04:00 96 H 28 H 131/75 91 L 12/09/24 03:22 90 12/09/24 03:00 96 H 27 H 120/58 L 93 L 12/09/24 03:00 93 L 12/09/24 02:59 12/09/24 02:30 93 H 27 H 92 L 12/09/24 02:00 92 H 28 H 92 L 12/09/24 02:00 115/73 12/09/24 01:30 100 H 30 H 91 L 12/09/24 01:00 95 H 27 H 107/63 L 90 L 12/09/24 00:41 12/09/24 00:24 83 12/09/24 00:24 83 12/09/24 00:00 90 12/09/24 00:00 98.8 F 99 H 27 H 103/46 L 92 L 12/08/24 23:24 92 L 12/08/24 23:00 122/67 12/08/24 23:00 87 29 H 93 L 12/08/24 22:16 12/08/24 22:00 81 28 H 102/60 L 94 L 12/08/24 21:00 88 28 H 117/97 H 92 L 12/08/24 20:26 98.1 F 12/08/24 20:13 12/08/24 20:00 113/63 12/08/24 20:00 91 H 33 H 90 L 12/08/24 20:00 92 L 12/08/24 19:28 80 12/08/24 19:24 85 12/08/24 19:24 85 12/08/24 19:00 107/83 L 12/08/24 19:00 83 26 H 91 L 12/08/24 18:39 12/08/24 18:23 12/08/24 18:00 79 30 H 104/84 L 92 L 12/08/24 17:00 79 26 H 109/72 L 94 L 12/08/24 17:00 12/08/24 16:20 12/08/24 16:17 98.7 F 12/08/24 16:01 135/77 12/08/24 16:00 80 12/08/24 16:00 78 25 H 91 L 12/08/24 15:00 126/75 12/08/24 15:00 79 24 96 12/08/24 15:00 12/08/24 14:00 120/74 12/08/24 14:00 79 27 H 94 L 12/08/24 13:00 80 26 H 93 L 12/08/24 13:00 126/78 12/08/24 13:00 12/08/24 12:21 119/80 12/08/24 12:21 82 25 H 90 L 12/08/24 12:20 12/08/24 12:13 85 12/08/24 12:00 90 12/08/24 12:00 97.7 F 97 H 20 156/83 H 92 L 12/08/24 11:07 91 L 12/08/24 11:03 87 12/08/24 11:03 88 12/08/24 11:03 91 L 12/08/24 11:00 12/08/24 09:00 O2 Del Method O2 Flow Rate FiO2 12/09/24 07:00 Vapotherm 40 12/09/24 06:19 12/09/24 06:19 12/09/24 06:19 Vapotherm 40 100 12/09/24 06:07 Vapotherm 40 12/09/24 06:00 Vapotherm 40 12/09/24 05:00 Vapotherm 40 12/09/24 04:26 Vapotherm 40 12/09/24 04:00 Vapotherm 40 12/09/24 03:22 12/09/24 03:00 Vapotherm 40 12/09/24 03:00 Vapotherm 40 100 12/09/24 02:59 Vapotherm 40 12/09/24 02:30 Vapotherm 40 12/09/24 02:00 Vapotherm 40 12/09/24 02:00 12/09/24 01:30 Vapotherm 40 12/09/24 01:00 Vapotherm 40 12/09/24 00:41 Vapotherm 40 12/09/24 00:24 12/09/24 00:24 12/09/24 00:00 12/09/24 00:00 Vapotherm 40 12/08/24 23:24 Trilogy 40 80 12/08/24 23:00 12/08/24 23:00 Vapotherm 40 12/08/24 22:16 Vapotherm 40 12/08/24 22:00 Vapotherm 40 12/08/24 21:00 Vapotherm 40 12/08/24 20:26 12/08/24 20:13 Vapotherm 40 12/08/24 20:00 12/08/24 20:00 Vapotherm 40 12/08/24 20:00 Vapotherm 40 80 12/08/24 19:28 12/08/24 19:24 12/08/24 19:24 12/08/24 19:00 12/08/24 19:00 Vapotherm 40 12/08/24 18:39 Vapotherm 12/08/24 18:23 Vapotherm 40 80 12/08/24 18:00 Vapotherm 40 12/08/24 17:00 Vapotherm 40 12/08/24 17:00 Vapotherm 12/08/24 16:20 Vapotherm 12/08/24 16:17 12/08/24 16:01 12/08/24 16:00 12/08/24 16:00 Vapotherm 12/08/24 15:00 12/08/24 15:00 Vapotherm 12/08/24 15:00 Vapotherm 12/08/24 14:00 12/08/24 14:00 Vapotherm 12/08/24 13:00 Vapotherm 12/08/24 13:00 12/08/24 13:00 Vapotherm 12/08/24 12:21 12/08/24 12:21 Vapotherm 12/08/24 12:20 Vapotherm 12/08/24 12:13 12/08/24 12:00 12/08/24 12:00 Vapotherm 12/08/24 11:07 Vapotherm 40 60 12/08/24 11:03 12/08/24 11:03 12/08/24 11:03 Vapotherm 30 80 12/08/24 11:00 Vapotherm 12/08/24 09:00 Vapotherm Intake and Output 12/08/24 12/09/24 12/09/24 23:59 07:59 15:59 Intake Total 120 / 1052 470 / 470 Output Total 300 / 1200 450 / 450 Balance -180 / -148 Intake: Intake, Oral Amount 120 / 962 Intake, Other Amount Intake, Total IV Amount 450 / 450 Cefepime HCl 2 gm In 0.9 % 100 / 100 Sodium Chloride 100 ml @ 200 mls/hr IV Q8H [facility] Rx#:[id number] Vancomycin/Water For Inj (Peg) 350 / 350 1.75 gm In 350 ml @ 175 mls/hr IV Q18H [facility] Rx#:[id number] Output: Output, Urine Amount 300 / 1200 450 / 450 Other: Number of Unmeasured Voids 1 0 Weight 96.479 kg Patient Weight 12/09/24 23:59 Weight 96.479 kg Laboratory Results - last 24 hr 12/08/24 08:29: WBC 11.9 H D, RBC 2.80 L, Hgb 8.6 L, Hct 28.2 L, MCV 100.7 H, MCH 30.7, MCHC 30.5 L, RDW 15.5, Plt Count 232, MPV 10.0, Neut % (Auto) 78.3, Lymph % (Auto) 11.7, [place] % (Auto) 7.2, Eos % (Auto) 0.8, Baso % (Auto) 0.4, Neut # (Auto) 9.3 H, Lymph # (Auto) 1.4, [place] # (Auto) 0.9, Eos # (Auto) 0.1, Baso # (Auto) 0.1, ESR 132 H, Sodium 132 L, Potassium 4.6, Chloride 104, Carbon Dioxide 25, Anion Gap 7.6, BUN 24 H, Creatinine 0.80, Estimated Creat Clear 93, Estimated GFR 95, Est GFR ( Amer) 115 D, Glucose 97, Calcium 8.7, Magnesium 1.9, Total Bilirubin 0.4, AST 75 H D, ALT 31, Alkaline Phosphatase 63, C-Reactive Protein 168.3 H, NT-Pro-B Natriuret Pep 1920 H, Total Protein 5.9 L, Albumin 3.3 L, Globulin 2.6, Albumin/Globulin Ratio 1.3 12/08/24 08:40: TSH 1.73, Free T4 0.75 L 12/08/24 19:50: Chlamy pneumoniae PCR Not detected, Adenovirus (PCR) Not detected, B. pertussis DNA (PCR) Not detected, Coronavirus OC43 (PCR) Not detected, Coronavirus HKU1 (PCR) Not detected, Coronavirus 229E (PCR) Not detected, SARS-CoV-2 (PCR) Not detected, Coronavirus NL63 (PCR) Not detected, Human Metapneumovir PCR Not detected, Influenza A (H1) PCR Not detected, Influ A (H1N1/09) PCR Not detected, Influenza A (H3) PCR Not detected, Influenza Type A (PCR) Not detected, Influenza Type B (PCR) Not detected, M. pneumoniae (PCR) Not detected, Parainfluenza 1 (PCR) Not detected, Parainfluenza 2 (PCR) Not detected, Parainfluenza 3 (PCR) Not detected, Parainfluenza 4 (PCR) Not det ected, RSV (PCR) Not detected, Entero/Rhino (PCR) Not detected 12/09/24 05:30: WBC 11.4 H, RBC 2.58 L, Hgb 7.8 L, Hct 25.5 L, MCV 98.8 H, MCH 30.2, MCHC 30.6 L, RDW 15.4, Plt Count 208, MPV 10.2, Neut % (Auto) 83.8 H, Lymph % (Auto) 8.4 L, [place] % (Auto) 6.2, Eos % (Auto) 0.2, Baso % (Auto) 0.3, Neut # (Auto) 9.6 H, Lymph # (Auto) 1.0, [place] # (Auto) 0.7, Eos # (Auto) 0.0, Baso # (Auto) 0.0, ESR > 140 H, Sodium 134 L, Potassium 4.2, Chloride 105, Carbon Dioxide 23, Anion Gap 10.2, BUN 26 H, Creatinine 0.90, Estimated Creat Clear 90, Estimated GFR 83, Est GFR ( Amer) 100, Glucose 83, Calcium 8.6, Magnesium 1.7 D, Total Bilirubin 0.4, AST 69 H, ALT 29, Alkaline Phosphatase 67, C-Reactive Protein 274.7 H, Total Protein 5.7 L, Albumin 3.0 L, Globulin 2.7, Albumin/Globulin Ratio 1.1 I & O for Labs for Last 24 Hours: Intake & Output 12/06/24 12/07/24 12/08/24 12/09/24 23:59 23:59 23:59 23:59 Intake Total 1350 / 1400 1920 / 2142 1052 / 1052 470 / 470 Output Total 0 / 0 1200 / 1200 450 / 450 Balance 1350 / 1400 1920 / 2142 -148 / -148 Weight 95.39 kg 97.568 kg 99.881 kg 96.479 kg Microbiology Reports for the Last 24 Hours: Microbiology 12/06/24 14:08 Transbronchial Biopsy - Right Middle Lobe Gram Stain - Final 12/06/24 14:08 Transbronchial Biopsy - Right Middle Lobe Surgical Biopsy Culture - Preliminary NO GROWTH AFTER 48 HOURS 12/04/24 10:53 Blood Blood Culture - Preliminary NO GROWTH AFTER 4 DAYS 12/04/24 10:53 Blood Blood Culture - Preliminary NO GROWTH AFTER 4 DAYS The patient's infection will respond to the chosen ABx?: Yes (BRONCH BIOPSY/WASHINGS PENDING, SPUTUM PENDING, AFEBRILE OVER 24 HR) Is the patient receiving the right drug, dose, and route?: Yes Could a more targeted ABx be ordered?: No How long ABx needed (days)?: 7
[2024-12-09] MEDS: PREGABALIN 25MG CAPSULE 75 MG PO ×3 (08:22→20:50)
[2024-12-09 08:31] LABS: Vitamin B12 874 pg/mL (239-931)
[2024-12-09 08:41] LABS: Procalcitonin 0.469 ng/mL (0.0-2.0)
--- NOTE | 2024-12-09 09:13 | XR_ITS ---
FINAL REPORT CLINICAL HISTORY: fu pna COMPARISON: 12/07/2024 FINDINGS: A frontal view of the chest was obtained. Moderately improved right lung infiltrate. Worsening left lung infiltrate. There is an improved right pleural effusion. Mediastinum is unremarkable. There is mild cardiomegaly. IMPRESSION: Multifocal pneumonia with mixed response. Improved right pleural effusion. Reviewed, Interpreted and Dictated by Jeannine Donato MD Transcribed by Francy Caal Authenticated and . [facility]
[2024-12-09 09:21] LABS: Lactate Dehydrogenase 648 U/L (313-618)
--- NOTE | 2024-12-09 09:30 | EXP.PULM.PN ---
Subjective *Date: 12/09/24 *Time: 12:22 Interval history: Patient admits difficulty breathing. Pulmonology Exam Inpatient Vital signs and Labs for Last 24 Hours: Temp Pulse Resp BP Pulse Ox O2 Del Method O2 Flow Rate 98.8 F 95 H 24 112/67 88 L Vapotherm 40 12/09/24 08:00 12/09/24 09:00 12/09/24 09:00 12/09/24 09:00 12/09/24 09:00 12/09/24 09:00 12/09/24 09:00 FiO2 100 12/09/24 08:00 Laboratory Results - last 24 hr 12/08/24 08:29: ESR 132 H, Sodium 132 L, Potassium 4.6, Chloride 104, Carbon Dioxide 25, Anion Gap 7.6, BUN 24 H, Creatinine 0.80, Estimated Creat Clear 93, Estimated GFR 95, Est GFR ( Amer) 115 D, Glucose 97, Calcium 8.7, Magnesium 1.9, Total Bilirubin 0.4, AST 75 H D, ALT 31, Alkaline Phosphatase 63, C-Reactive Protein 168.3 H, NT-Pro-B Natriuret Pep 1920 H, Total Protein 5.9 L, Albumin 3.3 L, Globulin 2.6, Albumin/Globulin Ratio 1.3 12/08/24 08:40: TSH 1.73, Free T4 0.75 L 12/08/24 19:50: Chlamy pneumoniae PCR Not detected, Adenovirus (PCR) Not detected, B. pertussis DNA (PCR) Not detected, Coronavirus OC43 (PCR) Not detected, Coronavirus HKU1 (PCR) Not detected, Coronavirus 229E (PCR) Not detected, SARS-CoV-2 (PCR) Not detected, Coronavirus NL63 (PCR) Not detected, Human Metapneumovir PCR Not detected, Influenza A (H1) PCR Not detected, Influ A (H1N1/09) PCR Not detected, Influenza A (H3) PCR Not detected, Influenza Type A (PCR) Not detected, Influenza Type B (PCR) Not detected, M. pneumoniae (PCR) Not detected, Parainfluenza 1 (PCR) Not detected, Parainfluenza 2 (PCR) Not detected, Parainfluenza 3 (PCR) Not detected, Parainfluenza 4 (PCR) Not detected, RSV (PCR) Not detected, Entero/Rhino (PCR) Not detected 12/09/24 05:30: WBC 11.4 H, RBC 2.58 L, Hgb 7.8 L, Hct 25.5 L, MCV 98.8 H, MCH 30.2, MCHC 30.6 L, RDW 15.4, Plt Count 208, MPV 10.2, Neut % (Auto) 83.8 H, Lymph % (Auto) 8.4 L, [place] % (Auto) 6.2, Eos % (Auto) 0.2, Baso % (Auto) 0.3, Neut # (Auto) 9.6 H, Lymph # (Auto) 1.0, [place] # (Auto) 0.7, Eos # (Auto) 0.0, Baso # (Auto) 0.0, ESR > 140 H, Sodium 134 L, Potassium 4.2, Chloride 105, Carbon Dioxide 23, Anion Gap 10.2, BUN 26 H, Creatinine 0.90, Estimated Creat Clear 90, Estimated GFR 83, Est GFR ( Amer) 100, Glucose 83, Calcium 8.6, Magnesium 1.7 D, Total Bilirubin 0.4, AST 69 H, ALT 29, Alkaline Phosphatase 67, C-Reactive Protein 274.7 H, Total Protein 5.7 L, Albumin 3.0 L, Globulin 2.7, Albumin/Globulin Ratio 1.1, Vitamin B12 874, Folate 15.40, Procalcitonin 0.469 Temp Pulse Resp BP Pulse Ox O2 Del Method O2 Flow Rate 98.1 F 81 17 120/62 93 L Nasal Cannula 2 12/05/24 08:00 12/05/24 08:00 12/05/24 08:00 12/05/24 08:00 12/05/24 08:00 12/05/24 06:53 12/05/24 06:53 Laboratory Results - last 24 hr 12/04/24 10:53: WBC 14.9 H, RBC 3.49 L, Hgb 10.8 L, Hct 35.2 L, MCV 100.9 H, MCH 30.9, MCHC 30.7 L, RDW 16.0, Plt Count 326, MPV 9.8, Neut % (Auto) 83.6 H, Lymph % (Auto) 8.1 L, [place] % (Auto) 5.8, Eos % (Auto) 0.1, Baso % (Auto) 0.3, Neut # (Auto) 12.5 H, Lymph # (Auto) 1.2, [place] # (Auto) 0.9, Eos # (Auto) 0.0, Baso # (Auto) 0.1, PT 11.2, INR 1.02, APTT 28.8 H, Sodium 137, Potassium 4.3, Chloride 100, Carbon Dioxide 29, Anion Gap 12.3, BUN 31 H, Creatinine 1.10, Estimated Creat Clear 84, Estimated GFR 66, Est GFR ( Amer) 79, Glucose 115 H, Calcium 9.5, Magnesium 1.9, Total Bilirubin 0.6, AST 71 H, ALT 38, Alkaline Phosphatase 78, Troponin I 0.51 H, NT-Pro-B Natriuret Pep 591 H, Total Protein 6.7, Albumin 4.0, Globulin 2.7, Albumin/Globulin Ratio 1.5, Procalcitonin 0.085, SARS-CoV-2 (PCR) Not detected, Influenza A Untype (PCR) Not detected, Influenza Type B (PCR) Not detected 12/04/24 11:26: VBG pH 7.45 H, VBG pCO2 34.8 L, VBG pO2 104.8 H, VBG HCO3 23.4, VBG Total CO2 24.5, VBG O2 Saturation 97.6 H, VBG Base Excess -0.6, VBG Lactic Acid 1.5 12/04/24 13:51: Troponin I 0.48 H, C-Reactive Protein 86.8 H 12/04/24 17:30: Troponin I 0.42 H 12/05/24 06:35: WBC 9.9 D, RBC 2.83 L, Hgb 8.9 L D, Hct 28.3 L, MCV 100.0 H, MCH 31.1, MCHC 31.1 L, RDW 16.0, Plt Count 231 D, MPV 9.8, Neut % (Auto) 76.1, Lymph % (Auto) 14.3, [place] % (Auto) 7.4, Eos % (Auto) 0.3, Baso % (Auto) 0.2, Neut # (Auto) 7.5, Lymph # (Auto) 1.4, [place] # (Auto) 0.7, Eos # (Auto) 0.0, Baso # (Auto) 0.0, Sodium 132 L, Potassium 3.9, Chloride 101, Carbon Dioxide 30, Anion Gap 4.9 L, BUN 30 H, Creatinine 1.10, Estimated Creat Clear 81, Estimated GFR 66, Est GFR ( Amer) 79, Glucose 89 D, Calcium 8.6, Magnesium 2.2 D, Total Bilirubin 0.5, AST 54, ALT 28 D, Alkaline Phosphatase 64, Total Protein 5.6 L, Albumin 3.2 L D, Globulin 2.4, Albumin/Globulin Ratio 1.3 I & O for Labs for Last 24 Hours: Intake & Output 12/06/24 12/07/24 12/08/24 12/09/24 23:59 23:59 23:59 23:59 Intake Total 1350 / 1400 1920 / 2142 1052 / 1052 570 / 570 Output Total 0 / 0 1200 / 1200 850 / 850 Balance 1350 / 1400 1920 / 2142 -148 / -148 -280 / -280 Weight 210 lb 4.783 oz 215 lb 1.6 oz 220 lb 3.2 oz 212 lb 11.2 oz Intake & Output 12/02/24 12/03/24 12/04/24 12/05/24 23:59 23:59 23:59 23:59 Intake Total 0 / 420 420 / 420 Output Total 0 / 0 0 / 0 Balance 0 / 420 420 / 420 Weight 211 lb 6 oz 212 lb Microbiology Reports for the Last 24 Hours: Microbiology 12/06/24 14:08 Transbronchial Biopsy - Right Middle Lobe Gram Stain - Final 12/06/24 14:08 Transbronchial Biopsy - Right Middle Lobe Surgical Biopsy Culture - Preliminary NO GROWTH AFTER 48 HOURS 12/04/24 10:53 Blood Blood Culture - Preliminary NO GROWTH AFTER 4 DAYS 12/04/24 10:53 Blood Blood Culture - Preliminary NO GROWTH AFTER 4 DAYS Constitutional: Present severe distress Head: Present normocephalic and atraumatic ENT: Present normal exam, normal oropharynx and mucous membranes moist Neck: Present normal inspection and full ROM Respiratory: Present respiratory distress; Absent rhonchi, wheezes, crackles or able to speak in complete sentences Cardiac: Present S1/S2, Tachycardia and radial pulses present GI: Present soft and distention; Absent tenderness or guarding Skin: Present intact; Absent cyanosis or jaundice Neuro: Present alert, awake and oriented x 3 Extremities: Present normal inspection; Absent clubbing or cyanosis Psychiatric: Present normal affect and cooperative Assessment and Plan *Assessment and plan (1) Pneumonia: Status: Resolved Qualifiers: Laterality: bilateral Pneumonia type: due to unspecified organism Category: Medical Code(s): J18.9 - Pneumonia, unspecified organism (2) Immunocompromised state: Status: Acute Category: Medical Code(s): D84.9 - Immunodeficiency, unspecified Plan Mr. 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 Patient admits gradual worsening respiratory distress. Admits chronic cough with no significant productive phlegm. Denies any subjective fevers or chills. Mild neutrophilic predominant leukocytosis upon admission improving. Pro-Dmitri within normal limits. CRP at 86.8. COVID-19 and flu PCR panel negative CTA upon admission no evidence of pulmonary embolism. Worsening multifocal patchy airspace disease compared to his most recent CT chest from 10/24/2024. Serum fungal serologies and serum beta D glucan negative on [place] from his most recent admission from October 2024. Patient completed a 7-day course of Augmentin on his most recent admission. Interval Update: Status post bronchoscopy. Significant worsening respiratory distress now needing high flow nasal oxygen supplement Slight worsening leukocytosis neutrophilic predominant. Lymphopenia noted. Peripheral eosinophil counts at 0. Repeat CT chest without contrast along with the previously noted patchy airspace disease patient now noted to have bilateral diffuse groundglass opacities. Gram stain biopsy cultures no growth 48 hours. Nasal MRSA PCR negative. Blood cultures no growth 4 days. CRP continue to increase. Chest x-ray continue to show noted bilateral airspace disease with no significant improvement Plan: Continue oxygen supplementation via high flow nasal cannula, currently on 40 L 100% -DuoNebs every 6 hours scheduled -Continue cefepime. Discontinue vancomycin -Continue itraconazole 100 twice daily -Initiate Bactrim DS IV twice daily -Methylprednisolone 60 mg IV every 12 hours -Discontinue hydroxychloroquine and azathioprine -Change Eliquis to heparin drip -Follow with final pathology results Total critical care time spent on this patient is 35 minutes managing acute hypoxic respiratory failure needingHFNC oxygen supplementation. This time spent include reviewing test results including interpreting chest x-rays, labs and ,formulating plan of care, discussing the plan of care with the team and the nursing staff.
[2024-12-09] MEDS: SULFAMETHOXAZOLE/TRIMETHOPRIM 10 ML in DEXTROSE 5 % IN WATER 250 ML 173.333 ML IV ×2 (09:44→20:50)
[2024-12-09] MEDS: METHYLPREDNISOLONE SOD SUCC 125MG VIAL 60 MG IV ×2 (09:44→20:50)
[2024-12-09] MEDS: GUAIFENESIN/DEXTROMETHORPHAN 200MG/20MG 10ML UDC 5 ML PO (10:39)
--- NOTE | 2024-12-09 11:09 | HMH.PHAHEP ---
[facility] Pharmacy Heparin Dosing Demographic Data Admission date:: 12/04/24 Date: 12/09/24 Time: 11:10 Allergies Allergy/AdvReac Type Severity Reaction Status Date / Time No Known Allergies Allergy Verified 11/21/24 11:30 Height: 1.83 m Weight: 96.479 kg Indication Medication therapy:: Heparin Current Indications:: DVT W/PULMONARY HEMORRHAGE - NO BOLUS PROTOCOL (HIGH BLEED RISK). Current Active Problems (Updated 12/05/24 @ 13:03 by Zi Khan MD) Immunocompromised state (Acute) NSTEMI (non-ST elevated myocardial infarction) (Acute) Acute hypoxemic respiratory failure (Acute) Multifocal pneumonia (Acute) History of rheumatoid arthritis (Acute) Hyperlipidemia (Acute) Hypertension (Acute) Dyspnea (Acute) CVA?: No Bleeding problem?: Yes Kidney disease?: No CA?: No Additional History:: DVT, NSTEMI, HYPERLIPIDEMIA, HYPERTENSION Desired PTT range:: 50-75 seconds Labs Anticoagulation Lab Results:: 12/09/24 05:30 Hgb 7.8 L Hct 25.5 L Plt Count 208 Monitoring Dose Monitor 1: Date: 12/09/24 Time: 18:30 Infusion Rate:: RECOMMEND INITIATING HEPARIN DRIP AT 1000 UNITS/HOUR = 20 ML/HOUR. Comment:: PLATELETS = 208,000 Dose Monitor 2: Date: 12/10/24 Time: 02:00 PTT Result:: 56.2 SECONDS Infusion Rate:: PRABHAKAR RECOMMENDED CONTINUING CURRENT HEPARIN DRIP RATE AT 1000 UNITS/HOUR = 20 ML/HOUR. Dose Monitor 3: Date: 12/10/24 Time: 08:00 PTT Result:: 49.5 SECONDS Infusion Rate:: RECOMMEND INCREASING HEPARIN DRIP TO 1100 UNITS/HOUR = 22 ML/HOUR. Comment:: PLATELET COUNT = 244,000 Dose Monitor 4: Date: 12/10/24 Time: 15:00 PTT Result:: PTT CANCELED Infusion Rate:: PATIENT . Core Measures Is INR > or = 2 at discharge?: No Most Recent Labs:: Laboratory Results - last 24 hr 12/08/24 08:29: ESR 132 H, NT-Pro-B Natriuret Pep 1920 H 12/08/24 08:40: TSH 1.73, Free T4 0.75 L 12/08/24 19:50: Chlamy pneumoniae PCR Not detected, Adenovirus (PCR) Not detected, B. pertussis DNA (PCR) Not detected, Coronavirus OC43 (PCR) Not detected, Coronavirus HKU1 (PCR) Not detected, Coronavirus 229E (PCR) Not detected, SARS-CoV-2 (PCR) Not detected, Coronavirus NL63 (PCR) Not detected, Human Metapneumovir PCR Not detected, Influenza A (H1) PCR Not detected, Influ A (H1N1/09) PCR Not detected, Influenza A (H3) PCR Not detected, Influenza Type A (PCR) Not detected, Influenza Type B (PCR) Not detected, M. pneumoniae (PCR) Not detected, Parainfluenza 1 (PCR) Not detected, Parainfluenza 2 (PCR) Not detected, Parainfluenza 3 (PCR) Not detected, Parainfluenza 4 (PCR) Not detected, RSV (PCR) Not detected, Entero/Rhino (PCR) Not detected 12/09/24 05:30: WBC 11.4 H, RBC 2.58 L, Hgb 7.8 L, Hct 25.5 L, MCV 98.8 H, MCH 30.2, MCHC 30.6 L, RDW 15.4, Plt Count 208, MPV 10.2, Neut % (Auto) 83.8 H, Lymph % (Auto) 8.4 L, [place] % (Auto) 6.2, Eos % (Auto) 0.2, Baso % (Auto) 0.3, Neut # (Auto) 9.6 H, Lymph # (Auto) 1.0, [place] # (Auto) 0.7, Eos # (Auto) 0.0, Baso # (Auto) 0.0, ESR > 140 H, Sodium 134 L, Potassium 4.2, Chloride 105, Carbon Dioxide 23, Anion Gap 10.2, BUN 26 H, Creatinine 0.90, Estimated Creat Clear 90, Estimated GFR 83, Est GFR ( Amer) 100, Glucose 83, Calcium 8.6, Magnesium 1.7 D, Total Bilirubin 0.4, AST 69 H, ALT 29, Alkaline Phosphatase 67, Lactate Dehydrogenase 648 H, C-Reactive Protein 274.7 H, Total Protein 5.7 L, Albumin 3.0 L, Globulin 2.7, Albumin/Globulin Ratio 1.1, Vitamin B12 874, Folate 15.40, Procalcitonin 0.469 Were Heparin and Warfarin started on the same day?: No If not, why?: PATIENT .
[2024-12-09] MEDS: POLYETHYLENE GLYCOL 3350 17 GM PACKET PO (11:16)
--- NOTE | 2024-12-09 11:41 | CA_ITS ---
APPROVED REPORT EXAM: Limited 2D Echocardiogram Cook Night: Reina Raymond RVT Ht: 6 ft 0 in Wt: 212lbs BSA: 2.18 BP: 112/67 mmHg Indications: EF CHECK,NSTEMI,CAD,LUPUS,PNEUMONIA,SOA,HTN VERY TDS-PT FLAT ON BACK 2D Dimensions IVSd 2.68 cm M: 0.6-1.2 LVEF (Visual) 57.30 % PWd 1.34 cm M: 0.6 - 1.2 LVDd 3.95 cm M: 4.2 - 5.9 LVDs 2.78 cm M: 2.5 - 4.0 Left Atrium 3.09 cm M: 3.0 - 4.0 M-Mode Dimensions LVDd 3.95 cm (3.5-5.7) Ao Diam 3.18 cm (2.0-3.7) LVDs 2.78 cm (3.5-5.7) IVSd 2.68 cm (0.6-1.1) PWd 1.34 cm (0.6-1.1) FS 29.60% Other Information Study Quality: Fair Conclusion This is a limited TTE to evaluate for LV systolic function. Limited windows are obtained. The left ventricle is normal in size. There is increased LV wall thickness. There is normal global LV systolic function. The septum is asynchronous. LVEF is 60%. The right ventricle is not very well-visualized, but appears grossly moderately to severely dilated with moderate reduction in RV systolic function. Trivial, posterior pericardial effusion is present. No clear echo indications of tamponade in the available views. Electronically signed by : Radha Nielsen MD 12/10/2024 11:51:49
--- NOTE | 2024-12-09 12:40 | PC.NURSE ---
Patient's O2 was remaining 84-85%, RT came to bedside, administered breathing TX. rounded on patient and ordered non-rebreather with Vapotherm 40L/100%. Patient's O2 sat is >90%.
--- NOTE | 2024-12-09 13:21 | EXP.CARD.PN ---
Subjective Subjective Date: 12/09/24 Time: 10:30 Principal diagnosis: Pneumonia, elevated troponins Interval history: The patient remains short of breath today. He states that he feels very tired. He denies any chest pain or pressure. He denies any lower extremity edema. He denies any fever, chills, nausea, vomiting or diarrhea. The patient is still on Vapotherm this morning with oxygen saturations around 89%. Exam Data for Last 24 hours Vital signs and Labs for Last 24 Hours: Temp Pulse Resp BP Pulse Ox O2 Del Method O2 Flow Rate 98.8 F 91 H 20 120/75 88 L Vapotherm 40 12/09/24 12:00 12/09/24 13:00 12/09/24 13:00 12/09/24 13:00 12/09/24 13:00 12/09/24 13:00 12/09/24 13:00 FiO2 100 12/09/24 12:44 Laboratory Results - last 24 hr 12/08/24 19:50: Chlamy pneumoniae PCR Not detected, Adenovirus (PCR) Not detected, B. pertussis DNA (PCR) Not detected, Coronavirus OC43 (PCR) Not detected, Coronavirus HKU1 (PCR) Not detected, Coronavirus 229E (PCR) Not detected, SARS-CoV-2 (PCR) Not detected, Coronavirus NL63 (PCR) Not detected, Human Metapneumovir PCR Not detected, Influenza A (H1) PCR Not detected, Influ A (H1N1/09) PCR Not detected, Influenza A (H3) PCR Not detected, Influenza Type A (PCR) Not detected, Influenza Type B (PCR) Not detected, M. pneumoniae (PCR) Not detected, Parainfluenza 1 (PCR) Not detected, Parainfluenza 2 (PCR) Not detected, Parainfluenza 3 (PCR) Not detected, Parainfluenza 4 (PCR) Not detected, RSV (PCR) Not detected, Entero/Rhino (PCR) Not detected 12/09/24 05:30: WBC 11.4 H, RBC 2.58 L, Hgb 7.8 L, Hct 25.5 L, MCV 98.8 H, MCH 30.2, MCHC 30.6 L, RDW 15.4, Plt Count 208, MPV 10.2, Neut % (Auto) 83.8 H, Lymph % (Auto) 8.4 L, [place] % (Auto) 6.2, Eos % (Auto) 0.2, Baso % (Auto) 0.3, Neut # (Auto) 9.6 H, Lymph # (Auto) 1.0, [place] # (Auto) 0.7, Eos # (Auto) 0.0, Baso # (Auto) 0.0, ESR > 140 H, Sodium 134 L, Potassium 4.2, Chloride 105, Carbon Dioxide 23, Anion Gap 10.2, BUN 26 H, Creatinine 0.90, Estimated Creat Clear 90, Estimated GFR 83, Est GFR ( Amer) 100, Glucose 83, Calcium 8.6, Magnesium 1.7 D, Total Bilirubin 0.4, AST 69 H, ALT 29, Alkaline Phosphatase 67, Lactate Dehydrogenase 648 H, C-Reactive Protein 274.7 H, Total Protein 5.7 L, Albumin 3.0 L, Globulin 2.7, Albumin/Globulin Ratio 1.1, Vitamin B12 874, Folate 15.40, Procalcitonin 0.469 I & O for Last 24 hours: Intake & Output 12/06/24 12/07/24 12/08/24 12/09/24 23:59 23:59 23:59 23:59 Intake Total 1350 / 1400 1920 / 2142 1052 / 1052 570 / 570 Output Total 0 / 0 1200 / 1200 1150 / 1150 Balance 1350 / 1400 1920 / 2 -148 / -148 -580 / -580 Weight 210 lb 4.783 oz 215 lb 1.6 oz 220 lb 3.2 oz 212 lb 11.196 oz Microbiology Reports for the Last 24 Hours: Microbiology 12/04/24 10:53 Blood Blood Culture - Final NO GROWTH AFTER 5 DAYS 12/04/24 10:53 Blood Blood Culture - Final NO GROWTH AFTER 5 DAYS 12/07/24 18:50 Sputum - Expectorated Sputum Gram Stain - Final 12/07/24 18:50 Sputum - Expectorated Sputum Sputum Culture - Final 12/06/24 14:08 Transbronchial Biopsy - Right Middle Lobe Gram Stain - Final 12/06/24 14:08 Transbronchial Biopsy - Right Middle Lobe Surgical Biopsy Culture - Preliminary NO GROWTH AFTER 48 HOURS Constitutional Constitutional: mild distress and chronically ill appearing *Routine Respiratory Exam Respiratory: Present decreased breath sounds and respiratory distress; Absent wheezes *Routine Cardiovascular Exam Cardiovascular: Present RRR, Normal S1 and Normal S2 *Routine Abdominal Exam Abdominal: Present soft and normoactive bowel sounds *Routine Extremities Exam Extremities: Present full ROM; Absent cyanosis, clubbing or edema Progress Note: A&P Assessment and plan (1) Pneumonia: Status: Resolved (2) Immunocompromised state: Status: Acute (3) NSTEMI (non-ST elevated myocardial infarction): Status: Acute (4) Hyperlipidemia: Status: Acute (5) Hypertension: Status: Acute (6) Acute hypoxemic respiratory failure: Status: Acute (7) Multifocal pneumonia: Status: Acute Assessment and Plan Assessment and Plan for All Diagnoses:: Plan: 1. The patient was admitted to the hospital with multifocal pneumonia and acute hypoxemic respiratory failure. On IV antibiotics. Will defer to respiratory and the hospitalist. 2. The patient does have an elevated troponin consistent with a non-STEMI. The patient did have an abnormal stress test last week. The patient will need left cardiac catheterization once he has recovered from his pneumonia. This may be considered during this hospitalization or even once he is discharged once he has recovered from his pneumonia. 3. Continue aspirin 81 mg daily due to non-STEMI. 4. continue metoprolol due to non-STEMI. 5. Continue statin due to non-STEMI. 6. His blood pressure is well-controlled. Continue metoprolol and lisinopril. 7. His LDL goal is less than 55. He is on a statin. LDL is 39. 8. The patient does have autoimmune issues with a history of lupus, rheumatoid arthritis and lupus anticoagulant. He is on Eliquis. 9. Will repeat a limited echocardiogram today to reevaluate his EF. He did have a non-STEMI so we want to make sure he is not having a worsening ejection fraction. 10. Further recommendations will be made pending the patient's response to treatment Thank you for the opportunity to help participate in the care of this patient. All recommendations and orders are per Dr. Nielsen.
[2024-12-09] MEDS: HALOPERIDOL LACTATE 5 MG/ML VIAL 4 MG IV (14:23)
[2024-12-09 20:36] LABS: PTT Heparin (inpatient only) 41.8 Seconds (50-75)
[2024-12-09] MEDS: ATORVASTATIN 20MG TABLET 20 MG PO (20:42)
[2024-12-09] MEDS: HEPARIN 25,000 UNITS/D5W 500 ML 20 UNIT IV (20:43)
--- NOTE | 2024-12-09 21:54 | EXP.PN ---
Subjective *Date: 12/09/24 *Time: 21:54 Interval history: Overnight, Vapotherm escalated to 40 L 100%. Discussed with pulmonology, started Bactrim today. Continue itraconazole. Patient denies worsening shortness of breath. Exam Data for Last 24 hours Vital signs and Labs for Last 24 Hours: Temp Pulse Resp BP Pulse Ox O2 Del Method O2 Flow Rate 98.3 F 69 26 H 114/64 96 Vapotherm 40 12/09/24 20:00 12/09/24 20:30 12/09/24 20:30 12/09/24 20:00 12/09/24 20:30 12/09/24 20:30 12/09/24 20:30 FiO2 100 12/09/24 12:44 Laboratory Results - last 24 hr 12/09/24 05:30: WBC 11.4 H, RBC 2.58 L, Hgb 7.8 L, Hct 25.5 L, MCV 98.8 H, MCH 30.2, MCHC 30.6 L, RDW 15.4, Plt Count 208, MPV 10.2, Neut % (Auto) 83.8 H, Lymph % (Auto) 8.4 L, [place] % (Auto) 6.2, Eos % (Auto) 0.2, Baso % (Auto) 0.3, Neut # (Auto) 9.6 H, Lymph # (Auto) 1.0, [place] # (Auto) 0.7, Eos # (Auto) 0.0, Baso # (Auto) 0.0, ESR > 140 H, Sodium 134 L, Potassium 4.2, Chloride 105, Carbon Dioxide 23, Anion Gap 10.2, BUN 26 H, Creatinine 0.90, Estimated Creat Clear 90, Estimated GFR 83, Est GFR ( Amer) 100, Glucose 83, Calcium 8.6, Magnesium 1.7 D, Total Bilirubin 0.4, AST 69 H, ALT 29, Alkaline Phosphatase 67, Lactate Dehydrogenase 648 H, C-Reactive Protein 274.7 H, Total Protein 5.7 L, Albumin 3.0 L, Globulin 2.7, Albumin/Globulin Ratio 1.1, Vitamin B12 874, Folate 15.40, Procalcitonin 0.469 12/09/24 18:50: APTT 41.8 L I & O for Last 24 hours: Intake & Output 12/06/24 12/07/24 12/08/24 12/09/24 23:59 23:59 23:59 23:59 Intake Total 1350 / 1400 0 / 2 1052 / 1052 570 / 570 Output Total 0 / 0 1200 / 1200 1550 / 1550 Balance 1350 / 1400 1920 / 2 -148 / -148 -980 / -980 Weight 95.39 kg 97.568 kg 99.881 kg 96.479 kg Microbiology Reports for the Last 24 Hours: Microbiology 12/06/24 14:08 Transbronchial Biopsy - Right Middle Lobe Gram Stain - Final 12/06/24 14:08 Transbronchial Biopsy - Right Middle Lobe Surgical Biopsy Culture - Preliminary NO GROWTH AFTER 72 HOURS 12/04/24 10:53 Blood Blood Culture - Final NO GROWTH AFTER 5 DAYS 12/04/24 10:53 Blood Blood Culture - Final NO GROWTH AFTER 5 DAYS 12/07/24 18:50 Sputum - Expectorated Sputum Gram Stain - Final 12/07/24 18:50 Sputum - Expectorated Sputum Sputum Culture - Final Constitutional Constitutional: no acute distress *Routine HEENT Exam Head: Present normocephalic Eye: Present EOMI and PERRL ENT: Present mucous membranes moist *Routine Neck Exam Neck: Present supple; Absent lymphadenopathy *Routine Respiratory Exam Respiratory: Present crackles; Absent CTA bilaterally *Routine Cardiovascular Exam Cardiovascular: Present RRR *Routine Abdominal Exam Abdominal: Present soft and normoactive bowel sounds; Absent tenderness *Routine Extremities Exam Extremities: Absent cyanosis, clubbing or edema *Routine Skin Exam Skin: Present warm; Absent rash *Routine Neurological Exam Neurological: Present alert and oriented X3 Assessment and Plan *Assessment and plan (1) NSTEMI (non-ST elevated myocardial infarction): Status: Acute Category: Medical Code(s): I21.4 - Non-ST elevation (NSTEMI) myocardial infarction (2) Multifocal pneumonia: Status: Acute Category: Medical Code(s): J18.9 - Pneumonia, unspecified organism Plan Rakesh Paredes is a 74-year-old male with a medical history significant for hypertension, Lupus anticoagulant on Eliquis, hypertension, CAD, right carotid artery stenosis s/p endarterectomy who presents with a few days of worsening shortness of breath. He had been recently discharged from the hospital on October 25 for community-acquired pneumonia with Augmentin. Since then, he states he has never returned back to baseline and was evaluated by cardiology with a stress test was equivocal. Over the past few days, patient states he has been having nonproductive cough and shortness of breath. No fever/chills, chest pain. Workup in the ED significant for WBC 14.9 troponin 0.51, mini respiratory panel negative for COVID and flu. CTA chest does reveal worsening multifocal pneumonia. He is requiring 2 L for appropriate saturations. Case discussed with ED provider and decision was made to admit patient for pneumonia and NSTEMI. #Acute hypoxic respiratory failure #Suspected hospital-acquired pneumonia #Suspected fungal pneumonia ? Discharged a little over a month ago for pneumonia on Augmentin, patient states he felt better but never back to baseline and acutely worsened prior to admission. ? Initial CTA chest reveals multifocal pneumonia on admission, WBC 14.9. ? Pulmonology consulted, s/p bronchoscopy 12/06 with BAL and cultures. ? Over the past few days, patient's respiratory status has worsened escalating Vapotherm. Repeat CT chest revealed worsening multifocal pneumonia. Unlikely to be PE as patient has been on anticoagulation. ? Continue Vapotherm 40L 100%. ? Discussed with pulmonology, patient has a history of histoplasmosis. Continue itraconazole 100 mg twice daily day 2. ? Pulmonology agreed with starting IV Bactrim DS day 1, patient has a history immunosuppression with lupus anticoagulation on hydroxychloroquine, azathioprine. Both medications discontinued today. ? Continue cefepime day 6. Pulmonology discontinued vancomycin today. ? Pulmonology started IV Solu-Medrol 60 mg twice daily today. ? If pneumonia does not improve, can consider VZV pneumonia as patient's shingles flare in September was the same time patient began having symptoms of pneumonia. ? Follow-up Legionella urine antigen. ? Continue IV Lasix 40 mg daily. ? BAL cultures negative to date. #NSTEMI ? Troponins peaked at 0.51 downtrending 0.42. EKG without acute ischemic changes. ? Underwent cardiac stress test earlier this month which was equivocal. ? Cardiology consulted, will consider LHC prior to discharge. ? Continue aspirin, statin, metoprolol. # Recent shingles flare ? Per chart review, patient was started on prednisone 40 mg daily for 30days for giant cell arteritis. ? He recently had a shingles flare over the right yazdanism and behind the ear. Prednisone apparently has not been helping. ? Continue pregabalin. #History of DVT and lupus anticoagulant ? Transitioned to heparin drip per pulmonology recommendations as BAL aspirate was blood-tinged. ? Hold home hydroxychloroquine, azathioprine due to conservative venous pressure. #Hypothyroidism ? Continue home levothyroxine 125 mcg. #Hypertension ? BP stable at this time. Resume home medications once appropriate. Full code DVT prophylaxis: Therapeutic Lovenox
[2024-12-10] VITALS (22 sets, daily range): BP systolic 48–154; BP diastolic 29–93; PULSE 35–100; RESP 7–31; TEMP 36.9–37.1; O2SAT 75–95; BMI 29.2
[2024-12-10] MEDS: IPRATROPIUM/ALBUTEROL 3 ML NEB IH ×3 (00:19→10:50)
[2024-12-10] MEDS: CEFEPIME HCL 2 GM in 0.9 % SODIUM CHLORIDE 100 ML IV ×2 (00:32→07:37)
[2024-12-10 02:32] LABS: PTT Heparin (inpatient only) 56.2 Seconds (50-75)
[2024-12-10] MEDS: GUAIFENESIN/DEXTROMETHORPHAN 200MG/20MG 10ML UDC 5 ML PO (03:23)
[2024-12-10 06:15] LABS: Basophils % 0.2 % (0.1-2.0); Lymphocytes # 0.4 K/mm3 (0.7-4.5); Mean Corpuscular HGB Conc 31.1 g/dL (31.8-35.4); Mean Corpuscular Hemoglobin 30.5 pg (27.0-31.2); Mean Corpuscular Volume 98.2 fl (80-94); Mean Platelet Volume 10.3 fl (7.4-10.4); Monocytes # 0.4 K/mm3 (0.1-1.0); Monocytes % 3.2 % (1.7-9.3); Neutrophils # 12.8 K/mm3 (1.8-7.8); Neutrophils % 92.5 % (37.0-80.0); Platelet Count 244 K/mm3 (142-424); Red Blood Count 2.85 M/mm3 (4.60-6.20); White Blood Count 13.9 K/mm3 (4.8-10.8)
[2024-12-10 06:25] LABS: MANUAL DIFFERENTIAL MANUAL DIFFERENTIAL (MANUAL DIFF)
[2024-12-10 06:33] LABS: Hemoglobin 8.8 g/dL (14.1-18.0)
[2024-12-10 06:36] LABS: Alanine Aminotransferase 34 U/L (12-78); Albumin Level 3.4 g/dl (3.5-5.0); Albumin/Globulin Ratio 1.2 (1.1-1.8); Alkaline Phosphatase 78 U/L (38-126); Anion Gap 9.3 mEq/L (5-15); Aspartate Amino Transferase 72 U/L (17-59); Bilirubin,Total 0.4 mg/dl (0.2-1.3); Blood Urea Nitrogen 39 mg/dl (9-20); Calcium 9.2 mg/dl (8.4-10.2); Carbon Dioxide 25 mmol/L (22.0-30.0); Chloride 104 mmol/L (98-107); Creatinine Clearance Estimated 83 mL/min (50-200); Estimated Glomerular Filt Rate 66 ml/min (>60); GFR (African American) 79 ML/MIN (>60); Globulin 2.8 g/dL (1.3-3.2); Glucose 172 mg/dl (74-100); Magnesium 2.1 mg/dl (1.6-2.3); Potassium 4.3 mmoL/L (3.5-5.1); Sodium 134 mmol/L (136-145); Total Protein,Serum 6.2 g/dl (6.3-8.2)
[2024-12-10 06:42] LABS: Lactate Dehydrogenase 910 U/L (313-618)
[2024-12-10 07:19] LABS: Erythrocyte Sedimentation Rate > 140 mm/hr (0-20)
[2024-12-10] MEDS: LEVOTHYROXINE 125MCG (0.125MG) TAB 125 MCG PO (07:37)
--- NOTE | 2024-12-10 08:00 | PC.NURSE ---
[facility] recommended, pt. medically unable to sit at the side of the bed at this time due to oxygen status.
[2024-12-10 08:06] LABS: ABG Base Excess -5.2 mmol/L (-2.4-2.3); ABG HCO3 19.4 mmhg (22.0-26.0); ABG Oxygen Saturation 78 % (90-100); ABG PCO2 31.3 mmhg (35.0-45.0); ABG PH 7.41 mmol/L (7.35-7.45); ABG TCO2 20.4 mmhg (23-27)
--- NOTE | 2024-12-10 08:07 | XR_ITS ---
FINAL REPORT CLINICAL HISTORY: pna FINDINGS: PORTABLE CHEST, One view COMPARISON: None FINDINGS: Portable view of the chest demonstrates diffuse pulmonary opacities favor edema. There is no evidence of effusion, pneumothorax or other significant pleural disease. The mediastinum is unremarkable. The heart size is normal. IMPRESSION: Bilateral pulmonary opacities likely due to edema. Pneumonia not excluded. Authenticated and ERN
[2024-12-10 08:08] LABS: Allen's Test acceptable; Oxygen 100 %; Pressure Support Vapo 40L/100%; Source Left Radial
[2024-12-10 08:09] LABS: ABG PO2 45.4 mmhg (80-100)
[2024-12-10 08:13] LABS: C-Reactive Protein 331.3 mg/L (0-4)
--- NOTE | 2024-12-10 08:20 | PC.NURSE ---
Respiratory and Dr. Akins notified of pt. O2 saturation and ABG results. Orders to place pt. on CPAP at this time. ................................................
[2024-12-10] MEDS: DULOXETINE 30MG CAPSULE.DR 30 MG PO (08:21)
[2024-12-10] MEDS: METOPROLOL SUCCINATE XL 50MG TABLET 50 MG PO (08:21)
[2024-12-10] MEDS: LISINOPRIL 20MG TABLET 20 MG PO (08:21)
[2024-12-10] MEDS: ITRACONAZOLE 100MG CAPSULE 100 MG PO (08:21)
[2024-12-10] MEDS: MEMANTINE 10MG TABLET 10 MG PO (08:21)
[2024-12-10] MEDS: ASPIRIN 81MG CHEWABLE TABLET 81 MG PO (08:21)
[2024-12-10] MEDS: OXcarbazepine 300MG TABLET 300 MG PO (08:21)
[2024-12-10] MEDS: FUROSEMIDE 40MG/4ML VIAL 40 MG IV (08:22)
[2024-12-10] MEDS: METHYLPREDNISOLONE SOD SUCC 125MG VIAL 60 MG IV (08:22)
--- NOTE | 2024-12-10 08:32 | PC.NURSE ---
Pt. placed on CPAP. O2 saturation improved to >90%.
[2024-12-10] MEDS: PREGABALIN 25MG CAPSULE 75 MG PO (08:35)
[2024-12-10] MEDS: SULFAMETHOXAZOLE/TRIMETHOPRIM 10 ML in DEXTROSE 5 % IN WATER 250 ML 173.333 ML IV (08:42)
[2024-12-10 08:50] LABS: Lymphocytes % 4 % (10-50); Monocytes % 1 % (2-9); Neutrophils % 95 % (42-76); Platelet Estimate Normal; RBC Morphology Normal; Total Cells Counted 100
[2024-12-10 09:13] LABS: PTT Heparin (inpatient only) 49.5 Seconds (50-75)
[2024-12-10] MEDS: HEPARIN 25,000 UNITS/D5W 500 ML 22 UNIT IV (09:20)
--- NOTE | 2024-12-10 09:35 | EXP.PULM.PN ---
Subjective *Date: 12/10/24 *Time: 10:40 Interval history: Patient admits improving respiratory distress after escalating to an IV Pulmonology Exam Inpatient Vital signs and Labs for Last 24 Hours: Temp Pulse Resp BP Pulse Ox O2 Del Method O2 Flow Rate 98.4 F 100 H 30 H 117/69 77 L CPAP 40 12/10/24 08:00 12/10/24 08:00 12/10/24 08:00 12/10/24 08:00 12/10/24 08:00 12/10/24 09:00 12/10/24 08:00 FiO2 100 12/10/24 08:35 Laboratory Results - last 24 hr 12/09/24 05:30: Lactate Dehydrogenase 648 H 12/09/24 18:50: APTT 41.8 L 12/10/24 02:08: APTT 56.2 12/10/24 05:20: WBC 13.9 H, RBC 2.85 L, Hgb 8.8 L D, Hct 28.0 L, MCV 98.2 H, MCH 30.5, MCHC 31.1 L, RDW 15.0, Plt Count 244, MPV 10.3, Neut % (Auto) 92.5 H, Lymph % (Auto) 3.0 L, [place] % (Auto) 3.2, Eos % (Auto) 0.0 L, Baso % (Auto) 0.2, Neut # (Auto) 12.8 H, Lymph # (Auto) 0.4 L, [place] # (Auto) 0.4, Eos # (Auto) 0.0, Baso # (Auto) 0.0, Total Counted 100, Neutrophils % (Manual) 95 H, Lymphocytes % (Manual) 4 L, Monocytes % (Manual) 1 L, Platelet Estimate Normal, RBC Morphology Normal, ESR > 140 H, Sodium 134 L, Potassium 4.3, Chloride 104, Carbon Dioxide 25, Anion Gap 9.3, BUN 39 H D, Creatinine 1.10 D, Estimated Creat Clear 83, Estimated GFR 66, Est GFR ( Amer) 79 D, Glucose 172 H D, Calcium 9.2, Magnesium 2.1 D, Total Bilirubin 0.4, AST 72 H, ALT 34, Alkaline Phosphatase 78, Lactate Dehydrogenase 910 H, C-Reactive Protein 331.3 H, Total Protein 6.2 L, Albumin 3.4 L D, Globulin 2.8, Albumin/Globulin Ratio 1.2 12/10/24 08:05: Specimen Source Left radial, O2 % 100, ABG pH 7.41, ABG pCO2 31.3 L, ABG pO2 45.4 L, ABG HCO3 19.4 L, ABG Total CO2 20.4 L, ABG O2 Saturation 78 L*, ABG Base Excess -5.2 L, Carlos Enrique Test acceptable 12/10/24 08:10: APTT 49.5 L Temp Pulse Resp BP Pulse Ox O2 Del Method O2 Flow Rate 98.1 F 81 17 120/62 93 L Nasal Cannula 2 12/05/24 08:00 12/05/24 08:00 12/05/24 08:00 12/05/24 08:00 12/05/24 08:00 12/05/24 06:53 12/05/24 06:53 Laboratory Results - last 24 hr 12/04/24 10:53: WBC 14.9 H, RBC 3.49 L, Hgb 10.8 L, Hct 35.2 L, MCV 100.9 H, MCH 30.9, MCHC 30.7 L, RDW 16.0, Plt Count 326, MPV 9.8, Neut % (Auto) 83.6 H, Lymph % (Auto) 8.1 L, [place] % (Auto) 5.8, Eos % (Auto) 0.1, Baso % (Auto) 0.3, Neut # (Auto) 12.5 H, Lymph # (Auto) 1.2, [place] # (Auto) 0.9, Eos # (Auto) 0.0, Baso # (Auto) 0.1, PT 11.2, INR 1.02, APTT 28.8 H, Sodium 137, Potassium 4.3, Chloride 100, Carbon Dioxide 29, Anion Gap 12.3, BUN 31 H, Creatinine 1.10, Estimated Creat Clear 84, Estimated GFR 66, Est GFR ( Amer) 79, Glucose 115 H, Calcium 9.5, Magnesium 1.9, Total Bilirubin 0.6, AST 71 H, ALT 38, Alkaline Phosphatase 78, Troponin I 0.51 H, NT-Pro-B Natriuret Pep 591 H, Total Protein 6.7, Albumin 4.0, Globulin 2.7, Albumin/Globulin Ratio 1.5, Procalcitonin 0.085, SARS-CoV-2 (PCR) Not detected, Influenza A Untype (PCR) Not detected, Influenza Type B (PCR) Not detected 12/04/24 11:26: VBG pH 7.45 H, VBG pCO2 34.8 L, VBG pO2 104.8 H, VBG HCO3 23.4, VBG Total CO2 24.5, VBG O2 Saturation 97.6 H, VBG Base Excess -0.6, VBG Lactic Acid 1.5 12/04/24 13:51: Troponin I 0.48 H, C-Reactive Protein 86.8 H 12/04/24 17:30: Troponin I 0.42 H 12/05/24 06:35: WBC 9.9 D, RBC 2.83 L, Hgb 8.9 L D, Hct 28.3 L, MCV 100.0 H, MCH 31.1, MCHC 31.1 L, RDW 16.0, Plt Count 231 D, MPV 9.8, Neut % (Auto) 76.1, Lymph % (Auto) 14.3, [place] % (Auto) 7.4, Eos % (Auto) 0.3, Baso % (Auto) 0.2, Neut # (Auto) 7.5, Lymph # (Auto) 1.4, [place] # (Auto) 0.7, Eos # (Auto) 0.0, Baso # (Auto) 0.0, Sodium 132 L, Potassium 3.9, Chloride 101, Carbon Dioxide 30, Anion Gap 4.9 L, BUN 30 H, Creatinine 1.10, Estimated Creat Clear 81, Estimated GFR 66, Est GFR ( Amer) 79, Glucose 89 D, Calcium 8.6, Magnesium 2.2 D, Total Bilirubin 0.5, AST 54, ALT 28 D, Alkaline Phosphatase 64, Total Protein 5.6 L, Albumin 3.2 L D, Globulin 2.4, Albumin/Globulin Ratio 1.3 I & O for Labs for Last 24 Hours: Intake & Output 12/07/24 12/08/24 12/09/24 12/10/24 23:59 23:59 23:59 23:59 Intake Total 1920 / 2142 1052 / 1052 570 / 970 400 / 400 Output Total 1200 / 1200 1550 / 1550 400 / 400 Balance 1920 / 2 -148 / -148 -980 / -580 0 / 0 Weight 215 lb 1.6 oz 220 lb 3.2 oz 212 lb 11.196 oz 216 lb 0.848 oz Intake & Output 12/02/24 12/03/24 12/04/24 12/05/24 23:59 23:59 23:59 23:59 Intake Total 0 / 420 420 / 420 Output Total 0 / 0 0 / 0 Balance 0 / 420 420 / 420 Weight 211 lb 6 oz 212 lb Microbiology Reports for the Last 24 Hours: Microbiology 12/06/24 14:08 Transbronchial Biopsy - Right Middle Lobe Gram Stain - Final 12/06/24 14:08 Transbronchial Biopsy - Right Middle Lobe Surgical Biopsy Culture - Preliminary NO GROWTH AFTER 72 HOURS 12/04/24 10:53 Blood Blood Culture - Final NO GROWTH AFTER 5 DAYS 12/04/24 10:53 Blood Blood Culture - Final NO GROWTH AFTER 5 DAYS 12/07/24 18:50 Sputum - Expectorated Sputum Gram Stain - Final 12/07/24 18:50 Sputum - Expectorated Sputum Sputum Culture - Final Constitutional: Present severe distress Head: Present normocephalic and atraumatic ENT: Present normal exam, normal oropharynx and mucous membranes moist Neck: Present normal inspection and full ROM Respiratory: Present respiratory distress; Absent rhonchi, wheezes, crackles or able to speak in complete sentences Cardiac: Present S1/S2, Tachycardia and radial pulses present GI: Present soft and distention; Absent tenderness or guarding Skin: Present intact; Absent cyanosis or jaundice Neuro: Present alert, awake and oriented x 3 Extremities: Present normal inspection; Absent clubbing or cyanosis Psychiatric: Present normal affect and cooperative Assessment and Plan *Assessment and plan (1) Pneumonia: Status: Resolved Qualifiers: Laterality: bilateral Pneumonia type: due to unspecified organism Category: Medical Code(s): J18.9 - Pneumonia, unspecified organism (2) Immunocompromised state: Status: Acute Category: Medical Code(s): D84.9 - Immunodeficiency, unspecified Plan Mr. 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 Patient admits gradual worsening respiratory distress. Admits chronic cough with no significant productive phlegm. Denies any subjective fevers or chills. Mild neutrophilic predominant leukocytosis upon admission improving. Pro-Dmitri within normal limits. CRP at 86.8. COVID-19 and flu PCR panel negative CTA upon admission no evidence of pulmonary embolism. Worsening multifocal patchy airspace disease compared to his most recent CT chest from 10/24/2024. Serum fungal serologies and serum beta D glucan negative on [place] from his most recent admission from October 2024. Patient completed a 7-day course of Augmentin on his most recent admission. Interval Update: Status post bronchoscopy. Significant worsening respiratory distress now needing high flow nasal oxygen supplement Slight worsening leukocytosis neutrophilic predominant. Lymphopenia noted. Peripheral eosinophil counts at 0. Repeat CT chest without contrast along with the previously noted patchy airspace disease patient now noted to have bilateral diffuse groundglass opacities. Gram stain biopsy cultures no growth 48 hours. Nasal MRSA PCR negative. Blood cultures no growth 4 days. CRP continue to increase. Interval update: No significant improvement in the noted respiratory status. Initiated on steroids and Bactrim yesterday. CRP continued to worsen. Biopsy showed organizing pneumonia with obvious evidence of bacterial or fungal elements. Chest x-ray from this morning continues to bilateral diffuse airspace disease with no significant improvement from yesterday. Plan: -High flow escalated to AVAPS, currently at tidal volume of 440, EPAP of 6, IPAP range 8-12. Respiratory rate at 20. -Follow-up with lung biopsy AFB fungal and silver staining results. -DuoNebs every 6 hours scheduled -Continue cefepime. -Continue itraconazole 100 twice daily -Continue Bactrim DS IV twice daily -Methylprednisolone 60 mg IV every 12 hours -Discontinue hydroxychloroquine and azathioprine Continue heparin drip. Previously on Eliquis. History of DVT and concern for lupus anticoagulant Continue Lasix 40 twice daily -Follow with final pathology results Total critical care time spent on this patient is 35 minutes managing acute hypoxic respiratory failure needing NIV for oxygen supplementation. This time spent include reviewing test results including interpreting chest x-rays, labs and ,formulating plan of care, discussing the plan of care with the team and the nursing staff.
[2024-12-10] MEDS: METHYLPREDNISOLONE SOD SUCC 125MG VIAL 125 MG IV (09:54)
--- NOTE | 2024-12-10 10:34 | DIET.NUTRFU ---
RD consulted for yolis score of 13-15. Patient is on regular diet, meal intake has declined since Monday to almost nothing. He has required more breathing tx and limits opportunity to eat. This morning he was unable to be off Vapotherm and for lunch he will be on BiPap. Spoke to family and patient today, reviewed with supplements or high calorie foods are available. Started ensure with trays so he can sip as able dependent on breathing tx. was also requesting applesauce with trays. Notified kitchen. NO BM noted since 12/05, miralax was started yesterday. He denies any discomfort at this time. Miralax was not given this AM
--- NOTE | 2024-12-10 11:28 | PC.NURSE ---
Bladder scan showed pt. has approx. 250 ml in his bladder. [place] in place. Discussed trying to urinate.
--- NOTE | 2024-12-10 11:37 | PC.NURSE ---
Respiratory called due to pt. increased respiratory rate and increased work of breathing.
--- NOTE | 2024-12-10 11:40 | PC.NURSE ---
Respiratory at bedside to adjust CPAP machine mask. Pt. states the mask feels more comfortable.
[2024-12-10] MEDS: HALOPERIDOL LACTATE 5 MG/ML VIAL 4 MG IV (11:45)
--- NOTE | 2024-12-10 12:09 | XR_ITS ---
FINAL REPORT CLINICAL HISTORY: sudden changes, shortness of breath, DNR/DNI COMPARISON: 4 hours prior FINDINGS: A single frontal view of the chest was obtained. Bilateral pulmonary opacities are suspicious for worsening edema. There is no evidence of pneumothorax or pleural effusion. Mediastinum is unremarkable. Heart size is enlarged. IMPRESSION: Worsening lung disease. Reviewed, Interpreted and Dictated by Jeannine Donato MD Transcribed by Francy Caal Authenticated and . [facility]
--- NOTE | 2024-12-10 12:10 | PC.NURSE ---
Layla called RAD at 1208 for a STAT xray
--- NOTE | 2024-12-10 12:11 | PC.NURSE ---
RAD at BS for portable STAT chest xray
--- NOTE | 2024-12-10 12:21 | EXP.CARD.PN ---
Subjective Subjective Date: 12/10/24 Time: 10:30 Principal diagnosis: Pneumonia, elevated troponins Interval history: Patient remains short of breath today but does state that her shortness of breath is better now that he has been placed on CPAP. He denies any chest pain or pressure. He denies any lower extremity edema. He denies any fever, chills, nausea, vomiting or diarrhea. He is satting around 90% on the CPAP. Patient declines being intubated. Exam Data for Last 24 hours Vital signs and Labs for Last 24 Hours: Temp Pulse Resp BP Pulse Ox O2 Del Method O2 Flow Rate 98.4 F 85 20 117/69 88 L BiPAP 40 12/10/24 08:00 12/10/24 10:50 12/10/24 10:50 12/10/24 08:00 12/10/24 10:50 12/10/24 10:50 12/10/24 08:00 FiO2 100 12/10/24 10:50 Laboratory Results - last 24 hr 12/09/24 18:50: APTT 41.8 L 12/10/24 02:08: APTT 56.2 12/10/24 05:20: WBC 13.9 H, RBC 2.85 L, Hgb 8.8 L D, Hct 28.0 L, MCV 98.2 H, MCH 30.5, MCHC 31.1 L, RDW 15.0, Plt Count 244, MPV 10.3, Neut % (Auto) 92.5 H, Lymph % (Auto) 3.0 L, [place] % (Auto) 3.2, Eos % (Auto) 0.0 L, Baso % (Auto) 0.2, Neut # (Auto) 12.8 H, Lymph # (Auto) 0.4 L, [place] # (Auto) 0.4, Eos # (Auto) 0.0, Baso # (Auto) 0.0, Total Counted 100, Neutrophils % (Manual) 95 H, Lymphocytes % (Manual) 4 L, Monocytes % (Manual) 1 L, Platelet Estimate Normal, RBC Morphology Normal, ESR > 140 H, Sodium 134 L, Potassium 4.3, Chloride 104, Carbon Dioxide 25, Anion Gap 9.3, BUN 39 H D, Creatinine 1.10 D, Estimated Creat Clear 83, Estimated GFR 66, Est GFR ( Amer) 79 D, Glucose 172 H D, Calcium 9.2, Magnesium 2.1 D, Total Bilirubin 0.4, AST 72 H, ALT 34, Alkaline Phosphatase 78, Lactate Dehydrogenase 910 H, C-Reactive Protein 331.3 H, Total Protein 6.2 L, Albumin 3.4 L D, Globulin 2.8, Albumin/Globulin Ratio 1.2 12/10/24 08:05: Specimen Source Left radial, O2 % 100, ABG pH 7.41, ABG pCO2 31.3 L, ABG pO2 45.4 L, ABG HCO3 19.4 L, ABG Total CO2 20.4 L, ABG O2 Saturation 78 L*, ABG Base Excess -5.2 L, Carlos Enrique Test acceptable 12/10/24 08:10: APTT 49.5 L I & O for Last 24 hours: Intake & Output 12/07/24 12/08/24 12/09/24 12/10/24 23:59 23:59 23:59 23:59 Intake Total 1920 / 2142 1052 / 1052 570 / 970 520 / 520 Output Total 1200 / 1200 1550 / 1550 400 / 400 Balance 0 / 2141 -148 / -148 -980 / -580 120 / 120 Weight 215 lb 1.6 oz 220 lb 3.2 oz 212 lb 11.196 oz 216 lb 0.848 oz Microbiology Reports for the Last 24 Hours: Microbiology 12/06/24 14:08 Transbronchial Biopsy - Right Middle Lobe Gram Stain - Final 12/06/24 14:08 Transbronchial Biopsy - Right Middle Lobe Surgical Biopsy Culture - Preliminary NO GROWTH AFTER 72 HOURS 12/04/24 10:53 Blood Blood Culture - Final NO GROWTH AFTER 5 DAYS 12/04/24 10:53 Blood Blood Culture - Final NO GROWTH AFTER 5 DAYS 12/07/24 18:50 Sputum - Expectorated Sputum Gram Stain - Final 12/07/24 18:50 Sputum - Expectorated Sputum Sputum Culture - Final Constitutional Constitutional: mild distress and chronically ill appearing *Routine Respiratory Exam Respiratory: Present decreased breath sounds and respiratory distress; Absent wheezes *Routine Cardiovascular Exam Cardiovascular: Present RRR, Normal S1 and Normal S2 *Routine Abdominal Exam Abdominal: Present soft and normoactive bowel sounds *Routine Extremities Exam Extremities: Present full ROM; Absent cyanosis, clubbing or edema Progress Note: A&P Assessment and plan (1) Pneumonia: Status: Resolved (2) Immunocompromised state: Status: Acute (3) NSTEMI (non-ST elevated myocardial infarction): Status: Acute (4) Acute hypoxemic respiratory failure: Status: Acute (5) Multifocal pneumonia: Status: Acute (6) History of rheumatoid arthritis: Status: Acute (7) Hyperlipidemia: Status: Acute (8) Hypertension: Status: Acute (9) Elevated troponin: Status: Acute (10) Dyspnea: Status: Acute Assessment and Plan Assessment and Plan for All Diagnoses:: Plan: 1. The patient was admitted to the hospital with multifocal pneumonia and acute hypoxemic respiratory failure. On IV antibiotics and CPAP. Will defer to respiratory and the hospitalist. 2. The patient does have an elevated troponin consistent with a non-STEMI. The patient did have an abnormal stress test last week. The patient will need left cardiac catheterization once he has recovered from his pneumonia and respiratory failure. This may be considered during this hospitalization or even once he is discharged once he has recovered from his pneumonia. 3. Continue aspirin 81 mg daily due to non-STEMI. 4. continue metoprolol due to non-STEMI. 5. Continue statin due to non-STEMI. 6. His blood pressure is well-controlled. Continue metoprolol and lisinopril. 7. His LDL goal is less than 55. He is on a statin. LDL is 39. 8. The patient does have autoimmune issues with a history of lupus, rheumatoid arthritis and lupus anticoagulant. He is on Eliquis. 9. Limited echocardiogram yesterday shows his ejection fraction remains at 60%. He does of a trivial posterior pericardial effusion. No tamponade. Continue IV Lasix. 10. Further recommendations will be made pending the patient's response to treatment Thank you for the opportunity to help participate in the care of this patient. All recommendations and orders are per Dr. Nielsen.
--- NOTE | 2024-12-10 12:29 | P.DN_ITS ---
Pronouncement Note Date and Time of Date of : 12/10/24 Time of : 12:15 PCOD Preliminary cause of : Respiratory arrest Contributing Factors (1) Pneumonia: (2) Immunocompromised state: (3) NSTEMI (non-ST elevated myocardial infarction): (4) Acute hypoxemic respiratory failure: (5) Multifocal pneumonia: (6) History of rheumatoid arthritis: (7) Hyperlipidemia: (8) Hypertension: (9) Elevated troponin: (10) Dyspnea: Summary Additional details: Rakesh Paredes is a 74-year-old male with a medical history significant for hypertension, Lupus anticoagulant on Eliquis, hypertension, CAD, right carotid artery stenosis s/p endarterectomy who presents with a few days of worsening shortness of breath. He had been recently discharged from the hospital on October 25 for community-acquired pneumonia with Augmentin. Since then, he states he has never returned back to baseline and was evaluated by cardiology with a stress test was equivocal. Over the past few days, patient states he has been having nonproductive cough and shortness of breath. No fever/chills, chest pain. Workup in the ED significant for WBC 14.9 troponin 0.51, mini respiratory panel negative for COVID and flu. CTA chest does reveal worsening multifocal pneumonia. Had increased oxygen requirement during admission. Was being treated for acute hypoxemic respiratory failure due to suspected hospital- acquired pneumonia with possible fungal component. Pulmonology was consulted to assist with care. Patient's white count had gone up to 13.9. Due to goals of care, he had remained on Vapotherm maxed out at 100% overnight with O2 sats no better than the 80s. Decision made to escalate to noninvasive positive pressure ventilation in light of persistent hypoxia. Patient showed some improvement on morning of his with O2 sats in the 90s and appeared more comfortable but subsequently began to decompensate and had an abrupt change in his respiratory rate. Became unresponsive, and began agonal breathing. Patient stopped moving volumes on CPAP. Chest x-ray was obtained that showed no pneumothorax, just diffuse worsening bilateral airspace disease and edema. In line with patient's goals of care, resuscitative measures were not taken. Patient from respiratory arrest. Conditions as follows: #Acute hypoxic respiratory failure #Suspected hospital-acquired pneumonia #Suspected fungal pneumonia ? Discharged a little over a month ago for pneumonia on Augmentin, patient states he felt better but never back to baseline and acutely worsened prior to admission. ? Initial CTA chest reveals multifocal pneumonia on admission, WBC 14.9. Pulmonology consulted, s/p bronchoscopy 12/06 with BAL and cultures. ? Over the past few days, patient's respiratory status has worsened escalating Vapotherm. Repeat CT chest revealed worsening multifocal pneumonia. Unlikely to be PE as patient has been on anticoagulation. ? Escalated to CPAP with 100% FiO2. Showing some improvement in ability to oxygenate with O2 sats in the 90s. Tolerated this for 6 to 8 hours before developing abrupt change clinically. Given patient's history of histoplasmosis, he was being treated with itraconazole. Pathogens suspicious include hospital- acquired pathogens causing his pneumonia, viral such as VZV pneumonia due to re cent flare of shingles in September, fungal pneumonia such as histoplasmosis, or opportunistic infections due to his immunosuppressed status such as pneumocystis. Patient on broad antimicrobial therapy and steroids however had worsening status. #NSTEMI ? Troponins peaked at 0.51 downtrending 0.42. EKG without acute ischemic changes. Underwent cardiac stress test earlier this month which was equivocal. Cardiology recommended considering left heart cath prior to discharge. Unfortunately patient not stable enough to proceed. Was being treated with aspirin, statin, metoprolol # Recent shingles flare ? Per chart review, patient was started on prednisone 40 mg daily for 30days for giant cell arteritis. He recently had a shingles flare over the right congregational and behind the ear. #History of DVT and lupus anticoagulant ? Transitioned to heparin drip per pulmonology recommendations as BAL aspirate was blood-tinged. #Hypothyroidism ? Continued home levothyroxine 125 mcg. #Hypertension ? BP stable at this time. Only on metoprolol. Holding other blood pressure meds Was on heparin drip for history of DVT in the setting of lupus anticoagulant. No active signs of bleeding. Inflammatory markers remained elevated with ESR greater than 140 and CRP of 330 Kidney function was relatively at baseline with BUN 39, creatinine 1.1. Additional Data Confirmation of : no pulse, no respirations, no heart sounds and pupils fixed and dilated Family: at bedside Attending/PCP notified?: Yes Attending physician: Felton Akins MD Was code activated?: No (rapid response initiated, but not code. Pt was DNR/DNI) Autopsy should be considered if:: Unknown or unanticipated medical complications Cause is not known with certainty on clinical grounds Would allay concerns of the public/family regarding Unexplained/unexpected apparently natural and not subject to a forensic medical jurisdiction DOA Within 24 hours of admission Sustained or apparently sustained injury while in the hospital Result of high risk, infectious and contagious disease Obstetric and pediatric arising from environmental or occupational hazard Unexplained/unexpected from dental, medical, or surgical diagnostic procedures and/or therapies Would disclose a known or suspected illness which also may have a bearing on survivors or recipients of transplanted organs Autopsy requested?: No Does not meet criteria driver examiner notified?: Yes Organ bank notified?: Yes Advance directives: No
--- NOTE | 2024-12-10 12:50 | PC.NURSE ---
Andrzej Contacted. Pt. declined due to sepsis. Spoke with Robina Holland. .
--- NOTE | 2024-12-10 14:38 | PC.NURSE ---
Betsey contacted for pt. pick-up.
[2024-12-11 15:10] LABS: Legionella pneumophila Urinary Negative (Negative)
[2024-12-12 12:12] LABS: Clinical Relevance Notes (.); Disclaimer Notes (.); Fungitell Value < 31.25 pg/mL (.); Interpretation Notes (.); Result Negative (.)
[2024-12-12 16:19] LABS: Histoplasma Antibody Quant Negative (Neg:<1:1)
[2024-12-12 21:09] LABS: Legionella pneumophila Abs. Non Reactive (Non Reactive)
[2024-12-13 16:12] LABS: Histoplasma Gal'mannan Ag Ur Negative (<0.2 ng/mL)
== END 2024-12-10 15:45 | disposition expired | DRG 166 ==
LOC: ER 13:54 → 2ND 15:07 → ICU 12-08 11:44
PROVIDERS: Internal Medicine Pulmonary Disease; Nurse Practitioner Family; Admitting Provider Student in an Organized Health Care Education/Training Program; Emergency Provider Emergency Medicine; PCP Family Medicine; Visit Provider Student in an Organized Health Care Education/Training Program
PROC: 0BBC8ZX Excision of Right Upper Lung Lobe, Via Natural or Artificial Opening Endoscopic, Diagnostic (ICD-10-PCS; principal; 2024-12-06 11:00)
DX: J18.9 Pneumonia, unspecified organism (principal); I21.4 Non-ST elevation (NSTEMI) myocardial infarction; J96.01 Acute respiratory failure with hypoxia; D84.9 Immunodeficiency, unspecified; I10 Essential (primary) hypertension; E78.2 Mixed hyperlipidemia; I65.21 Occlusion and stenosis of right carotid artery; I25.10 Atherosclerotic heart disease of native coronary artery without angina pectoris; Z86.718 Personal history of other venous thrombosis and embolism; E03.9 Hypothyroidism, unspecified; M32.9 Systemic lupus erythematosus, unspecified; M06.9 Rheumatoid arthritis, unspecified; K75.4 Autoimmune hepatitis; Z82.49 Family history of ischemic heart disease and other diseases of the circulatory system; Z79.01 Long term (current) use of anticoagulants; Z96.651 Presence of right artificial knee joint; Z79.899 Other long term (current) drug therapy; B39.9 Histoplasmosis, unspecified; Y95 Nosocomial condition; M31.6 Other giant cell arteritis; B02.9 Zoster without complications
CPT/HCPCS: 36415; 71045; 71250; 71275; 76000; 80053; 80202; 82607; 82746; 82803; 83036; 83615; 83735; 83880; 84145; 84439; 84443; 84484; 85007; 85025; 85610; 85651; 85730; 86140; 86698; 86713; 87040; 87070; 87081; 87102; 87116; 87186; 87205; 87206; 87385; 87449; 87633; 87636; 89051; 93005; 93308; 94640; 94660; 94760; 94761; 99291; J3490; J0692; J0696; J1100; J1630; J1650; J1940; J2405; J2919; J3010; J3370; J3372; J3475; J7060; J7620; Q9967